=== PATIENT | female | born 1960 | race American Indian/Alaskan Native ===

== ENCOUNTER 2019-12-01 05:50 | Emergency (ER) | payer MEDICARE | END 2019-12-01 07:00 | disposition left against medical advice (07) | LOC: ED 05:50 | DX: M79.89 Other specified soft tissue disorders (principal); R06.00 Dyspnea, unspecified; Z53.21 Procedure and treatment not carried out due to patient leaving prior to being seen by health care provider ==

== ENCOUNTER 2020-03-15 11:33 | Inpatient (IN) | payer MEDICARE ==
--- NOTE | 2020-03-15 12:34 | Emergency Department Report ---
ED Shortness of Breath HPI - General Chief Complaint: Dyspnea/Respdistress Stated Complaint: GENERAL ILLNESS Time Seen by Provider: 03/15/20 12:17 Source: patient, EMS Mode of arrival: Stretcher Limitations: No Limitations - History of Present Illness Initial Comments: 59-year-old female, history of lupus, ESRD, CHF, hypertension, presents to ED from assisted living facility with URI symptoms. Patient reports cough, fever, headache x4 days. Patient reports she had a fever of 103. Patient did not go to dialysis today because she does not feel well. Patient reports only mild shortness of breath. She states several people at her facility had tested positive for COVID-19. Patient tested negative for COVID-19 on yesterday. She denies any chest pain, vomiting, diarrhea, loss of smell or taste. Patient was last dialyzed 2 days ago. EMS reports O2 sat 88% on room air. She was then placed on 3 L by EMS. MD Complaint: cough -: days(s) (4) Severity: moderate Consistency: constant Improves With: nothing Worsens With: nothing Known History Of: congestive heart failure Associated Symptoms: fever, cough Treatments Prior to Arrival: oxygen - Related Data Home Medications Medication Instructions Recorded Confirmed Last Taken Aspirin [Adult Aspirin] 81 mg PO DAILY 12/02/19 12/02/19 Unknown AtorvaSTATin 10 mg PO QHS 12/02/19 12/02/19 Unknown Clopidogrel [Plavix] 75 mg PO QDAY 12/02/19 12/02/19 Unknown Folic Acid 0.4 mg PO QDAY 12/02/19 12/02/19 Unknown Omeprazole 20 mg PO DAILY 12/02/19 12/02/19 Unknown amLODIPine 10 mg PO DAILY 12/02/19 12/02/19 Unknown azaTHIOprine [Azathioprine] 50 mg PO DAILY 12/02/19 12/02/19 Unknown calcitrioL [Rocaltrol] 1 mcg PO QDAY 12/02/19 12/02/19 Unknown prednisoLONE [Millipred 5mg (12 20 mg PO QDAY 12/02/19 12/02/19 Unknown day - 48 tab dosepak)] Previous Rx's Medication Instructions Recorded Last Taken Type Furosemide [Lasix TAB] 80 mg PO QDAY #30 tablet 12/10/19 Unknown Rx Metoprolol [Lopressor TAB] 50 mg PO BID #60 tablet 12/10/19 Unknown Rx Valsartan [Diovan] 160 mg PO BID #60 tablet 12/10/19 Unknown Rx cloNIDine [Catapres] 0.2 mg PO Q8HR #90 tablet 12/10/19 Unknown Rx hydrALAZINE [Apresoline TAB] 50 mg PO Q8HR #180 tablet 12/10/19 Unknown Rx minoxidiL [Loniten] 5 mg PO QDAY #30 tablet 12/10/19 Unknown Rx Allergies Allergy/AdvReac Type Severity Reaction Status Date / Time No Known Allergies Allergy Unverified 12/01/19 05:58 ED Review of Systems ROS: Stated complaint: GENERAL ILLNESS Other details as noted in HPI Comment: All other systems reviewed and negative Constitutional: chills, fever Respiratory: cough, shortness of breath Neurological: headache ED Past Medical Hx - Past Medical History Previous Medical History?: Yes Hx Hypertension: Yes Hx Congestive Heart Failure: Yes Hx Renal Disease: Yes (HD T TH S) Additional medical history: Lupus - Surgical History Additional Surgical History: right chest wall permacath - Social History Smoking Status: Never Smoker Substance Use Type: None - Medications Home Medications: Home Medications Medication Instructions Recorded Confirmed Last Taken Type Aspirin [Adult Aspirin] 81 mg PO DAILY 12/02/19 12/02/19 Unknown History AtorvaSTATin 10 mg PO QHS 12/02/19 12/02/19 Unknown History Clopidogrel [Plavix] 75 mg PO QDAY 12/02/19 12/02/19 Unknown History Folic Acid 0.4 mg PO QDAY 12/02/19 12/02/19 Unknown History Omeprazole 20 mg PO DAILY 12/02/19 12/02/19 Unknown History amLODIPine 10 mg PO DAILY 12/02/19 12/02/19 Unknown History azaTHIOprine [Azathioprine] 50 mg PO DAILY 12/02/19 12/02/19 Unknown History calcitrioL [Rocaltrol] 1 mcg PO QDAY 12/02/19 12/02/19 Unknown History prednisoLONE [Millipred 5mg (12 20 mg PO QDAY 12/02/19 12/02/19 Unknown History day - 48 tab dosepak)] Furosemide [Lasix TAB] 80 mg PO QDAY #30 tablet 12/10/19 Unknown Rx Metoprolol [Lopressor TAB] 50 mg PO BID #60 tablet 12/10/19 Unknown Rx Valsartan [Diovan] 160 mg PO BID #60 tablet 12/10/19 Unknown Rx cloNIDine [Catapres] 0.2 mg PO Q8HR #90 tablet 12/10/19 Unknown Rx hydrALAZINE [Apresoline TAB] 50 mg PO Q8HR #180 tablet 12/10/19 Unknown Rx minoxidiL [Loniten] 5 mg PO QDAY #30 tablet 12/10/19 Unknown Rx ED Physical Exam - General Limitations: No Limitations General appearance: alert, in no apparent distress - Head Head exam: Present: atraumatic, normocephalic - Eye Eye exam: Present: normal appearance, EOMI - ENT ENT exam: Present: mucous membranes moist - Neck Neck exam: Present: normal inspection - Respiratory Respiratory exam: Present: respiratory distress (mild), other (tachypnea present) - Cardiovascular Cardiovascular Exam: Present: regular rate, normal rhythm - GI/Abdominal GI/Abdominal exam: Present: soft. Absent: distended, tenderness - Extremities Exam Extremities exam: Present: other (2+ pitting edema BLE) - Neurological Exam Neurological exam: Present: alert, oriented X3 - Psychiatric Psychiatric exam: Present: normal affect, normal mood - Skin Skin exam: Present: warm, dry, intact, normal color ED Course Vital Signs 03/15/20 03/15/20 03/15/20 11:57 12:00 12:29 Temperature 99.7 F H Pulse Rate 80 Respiratory 19 24 Rate Blood Pressure 143/62 Blood Pressure [Left] O2 Sat by Pulse 100 100 87 Oximetry 03/15/20 13:15 Temperature Pulse Rate 77 Respiratory 26 H Rate Blood Pressure Blood Pressure 144/65 [Left] O2 Sat by Pulse 100 Oximetry ED Medical Decision Making - Lab Data Result diagrams: 03/15/20 14:12 03/15/20 12:26 - EKG Data -: EKG Interpreted by [facility] EKG shows normal: sinus rhythm, axis, intervals, QRS complexes - Radiology Data Radiology results: report reviewed, image reviewed - Medical Decision Making 59-year-old female presents to ED with URI symptoms. She reports fever at home. Patient actively coughing on exam. Patient is hypoxic, 87% on room air. States she tested negative for COVID-19 on yesterday at her assisted living facility. Chest x-ray shows some pulmonary edema. Potassium is normal. Spoke with patient's in home baby sitter, Dr. Hong, who agrees to see the patient and dialyz ed. Patient will also be a Covid PUI. Blood cultures drawn, Covid markers sent, patient given Rocephin, azithromycin, and Decadron. Patient will be admitted to hospitalist, Dr. Trevino, for further management. - Differential Diagnosis COVID-19, pulmonary edema, pleural effusion Critical Care Time: Yes Critical care time in (mins) excluding proc time.: 35 Critical care attestation.: If time is entered above; I have spent that time in minutes in the direct care of this critically ill patient, excluding procedure time. Critical Care Time: 35 min ED Disposition Clinical Impression: Acute hypoxemic respiratory failure, Pulmonary edema, Suspected 2019 novel coronavirus infection Disposition: OP ADMIT IP TO THIS HOSP Is pt being admited?: Yes Condition: Stable Time of Disposition: 14:26
--- NOTE | 2020-03-15 13:10 | XRay Report ---
CHEST 1 VIEW 03/15/2020 12:03 PM INDICATION / CLINICAL INFORMATION: cough. COMPARISON: 12/05/19 FINDINGS: SUPPORT DEVICES: Right PermCath is unchanged. HEART / MEDIASTINUM: Heart is enlarged but stable. LUNGS / PLEURA: Mild interstitial edema with tiny right pleural effusion. No pneumothorax. ADDITIONAL FINDINGS: No significant additional findings. IMPRESSION: 1. Stable cardiomegaly with tiny right pleural effusion. Signer Name: Renata Patrick MD Signed: 03/15/2020 1:05 PM Workstation Name: [id number]
[2020-03-15 13:52] LABS: INR 1.03 (0.87-1.13)
[2020-03-15 13:53] LABS: Partial Thromboplastin Time 37.2 Sec. (24.2-36.6)
[2020-03-15 13:57] LABS: Alanine Aminotransferase 7 units/L (7-56); Blood Urea Nitrogen 69 mg/dL (7-17); Calcium 9.5 mg/dL (8.4-10.2); Hemolysis Index 3
--- NOTE | 2020-03-15 14:01 | History and Physical Report ---
History of Present Illness Date of examination: 03/15/20 Date of admission: 03/15/2020 Chief complaint: Cough Fever Shortness of Breath History of present illness: 59-year-old female with known history of end-stage renal disease on dialysis- Mondays, Wednesdays and Fridays, lupus, CHF, presenting to the emergency room today from an assisted living facility with cough fever headache which has been ongoing for about 4 days. She did not go to dialysis today because she was not feeling quite well. She had a fever of about 103 F. She also also has some mild shortness of breath. Patient indicates that several people at the facility had tested positive for COVID-19. She tested negative for COVID-19 yesterday. Patient denies any chest pain, no nausea vomiting, no loss of taste or smell, no diarrhea and no abdominal pain. In route to the hospital patient oxygen saturation was about 88% on room air she was subsequently placed on 2 L of oxygen. Work-up in the emergency room today chest x-ray reveals pulmonary edema. District Ranger Dr. Hong has been consulted by the ER physician. Patient has been admitted with pulmonary edema. We will however rule out COVID-19. Past History Past Medical History: dialysis, ESRD, heart failure, hypertension, other (Lupus) Past Surgical History: Other (Right Chest wall Permacath.) Social history: no significant social history Family history: no significant family history Medications and Allergies Allergies Allergy/AdvReac Type Severity Reaction Status Date / Time No Known Allergies Allergy Unverified 12/01/19 05:58 Home Medications Medication Instructions Recorded Confirmed Last Taken Type Aspirin [Adult Aspirin] 81 mg PO DAILY 12/02/19 12/02/19 Unknown History AtorvaSTATin 10 mg PO QHS 12/02/19 12/02/19 Unknown History Clopidogrel [Plavix] 75 mg PO QDAY 12/02/19 12/02/19 Unknown History Folic Acid 0.4 mg PO QDAY 12/02/19 12/02/19 Unknown History Omeprazole 20 mg PO DAILY 12/02/19 12/02/19 Unknown History amLODIPine 10 mg PO DAILY 12/02/19 12/02/19 Unknown History azaTHIOprine [Azathioprine] 50 mg PO DAILY 12/02/19 12/02/19 Unknown History calcitrioL [Rocaltrol] 1 mcg PO QDAY 12/02/19 12/02/19 Unknown History prednisoLONE [Millipred 5mg (12 20 mg PO QDAY 12/02/19 12/02/19 Unknown History day - 48 tab dosepak)] Furosemide [Lasix TAB] 80 mg PO QDAY #30 tablet 12/10/19 Unknown Rx Metoprolol [Lopressor TAB] 50 mg PO BID #60 tablet 12/10/19 Unknown Rx Valsartan [Diovan] 160 mg PO BID #60 tablet 12/10/19 Unknown Rx cloNIDine [Catapres] 0.2 mg PO Q8HR #90 tablet 12/10/19 Unknown Rx hydrALAZINE [Apresoline TAB] 50 mg PO Q8HR #180 tablet 12/10/19 Unknown Rx minoxidiL [Loniten] 5 mg PO QDAY #30 tablet 12/10/19 Unknown Rx Review of Systems Constitutional: fever, chills Ears, nose, mouth and throat: nasal congestion, sore throat Cardiovascular: no chest pain, no palpitations Respiratory: cough, shortness of breath Gastrointestinal: no abdominal pain, no nausea, no vomiting, no diarrhea, no loss of appetite Genitourinary Female: no pelvic pain, no flank pain, no dysuria, no hematuria Musculoskeletal: no neck pain, no low back pain Integumentary: no rash, no pruritis Neurological: no headaches, no change in mentation, no confusion Exam - Constitutional Vitals: Temp Pulse Resp BP Pulse Ox 99.7 F H 77 26 H 144/65 100 03/15/20 11:57 03/15/20 13:15 03/15/20 13:15 03/15/20 13:15 03/15/20 13:15 General appearance: Present: no acute distress, well-nourished - EENT Eyes: Present: PERRL, EOM intact. Absent: scleral icterus ENT: hearing intact, clear oral mucosa, dentition normal - Neck Neck: Present: supple, normal ROM - Respiratory Respiratory effort: normal Respiratory: bilateral: CTA - Cardiovascular Rhythm: regular Heart Sounds: Present: S1 & S2. Absent: gallop, systolic murmur, diastolic murmur, rub - Extremities Extremities: no ischemia, pulses intact, pulses symmetrical, normal temperature, normal color, Full ROM Extremity abnormal: edema (2+ bilaterally) Peripheral Pulses: within normal limits - Abdominal General gastrointestinal: Present: soft, non-tender, non-distended, normal bowel sounds. Absent: mass - Integumentary Integumentary: Present: clear, warm, dry. Absent: rash - Musculoskeletal Musculoskeletal: strength equal bilaterally - Psychiatric Psychiatric: appropriate mood/affect, intact judgment & insight, memory intact, cooperative - Neurologic Neurologic: CNII-XII intact, no focal deficits, moves all extremities - Additional findings Additional findings: Right anterior chest wall permacath. Results - Labs CBC & Chem 7: 03/15/20 14:12 03/15/20 12:26 Labs: Abnormal lab results 03/15/20 03/15/20 Range/Units 12:26 12:26 APTT 37.2 H (24.2-36.6) Sec. D-Dimer 718.25 H (0-234) ng/mlDDU Sodium 130 L (137-145) mmol/L Chloride 89.8 L (98-107) mmol/L BUN 69 H (7-17) mg/dL Assessment and Plan - Patient Problems (1) Pulmonary edema Current Visit: Yes Status: Acute Plan to address problem: Patient admitted and placed on telemetry. [facility] has been consulted for dialysis. (2) Acute hypoxemic respiratory failure Current Visit: Yes Status: Acute Plan to address problem: Possibly secondary to the pulmonary edema. We will keep O2 saturation greater or equal to 94%. (3) Suspected 2019 novel coronavirus infection Current Visit: Yes Status: Acute Plan to address problem: Patient placed on isolation precautions. We will place consult to infectious disease for evaluation and recommendation. We will await COVID-19 testing.. (4) ESRD needing dialysis Current Visit: No Status: Acute Plan to address problem: Patient has dialysis on Mondays, Wednesdays and Fridays. Consult placed to onsite health coach for possible dialysis today. (5) Anemia in chronic illness Current Visit: Yes Status: Acute Plan to address problem: We will monitor CBC. Patient on Epoetin. (6) DVT prophylaxis Current Visit: No Status: Acute Plan to address problem: Patient placed on subcutaneous heparin. (7) Full code status Current Visit: Yes Status: Acute Plan to address problem: Patient is a full code.
[2020-03-15 14:07] LABS: BUN/Creatinine Ratio 12; Bilirubin,Direct < 0.2 mg/dL (0-0.2)
[2020-03-15] MEDS ORDERED: DEXAMETHASONE 4 MG TAB PO ONE (14:26)
[2020-03-15] MEDS ORDERED: cefTRIAXone/NS 1 GM/50 ML 1 GM/50 ML BAG IV ONE (14:26)
[2020-03-15] MEDS ORDERED: AZITHROMYCIN 250 MG TAB PO ONE (14:26)
[2020-03-15 14:42] LABS: Basophils % (Auto) 0.2 % (0.0-1.8); Hematocrit 26.4 % (30.3-42.9); Hemoglobin 8.8 gm/dl (10.1-14.3); Lymphocytes # (Auto) 0.1 K/mm3 (1.2-5.4); Lymphocytes % (Auto) 1.5 % (13.4-35.0); Mean Corpuscular HGB Conc 33 % (30-34); Mean Corpuscular Volume 95 fl (79-97); Monocytes # (Auto) 0.6 K/mm3 (0.0-0.8); Monocytes % (Auto) 9.2 % (0.0-7.3); Platelet Count 185 K/mm3 (140-440); Red Blood Count 2.77 M/mm3 (3.65-5.03); Red Cell Distribution Width 16.4 % (13.2-15.2)
[2020-03-15] MEDS ORDERED: MAGNESIUM HYDROXIDE (MOM) ORAL LIQD UDC PO PRN (14:59)
[2020-03-15] MEDS ORDERED: ONDANSETRON 4 MG/2 ML INJ IV PRN (14:59)
[2020-03-15] MEDS ORDERED: SODIUM CHLORIDE 0.9% 100 ML IV PRN (15:08)
--- NOTE | 2020-03-15 17:05 | Consultation ---
History of Present Illness - Reason for Consult Consult date: 03/15/20 end stage renal disease Requesting physician: ÁNGEL SCHNEIDER - History of Present Illness This is a 59 yo F with past medical history of hypertension, SLE, complicated by lupus nephritis, ESRD on HD since 06/2018, on MWF schedule at [facility], who presents to ER with complaints of cough, fever, chills, SOB. in ER temp was 103F, O2 sat 88% on room air, pt was placed on 3L NC. CXR showed cardiomegaly with small R pleural effusion. Pt states that she was tested for COVID19 at her living facility yesterday and it was negative. Repeat SARS CoV 19 test pending. She denies any chest pain, vomiting, diarrhea, loss of smell or taste. patient's last HD was on Fri, however did not go to HD today d/t above symptoms. Labs showed elevated BUN/Cr at 69/6.0mg/dl along with mild hyponatremia (Na 130), beatriz vated proBNP > 32106, inflammatory parameters were elevated with Ferritin 1021, D-dimer 718, CRP 7.1, LDH 290. pt is PUI for COVID19 and is placed on isolation. Renal consult is requested for management of ESRD/HD Past History Past Medical History: dialysis, ESRD, heart failure, hypertension, other (Lupus) Past Surgical History: Other (Right Chest wall Permacath.) Social history: no significant social history Family history: no significant family history Medications and Allergies Allergies Allergy/AdvReac Type Severity Reaction Status Date / Time No Known Allergies Allergy Unverified 12/01/19 05:58 Home Medications Medication Instructions Recorded Confirmed Last Taken Type Aspirin [Adult Aspirin] 81 mg PO DAILY 12/02/19 12/02/19 Unknown History AtorvaSTATin 10 mg PO QHS 12/02/19 12/02/19 Unknown History Clopidogrel [Plavix] 75 mg PO QDAY 12/02/19 12/02/19 Unknown History Folic Acid 0.4 mg PO QDAY 12/02/19 12/02/19 Unknown History Omeprazole 20 mg PO DAILY 12/02/19 12/02/19 Unknown History amLODIPine 10 mg PO DAILY 12/02/19 12/02/19 Unknown History azaTHIOprine [Azathioprine] 50 mg PO DAILY 12/02/19 12/02/19 Unknown History calcitrioL [Rocaltrol] 1 mcg PO QDAY 12/02/19 12/02/19 Unknown History prednisoLONE [Millipred 5mg (12 20 mg PO QDAY 12/02/19 12/02/19 Unknown History day - 48 tab dosepak)] Furosemide [Lasix TAB] 80 mg PO QDAY #30 tablet 12/10/19 Unknown Rx Metoprolol [Lopressor TAB] 50 mg PO BID #60 tablet 12/10/19 Unknown Rx Valsartan [Diovan] 160 mg PO BID #60 tablet 12/10/19 Unknown Rx cloNIDine [Catapres] 0.2 mg PO Q8HR #90 tablet 12/10/19 Unknown Rx hydrALAZINE [Apresoline TAB] 50 mg PO Q8HR #180 tablet 12/10/19 Unknown Rx minoxidiL [Loniten] 5 mg PO QDAY #30 tablet 12/10/19 Unknown Rx Active Meds: Active Medications Acetaminophen (Acetaminophen 325 Mg Tab) 650 mg PO Q4H PRN PRN Reason: Pain MILD(1-3)/Fever >100.5/KENNY Furosemide (Furosemide 40 Mg/4 Ml Inj) 40 mg IV BID@0600,1800 MIK Ceftriaxone Sodium (Rocephin/Ns 2 Gm/100 Ml) 2 gm in 100 mls @ 200 mls/hr IV Q24H MIK; Protocol Azithromycin (Zithromax/Ns) 500 mg in 250 mls @ 250 mls/hr IV Q24H MIK; Protocol Sodium Chloride (Nacl 0.9%) 100 mls @ 999 mls/hr IV SHEREE PRN PRN Reason: Hypotension Magnesium Hydroxide (Magnesium Hydroxide (Mom) Oral Liqd Udc) 30 ml PO Q4H PRN PRN Reason: Constipation Morphine Sulfate (Morphine 2 Mg/1 Ml Inj) 2 mg IV Q5MIN PRN PRN Reason: Chest Pain unrelieved by NTG Ondansetron HCl (Ondansetron 4 Mg/2 Ml Inj) 4 mg IV Q8H PRN PRN Reason: Nausea And Vomiting Sodium Chloride (Sodium Chloride 0.9% 10 Ml Flush Syringe) 10 ml IV BID MIK Sodium Chloride (Sodium Chloride 0.9% 10 Ml Flush Syringe) 10 ml IV PRN PRN PRN Reason: LINE FLUSH Review of Systems All systems: negative Constitutional: fever, chills, fatigue, weakness, malaise Exam - Vital Signs Vital signs: Vital Signs Temp Pulse Resp BP Pulse Ox 99.7 F H 80 19 143/62 100 03/15/20 11:57 03/15/20 11:57 03/15/20 11:57 03/15/20 11:57 03/15/20 11:57 - Physical Exam Narrative exam: In an effort to conserve Personal protective equipment and limit exposure, the patient was not directly examined by me. Interdisciplinary team notes, previous examinations, labs and diagnostics have been extensively reviewed and all recommendations taken into consideration. Physical exam deferred to primary team Results - Lab Results 03/15/20 14:12 03/15/20 12:26 Most recent lab results Calcium 9.5 mg/dL (8.4-10.2) 03/15/20 12:26 Assessment and Plan - Patient Problems (1) Suspected 2019 novel coronavirus infection Current Visit: Yes Status: Acute Plan to address problem: pt started on dexamethasone 6mg po qd, repeat SARS CoV19 test result pending. on 3L NC, trend inflammatory parameters (2) ESRD needing dialysis Current Visit: No Status: Acute Plan to address problem: HD arranged today with target UF 2-3L as tolerated for volume control. Cont HD on MWF schedule (3) Hypertensive chronic kidney disease with stage 5 chronic kidney disease or end stage renal disease Current Visit: Yes Status: Acute Plan to address problem: resume home BP meds. (4) Lupus (systemic lupus erythematosus) Current Visit: Yes Status: Acute (5) Anemia in chronic illness Current Visit: Yes Status: Acute Plan to address problem: cont EPO with HD (6) Secondary hyperparathyroidism (of renal origin) Current Visit: Yes Status: Acute Plan to address problem: cont calcitriol 0.5mcg po qd while inpatient
[2020-03-15] MEDS ORDERED: EPOETIN ALFA 10,000 UNIT/1 ML INJ SUB-Q SCH (18:00)
[2020-03-15] MEDS: FUROSEMIDE 40 MG/4 ML INJ IV SCH (18:41)
[2020-03-15 20:12] LABS: Hepatitis B Surface Antigen Non-Reactive (Negative); Hepatitis C Virus Antibody Non-Reactive (NonReactive)
[2020-03-15] MEDS: cloNIDine 0.1 MG TAB PO SCH (22:19)
[2020-03-15] MEDS: VALSARTAN 160MG TAB PO SCH (22:19)
[2020-03-15] MEDS: METOPROLOL TARTRATE 50 MG TAB PO SCH (22:20)
[2020-03-15] MEDS: HEPARIN 5,000 UNIT/1 ML VIAL SUB-Q SCH (22:38)
[2020-03-16] MEDS: MORPHINE 2 MG/1 ML INJ IV PRN (01:36)
[2020-03-16] MEDS: traMADol 50 MG TAB PO PRN ×3 (03:38→22:08)
[2020-03-16] MEDS: cloNIDine 0.1 MG TAB PO SCH ×3 (05:47→22:07)
[2020-03-16] MEDS: FUROSEMIDE 40 MG/4 ML INJ IV SCH ×2 (05:47→18:20)
[2020-03-16] MEDS: HEPARIN 5,000 UNIT/1 ML VIAL SUB-Q SCH ×3 (05:52→22:09)
[2020-03-16 07:28] LABS: Basophils % (Auto) 0.5 % (0.0-1.8); Hematocrit 28.2 % (30.3-42.9); Hemoglobin 9.3 gm/dl (10.1-14.3); Lymphocytes # (Auto) 0.3 K/mm3 (1.2-5.4); Mean Corpuscular HGB Conc 33 % (30-34); Mean Corpuscular Volume 96 fl (79-97); Monocytes # (Auto) 0.3 K/mm3 (0.0-0.8); Monocytes % (Auto) 8.4 % (0.0-7.3); Platelet Count 200 K/mm3 (140-440); Red Blood Count 2.94 M/mm3 (3.65-5.03); Red Cell Distribution Width 16.7 % (13.2-15.2)
[2020-03-16 07:38] LABS: INR 1.14 (0.87-1.13)
[2020-03-16 07:43] LABS: Calcium 9.3 mg/dL (8.4-10.2)
[2020-03-16] MEDS: ACETAMINOPHEN 325 MG TAB PO PRN (08:44)
[2020-03-16] MEDS ORDERED: CALCITRIOL 0.5 MCG CAP PO SCH (10:00)
[2020-03-16] MEDS ORDERED: CALCITRIOL 0.25 MCG CAP PO SCH (10:00)
[2020-03-16] MEDS ORDERED: AZITHROMYCIN/NS 500 MG/250 ML 500 MG/250 ML BAG IV SCH (10:00)
[2020-03-16] MEDS ORDERED: PREDNISOLONE 5 MG PO SCH (10:00)
[2020-03-16] MEDS ORDERED: NON-FORMULARY EACH (Omeprazole [Omeprazole] 20 MG Capsule.Dr) PO SCH (10:00)
[2020-03-16] MEDS: cefTRIAXone/NS 2 GM/100 ML 2 GM/100 ML BAG IV SCH (11:30)
[2020-03-16] MEDS: CALCITRIOL 0.5 MCG CAP PO SCH (11:30)
[2020-03-16] MEDS: VALSARTAN 160MG TAB PO SCH ×2 (11:31→22:06)
[2020-03-16] MEDS: CLOPIDOGREL 75 MG TAB PO SCH (11:32)
[2020-03-16] MEDS: amLODIPine 10 MG TAB PO SCH (11:32)
[2020-03-16] MEDS: METOPROLOL TARTRATE 50 MG TAB PO SCH ×2 (11:32→22:08)
[2020-03-16] MEDS: ASPIRIN EC 81 MG TAB PO SCH (11:32)
[2020-03-16] MEDS: PANTOPRAZOLE 20 MG TAB PO SCH (11:33)
[2020-03-16] MEDS: dexAMETHasone 4 MG/ML VIAL IV SCH (11:33)
--- NOTE | 2020-03-16 12:37 | Consultation ---
History of Present Illness - Reason for Consult Consult date: 03/16/20 end stage renal disease Requesting physician: ÁNGEL SCHNEIDER - History of Present Illness This is a 59 yo F with past medical history of hypertension, SLE, complicated by lupus nephritis, ESRD on HD since 06/2018, on MWF schedule at [facility], who presents to ER with complaints of cough, fever, chills, SOB. in ER temp was 103F, O2 sat 88% on room air, pt was placed on 3L NC. CXR showed cardiomegaly with small R pleural effusion. Pt states that she was tested for COVID19 at her living facility yesterday and it was negative. Repeat SARS CoV 19 test pending. She denies any chest pain, vomiting, diarrhea, loss of smell or taste. patient's last HD was on Fri, however did not go to HD today d/t above symptoms. Labs showed elevated BUN/Cr at 69/6.0mg/dl along with mild hyponatremia (Na 130), beatriz vated proBNP > 44915, inflammatory parameters were elevated with Ferritin 1021, D-dimer 718, CRP 7.1, LDH 290. pt is PUI for COVID19 and is placed on isolation. Renal consult is requested for management of ESRD/HD Past History Past Medical History: dialysis, ESRD, heart failure, hypertension, other (Lupus) Past Surgical History: Other (Right Chest wall Permacath.) Social history: no significant social history Family history: no significant family history Medications and Allergies Allergies Allergy/AdvReac Type Severity Reaction Status Date / Time No Known Allergies Allergy Unverified 12/01/19 05:58 Home Medications Medication Instructions Recorded Confirmed Last Taken Type Aspirin [Adult Aspirin] 81 mg PO DAILY 12/02/19 12/02/19 Unknown History AtorvaSTATin 10 mg PO QHS 12/02/19 12/02/19 Unknown History Clopidogrel [Plavix] 75 mg PO QDAY 12/02/19 12/02/19 Unknown History Folic Acid 0.4 mg PO QDAY 12/02/19 12/02/19 Unknown History Omeprazole 20 mg PO DAILY 12/02/19 12/02/19 Unknown History amLODIPine 10 mg PO DAILY 12/02/19 12/02/19 Unknown History azaTHIOprine [Azathioprine] 50 mg PO DAILY 12/02/19 12/02/19 Unknown History calcitrioL [Rocaltrol] 1 mcg PO QDAY 12/02/19 12/02/19 Unknown History prednisoLONE [Millipred 5mg (12 20 mg PO QDAY 12/02/19 12/02/19 Unknown History day - 48 tab dosepak)] Furosemide [Lasix TAB] 80 mg PO QDAY #30 tablet 12/10/19 Unknown Rx Metoprolol [Lopressor TAB] 50 mg PO BID #60 tablet 12/10/19 Unknown Rx Valsartan [Diovan] 160 mg PO BID #60 tablet 12/10/19 Unknown Rx cloNIDine [Catapres] 0.2 mg PO Q8HR #90 tablet 12/10/19 Unknown Rx hydrALAZINE [Apresoline TAB] 50 mg PO Q8HR #180 tablet 12/10/19 Unknown Rx minoxidiL [Loniten] 5 mg PO QDAY #30 tablet 12/10/19 Unknown Rx Active Meds: Active Medications Acetaminophen (Acetaminophen 325 Mg Tab) 650 mg PO Q4H PRN PRN Reason: Pain MILD(1-3)/Fever >100.5/KENNY Last Admin: 03/16/20 08:44 Dose: 650 mg Documented by: Amlodipine Besylate (Amlodipine 10 Mg Tab) 10 mg PO DAILY [facility] Last Admin: 03/16/20 11:32 Dose: 10 mg Documented by: Aspirin (Aspirin Ec 81 Mg Tab) 81 mg PO DAILY [facility] Last Admin: 03/16/20 11:32 Dose: 81 mg Documented by: Atorvastatin Calcium (Atorvastatin 10 Mg Tab) 10 mg PO QHS [facility] Last Admin: 03/15/20 22:36 Dose: 10 mg Documented by: Azathioprine (Azathioprine 50 Mg Tab) 50 mg PO DAILY [facility] Azithromycin (Azithromycin 250 Mg Tab) 500 mg PO QDAY [facility]; Protocol Calcitriol (Calcitriol 0.5 Mcg Cap) 1 mcg PO QDAY [facility] Last Admin: 03/16/20 11:30 Dose: 1 mcg Documented by: Clonidine HCl (Clonidine 0.1 Mg Tab) 0.2 mg PO Q8HR [facility] Last Admin: 03/16/20 05:47 Dose: Not Given Documented by: Clopidogrel Bisulfate (Clopidogrel 75 Mg Tab) 75 mg PO QDAY [facility] Last Admin: 03/16/20 11:32 Dose: 75 mg Documented by: Dexamethasone (Dexamethasone 4 Mg/Ml Vial) 6 mg IV Q24HR [facility] Last Admin: 03/16/20 11:33 Dose: 6 mg Documented by: Epoetin Hill (E[place]etin [place] 10,000 Unit/1 Ml Inj) 10,000 unit SUB-Q SHEREE [facility] Furosemide (Furosemide 40 Mg/4 Ml Inj) 40 mg IV BID@0600,1800 [facility] Last Admin: 03/16/20 05:47 Dose: Not Given Documented by: Heparin Sodium (Porcine) (Heparin 5,000 Unit/1 Ml Vial) 5,000 unit SUB-Q Q8HR [facility] Last Admin: 03/16/20 05:52 Dose: Not Given Documented by: Ceftriaxone Sodium (Rocephin/Ns 2 Gm/100 Ml) 2 gm in 100 mls @ 200 mls/hr IV Q24H [facility]; Protocol Last Admin: 03/16/20 11:30 Dose: 200 mls/hr Documented by: Sodium Chloride (Nacl 0.9%) 100 mls @ 999 mls/hr IV SHEREE PRN PRN Reason: Hypotension Magnesium Hydroxide (Magnesium Hydroxide (Mom) Oral Liqd Udc) 30 ml PO Q4H PRN PRN Reason: Constipation Metoprolol Tartrate (Metoprolol Tartrate 50 Mg Tab) 50 mg PO BID [facility] Last Admin: 03/16/20 11:32 Dose: 50 mg Documented by: Morphine Sulfate (Morphine 2 Mg/1 Ml Inj) 2 mg IV Q5MIN PRN PRN Reason: Chest Pain unrelieved by NTG Last Admin: 03/16/20 01:36 Dose: 2 mg Documented by: Ondansetron HCl (Ondansetron 4 Mg/2 Ml Inj) 4 mg IV Q8H PRN PRN Reason: Nausea And Vomiting Pantoprazole Sodium (Pantoprazole 20 Mg Tab) 20 mg PO QDAY [facility] Last Admin: 03/16/20 11:33 Dose: 20 mg Documented by: Sodium Chloride (Sodium Chloride 0.9% 10 Ml Flush Syringe) 10 ml IV BID [facility] Last Admin: 03/15/20 22:18 Dose: Not Given Documented by: Sodium Chloride (Sodium Chloride 0.9% 10 Ml Flush Syringe) 10 ml IV PRN PRN PRN Reason: LINE FLUSH Tramadol HCl (Tramadol 50 Mg Tab) 50 mg PO Q6H PRN PRN Reason: Pain, Moderate (4-6) Last Admin: 03/16/20 11:44 Dose: 50 mg Documented by: Valsartan (Valsartan 160mg Tab) 160 mg PO BID [facility] Last Admin: 03/16/20 11:31 Dose: 160 mg Documented by: Exam - Vital Signs Vital signs: Vital Signs Pulse Resp 82 13 03/15/20 11:48 03/15/20 11:48 - Physical Exam Narrative exam: In an effort to conserve Personal protective equipment and limit exposure, the patient was not directly examined by me. Interdisciplinary team notes, previous examinations, labs and diagnostics have been extensively reviewed and all recommendations taken into consideration. Physical exam deferred to primary team Results - Lab Results 03/16/20 06:18 03/16/20 06:18 Most recent lab results Calcium 9.3 mg/dL (8.4-10.2) 03/16/20 06:18 Assessment and Plan - Patient Problems (1) Suspected 2019 novel coronavirus infection Current Visit: Yes Status: Acute Plan to address problem: pt started on dexamethasone 6mg po qd, repeat SARS CoV19 test result pending. on 3L NC, trend inflammatory parameters (2) ESRD needing dialysis Current Visit: No Status: Acute Plan to address problem: HD arranged yesterday with target UF 3L. Cont HD on MWF schedule (3) Hypertensive chronic kidney disease with stage 5 chronic kidney disease or end stage renal disease Current Visit: Yes Status: Acute Plan to address problem: resume home BP meds. (4) Lupus (systemic lupus erythematosus) Current Visit: Yes Status: Acute (5) Anemia in chronic illness Current Visit: Yes Status: Acute Plan to address problem: cont EPO with HD (6) Secondary hyperparathyroidism (of renal origin) Current Visit: Yes Status: Acute Plan to address problem: cont calcitriol 0.5mcg po qd while inpatient
--- NOTE | 2020-03-16 15:00 | Progress Note ---
Assessment and Plan Assessment and plan: 59-year-old -[place] female with end-stage renal disease, CHF, lupus who presents with cough and fever and dyspnea for about 4 days. Plan: Acute hypoxic respiratory failure -Oxygen supplementation -Covid is positive -Covid protocol initiated Covid pneumonia -Covid positive -Infectious disease consulted -Dexamethasone initiated, will await additional recommendations from ID Azithromycin and ceftriaxone End-stage renal disease -Friday -Nephrology consulted -Continue dialysis as scheduled Hypertension related to renal disease Losartan, metoprolol, furosemide Anemia and chronic disease illness -No acute bleeding Hypervolemic hyponatremia -Resolved with hemodialysis Heart failure, unspecified type Presumed history of CAD Elevated BNP Metoprolol, Plavix Morbid obesity Lifestyle change CODE STATUS: Full DVT prophylaxis: Heparin Disposition: Continue treatment for fluid overload, continue hemodialysis and treatment for Covid pneumonia. History Interval history: 03/16/2020 patient seen and examined, continues to be on nasal cannula oxygen, Covid positive, ID and nephrology consulted for end-stage renal disease and Covid infection. Attempt to wean patient off of oxygen as tolerated. Patient states that she is feeling a little bit better. Hospitalist Physical - Physical exam Narrative exam: General appearance: Present: Obese, no acute distress, well-nourished - EENT Eyes: Present: PERRL, EOM intact ENT: hearing intact, clear oral mucosa - Respiratory Respiratory effort: normal Respiratory: bilateral: 2 to 3 L nasal cannula oxygen, mild crackles in lower lung bases bilaterally, mild wheezes bilaterally, rhonchi heard - Cardiovascular Rhythm: regular Heart Sounds: Present: S1 & S2. Absent: rub, click - Extremities Extremities: no ischemia, No edema, normal temperature, normal color, Full ROM - Abdominal General gastrointestinal: soft, non-tender, non-distended, normal bowel sounds - Integumentary Integumentary: Present: clear, warm, dry, normal turgor - Neurologic Neurologic: CNII-XII intact, no focal deficits, moves all extremities - Constitutional Vitals: Temp Pulse Resp BP Pulse Ox 98.9 F 74 18 162/83 98 03/16/20 10:50 03/16/20 11:32 03/16/20 10:50 03/16/20 11:31 03/16/20 12:00 General appearance: Present: no acute distress, well-nourished Results - Labs CBC & Chem 7: 03/16/20 06:18 03/16/20 06:18 Labs: Laboratory Last Values WBC 3.7 K/mm3 (4.5-11.0) L 03/16/20 06:18 RBC 2.94 M/mm3 (3.65-5.03) L 03/16/20 06:18 Hgb 9.3 gm/dl (10.1-14.3) L 03/16/20 06:18 Hct 28.2 % (30.3-42.9) L 03/16/20 06:18 MCV 96 fl (79-97) 03/16/20 06:18 MCH 32 pg (28-32) 03/16/20 06:18 MCHC 33 % (30-34) 03/16/20 06:18 RDW 16.7 % (13.2-15.2) H 03/16/20 06:18 Plt Count 200 K/mm3 (140-440) 03/16/20 06:18 Lymph % (Auto) 7.0 % (13.4-35.0) L 03/16/20 06:18 [place] % (Auto) 8.4 % (0.0-7.3) H 03/16/20 06:18 Eos % (Auto) 0.0 % (0.0-4.3) 03/16/20 06:18 Baso % (Auto) 0.5 % (0.0-1.8) 03/16/20 06:18 Lymph # (Auto) 0.3 K/mm3 (1.2-5.4) L 03/16/20 06:18 [place] # (Auto) 0.3 K/mm3 (0.0-0.8) 03/16/20 06:18 Eos # (Auto) 0.0 K/mm3 (0.0-0.4) 03/16/20 06:18 Baso # (Auto) 0.0 K/mm3 (0.0-0.1) 03/16/20 06:18 Seg Neutrophils % 84.1 % (40.0-70.0) H 03/16/20 06:18 Seg Neutrophils # 3.1 K/mm3 (1.8-7.7) 03/16/20 06:18 PT 14.5 Sec. (12.2-14.9) 03/16/20 06:18 INR 1.14 (0.87-1.13) H 03/16/20 06:18 APTT 37.2 Sec. (24.2-36.6) H 03/15/20 12:26 D-Dimer 718.25 ng/mlDDU (0-234) H 03/15/20 12:26 Sodium 137 mmol/L (137-145) D 03/16/20 06:18 Potassium 4.6 mmol/L (3.6-5.0) 03/16/20 06:18 Chloride 96.2 mmol/L (98-107) L 03/16/20 06:18 Carbon Dioxide 27 mmol/L (22-30) 03/16/20 06:18 Anion Gap 18 mmol/L 03/16/20 06:18 BUN 55 mg/dL (7-17) H 03/16/20 06:18 Creatinine 5.0 mg/dL (0.6-1.2) H 03/16/20 06:18 Estimated GFR 11 ml/min 03/16/20 06:18 BUN/Creatinine Ratio 11 % 03/16/20 06:18 Glucose 87 mg/dL (65-100) 03/16/20 06:18 Calcium 9.3 mg/dL (8.4-10.2) 03/16/20 06:18 Ferritin 1021.0 ng/mL (10.0-200.0) H 03/15/20 12:29 Total Bilirubin 0.30 mg/dL (0.1-1.2) 03/15/20 12:26 Direct Bilirubin < 0.2 mg/dL (0-0.2) 03/15/20 12:26 Indirect Bilirubin 0.1 mg/dL 03/15/20 12:26 AST 15 units/L (5-40) 03/15/20 12:26 ALT 7 units/L (7-56) 03/15/20 12:26 Alkaline Phosphatase 78 units/L (35-129) 03/15/20 12:26 Lactate Dehydrogenase 290 units/L (91-180) H 03/15/20 13:10 C-Reactive Protein 7.10 mg/dL (0.00-1.30) H 03/15/20 13:10 NT-Pro-B Natriuret Pep > 06409 pg/mL (0-900) H 03/15/20 13:10 Total Protein 6.6 g/dL (6.3-8.2) 03/15/20 12:26 Albumin 4.0 g/dL (3.9-5) 03/15/20 12:26 Albumin/Globulin Ratio 1.5 % 03/15/20 12: Procalcitonin 0.68 ng/mL (<0.15) 03/15/20 13:10 Coronavirus (PCR) Positive (Negative) A 03/16/20 Unknown Hepatitis A IgM Ab Non-reactive (NonReactive) 03/15/20 19:18 Hep Bs Antigen Non-reactive (Negative) 03/15/20 19:18 Hep B Core IgM Ab Non-reactive (NonReactive) 03/15/20 19:18 Hepatitis C Antibody Non-reactive (NonReactive) 03/15/20 19:18 Microbiology: Microbiology 03/15/20 13:10 Peripheral/Venous Blood Culture - Preliminary NO GROWTH AFTER 24 HOURS 03/15/20 13:10 Peripheral/Venous Blood Culture - Preliminary NO GROWTH AFTER 24 HOURS Marx/IV: Voiding Method Bedpan IV Catheter Type [Left Hand] INT / Saline Lock Active Medications - Current Medications Current Medications: Generic Name Dose Route Start Last Admin Trade Name Freq PRN Reason Stop Dose Admin Acetaminophen 650 mg 03/15/20 14:59 03/16/20 08:44 Acetaminophen 325 Mg Tab PO 650 mg Q4H PRN Administration Pain MILD(1-3)/Fever >100.5/KENNY Amlodipine Besylate 10 mg 03/16/20 10:00 03/16/20 11:32 Amlodipine 10 Mg Tab PO 10 mg DAILY [facility]K Administration Aspirin 81 mg 03/16/20 10:00 03/16/20 11:32 Aspirin Ec 81 Mg Tab PO 81 mg DAILY [facility] Administration Atorvastatin Calcium 10 mg 03/15/20 22:00 03/15/20 22:36 Atorvastatin 10 Mg Tab PO 10 mg QHS [facility] Administration Azathioprine 50 mg 03/16/20 10:00 Azathioprine 50 Mg Tab PO DAILY [facility] Azithromycin 500 mg 03/16/20 12:00 Azithromycin 250 Mg Tab PO QDAY [facility] Protocol Calcitriol 1 mcg 03/16/20 10:00 03/16/20 11:30 Calcitriol 0.5 Mcg Cap PO 1 mcg QDAY MIK Administration Clonidine HCl 0.2 mg 03/15/20 22:00 03/16/20 05:47 Clonidine 0.1 Mg Tab PO Not Given Q8HR MIK Clopidogrel Bisulfate 75 mg 03/16/20 10:00 03/16/20 11:32 Clopidogrel 75 Mg Tab PO 75 mg QDAY [facility] Administration Dexamethasone 6 mg 03/16/20 10:00 03/16/20 11:33 Dexamethasone 4 Mg/Ml Vial IV 6 mg Q24HR [facility]K Administration Epoetin [place] 10,000 unit 03/15/20 18:00 [place] 10,000 Unit/1 Ml Inj SUB-Q SHEREE [facility] Furosemide 40 mg 03/15/20 18:00 03/16/20 05:47 Furosemide 40 Mg/4 Ml Inj IV Not Given BID@0600,1800 [facility] Heparin Sodium (Porcine) 5,000 unit 03/15/20 22:00 03/16/20 05:52 Heparin 5,000 Unit/1 Ml Vial SUB-Q Not Given Q8HR [facility] Ceftriaxone Sodium 2 gm in 100 mls @ 200 mls/hr 03/16/20 10:00 03/16/20 11:30 Rocephin/Ns 2 Gm/100 Ml IV 200 mls/hr Q24H [facility] Administration Protocol Sodium Chloride 100 mls @ 999 mls/hr 03/15/20 15:08 Nacl 0.9% IV SHEREE PRN Hypotension Magnesium Hydroxide 30 ml 03/15/20 14:59 Magnesium Hydroxide (Mom) Oral Liqd Udc PO Q4H PRN Constipation Metoprolol Tartrate 50 mg 03/15/20 22:00 03/16/20 11:32 Metoprolol Tartrate 50 Mg Tab PO 50 mg BID MIK Administration Morphine Sulfate 2 mg 03/15/20 14:59 03/16/20 01:36 Morphine 2 Mg/1 Ml Inj IV 2 mg Q5MIN PRN Administration Chest Pain unrelieved by NTG Ondansetron HCl 4 mg 03/15/20 14:59 Ondansetron 4 Mg/2 Ml Inj IV Q8H PRN Nausea And Vomiting Pantoprazole Sodium 20 mg 03/16/20 10:00 03/16/20 11:33 Pantoprazole 20 Mg Tab PO 20 mg QDAY [facility]K Administration Sodium Chloride 10 ml 03/15/20 22:00 03/15/20 22:18 Sodium Chloride 0.9% 10 Ml Flush Syringe IV Not Given BID MIK Sodium Chloride 10 ml 03/15/20 14:59 Sodium Chloride 0.9% 10 Ml Flush Syringe IV PRN PRN LINE FLUSH Tramadol HCl 50 mg 03/16/20 03:23 03/16/20 11:44 Tramadol 50 Mg Tab PO 50 mg Q6H PRN Administration Pain, Moderate (4-6) Valsartan 160 mg 03/15/20 22:00 03/16/20 11:31 Valsartan 160mg Tab PO 160 mg BID MIK Administration
[2020-03-16] MEDS: AZITHROMYCIN 250 MG TAB PO SCH (15:25)
[2020-03-16] MEDS: azaTHIOprine 50 MG TAB PO SCH (15:34)
[2020-03-16] MEDS ORDERED: hydrALAZINE 20 MG/1 ML INJ IV PRN (16:13)
[2020-03-16] MEDS ORDERED: hydrALAZINE 20 MG/1 ML INJ IV ONE (17:12)
--- NOTE | 2020-03-16 18:11 | Consultation ---
History of Present Illness - Reason for Consult Consult date: 03/16/20 COVID Requesting physician: TYE STEWART - History of Present Illness 59 years old female with history of end-stage renal disease on hemodialysis, lupus, CHF, admitted on 03/15/2020 secondary to 4-day history of dry cough, fever, headaches and generalized malaise. She was found to have a fever of 103 and did not go to dialysis. She also noted some shortness of breath. She lives in an assisted living facility where several people has tested positive for COVID-19. On arrival, temperature 99.7, HR 82, RR 18, O2 100, BP 149/62. Initial WBC 6.6. Hemoglobin 8.8. D-dimer 718. Ferritin 1021. BNP 35,000. Chest x-ray reveals pulmonary edema. O2 sat dropped to 87%. Patient currently on 2 L nasal cannula. Review of Systems: reviewed ED and H&P notes. Review of system deferred to minimize COVID-19 transmission. Past History Past Medical History: dialysis, ESRD, heart failure, hypertension, other (Lupus) Past Surgical History: Other (Right Chest wall Permacath.) Social history: no significant social history Family history: no significant family history Medications and Allergies Allergies Allergy/AdvReac Type Severity Reaction Status Date / Time No Known Allergies Allergy Unverified 12/01/19 05:58 Home Medications Medication Instructions Recorded Confirmed Last Taken Type Aspirin [Adult Aspirin] 81 mg PO DAILY 12/02/19 12/02/19 Unknown History AtorvaSTATin 10 mg PO QHS 12/02/19 12/02/19 Unknown History Clopidogrel [Plavix] 75 mg PO QDAY 12/02/19 12/02/19 Unknown History Folic Acid 0.4 mg PO QDAY 12/02/19 12/02/19 Unknown History Omeprazole 20 mg PO DAILY 12/02/19 12/02/19 Unknown History amLODIPine 10 mg PO DAILY 12/02/19 12/02/19 Unknown History azaTHIOprine [Azathioprine] 50 mg PO DAILY 12/02/19 12/02/19 Unknown History calcitrioL [Rocaltrol] 1 mcg PO QDAY 12/02/19 12/02/19 Unknown History prednisoLONE [Millipred 5mg (12 20 mg PO QDAY 12/02/19 12/02/19 Unknown History day - 48 tab dosepak)] Furosemide [Lasix TAB] 80 mg PO QDAY #30 tablet 12/10/19 Unknown Rx Metoprolol [Lopressor TAB] 50 mg PO BID #60 tablet 12/10/19 Unknown Rx Valsartan [Diovan] 160 mg PO BID #60 tablet 12/10/19 Unknown Rx cloNIDine [Catapres] 0.2 mg PO Q8HR #90 tablet 12/10/19 Unknown Rx hydrALAZINE [Apresoline TAB] 50 mg PO Q8HR #180 tablet 12/10/19 Unknown Rx minoxidiL [Loniten] 5 mg PO QDAY #30 tablet 12/10/19 Unknown Rx Active Meds: Active Medications Acetaminophen (Acetaminophen 325 Mg Tab) 650 mg PO Q4H PRN PRN Reason: Pain MILD(1-3)/Fever >100.5/KENNY Last Admin: 03/16/20 08:44 Dose: 650 mg Documented by: Amlodipine Besylate (Amlodipine 10 Mg Tab) 10 mg PO DAILY [facility] Last Admin: 03/16/20 11:32 Dose: 10 mg Documented by: Aspirin (Aspirin Ec 81 Mg Tab) 81 mg PO DAILY [facility] Last Admin: 03/16/20 11:32 Dose: 81 mg Documented by: Atorvastatin Calcium (Atorvastatin 10 Mg Tab) 10 mg PO QHS [facility] Last Admin: 03/15/20 22:36 Dose: 10 mg Documented by: Azathioprine (Azathioprine 50 Mg Tab) 50 mg PO DAILY [facility] Last Admin: 03/16/20 15:34 Dose: 50 mg Documented by: Azithromycin (Azithromycin 250 Mg Tab) 500 mg PO QDAY [facility]; Protocol Last Admin: 03/16/20 15:25 Dose: 500 mg Documented by: Calcitriol (Calcitriol 0.5 Mcg Cap) 1 mcg PO QDAY [facility] Last Admin: 03/16/20 11:30 Dose: 1 mcg Documented by: Clonidine HCl (Clonidine 0.1 Mg Tab) 0.2 mg PO Q8HR [facility] Last Admin: 03/16/20 15:35 Dose: 0.2 mg Documented by: Clopidogrel Bisulfate (Clopidogrel 75 Mg Tab) 75 mg PO QDAY [facility] Last Admin: 03/16/20 11:32 Dose: 75 mg Documented by: Dexamethasone (Dexamethasone 4 Mg/Ml Vial) 6 mg IV Q24HR [facility] Last Admin: 03/16/20 11:33 Dose: 6 mg Documented by: Epoetin [place] (E[place]etin [place] 10,000 Unit/1 Ml Inj) 10,000 unit SUB-Q SHEREE [facility] Furosemide (Furosemide 40 Mg/4 Ml Inj) 40 mg IV BID@0600,1800 [facility] Last Admin: 03/16/20 05:47 Dose: Not Given Documented by: Heparin Sodium (Porcine) (Heparin 5,000 Unit/1 Ml Vial) 5,000 unit SUB-Q Q8HR [facility] Last Admin: 03/16/20 15:35 Dose: 5,000 unit Documented by: Hydralazine HCl (Hydralazine 20 Mg/1 Ml Inj) 10 mg IV Q4HR PRN PRN Reason: Give if SBP>180 DBP>100 Ceftriaxone Sodium (Rocephin/Ns 2 Gm/100 Ml) 2 gm in 100 mls @ 200 mls/hr IV Q24H [facility]; Protocol Last Admin: 03/16/20 11:30 Dose: 200 mls/hr Documented by: Sodium Chloride (Nacl 0.9%) 100 mls @ 999 mls/hr IV SHEREE PRN PRN Reason: Hypotension Magnesium Hydroxide (Magnesium Hydroxide (Mom) Oral Liqd Udc) 30 ml PO Q4H PRN PRN Reason: Constipation Metoprolol Tartrate (Metoprolol Tartrate 50 Mg Tab) 50 mg PO BID [facility] Last Admin: 03/16/20 11:32 Dose: 50 mg Documented by: Morphine Sulfate (Morphine 2 Mg/1 Ml Inj) 2 mg IV Q5MIN PRN PRN Reason: Chest Pain unrelieved by NTG Last Admin: 03/16/20 01:36 Dose: 2 mg Documented by: Ondansetron HCl (Ondansetron 4 Mg/2 Ml Inj) 4 mg IV Q8H PRN PRN Reason: Nausea And Vomiting Pantoprazole Sodium (Pantoprazole 20 Mg Tab) 20 mg PO QDAY [facility] Last Admin: 03/16/20 11:33 Dose: 20 mg Documented by: Sodium Chloride (Sodium Chloride 0.9% 10 Ml Flush Syringe) 10 ml IV BID [facility] Last Admin: 03/16/20 15:26 Dose: 10 ml Documented by: Sodium Chloride (Sodium Chloride 0.9% 10 Ml Flush Syringe) 10 ml IV PRN PRN PRN Reason: LINE FLUSH Tramadol HCl (Tramadol 50 Mg Tab) 50 mg PO Q6H PRN PRN Reason: Pain, Moderate (4-6) Last Admin: 03/16/20 11:44 Dose: 50 mg Documented by: Valsartan (Valsartan 160mg Tab) 160 mg PO BID [facility] Last Admin: 03/16/20 11:31 Dose: 160 mg Documented by: Physical Examination - Physical Exam Narrative exam: Physical exam deferred to minimize COVID-19 transmission during pandemic. ER and internal medicine physical examination notes reviewed. - Constitutional Vitals: Vital Signs Temp Pulse Resp BP Pulse Ox 98.9 F 77 20 221/79 99 03/16/20 10:50 03/16/20 16:31 03/16/20 15:08 03/16/20 16:31 03/16/20 15:08 Temperature -Last 24 Hours Temperature 98.9 F Temperature 98.1 F Temperature 99.5 F Temperature 99.7 F Results - Labs CBC & Chem 7: 03/16/20 06:18 03/16/20 06:18 Labs: Abnormal lab results 03/16/20 03/16/20 03/16/20 Range/Units 06:18 06:18 06:18 WBC 3.7 L (4.5-11.0) K/mm3 RBC 2.94 L (3.65-5.03) M/mm3 Hgb 9.3 L (10.1-14.3) gm/dl Hct 28.2 L (30.3-42.9) % RDW 16.7 H (13.2-15.2) % Lymph % (Auto) 7.0 L (13.4-35.0) % [place] % (Auto) 8.4 H (0.0-7.3) % Lymph # (Auto) 0.3 L (1.2-5.4) K/mm3 Seg Neutrophils % 84.1 H (40.0-70.0) % INR 1.14 H (0.87-1.13) Chloride 96.2 L (98-107) mmol/L BUN 55 H (7-17) mg/dL Creatinine 5.0 H (0.6-1.2) mg/dL Coronavirus (PCR) (Negative) 03/16/20 Range/Units Unknown WBC (4.5-11.0) K/mm3 RBC (3.65-5.03) M/mm3 Hgb (10.1-14.3) gm/dl Hct (30.3-42.9) % RDW (13.2-15.2) % Lymph % (Auto) (13.4-35.0) % [place] % (Auto) (0.0-7.3) % Lymph # (Auto) (1.2-5.4) K/mm3 Seg Neutrophils % (40.0-70.0) % INR (0.87-1.13) Chloride (98-107) mmol/L BUN (7-17) mg/dL Creatinine (0.6-1.2) mg/dL Coronavirus (PCR) Positive A (Negative) Assessment and Plan Cultures: Blood culture no growth today SARS CoV2 PCR positive Assessment: 59 years old female with history of end-stage renal disease on hemod ialysis, lupus and CHF admitted on 03/15/2020 secondary to 4 days history of dry cough, fever, headaches, generalized malaise and shortness of breath: #Severe COVID pneumonia: Chest x-ray with likely pulmonary edema. Inflammatory markers elevated D-dimer 718, ferritin 1021. Procalcitonin elevated, likely due to renal failure. #Acute hypoxemic respiratory failure: O2 sat dropped to 87%, patient currently on 2 L nasal cannula. Likely due to COVID-19 and volume overload. #ESRD on hemodialysis Recommendations: -Evaluation for PE and DVT -Start Dexamethasone 6 mg IV/PO daily for 10 days -No indication remdesivir due to renal failure -Monitor inflammatory markers - ferritin, Ddimer, CRP, LDH -Monitor liver function test on Remdesivir -Continue anticoagulation per System Protocol -Prone positioning as possible -Continue ceftriaxone for 5 days and azithromycin for 3 days, procalcitonin elevated likely due to renal failure All laboratory, cultures and imaging were reviewed. Will follow Camille Jean MD Infectious Diseases [employer] [facility] M [phone] O [phone]
[2020-03-17] MEDS: traMADol 50 MG TAB PO PRN ×3 (04:50→21:39)
[2020-03-17] MEDS: HEPARIN 5,000 UNIT/1 ML VIAL SUB-Q SCH ×3 (05:16→21:38)
[2020-03-17] MEDS: FUROSEMIDE 40 MG/4 ML INJ IV SCH ×2 (05:17→18:14)
[2020-03-17] MEDS: cloNIDine 0.1 MG TAB PO SCH ×3 (05:18→21:42)
[2020-03-17 06:45] LABS: Albumin 3.6 g/dL (3.9-5); Calcium 9.9 mg/dL (8.4-10.2)
--- NOTE | 2020-03-17 09:18 | Progress Note ---
Assessment and Plan Cultures: Blood culture no growth today SARS CoV2 PCR positive Assessment: 59 years old female with history of end-stage renal disease on hemodialysis, lupus and CHF admitted on 03/15/2020 secondary to 4 days history of dry cough, fever, headaches, generalized malaise and shortness of breath: #Severe COVID pneumonia: Chest x-ray with likely pulmonary edema. Inflammatory markers elevated D-dimer 718, ferritin 1021. Procalcitonin elevated, likely due to renal failure. #Acute hypoxemic respiratory failure: O2 sat dropped to 87%. Remains on 2L. likely due to COVID-19 and volume overload. #ESRD on hemodialysis Recommendations: -Evaluation for PE and DVT -Continue dexamethasone 6 mg IV/PO daily for 10 days -No indication remdesivir due to renal failure -Monitor inflammatory markers - ferritin, Ddimer, CRP, LDH, ordered today -Continue anticoagulation per System Protocol -Prone positioning as possible -Continue ceftriaxone for 5 days and azithromycin for 3 days, procalcitonin elevated likely due to renal failure Dr. Celeste rounding this weekend All laboratory, cultures and imaging were reviewed. Will follow Camille Jean MD Infectious Diseases [employer] [facility] M [phone] O [phone] Subjective Date of service: 03/17/20 Principal diagnosis: COVID Interval history: Remains afebrile, on 2 L nasal cannula, no acute events overnight per nursing staff. No desaturations. Objective - Exam Narrative Exam: Physical exam deferred to minimize COVID-19 transmission during pandemic. ER and internal medicine physical examination notes reviewed. - Constitutional Vitals: Vital Signs Temp Pulse Resp BP Pulse Ox 97.9 F 71 20 240/101 98 03/17/20 05:08 03/17/20 05:18 03/17/20 05:08 03/17/20 05:18 03/17/20 05:08 Temperature -Last 24 Hours Temperature 97.9 F Temperature 98.3 F Temperature 98.9 F - Labs CBC & Chem 7: 03/16/20 06:18 03/17/20 04:36 Labs: Abnormal lab results 03/16/20 03/17/20 Range/Units Unknown 04:36 Sodium 134 L (137-145) mmol/L Potassium 5.5 H (3.6-5.0) mmol/L Chloride 93.9 L (98-107) mmol/L BUN 68 H (7-17) mg/dL Creatinine 6.2 H (0.6-1.2) mg/dL Total Protein 6.2 L (6.3-8.2) g/dL Albumin 3.6 L (3.9-5) g/dL Coronavirus (PCR) Positive A (Negative)
[2020-03-17] MEDS: cefTRIAXone/NS 2 GM/100 ML 2 GM/100 ML BAG IV SCH ×2 (10:05→14:28)
[2020-03-17] MEDS: ASPIRIN EC 81 MG TAB PO SCH ×2 (10:06→14:30)
[2020-03-17] MEDS: amLODIPine 10 MG TAB PO SCH ×2 (10:06→11:30)
[2020-03-17] MEDS: dexAMETHasone 4 MG/ML VIAL IV SCH ×2 (10:06→14:29)
[2020-03-17] MEDS: VALSARTAN 160MG TAB PO SCH ×3 (10:06→21:43)
[2020-03-17] MEDS: CALCITRIOL 0.5 MCG CAP PO SCH ×2 (10:07→14:30)
[2020-03-17] MEDS: azaTHIOprine 50 MG TAB PO SCH (10:07)
[2020-03-17] MEDS: METOPROLOL TARTRATE 50 MG TAB PO SCH ×3 (10:07→21:42)
[2020-03-17] MEDS: PANTOPRAZOLE 20 MG TAB PO SCH (10:07)
[2020-03-17] MEDS: CLOPIDOGREL 75 MG TAB PO SCH ×2 (10:07→14:32)
[2020-03-17] MEDS: AZITHROMYCIN 250 MG TAB PO SCH (10:08)
--- NOTE | 2020-03-17 13:46 | Progress Note ---
Assessment and Plan - Patient Problems (1) Pneumonia due to COVID-19 virus Current Visit: Yes Status: Acute Plan to address problem: pt started on dexamethasone 6mg po qd, repeat SARS CoV19 test positive, remains hypoxic on 2L NC, trend inflammatory parameters. follow ID recommendations. (2) ESRD needing dialysis Current Visit: No Status: Acute Plan to address problem: Cont HD on MWF schedule, use 2 K bath to correct hyperkalemia. Target UF 3L as tolerated for further volume control and improve respiratory status. (3) Hypertensive chronic kidney disease with stage 5 chronic kidney disease or end stage renal disease Current Visit: Yes Status: Acute Plan to address problem: resume home BP meds. (4) Lupus (systemic lupus erythematosus) Current Visit: Yes Status: Acute (5) Anemia in chronic illness Current Visit: Yes Status: Acute Plan to address problem: cont EPO with HD (6) Secondary hyperparathyroidism (of renal origin) Current Visit: Yes Status: Acute Plan to address problem: cont calcitriol 0.5mcg po qd while inpatient Subjective Date of service: 03/17/20 Principal diagnosis: COVID Interval history: Exam deferred d/t PPE preservation Objective - Exam Narrative Exam: In an effort to conserve Personal protective equipment and limit exposure, the patient was not directly examined by me. Interdisciplinary team notes, previous examinations, labs and diagnostics have been extensively reviewed and all recommendations taken into consideration. Physical exam deferred to primary team - Vital Signs Vital signs: Vital Signs - 12hr 03/17/20 03/17/20 03/17/20 05:08 05:17 05:18 Temperature 97.9 F Pulse Rate 71 71 71 Respiratory 20 Rate Blood Pressure 240/101 240/101 240/101 O2 Sat by Pulse 98 Oximetry 03/17/20 03/17/20 03/17/20 08:55 09:00 09:15 Temperature 97.9 F Pulse Rate 78 76 80 Respiratory 20 Rate Blood Pressure 198/103 210/99 203/105 O2 Sat by Pulse Oximetry 03/17/20 03/17/20 03/17/20 09:30 09:45 10:00 Temperature Pulse Rate 83 90 101 H Respiratory Rate Blood Pressure 209/104 219/108 218/92 O2 Sat by Pulse Oximetry 03/17/20 03/17/20 03/17/20 10:15 10:30 10:45 Temperature Pulse Rate 99 H 111 H 106 H Respiratory Rate Blood Pressure 223/115 211/92 220/107 O2 Sat by Pulse Oximetry 03/17/20 03/17/20 03/17/20 11:00 11:15 11:29 Temperature Pulse Rate 112 H 114 H Respiratory Rate Blood Pressure 234/105 188/90 234/105 O2 Sat by Pulse Oximetry 03/17/20 03/17/20 03/17/20 11:30 11:45 12:00 Temperature Pulse Rate 116 H 118 H 117 H Respiratory Rate Blood Pressure 215/95 203/68 213/63 O2 Sat by Pulse Oximetry 03/17/20 03/17/20 12:15 12:30 Temperature Pulse Rate 110 H 103 H Respiratory Rate Blood Pressure 183/64 184/73 O2 Sat by Pulse Oximetry - Lab 03/16/20 06:18 03/17/20 04:36 Most recent lab results Calcium 9.9 mg/dL (8.4-10.2) 03/17/20 04:36 Medications & Allergies - Medications Allergies/Adverse Reactions: Allergies No Known Allergies Allergy (Unverified 12/01/19 05:58) Home Medications: Home Medications Medication Instructions Recorded Confirmed Last Taken Type Aspirin [Adult Aspirin] 81 mg PO DAILY 12/02/19 12/02/19 Unknown History AtorvaSTATin 10 mg PO QHS 12/02/19 12/02/19 Unknown History Clopidogrel [Plavix] 75 mg PO QDAY 12/02/19 12/02/19 Unknown History Folic Acid 0.4 mg PO QDAY 12/02/19 12/02/19 Unknown History Omeprazole 20 mg PO DAILY 12/02/19 12/02/19 Unknown History amLODIPine 10 mg PO DAILY 12/02/19 12/02/19 Unknown History azaTHIOprine [Azathioprine] 50 mg PO DAILY 12/02/19 12/02/19 Unknown History calcitrioL [Rocaltrol] 1 mcg PO QDAY 12/02/19 12/02/19 Unknown History prednisoLONE [Millipred 5mg (12 20 mg PO QDAY 12/02/19 12/02/19 Unknown History day - 48 tab dosepak)] Furosemide [Lasix TAB] 80 mg PO QDAY #30 tablet 12/10/19 Unknown Rx Metoprolol [Lopressor TAB] 50 mg PO BID #60 tablet 12/10/19 Unknown Rx Valsartan [Diovan] 160 mg PO BID #60 tablet 12/10/19 Unknown Rx cloNIDine [Catapres] 0.2 mg PO Q8HR #90 tablet 12/10/19 Unknown Rx hydrALAZINE [Apresoline TAB] 50 mg PO Q8HR #180 tablet 12/10/19 Unknown Rx minoxidiL [Loniten] 5 mg PO QDAY #30 tablet 12/10/19 Unknown Rx Active Medications: Generic Name Dose Route Start Last Admin Trade Name Freq PRN Reason Stop Dose Admin Acetaminophen 650 mg 03/15/20 14:59 03/16/20 08:44 Acetaminophen 325 Mg Tab PO 650 mg Q4H PRN Administration Pain MILD(1-3)/Fever >100.5/KENNY Amlodipine Besylate 10 mg 03/16/20 10:00 03/17/20 11:30 Amlodipine 10 Mg Tab PO 10 mg DAILY MIK Administration Aspirin 81 mg 03/16/20 10:00 03/17/20 10:06 Aspirin Ec 81 Mg Tab PO Not Given DAILY [facility] Atorvastatin Calcium 10 mg 03/15/20 22:00 03/16/20 22:09 Atorvastatin 10 Mg Tab PO 10 mg QHS MIK Administration Azathioprine 50 mg 03/16/20 10:00 03/17/20 10:07 Azathioprine 50 Mg Tab PO Not Given DAILY [facility] Azithromycin 500 mg 03/16/20 12:00 03/17/20 10:08 Azithromycin 250 Mg Tab PO 03/17/20 14:00 Not Given QDAY [facility] Protocol Calcitriol 1 mcg 03/16/20 10:00 03/17/20 10:07 Calcitriol 0.5 Mcg Cap PO Not Given QDAY [facility] Clonidine HCl 0.2 mg 03/15/20 22:00 03/17/20 05:18 Clonidine 0.1 Mg Tab PO 0.2 mg Q8HR MIK Administration Clopidogrel Bisulfate 75 mg 03/16/20 10:00 03/17/20 10:07 Clopidogrel 75 Mg Tab PO Not Given QDAY [facility] Dexamethasone 6 mg 03/16/20 10:00 03/17/20 10:06 Dexamethasone 4 Mg/Ml Vial IV 03/24/20 10:01 Not Given Q24HR MIK [place] 10,000 unit 03/15/20 18:00 [place] 10,000 Unit/1 Ml Inj SUB-Q SHEREE MIK Furosemide 40 mg 03/15/20 18:00 03/17/20 05:17 Furosemide 40 Mg/4 Ml Inj IV 40 mg BID@0600,1800 MIK Administration Guaifenesin 600 mg 03/17/20 11:00 Guaifenesin Er 600 Mg Tab PO BID [facility] Heparin Sodium (Porcine) 5,000 unit 03/15/20 22:00 03/17/20 05:16 Heparin 5,000 Unit/1 Ml Vial SUB-Q 5,000 unit Q8HR MIK Administration Hydralazine HCl 20 mg 03/17/20 07:33 Hydralazine 20 Mg/1 Ml Inj IV Q4HR PRN Give if SBP>180 DBP>100 Ceftriaxone Sodium 2 gm in 100 mls @ 200 mls/hr 03/16/20 10:00 03/17/20 10:05 Rocephin/Ns 2 Gm/100 Ml IV 03/19/20 10:29 Not Given Q24H [facility] Protocol Sodium Chloride 100 mls @ 999 mls/hr 03/15/20 15:08 Nacl 0.9% IV SHEREE PRN Hypotension Magnesium Hydroxide 30 ml 03/15/20 14:59 Magnesium Hydroxide (Mom) Oral Liqd Udc PO Q4H PRN Constipation Metoprolol Tartrate 50 mg 03/15/20 22:00 03/17/20 11:29 Metoprolol Tartrate 50 Mg Tab PO 50 mg BID MIK Administration Morphine Sulfate 2 mg 03/15/20 14:59 03/16/20 01:36 Morphine 2 Mg/1 Ml Inj IV 2 mg Q5MIN PRN Administration Chest Pain unrelieved by NTG Ondansetron HCl 4 mg 03/15/20 14:59 Ondansetron 4 Mg/2 Ml Inj IV Q8H PRN Nausea And Vomiting Pantoprazole Sodium 20 mg 03/16/20 10:00 03/17/20 10:07 Pantoprazole 20 Mg Tab PO Not Given QDAY MIK Sodium Chloride 10 ml 03/15/20 22:00 03/17/20 10:08 Sodium Chloride 0.9% 10 Ml Flush Syringe IV Not Given BID MIK Sodium Chloride 10 ml 03/15/20 14:59 Sodium Chloride 0.9% 10 Ml Flush Syringe IV PRN PRN LINE FLUSH Tramadol HCl 50 mg 03/16/20 03:23 03/17/20 11:31 Tramadol 50 Mg Tab PO 50 mg Q6H PRN Administration Pain, Moderate (4-6) Valsartan 160 mg 03/15/20 22:00 03/17/20 11:30 Valsartan 160mg Tab PO 160 mg BID MIK Administration
[2020-03-17] MEDS: guaiFENesin ER 600 MG TAB PO SCH ×2 (14:30→21:38)
[2020-03-17] MEDS: hydrALAZINE 20 MG/1 ML INJ IV PRN ×2 (14:32→21:42)
[2020-03-17 14:35] LABS: C-Reactive Protein 12.7 mg/dL (0.00-1.30)
[2020-03-17] MEDS: ACETAMINOPHEN 325 MG TAB PO PRN (16:16)
--- NOTE | 2020-03-17 16:39 | Progress Note ---
Assessment and Plan Assessment and plan: 59-year-old -[place]in[place] female with end-stage renal disease, CHF, lupus who presents with cough and fever and dyspnea for about 4 days. Plan: Acute hypoxic respiratory failure -Oxygen supplementation -Covid is positive -Covid protocol initiated Covid pneumonia -Covid positive -Infectious disease consulted -Dexamethasone Azithromycin and ceftriaxone End-stage renal disease -Friday -Nephrology consulted -Continue dialysis as scheduled Accelerated hypertension related to renal disease Losartan, metoprolol, furosemide Anemia and chronic disease illness -No acute bleeding Hypervolemic hyponatremia -Resolved with hemodialysis Heart failure, unspecified type Presumed history of CAD Elevated BNP Metoprolol, Plavix Morbid obesity Lifestyle change CODE STATUS: Full DVT prophylaxis: Heparin Disposition: Continue treatment for fluid overload, continue hemodialysis and treatment for Covid pneumonia. History Interval history: Patient seen and examined, dialysis at the bedside, spoke with the daughter, all questions answered, patient has a cough and patient has been febrile today. Blood pressure was elevated but has resolved most likely after dialysis. Hospitalist Physical - Physical exam Narrative exam: General appearance: Present: Obese, no acute distress, well-nourished - EENT Eyes: Present: PERRL, EOM intact ENT: hearing intact, clear oral mucosa - Respiratory Respiratory effort: normal Respiratory: Bilateral crackles heard in both lung paz, mild wheezes - Cardiovascular Rhythm: regular Heart Sounds: Present: S1 & S2. Absent: rub, click HD access: Chest catheter - Extremities Extremities: no ischemia, No edema, normal temperature, normal color, Full ROM - Abdominal General gastrointestinal: soft, non-tender, non-distended, normal bowel sounds - Integumentary Integumentary: Present: clear, warm, dry, normal turgor - Neurologic Neurologic: CNII-XII intact, no focal deficits, moves all extremities, no confusion , - Constitutional Vitals: Temp Pulse Resp BP Pulse Ox 102 F H 73 20 150/57 95 03/17/20 16:09 03/17/20 16:06 03/17/20 16:09 03/17/20 16:06 03/17/20 16:06 General appearance: Present: no acute distress, well-nourished Results - Labs CBC & Chem 7: 03/16/20 06:18 03/17/20 04:36 Labs: Laboratory Last Values WBC 3.7 K/mm3 (4.5-11.0) L 03/16/20 06:18 RBC 2.94 M/mm3 (3.65-5.03) L 03/16/20 06:18 Hgb 9.3 gm/dl (10.1-14.3) L 03/16/20 06:18 Hct 28.2 % (30.3-42.9) L 03/16/20 06:18 MCV 96 fl (79-97) 03/16/20 06:18 MCH 32 pg (28-32) 03/16/20 06:18 MCHC 33 % (30-34) 03/16/20 06:18 RDW 16.7 % (13.2-15.2) H 03/16/20 06:18 Plt Count 200 K/mm3 (140-440) 03/16/20 06:18 Lymph % (Auto) 7.0 % (13.4-35.0) L 03/16/20 06:18 [place] % (Auto) 8.4 % (0.0-7.3) H 03/16/20 06:18 Eos % (Auto) 0.0 % (0.0-4.3) 03/16/20 06:18 Baso % (Auto) 0.5 % (0.0-1.8) 03/16/20 06:18 Lymph # (Auto) 0.3 K/mm3 (1.2-5.4) L 03/16/20 06:18 [place] # (Auto) 0.3 K/mm3 (0.0-0.8) 03/16/20 06:18 Eos # (Auto) 0.0 K/mm3 (0.0-0.4) 03/16/20 06:18 Baso # (Auto) 0.0 K/mm3 (0.0-0.1) 03/16/20 06:18 Seg Neutrophils % 84.1 % (40.0-70.0) H 03/16/20 06:18 Seg Neutrophils # 3.1 K/mm3 (1.8-7.7) 03/16/20 06:18 PT 14.5 Sec. (12.2-14.9) 03/16/20 06:18 INR 1.14 (0.87-1.13) H 03/16/20 06:18 APTT 37.2 Sec. (24.2-36.6) H 03/15/20 12:26 D-Dimer 1336.88 ng/mlDDU (0-234) H 03/17/20 13:36 Sodium 134 mmol/L (137-145) L 03/17/20 04:36 Potassium 5.5 mmol/L (3.6-5.0) H 03/17/20 04:36 Chloride 93.9 mmol/L (98-107) L 03/17/20 04:36 Carbon Dioxide 25 mmol/L (22-30) 03/17/20 04:36 Anion Gap 21 mmol/L 03/17/20 04:36 BUN 68 mg/dL (7-17) H 03/17/20 04:36 Creatinine 6.2 mg/dL (0.6-1.2) H 03/17/20 04:36 Estimated GFR 8 ml/min 03/17/20 04:36 BUN/Creatinine Ratio 11 % 03/17/20 04:36 Glucose 66 mg/dL (65-100) 03/17/20 04:36 Calcium 9.9 mg/dL (8.4-10.2) 03/17/20 04:36 Ferritin 1905.0 ng/mL (10.0-200.0) H 03/17/20 13:36 Total Bilirubin 0.30 mg/dL (0.1-1.2) 03/17/20 04:36 Direct Bilirubin < 0.2 mg/dL (0-0.2) 03/15/20 12:26 Indirect Bilirubin 0.1 mg/dL 03/15/20 12:26 AST 15 units/L (5-40) 03/17/20 04:36 ALT 7 units/L (7-56) 03/17/20 04:36 Alkaline Phosphatase 73 units/L (35-129) 03/17/20 04:36 Lactate Dehydrogenase 213 units/L (91-180) H 03/17/20 13:36 C-Reactive Protein 12.70 mg/dL (0.00-1.30) H 03/17/20 13:36 NT-Pro-B Natriuret Pep > 69663 pg/mL (0-900) H 03/15/20 13:10 Total Protein 6.2 g/dL (6.3-8.2) L 03/17/20 04:36 Albumin 3.6 g/dL (3.9-5) L 03/17/20 04:36 Albumin/Globulin Ratio 1.4 % 03/17/20 04:36 Procalcitonin 0.68 ng/mL (<0.15) 03/15/20 13:10 Nasal Screen MRSA (PCR) Negative (Negative) 03/16/20 23:49 Coronavirus (PCR) Positive (Negative) A 03/16/20 Unknown Hepatitis A IgM Ab Non-reactive (NonReactive) 03/15/20 19:18 Hep Bs Antigen Non-reactive (Negative) 03/15/20 19:18 Hep B Core IgM Ab Non-reactive (NonReactive) 03/15/20 19:18 Hepatitis C Antibody Non-reactive (NonReactive) 03/15/20 19:18 Microbiology: Microbiology 03/15/20 13:10 Peripheral/Venous Blood Culture - Preliminary NO GROWTH AFTER 48 HOURS 03/15/20 13:10 Peripheral/Venous Blood Culture - Preliminary NO GROWTH AFTER 48 HOURS Marx/IV: Voiding Method Toilet IV Catheter Type [Left Hand] INT / Saline Lock Active Medications - Current Medications Current Medications: Generic Name Dose Route Start Last Admin Trade Name Freq PRN Reason Stop Dose Admin Acetaminophen 650 mg 03/15/20 14:59 03/17/20 16:16 Acetaminophen 325 Mg Tab PO 650 mg Q4H PRN Administration Pain MILD(1-3)/Fever >100.5/KENNY Amlodipine Besylate 10 mg 03/16/20 10:00 03/17/20 11:30 Amlodipine 10 Mg Tab PO 10 mg DAILY MIK Administration Aspirin 81 mg 03/16/20 10:00 03/17/20 14:30 Aspirin Ec 81 Mg Tab PO 81 mg DAILY MIK Administration Atorvastatin Calcium 10 mg 03/15/20 22:00 03/16/20 22:09 Atorvastatin 10 Mg Tab PO 10 mg QHS MIK Administration Azathioprine 50 mg 03/16/20 10:00 03/17/20 10:07 Azathioprine 50 Mg Tab PO Not Given DAILY MIK Calcitriol 1 mcg 03/16/20 10:00 03/17/20 14:30 Calcitriol 0.5 Mcg Cap PO 1 mcg QDAY MIK Administration Clonidine HCl 0.2 mg 03/15/20 22:00 03/17/20 14:31 Clonidine 0.1 Mg Tab PO 0.2 mg Q8HR MIK Administration Clopidogrel Bisulfate 75 mg 03/16/20 10:00 03/17/20 14:32 Clopidogrel 75 Mg Tab PO 75 mg QDAY MIK Administration Dexamethasone 6 mg 03/16/20 10:00 03/17/20 14:29 Dexamethasone 4 Mg/Ml Vial IV 03/24/20 10:01 6 mg Q24HR MIK Administration Epoetin [place] 10,000 unit 03/15/20 18:00 [place] 10,000 Unit/1 Ml Inj SUB-Q SHEREE MIK Furosemide 40 mg 03/15/20 18:00 03/17/20 05:17 Furosemide 40 Mg/4 Ml Inj IV 40 mg BID@0600,1800 [facility] Administration Guaifenesin 600 mg 03/17/20 11:00 03/17/20 14:30 Guaifenesin Er 600 Mg Tab PO 600 mg BID MIK Administration Heparin Sodium (Porcine) 5,000 unit 03/15/20 22:00 03/17/20 15:01 Heparin 5,000 Unit/1 Ml Vial SUB-Q 5,000 unit Q8HR MIK Administration Hydralazine HCl 20 mg 03/17/20 07:33 03/17/20 14:32 Hydralazine 20 Mg/1 Ml Inj IV 20 mg Q4HR PRN Administration Give if SBP>180 DBP>100 Ceftriaxone Sodium 2 gm in 100 mls @ 200 mls/hr 03/16/20 10:00 03/17/20 14:28 Rocephin/Ns 2 Gm/100 Ml IV 03/19/20 10:29 200 mls/hr Q24H MIK Administration Protocol Sodium Chloride 100 mls @ 999 mls/hr 03/15/20 15:08 Nacl 0.9% IV SHEREE PRN Hypotension Magnesium Hydroxide 30 ml 03/15/20 14:59 Magnesium Hydroxide (Mom) Oral Liqd Udc PO Q4H PRN Constipation Metoprolol Tartrate 50 mg 03/15/20 22:00 03/17/20 11:29 Metoprolol Tartrate 50 Mg Tab PO 50 mg BID MIK Administration Morphine Sulfate 2 mg 03/15/20 14:59 03/16/20 01:36 Morphine 2 Mg/1 Ml Inj IV 2 mg Q5MIN PRN Administration Chest Pain unrelieved by NTG Ondansetron HCl 4 mg 03/15/20 14:59 Ondansetron 4 Mg/2 Ml Inj IV Q8H PRN Nausea And Vomiting Pantoprazole Sodium 20 mg 03/16/20 10:00 03/17/20 10:07 Pantoprazole 20 Mg Tab PO Not Given QDAY MIK Sodium Chloride 10 ml 03/15/20 22:00 03/17/20 10:08 Sodium Chloride 0.9% 10 Ml Flush Syringe IV Not Given BID MIK Sodium Chloride 10 ml 03/15/20 14:59 Sodium Chloride 0.9% 10 Ml Flush Syringe IV PRN PRN LINE FLUSH Tramadol HCl 50 mg 03/16/20 03:23 03/17/20 11:31 Tramadol 50 Mg Tab PO 50 mg Q6H PRN Administration Pain, Moderate (4-6) Valsartan 160 mg 03/15/20 22:00 03/17/20 11:30 Valsartan 160mg Tab PO 160 mg BID MIK Administration
[2020-03-17] MEDS: MORPHINE 2 MG/1 ML INJ IV PRN (18:14)
[2020-03-18] MEDS: hydrALAZINE 20 MG/1 ML INJ IV PRN ×2 (06:00→12:42)
[2020-03-18] MEDS: cloNIDine 0.1 MG TAB PO SCH ×3 (06:13→22:46)
[2020-03-18] MEDS: FUROSEMIDE 40 MG/4 ML INJ IV SCH ×2 (06:14→19:46)
[2020-03-18] MEDS: HEPARIN 5,000 UNIT/1 ML VIAL SUB-Q SCH ×3 (06:14→22:44)
[2020-03-18] MEDS: CLOPIDOGREL 75 MG TAB PO SCH (10:12)
[2020-03-18] MEDS: CALCITRIOL 0.5 MCG CAP PO SCH (10:12)
[2020-03-18] MEDS: ASPIRIN EC 81 MG TAB PO SCH (10:12)
[2020-03-18] MEDS: PANTOPRAZOLE 20 MG TAB PO SCH (10:13)
[2020-03-18] MEDS: guaiFENesin ER 600 MG TAB PO SCH ×2 (10:13→22:45)
[2020-03-18] MEDS: hydrALAZINE 25 MG TAB PO SCH ×2 (10:13→15:20)
[2020-03-18] MEDS: METOPROLOL TARTRATE 50 MG TAB PO SCH ×2 (10:13→22:43)
[2020-03-18] MEDS: amLODIPine 10 MG TAB PO SCH (10:14)
[2020-03-18] MEDS: dexAMETHasone 4 MG/ML VIAL IV SCH (10:14)
[2020-03-18] MEDS: VALSARTAN 160MG TAB PO SCH ×2 (10:15→22:44)
[2020-03-18] MEDS: azaTHIOprine 50 MG TAB PO SCH (10:16)
[2020-03-18] MEDS: cefTRIAXone/NS 2 GM/100 ML 2 GM/100 ML BAG IV SCH (10:21)
[2020-03-18] MEDS: traMADol 50 MG TAB PO PRN ×2 (10:42→19:54)
--- NOTE | 2020-03-18 10:55 | Progress Note ---
Assessment and Plan Assessment and plan: 59-year-old -[place] female with end-stage renal disease, CHF, lupus who presents with cough and fever and dyspnea for about 4 days. Plan: Acute hypoxic respiratory failure -Oxygen supplementation -Covid is positive -Covid protocol initiated Covid pneumonia -Covid positive -Infectious disease consulted -Dexamethasone Azithromycin and ceftriaxone End-stage renal disease -Friday -Nephrology consulted -Continue dialysis as scheduled Accelerated hypertension related to renal disease Valsartan, metoprolol, furosemide, clonidine, hydralazine Patient's blood pressure at home is usually in the 200 systolic, completely uncontrolled Anemia and chronic disease illness -No acute bleeding Hypervolemic hyponatremia -Resolved with hemodialysis Heart failure, unspecified type Presumed history of CAD Elevated BNP Metoprolol, Plavix Morbid obesity Lifestyle change CODE STATUS: Full DVT prophylaxis: Heparin Disposition: Continue treatment for fluid overload, continue hemodialysis and treatment for Covid pneumonia. There is an issue with the patient returning ho me since she is Covid positive coming from an assisted living facility. We will need to speak with case management as far as options. History Interval history: Patient seen, looks better, continues to be on nasal cannula oxygen, only about 2.5 L. Continues to have aggravating cough, no fevers or chills. Blood pressure resolving very slowly. Patient complains of headache. Spoke with family, all questions answered. Hospitalist Physical - Physical exam Narrative exam: General appearance: Present: Obese, no acute distress, well-nourished - EENT Eyes: Present: PERRL, EOM intact ENT: hearing intact, clear oral mucosa - Respiratory Respiratory effort: normal Respiratory: Bilateral crackles heard in both lung paz, mild wheezes - Cardiovascular Rhythm: regular Heart Sounds: Present: S1 & S2. Absent: rub, click HD access: Permacath in right chest - Extremities Extremities: no ischemia, minimal edema in lower extremities - Abdominal General gastrointestinal: soft, non-tender, non-distended, normal bowel sounds - Integumentary Integumentary: Present: clear, warm, dry, normal turgor - Neurologic Neurologic: CNII-XII intact, no focal deficits, moves all extremities, no confusion , - Constitutional Vitals: Temp Pulse Resp BP Pulse Ox 98.9 F 79 20 187/73 92 03/18/20 05:16 03/18/20 10:15 03/18/20 05:16 03/18/20 10:15 03/18/20 05:16 Results - Labs CBC & Chem 7: 03/16/20 06:18 03/18/20 04:46 Labs: Laboratory Last Values WBC 3.7 K/mm3 (4.5-11.0) L 03/16/20 06:18 RBC 2.94 M/mm3 (3.65-5.03) L 03/16/20 06:18 Hgb 9.3 gm/dl (10.1-14.3) L 03/16/20 06:18 Hct 28.2 % (30.3-42.9) L 03/16/20 06:18 MCV 96 fl (79-97) 03/16/20 06:18 MCH 32 pg (28-32) 03/16/20 06:18 MCHC 33 % (30-34) 03/16/20 06:18 RDW 16.7 % (13.2-15.2) H 03/16/20 06:18 Plt Count 200 K/mm3 (140-440) 03/16/20 06:18 Lymph % (Auto) 7.0 % (13.4-35.0) L 03/16/20 06:18 [place] % (Auto) 8.4 % (0.0-7.3) H 03/16/20 06:18 Eos % (Auto) 0.0 % (0.0-4.3) 03/16/20 06:18 Baso % (Auto) 0.5 % (0.0-1.8) 03/16/20 06:18 Lymph # (Auto) 0.3 K/mm3 (1.2-5.4) L 03/16/20 06:18 [place] # (Auto) 0.3 K/mm3 (0.0-0.8) 03/16/20 06:18 Eos # (Auto) 0.0 K/mm3 (0.0-0.4) 03/16/20 06:18 Baso # (Auto) 0.0 K/mm3 (0.0-0.1) 03/16/20 06:18 Seg Neutrophils % 84.1 % (40.0-70.0) H 03/16/20 06:18 Seg Neutrophils # 3.1 K/mm3 (1.8-7.7) 03/16/20 06:18 PT 14.5 Sec. (12.2-14.9) 03/16/20 06:18 INR 1.14 (0.87-1.13) H 03/16/20 06:18 APTT 37.2 Sec. (24.2-36.6) H 03/15/20 12:26 D-Dimer 1336.88 ng/mlDDU (0-234) H 03/17/20 13:36 Sodium 138 mmol/L (137-145) 03/18/20 04:46 Potassium 4.9 mmol/L (3.6-5.0) 03/18/20 04:46 Chloride 95.1 mmol/L (98-107) L 03/18/20 04:46 Carbon Dioxide 25 mmol/L (22-30) 03/18/20 04:46 Anion Gap 23 mmol/L 03/18/20 04:46 BUN 47 mg/dL (7-17) H 03/18/20 04:46 Creatinine 4.8 mg/dL (0.6-1.2) H 03/18/20 04:46 Estimated GFR 11 ml/min 03/18/20 04:46 BUN/Creatinine Ratio 10 % 03/18/20 04:46 Glucose 87 mg/dL (65-100) 03/18/20 04:46 Calcium 10.0 mg/dL (8.4-10.2) 03/18/20 04:46 Ferritin 1905.0 ng/mL (10.0-200.0) H 03/17/20 13:36 Total Bilirubin 0.30 mg/dL (0.1-1.2) 03/17/20 04:36 Direct Bilirubin < 0.2 mg/dL (0-0.2) 03/15/20 12:26 Indirect Bilirubin 0.1 mg/dL 03/15/20 12:26 AST 15 units/L (5-40) 03/17/20 04:36 ALT 7 units/L (7-56) 03/17/20 04:36 Alkaline Phosphatase 73 units/L (35-129) 03/17/20 04:36 Lactate Dehydrogenase 213 units/L (91-180) H 03/17/20 13:36 C-Reactive Protein 12.70 mg/dL (0.00-1.30) H 03/17/20 13:36 NT-Pro-B Natriuret Pep > 21797 pg/mL (0-900) H 03/15/20 13:10 Total Protein 6.2 g/dL (6.3-8.2) L 03/17/20 04:36 Albumin 3.6 g/dL (3.9-5) L 03/17/20 04:36 Albumin/Globulin Ratio 1.4 % 03/17/20 04:36 Procalcitonin 0.68 ng/mL (<0.15) 03/15/20 13:10 Nasal Screen MRSA (PCR) Negative (Negative) 03/16/20 23:49 Coronavirus (PCR) Positive (Negative) A 03/16/20 Unknown Hepatitis A IgM Ab Non-reactive (NonReactive) 03/15/20 19:18 Hep Bs Antigen Non-reactive (Negative) 03/15/20 19:18 Hep B Core IgM Ab Non-reactive (NonReactive) 03/15/20 19:18 Hepatitis C Antibody Non-reactive (NonReactive) 03/15/20 19:18 Microbiology: Microbiology 03/15/20 13:10 Peripheral/Venous Blood Culture - Preliminary NO GROWTH AFTER 48 HOURS 03/15/20 13:10 Peripheral/Venous Blood Culture - Preliminary NO GROWTH AFTER 48 HOURS Marx/IV: Voiding Method Incontinent IV Catheter Type [Left Hand] INT / Saline Lock Active Medications - Current Medications Current Medications: Generic Name Dose Route Start Last Admin Trade Name Freq PRN Reason Stop Dose Admin Acetaminophen 650 mg 03/15/20 14:59 03/17/20 16:16 Acetaminophen 325 Mg Tab PO 650 mg Q4H PRN Administration Pain MILD(1-3)/Fever >100.5/KENNY Amlodipine Besylate 10 mg 03/16/20 10:00 03/18/20 10:14 Amlodipine 10 Mg Tab PO 10 mg DAILY MIK Administration Aspirin 81 mg 03/16/20 10:00 03/18/20 10:12 Aspirin Ec 81 Mg Tab PO 81 mg DAILY MIK Administration Atorvastatin Calcium 10 mg 03/15/20 22:00 03/17/20 21:38 Atorvastatin 10 Mg Tab PO 10 mg QHS MIK Administration Azathioprine 50 mg 03/16/20 10:00 03/18/20 10:16 Azathioprine 50 Mg Tab PO 50 mg DAILY MIK Administration Calcitriol 1 mcg 03/16/20 10:00 03/18/20 10:12 Calcitriol 0.5 Mcg Cap PO 1 mcg QDAY MIK Administration Clonidine HCl 0.2 mg 03/15/20 22:00 03/18/20 06:13 Clonidine 0.1 Mg Tab PO 0.2 mg Q8HR MIK Administration Clopidogrel Bisulfate 75 mg 03/16/20 10:00 03/18/20 10:12 Clopidogrel 75 Mg Tab PO 75 mg QDAY MIK Administration Dexamethasone 6 mg 03/16/20 10:00 03/18/20 10:14 Dexamethasone 4 Mg/Ml Vial IV 03/24/20 10:01 6 mg Q24HR MIK Administration Epoetin [place] 10,000 unit 03/15/20 18:00 [place] 10,000 Unit/1 Ml Inj SUB-Q SHEREE MIK Furosemide 40 mg 03/15/20 18:00 03/18/20 06:14 Furosemide 40 Mg/4 Ml Inj IV 40 mg BID@0600,1800 MIK Administration Guaifenesin 600 mg 03/17/20 11:00 03/18/20 10:13 Guaifenesin Er 600 Mg Tab PO 600 mg BID MIK Administration Heparin Sodium (Porcine) 5,000 unit 03/15/20 22:00 03/18/20 06:14 Heparin 5,000 Unit/1 Ml Vial SUB-Q 5,000 unit Q8HR MIK Administration Hydralazine HCl 20 mg 03/17/20 07:33 03/18/20 06:00 Hydralazine 20 Mg/1 Ml Inj IV 20 mg Q4HR PRN Administration Give if SBP>180 DBP>100 Hydralazine HCl 50 mg 03/18/20 08:00 03/18/20 10:13 Hydralazine 25 Mg Tab PO 50 mg Q8HR MIK Administration Ceftriaxone Sodium 2 gm in 100 mls @ 200 mls/hr 03/16/20 10:00 03/18/20 10:21 Rocephin/Ns 2 Gm/100 Ml IV 03/19/20 10:29 200 mls/hr Q24H MIK Administration Protocol Sodium Chloride 100 mls @ 999 mls/hr 03/15/20 15:08 Nacl 0.9% IV SHEREE PRN Hypotension Magnesium Hydroxide 30 ml 03/15/20 14:59 Magnesium Hydroxide (Mom) Oral Liqd Udc PO Q4H PRN Constipation Metoprolol Tartrate 50 mg 03/15/20 22:00 03/18/20 10:13 Metoprolol Tartrate 50 Mg Tab PO 50 mg BID MIK Administration Morphine Sulfate 2 mg 03/15/20 14:59 03/17/20 18:14 Morphine 2 Mg/1 Ml Inj IV 2 mg Q5MIN PRN Administration Chest Pain unrelieved by NTG Ondansetron HCl 4 mg 03/15/20 14:59 Ondansetron 4 Mg/2 Ml Inj IV Q8H PRN Nausea And Vomiting Pantoprazole Sodium 20 mg 03/16/20 10:00 03/18/20 10:13 Pantoprazole 20 Mg Tab PO 20 mg QDAY MIK Administration Sodium Chloride 10 ml 03/15/20 22:00 03/18/20 10:16 Sodium Chloride 0.9% 10 Ml Flush Syringe IV 10 ml BID MIK Administration Sodium Chloride 10 ml 03/15/20 14:59 Sodium Chloride 0.9% 10 Ml Flush Syringe IV PRN PRN LINE FLUSH Tramadol HCl 50 mg 03/16/20 03:23 03/18/20 10:42 Tramadol 50 Mg Tab PO 50 mg Q6H PRN Administration Pain, Moderate (4-6) Valsartan 160 mg 03/15/20 22:00 03/18/20 10:15 Valsartan 160mg Tab PO 160 mg BID MIK Administration
--- NOTE | 2020-03-18 14:13 | Progress Note ---
Assessment and Plan - Patient Problems (1) Pneumonia due to COVID-19 virus Current Visit: Yes Status: Acute Plan to address problem: pt started on dexamethasone 6mg po qd, repeat SARS CoV19 test positive, remains hypoxic on 2L NC, trend inflammatory parameters. On COVID19 protocol, follow ID recommendation (2) ESRD needing dialysis Current Visit: No Status: Acute Plan to address problem: Cont HD on MWF schedule, use 2 K bath to correct hyperkalemia. Target UF 3L as tolerated for further volume control and improve respiratory status. (3) Hypertensive chronic kidney disease with stage 5 chronic kidney disease or end stage renal disease Current Visit: Yes Status: Acute Plan to address problem: resume home BP meds. (4) Lupus (systemic lupus erythematosus) Current Visit: Yes Status: Acute (5) Anemia in chronic illness Current Visit: Yes Status: Acute Plan to address problem: cont EPO with HD (6) Secondary hyperparathyroidism (of renal origin) Current Visit: Yes Status: Acute Plan to address problem: cont calcitriol 0.5mcg po qd while inpatient Subjective Date of service: 03/18/20 Principal diagnosis: COVID Interval history: Exam deferred d/t PPE preservation Objective - Exam Narrative Exam: In an effort to conserve Personal protective equipment and limit exposure, the patient was not directly examined by me. Interdisciplinary team notes, previous examinations, labs and diagnostics have been extensively reviewed and all recommendations taken into consideration. Physical exam deferred to primary team - Vital Signs Vital signs: Vital Signs - 12hr 03/18/20 03/18/20 03/18/20 05:16 06:00 06:13 Temperature 98.9 F Pulse Rate 68 68 68 Respiratory 20 Rate Blood Pressure 206/111 206/111 206/111 O2 Sat by Pulse 92 Oximetry 03/18/20 03/18/20 03/18/20 10:13 10:14 10:15 Temperature Pulse Rate 79 79 79 Respiratory Rate Blood Pressure 187/73 187/73 187/73 O2 Sat by Pulse Oximetry 03/18/20 03/18/20 11:52 12:42 Temperature 99.4 F Pulse Rate 87 87 Respiratory 20 Rate Blood Pressure 224/104 224/104 O2 Sat by Pulse 82 L Oximetry - Lab 03/16/20 06:18 03/18/20 04:46 Most recent lab results Calcium 10.0 mg/dL (8.4-10.2) 03/18/20 04:46 Medications & Allergies - Medications Allergies/Adverse Reactions: Allergies No Known Allergies Allergy (Unverified 12/01/19 05:58) Home Medications: Home Medications Medication Instructions Recorded Confirmed Last Taken Type Aspirin [Adult Aspirin] 81 mg PO DAILY 12/02/19 12/02/19 Unknown History AtorvaSTATin 10 mg PO QHS 12/02/19 12/02/19 Unknown History Clopidogrel [Plavix] 75 mg PO QDAY 12/02/19 12/02/19 Unknown History Folic Acid 0.4 mg PO QDAY 12/02/19 12/02/19 Unknown History Omeprazole 20 mg PO DAILY 12/02/19 12/02/19 Unknown History amLODIPine 10 mg PO DAILY 12/02/19 12/02/19 Unknown History azaTHIOprine [Azathioprine] 50 mg PO DAILY 12/02/19 12/02/19 Unknown History calcitrioL [Rocaltrol] 1 mcg PO QDAY 12/02/19 12/02/19 Unknown History prednisoLONE [Millipred 5mg (12 20 mg PO QDAY 12/02/19 12/02/19 Unknown History day - 48 tab dosepak)] Furosemide [Lasix TAB] 80 mg PO QDAY #30 tablet 12/10/19 Unknown Rx Metoprolol [Lopressor TAB] 50 mg PO BID #60 tablet 12/10/19 Unknown Rx Valsartan [Diovan] 160 mg PO BID #60 tablet 12/10/19 Unknown Rx cloNIDine [Catapres] 0.2 mg PO Q8HR #90 tablet 12/10/19 Unknown Rx hydrALAZINE [Apresoline TAB] 50 mg PO Q8HR #180 tablet 12/10/19 Unknown Rx minoxidiL [Loniten] 5 mg PO QDAY #30 tablet 12/10/19 Unknown Rx Active Medications: Generic Name Dose Route Start Last Admin Trade Name Freq PRN Reason Stop Dose Admin Acetaminophen 650 mg 03/15/20 14:59 03/17/20 16:16 Acetaminophen 325 Mg Tab PO 650 mg Q4H PRN Administration Pain MILD(1-3)/Fever >100.5/KENNY Amlodipine Besylate 10 mg 03/16/20 10:00 03/18/20 10:14 Amlodipine 10 Mg Tab PO 10 mg DAILY MIK Administration Aspirin 81 mg 03/16/20 10:00 03/18/20 10:12 Aspirin Ec 81 Mg Tab PO 81 mg DAILY MIK Administration Atorvastatin Calcium 10 mg 03/15/20 22:00 03/17/20 21:38 Atorvastatin 10 Mg Tab PO 10 mg QHS MIK Administration Azathioprine 50 mg 03/16/20 10:00 03/18/20 10:16 Azathioprine 50 Mg Tab PO 50 mg DAILY MIK Administration Calcitriol 1 mcg 03/16/20 10:00 03/18/20 10:12 Calcitriol 0.5 Mcg Cap PO 1 mcg QDAY MIK Administration Clonidine HCl 0.2 mg 03/15/20 22:00 03/18/20 06:13 Clonidine 0.1 Mg Tab PO 0.2 mg Q8HR MIK Administration Clopidogrel Bisulfate 75 mg 03/16/20 10:00 03/18/20 10:12 Clopidogrel 75 Mg Tab PO 75 mg QDAY MIK Administration Dexamethasone 6 mg 03/16/20 10:00 03/18/20 10:14 Dexamethasone 4 Mg/Ml Vial IV 03/24/20 10:01 6 mg Q24HR MIK Administration Epoetin [place] 10,000 unit 03/15/20 18:00 [place] 10,000 Unit/1 Ml Inj SUB-Q SHEREE MIK Furosemide 40 mg 03/15/20 18:00 03/18/20 06:14 Furosemide 40 Mg/4 Ml Inj IV 40 mg BID@0600,1800 MIK Administration Guaifenesin 600 mg 03/17/20 11:00 03/18/20 10:13 Guaifenesin Er 600 Mg Tab PO 600 mg BID MIK Administration Heparin Sodium (Porcine) 5,000 unit 03/15/20 22:00 03/18/20 06:14 Heparin 5,000 Unit/1 Ml Vial SUB-Q 5,000 unit Q8HR MIK Administration Hydralazine HCl 20 mg 03/17/20 07:33 03/18/20 12:42 Hydralazine 20 Mg/1 Ml Inj IV 20 mg Q4HR PRN Administration Give if SBP>180 DBP>100 Hydralazine HCl 50 mg 03/18/20 08:00 03/18/20 10:13 Hydralazine 25 Mg Tab PO 50 mg Q8HR MIK Administration Ceftriaxone Sodium 2 gm in 100 mls @ 200 mls/hr 03/16/20 10:00 03/18/20 10:21 Rocephin/Ns 2 Gm/100 Ml IV 03/19/20 10:29 200 mls/hr Q24H MIK Administration Protocol Sodium Chloride 100 mls @ 999 mls/hr 03/15/20 15:08 Nacl 0.9% IV SHEREE PRN Hypotension Magnesium Hydroxide 30 ml 03/15/20 14:59 Magnesium Hydroxide (Mom) Oral Liqd Udc PO Q4H PRN Constipation Metoprolol Tartrate 50 mg 03/15/20 22:00 03/18/20 10:13 Metoprolol Tartrate 50 Mg Tab PO 50 mg BID MIK Administration Morphine Sulfate 2 mg 03/15/20 14:59 03/17/20 18:14 Morphine 2 Mg/1 Ml Inj IV 2 mg Q5MIN PRN Administration Chest Pain unrelieved by NTG Ondansetron HCl 4 mg 03/15/20 14:59 Ondansetron 4 Mg/2 Ml Inj IV Q8H PRN Nausea And Vomiting Pantoprazole Sodium 20 mg 03/16/20 10:00 03/18/20 10:13 Pantoprazole 20 Mg Tab PO 20 mg QDAY MIK Administration Sodium Chloride 10 ml 03/15/20 22:00 03/18/20 10:16 Sodium Chloride 0.9% 10 Ml Flush Syringe IV 10 ml BID MIK Administration Sodium Chloride 10 ml 03/15/20 14:59 Sodium Chloride 0.9% 10 Ml Flush Syringe IV PRN PRN LINE FLUSH Tramadol HCl 50 mg 03/16/20 03:23 03/18/20 10:42 Tramadol 50 Mg Tab PO 50 mg Q6H PRN Administration Pain, Moderate (4-6) Valsartan 160 mg 03/15/20 22:00 03/18/20 10:15 Valsartan 160mg Tab PO 160 mg BID MIK Administration
[2020-03-18] MEDS: hydrALAZINE 100 MG TAB PO SCH (19:46)
[2020-03-19] MEDS: traMADol 50 MG TAB PO PRN ×2 (04:19→15:24)
[2020-03-19] MEDS ORDERED: LIP THERAPY VASELINE TP PRN (04:30)
[2020-03-19] MEDS: HEPARIN 5,000 UNIT/1 ML VIAL SUB-Q SCH ×2 (05:51→15:24)
[2020-03-19] MEDS: FUROSEMIDE 40 MG/4 ML INJ IV SCH ×3 (05:51→19:42)
[2020-03-19] MEDS: cloNIDine 0.1 MG TAB PO SCH ×2 (06:02→15:23)
[2020-03-19] MEDS: hydrALAZINE 20 MG/1 ML INJ IV PRN (06:02)
--- NOTE | 2020-03-19 08:33 | Progress Note ---
Assessment and Plan - Patient Problems (1) Pneumonia due to COVID-19 virus Current Visit: Yes Status: Acute Plan to address problem: pt started on dexamethasone 6mg po qd, on 2L NC, trend inflammatory parameters. On COVID19 protocol, follow ID recommendation (2) ESRD needing dialysis Current Visit: No Status: Acute Plan to address problem: Cont HD on MWF schedule. K mildly elevated today, change diet to 2g K renal diet. Kayexalate 30g x 1 dose (3) Hypertensive chronic kidney disease with stage 5 chronic kidney disease or end stage renal disease Current Visit: Yes Status: Acute Plan to address problem: elevated despite resuming home BP meds. cont IV hydralazine prn to target SBP < 160mmHg, lasix increased to 80mg IV bid. Will increase UF target with HD for further volume/BP control (4) Lupus (systemic lupus erythematosus) Current Visit: Yes Status: Acute (5) Anemia in chronic illness Current Visit: Yes Status: Acute Plan to address problem: cont EPO with HD (6) Secondary hyperparathyroidism (of renal origin) Current Visit: Yes Status: Acute Plan to address problem: cont calcitriol 0.5mcg po qd while inpatient Subjective Date of service: 03/19/20 Principal diagnosis: COVID Interval history: Exam deferred d/t PPE preservation Objective - Exam Narrative Exam: In an effort to conserve Personal protective equipment and limit exposure, the patient was not directly examined by me. Interdisciplinary team notes, previous examinations, labs and diagnostics have been extensively reviewed and all recommendations taken into consideration. Physical exam deferred to primary team - Vital Signs Vital signs: Vital Signs - 12hr 03/18/20 03/18/20 03/18/20 20:54 22:00 22:43 Temperature Pulse Rate 84 Respiratory 20 22 Rate Blood Pressure O2 Sat by Pulse Oximetry 03/18/20 03/18/20 03/19/20 22:46 22:59 00:00 Temperature 98.9 F Pulse Rate 84 74 Respiratory 20 Rate Blood Pressure 170/76 195/82 O2 Sat by Pulse 98 99 Oximetry 03/19/20 03/19/20 03/19/20 02:48 04:19 05:19 Temperature Pulse Rate Respiratory 20 20 Rate Blood Pressure O2 Sat by Pulse 99 Oximetry 03/19/20 03/19/20 05:55 06:02 Temperature 99.8 F H Pulse Rate 73 72 Respiratory 20 Rate Blood Pressure 197/106 197/106 O2 Sat by Pulse 97 Oximetry - Lab 03/16/20 06:18 03/19/20 04:45 Most recent lab results Calcium 10.0 mg/dL (8.4-10.2) 03/19/20 04:45 Magnesium 2.00 mg/dL (1.7-2.3) 03/19/20 04:45 Medications & Allergies - Medications Allergies/Adverse Reactions: Allergies No Known Allergies Allergy (Unverified 12/01/19 05:58) Home Medications: Home Medications Medication Instructions Recorded Confirmed Last Taken Type Aspirin [Adult Aspirin] 81 mg PO DAILY 12/02/19 03/18/20 Unknown History AtorvaSTATin 10 mg PO QHS 12/02/19 03/18/20 Unknown History Clopidogrel [Plavix] 75 mg PO QDAY 12/02/19 03/18/20 Unknown History Folic Acid 0.4 mg PO QDAY 12/02/19 03/18/20 Unknown History Omeprazole 20 mg PO DAILY 12/02/19 03/18/20 Unknown History amLODIPine 10 mg PO DAILY 12/02/19 03/18/20 Unknown History azaTHIOprine [Azathioprine] 50 mg PO DAILY 12/02/19 03/18/20 Unknown History calcitrioL [Rocaltrol] 1 mcg PO QDAY 12/02/19 03/18/20 Unknown History prednisoLONE [Millipred 5mg (12 20 mg PO QDAY 12/02/19 03/18/20 Unknown History day - 48 tab dosepak)] Furosemide [Lasix TAB] 80 mg PO QDAY #30 tablet 12/10/19 03/18/20 Unknown Rx Metoprolol [Lopressor TAB] 50 mg PO BID #60 tablet 12/10/19 03/18/20 Unknown Rx Valsartan [Diovan] 160 mg PO BID #60 tablet 12/10/19 03/18/20 Unknown Rx cloNIDine [Catapres] 0.2 mg PO Q8HR #90 tablet 12/10/19 03/18/20 Unknown Rx hydrALAZINE [Apresoline TAB] 50 mg PO Q8HR #180 tablet 12/10/19 03/18/20 Unknown Rx minoxidiL [Loniten] 5 mg PO QDAY #30 tablet 12/10/19 03/18/20 Unknown Rx Active Medications: Generic Name Dose Route Start Last Admin Trade Name Diego PRN Reason Stop Dose Admin Acetaminophen 650 mg 03/15/20 14:59 03/17/20 16:16 Acetaminophen 325 Mg Tab PO 650 mg Q4H PRN Administration Pain MILD(1-3)/Fever >100.5/KENNY Amlodipine Besylate 10 mg 03/16/20 10:00 03/18/20 10:14 Amlodipine 10 Mg Tab PO 10 mg DAILY MIK Administration Aspirin 81 mg 03/16/20 10:00 03/18/20 10:12 Aspirin Ec 81 Mg Tab PO 81 mg DAILY MIK Administration Atorvastatin Calcium 10 mg 03/15/20 22:00 03/18/20 22:44 Atorvastatin 10 Mg Tab PO 10 mg QHS MIK Administration Azathioprine 50 mg 03/16/20 10:00 03/18/20 10:16 Azathioprine 50 Mg Tab PO 50 mg DAILY MIK Administration Calcitriol 1 mcg 03/16/20 10:00 03/18/20 10:12 Calcitriol 0.5 Mcg Cap PO 1 mcg QDAY MIK Administration Clonidine HCl 0.2 mg 03/15/20 22:00 03/19/20 06:02 Clonidine 0.1 Mg Tab PO 0.2 mg Q8HR MIK Administration Clopidogrel Bisulfate 75 mg 03/16/20 10:00 03/18/20 10:12 Clopidogrel 75 Mg Tab PO 75 mg QDAY MIK Administration Dexamethasone 6 mg 03/16/20 10:00 03/18/20 10:14 Dexamethasone 4 Mg/Ml Vial IV 03/24/20 10:01 6 mg Q24HR MIK Administration Epoetin [place] 10,000 unit 03/15/20 18:00 [place] 10,000 Unit/1 Ml Inj SUB-Q SHEREE MIK Furosemide 40 mg 03/15/20 18:00 03/19/20 05:51 Furosemide 40 Mg/4 Ml Inj IV 40 mg BID@0600,1800 MIK Administration Guaifenesin 600 mg 03/17/20 11:00 03/18/20 22:45 Guaifenesin Er 600 Mg Tab PO 600 mg BID MIK Administration Heparin Sodium (Porcine) 5,000 unit 03/15/20 22:00 03/19/20 05:51 Heparin 5,000 Unit/1 Ml Vial SUB-Q 5,000 unit Q8HR MIK Administration Hydralazine HCl 20 mg 03/17/20 07:33 03/19/20 06:02 Hydralazine 20 Mg/1 Ml Inj IV 20 mg Q4HR PRN Administration Give if SBP>180 DBP>100 Hydralazine HCl 100 mg 03/18/20 20:00 03/18/20 19:46 Hydralazine 100 Mg Tab PO 100 mg TID MIK Administration Hydrophilic Ointment 1 applic 03/19/20 04:30 03/19/20 05:52 Lip Therapy Vaseline TP 1 applic DIRECT PRN Administration Dry Lips Ceftriaxone Sodium 2 gm in 100 mls @ 200 mls/hr 03/16/20 10:00 03/18/20 10:21 Rocephin/Ns 2 Gm/100 Ml IV 03/19/20 10:29 200 mls/hr Q24H MIK Administration Protocol Sodium Chloride 100 mls @ 999 mls/hr 03/15/20 15:08 Nacl 0.9% IV SHEREE PRN Hypotension Magnesium Hydroxide 30 ml 03/15/20 14:59 Magnesium Hydroxide (Mom) Oral Liqd Udc PO Q4H PRN Constipation Metoprolol Tartrate 50 mg 03/15/20 22:00 03/18/20 22:43 Metoprolol Tartrate 50 Mg Tab PO 50 mg BID MIK Administration Morphine Sulfate 2 mg 03/15/20 14:59 03/17/20 18:14 Morphine 2 Mg/1 Ml Inj IV 2 mg Q5MIN PRN Administration Chest Pain unrelieved by NTG Ondansetron HCl 4 mg 03/15/20 14:59 Ondansetron 4 Mg/2 Ml Inj IV Q8H PRN Nausea And Vomiting Pantoprazole Sodium 20 mg 03/16/20 10:00 03/18/20 10:13 Pantoprazole 20 Mg Tab PO 20 mg QDAY MIK Administration Sodium Chloride 10 ml 03/15/20 22:00 03/18/20 22:45 Sodium Chloride 0.9% 10 Ml Flush Syringe IV 10 ml BID MIK Administration Sodium Chloride 10 ml 03/15/20 14:59 Sodium Chloride 0.9% 10 Ml Flush Syringe IV PRN PRN LINE FLUSH Tramadol HCl 50 mg 03/16/20 03:23 03/19/20 04:19 Tramadol 50 Mg Tab PO 50 mg Q6H PRN Administration Pain, Moderate (4-6) Valsartan 160 mg 03/15/20 22:00 03/18/20 22:44 Valsartan 160mg Tab PO 160 mg BID MIK Administration
[2020-03-19] MEDS ORDERED: SODIUM POLYSTYRENE 15 GM/60 ML ORAL LIQD PO ONE (09:00)
[2020-03-19] MEDS: hydrALAZINE 100 MG TAB PO SCH ×3 (09:30→20:00)
--- NOTE | 2020-03-19 09:38 | XRay Report ---
CHEST 1 VIEW 03/19/2020 9:05 AM INDICATION / CLINICAL INFORMATION: COVID pna. COMPARISON: 03/15/2020. FINDINGS: SUPPORT DEVICES: Unchanged. HEART / MEDIASTINUM: Stable cardiomegaly. LUNGS / PLEURA: There has been development of severe bilateral patchy pulmonary opacities. No pneumot horax. ADDITIONAL FINDINGS: No significant additional findings. IMPRESSION: 1. Severe bilateral patchy pulmonary opacities are concerning for multifocal pneumonia. Signer Name: Rio Sharma MD Signed: 03/19/2020 9:33 AM Workstation Name: [id number]
[2020-03-19] MEDS: CLOPIDOGREL 75 MG TAB PO SCH (11:16)
[2020-03-19] MEDS: METOPROLOL TARTRATE 50 MG TAB PO SCH (11:16)
[2020-03-19] MEDS: VALSARTAN 160MG TAB PO SCH (11:17)
[2020-03-19] MEDS: ASPIRIN EC 81 MG TAB PO SCH (11:17)
[2020-03-19] MEDS: guaiFENesin ER 600 MG TAB PO SCH (11:17)
[2020-03-19] MEDS: amLODIPine 10 MG TAB PO SCH (11:18)
[2020-03-19] MEDS: ACETAMINOPHEN 325 MG TAB PO PRN (11:18)
[2020-03-19] MEDS: PANTOPRAZOLE 20 MG TAB PO SCH (11:18)
[2020-03-19] MEDS: dexAMETHasone 4 MG/ML VIAL IV SCH (11:19)
[2020-03-19] MEDS: azaTHIOprine 50 MG TAB PO SCH (11:20)
[2020-03-19] MEDS: CALCITRIOL 0.5 MCG CAP PO SCH (11:20)
[2020-03-19] MEDS: cefTRIAXone/NS 2 GM/100 ML 2 GM/100 ML BAG IV SCH (11:20)
--- NOTE | 2020-03-19 11:36 | Progress Note ---
Assessment and Plan Assessment and plan: 59-year-old -[place] female with end-stage renal disease, CHF, lupus who presents with cough and fever and dyspnea for about 4 days. Plan: Acute hypoxic respiratory failure -Oxygen supplementation -Covid is positive -Covid protocol initiated Patient switched to high flow nasal cannula oxygen Covid pneumonia -Covid positive -Infectious disease consulted -Dexamethasone Azithromycin and ceftriaxone End-stage renal disease -Friday -Nephrology consulted -Continue dialysis as scheduled Accelerated hypertension related to renal disease Valsartan, metoprolol, furosemide, clonidine, hydralazine, making adjustments for better control Patient's blood pressure at home is usually in the 200 systolic, completely uncontrolled Anemia and chronic disease illness -No acute bleeding Hypervolemic hyponatremia -Resolved with hemodialysis Heart failure, unspecified type Presumed history of CAD Elevated BNP Metoprolol, Plavix Hyperkalemia Kayexalate Morbid obesity Lifestyle change CODE STATUS: Full DVT prophylaxis: Heparin Disposition: Continue treatment for fluid overload, continue hemodialysis and treatment for Covid pneumonia. There is an issue with the patient returning home since she is Covid positive coming from an assisted living facility. We will need to speak with case management as far as options. History Interval history: Patient seen and examined, on high flow nasal cannula oxygen, FiO2 65%. No acut e distress. Spoke with family, all questions answered. Patient was changed to high flow from nasal cannula oxygen per recommendations of pulmonology in the last 24 hours. Hospitalist Physical - Physical exam Narrative exam: General appearance: Present: Obese, no acute distress, well-nourished - EENT Eyes: Present: PERRL, EOM intact ENT: hearing intact, clear oral mucosa - Respiratory Respiratory effort: normal Respiratory: Crackles heard in both lung paz bilaterally - Cardiovascular Rhythm: regular Heart Sounds: Present: S1 & S2. Absent: rub, click HD access: Permacath in right chest - Extremities Extremities: no ischemia, +1 edema in lower extremities - Abdominal General gastrointestinal: soft, non-tender, non-distended, normal bowel sounds - Integumentary Integumentary: Present: clear, warm, dry, normal turgor - Neurologic Neurologic: CNII-XII intact, no focal deficits, moves all extremities, no confusion , - Constitutional Vitals: Temp Pulse Resp BP Pulse Ox 101.0 F H 79 22 193/93 96 03/19/20 11:00 03/19/20 11:18 03/19/20 11:03 03/19/20 11:18 03/19/20 11:00 General appearance: Present: no acute distress, well-nourished Results - Labs CBC & Chem 7: 03/16/20 06:18 03/19/20 04:45 Labs: Laboratory Last Values WBC 3.7 K/mm3 (4.5-11.0) L 03/16/20 06:18 RBC 2.94 M/mm3 (3.65-5.03) L 03/16/20 06:18 Hgb 9.3 gm/dl (10.1-14.3) L 03/16/20 06:18 Hct 28.2 % (30.3-42.9) L 03/16/20 06:18 MCV 96 fl (79-97) 03/16/20 06:18 MCH 32 pg (28-32) 03/16/20 06:18 MCHC 33 % (30-34) 03/16/20 06:18 RDW 16.7 % (13.2-15.2) H 03/16/20 06:18 Plt Count 200 K/mm3 (140-440) 03/16/20 06:18 Lymph % (Auto) 7.0 % (13.4-35.0) L 03/16/20 06:18 [place] % (Auto) 8.4 % (0.0-7.3) H 03/16/20 06:18 Eos % (Auto) 0.0 % (0.0-4.3) 03/16/20 06:18 Baso % (Auto) 0.5 % (0.0-1.8) 03/16/20 06:18 Lymph # (Auto) 0.3 K/mm3 (1.2-5.4) L 03/16/20 06:18 [place] # (Auto) 0.3 K/mm3 (0.0-0.8) 03/16/20 06:18 Eos # (Auto) 0.0 K/mm3 (0.0-0.4) 03/16/20 06:18 Baso # (Auto) 0.0 K/mm3 (0.0-0.1) 03/16/20 06:18 Seg Neutrophils % 84.1 % (40.0-70.0) H 03/16/20 06:18 Seg Neutrophils # 3.1 K/mm3 (1.8-7.7) 03/16/20 06:18 PT 14.5 Sec. (12.2-14.9) 03/16/20 06:18 INR 1.14 (0.87-1.13) H 03/16/20 06:18 APTT 37.2 Sec. (24.2-36.6) H 03/15/20 12:26 D-Dimer 1336.88 ng/mlDDU (0-234) H 03/17/20 13:36 Sodium 135 mmol/L (137-145) L 03/19/20 04:45 Potassium 5.5 mmol/L (3.6-5.0) H 03/19/20 04:45 Chloride 91.0 mmol/L (98-107) L 03/19/20 04:45 Carbon Dioxide 22 mmol/L (22-30) 03/19/20 04:45 Anion Gap 28 mmol/L 03/19/20 04:45 BUN 68 mg/dL (7-17) H 03/19/20 04:45 Creatinine 6.1 mg/dL (0.6-1.2) H 03/19/20 04:45 Estimated GFR 8 ml/min 03/19/20 04:45 BUN/Creatinine Ratio 11 % 03/19/20 04:45 Glucose 79 mg/dL (65-100) 03/19/20 04:45 Calcium 10.0 mg/dL (8.4-10.2) 03/19/20 04:45 Magnesium 2.00 mg/dL (1.7-2.3) 03/19/20 04:45 Ferritin 1905.0 ng/mL (10.0-200.0) H 03/17/20 13:36 Total Bilirubin 0.30 mg/dL (0.1-1.2) 03/17/20 04:36 Direct Bilirubin < 0.2 mg/dL (0-0.2) 03/15/20 12:26 Indirect Bilirubin 0.1 mg/dL 03/15/20 12:26 AST 15 units/L (5-40) 03/17/20 04:36 ALT 7 units/L (7-56) 03/17/20 04:36 Alkaline Phosphatase 73 units/L (35-129) 03/17/20 04:36 Lactate Dehydrogenase 213 units/L (91-180) H 03/17/20 13:36 C-Reactive Protein 12.70 mg/dL (0.00-1.30) H 03/17/20 13:36 NT-Pro-B Natriuret Pep > 32737 pg/mL (0-900) H 03/15/20 13:10 Total Protein 6.2 g/dL (6.3-8.2) L 03/17/20 04:36 Albumin 3.6 g/dL (3.9-5) L 03/17/20 04:36 Albumin/Globulin Ratio 1.4 % 03/17/20 04:36 Procalcitonin 0.68 ng/mL (<0.15) 03/15/20 13:10 TSH 1.540 mlU/mL (0.270-4.200) 03/19/20 04:45 Free T4 1.32 ng/dL (0.76-1.46) 03/19/20 04:45 Nasal Screen MRSA (PCR) Negative (Negative) 03/16/20 23:49 Coronavirus (PCR) Positive (Negative) A 03/16/20 Unknown Hepatitis A IgM Ab Non-reactive (NonReactive) 03/15/20 19:18 Hep Bs Antigen Non-reactive (Negative) 03/15/20 19:18 Hep B Core IgM Ab Non-reactive (NonReactive) 03/15/20 19:18 Hepatitis C Antibody Non-reactive (NonReactive) 03/15/20 19:18 Microbiology: Microbiology 03/15/20 13:10 Peripheral/Venous Blood Culture - Preliminary NO GROWTH AFTER 72 HOURS 03/15/20 13:10 Peripheral/Venous Blood Culture - Preliminary NO GROWTH AFTER 72 HOURS Marx/IV: Voiding Method Incontinent IV Catheter Type [Left Hand] INT / Saline Lock Active Medications - Current Medications Current Medications: Generic Name Dose Route Start Last Admin Trade Name Freq PRN Reason Stop Dose Admin Acetaminophen 650 mg 03/15/20 14:59 03/19/20 11:18 Acetaminophen 325 Mg Tab PO 650 mg Q4H PRN Administration Pain MILD(1-3)/Fever >100.5/KENNY Amlodipine Besylate 10 mg 03/16/20 10:00 03/19/20 11:18 Amlodipine 10 Mg Tab PO 10 mg DAILY MIK Administration Aspirin 81 mg 03/16/20 10:00 03/19/20 11:17 Aspirin Ec 81 Mg Tab PO 81 mg DAILY MIK Administration Atorvastatin Calcium 10 mg 03/15/20 22:00 03/18/20 22:44 Atorvastatin 10 Mg Tab PO 10 mg QHS MIK Administration Azathioprine 50 mg 03/16/20 10:00 03/19/20 11:20 Azathioprine 50 Mg Tab PO 50 mg DAILY MIK Administration Calcitriol 1 mcg 03/16/20 10:00 03/19/20 11:20 Calcitriol 0.5 Mcg Cap PO 1 mcg QDAY MIK Administration Clonidine HCl 0.2 mg 03/15/20 22:00 03/19/20 06:02 Clonidine 0.1 Mg Tab PO 0.2 mg Q8HR MIK Administration Clopidogrel Bisulfate 75 mg 03/16/20 10:00 03/19/20 11:16 Clopidogrel 75 Mg Tab PO 75 mg QDAY MIK Administration Dexamethasone 6 mg 03/16/20 10:00 03/19/20 11:19 Dexamethasone 4 Mg/Ml Vial IV 03/24/20 10:01 6 mg Q24HR MIK Administration Epoetin [place] 10,000 unit 03/15/20 18:00 [place] 10,000 Unit/1 Ml Inj SUB-Q SHEREE [facility] Furosemide 80 mg 03/19/20 08:36 Furosemide 40 Mg/4 Ml Inj IV BID@0600,1800 [facility] Guaifenesin 600 mg 03/17/20 11:00 03/19/20 11:17 Guaifenesin Er 600 Mg Tab PO 600 mg BID [facility] Administration Heparin Sodium (Porcine) 5,000 unit 03/15/20 22:00 03/19/20 05:51 Heparin 5,000 Unit/1 Ml Vial SUB-Q 5,000 unit Q8HR [facility] Administration Hydralazine HCl 20 mg 03/17/20 07:33 03/19/20 06:02 Hydralazine 20 Mg/1 Ml Inj IV 20 mg Q4HR PRN Administration Give if SBP>180 DBP>100 Hydralazine HCl 100 mg 03/18/20 20:00 03/19/20 09:30 Hydralazine 100 Mg Tab PO 100 mg TID [facility] Administration Hydrophilic Ointment 1 applic 03/19/20 04:30 03/19/20 05:52 Lip Therapy Vaseline TP 1 applic DIRECT PRN Administration Dry Lips Sodium Chloride 100 mls @ 999 mls/hr 03/15/20 15:08 Nacl 0.9% IV SHEREE PRN Hypotension Magnesium Hydroxide 30 ml 03/15/20 14:59 Magnesium Hydroxide (Mom) Oral Liqd Udc PO Q4H PRN Constipation Metoprolol Tartrate 50 mg 03/15/20 22:00 03/19/20 11:16 Metoprolol Tartrate 50 Mg Tab PO 50 mg BID MIK Administration Morphine Sulfate 2 mg 03/15/20 14:59 03/17/20 18:14 Morphine 2 Mg/1 Ml Inj IV 2 mg Q5MIN PRN Administration Chest Pain unrelieved by NTG Ondansetron HCl 4 mg 03/15/20 14:59 Ondansetron 4 Mg/2 Ml Inj IV Q8H PRN Nausea And Vomiting Pantoprazole Sodium 20 mg 03/16/20 10:00 03/19/20 11:18 Pantoprazole 20 Mg Tab PO 20 mg QDAY MIK Administration Sodium Chloride 10 ml 03/15/20 22:00 03/19/20 11:20 Sodium Chloride 0.9% 10 Ml Flush Syringe IV 10 ml BID MIK Administration Sodium Chloride 10 ml 03/15/20 14:59 Sodium Chloride 0.9% 10 Ml Flush Syringe IV PRN PRN LINE FLUSH Tramadol HCl 50 mg 03/16/20 03:23 03/19/20 04:19 Tramadol 50 Mg Tab PO 50 mg Q6H PRN Administration Pain, Moderate (4-6) Valsartan 160 mg 03/15/20 22:00 03/19/20 11:17 Valsartan 160mg Tab PO 160 mg BID MIK Administration
--- NOTE | 2020-03-19 13:07 | Consultation ---
History of Present Illness Consult date: 03/19/20 Requesting physician: NIKKI MCCONNELL Consult reason: tachycardia, other (Nonsustained VT) History of present illness: She has been seen by Dr. Prabhjot Ogden at [facility] customer engineering specialist but has not been seen in almost 4 to 5 years. 59-year-old female with a past medical history of severe left ventricular hypertrophy, malignant hypertension, ESRD/HD, anemia of chronic disease, and lupus presented to [facility] emergency department complaining of cough fever and headache for 4 days. The patient had a temperature of 103. A chest x-ray today reveals severe bilateral patchy pulmonary opacities. Here in the hospital she has had a T-max of 102 F. She is Covid positive with blood cultures pending. We were consulted for an episode nonsustained VT noted on telemetry. Past History Past Medical History: dialysis, ESRD, heart failure, hypertension, other (Lupus) Past Surgical History: Other (Right Chest wall Permacath.) Social history: no significant social history Family history: no significant family history Medications and Allergies Allergies Allergy/AdvReac Type Severity Reaction Status Date / Time No Known Allergies Allergy Unverified 12/01/19 05:58 Home Medications Medication Instructions Recorded Confirmed Last Taken Type Aspirin [Adult Aspirin] 81 mg PO DAILY 12/02/19 03/18/20 Unknown History AtorvaSTATin 10 mg PO QHS 12/02/19 03/18/20 Unknown History Clopidogrel [Plavix] 75 mg PO QDAY 12/02/19 03/18/20 Unknown History Folic Acid 0.4 mg PO QDAY 12/02/19 03/18/20 Unknown History Omeprazole 20 mg PO DAILY 12/02/19 03/18/20 Unknown History amLODIPine 10 mg PO DAILY 12/02/19 03/18/20 Unknown History azaTHIOprine [Azathioprine] 50 mg PO DAILY 12/02/19 03/18/20 Unknown History calcitrioL [Rocaltrol] 1 mcg PO QDAY 12/02/19 03/18/20 Unknown History prednisoLONE [Millipred 5mg (12 20 mg PO QDAY 12/02/19 03/18/20 Unknown History day - 48 tab dosepak)] Furosemide [Lasix TAB] 80 mg PO QDAY #30 tablet 12/10/19 03/18/20 Unknown Rx Metoprolol [Lopressor TAB] 50 mg PO BID #60 tablet 12/10/19 03/18/20 Unknown Rx Valsartan [Diovan] 160 mg PO BID #60 tablet 12/10/19 03/18/20 Unknown Rx cloNIDine [Catapres] 0.2 mg PO Q8HR #90 tablet 12/10/19 03/18/20 Unknown Rx hydrALAZINE [Apresoline TAB] 50 mg PO Q8HR #180 tablet 12/10/19 03/18/20 Unknown Rx minoxidiL [Loniten] 5 mg PO QDAY #30 tablet 12/10/19 03/18/20 Unknown Rx Active Meds: Active Medications Acetaminophen (Acetaminophen 325 Mg Tab) 650 mg PO Q4H PRN PRN Reason: Pain MILD(1-3)/Fever >100.5/KENNY Last Admin: 03/19/20 11:18 Dose: 650 mg Documented by: Amlodipine Besylate (Amlodipine 10 Mg Tab) 10 mg PO DAILY [facility] Last Admin: 03/19/20 11:18 Dose: 10 mg Documented by: Aspirin (Aspirin Ec 81 Mg Tab) 81 mg PO DAILY [facility] Last Admin: 03/19/20 11:17 Dose: 81 mg Documented by: Atorvastatin Calcium (Atorvastatin 10 Mg Tab) 10 mg PO QHS [facility] Last Admin: 03/18/20 22:44 Dose: 10 mg Documented by: Azathioprine (Azathioprine 50 Mg Tab) 50 mg PO DAILY [facility] Last Admin: 03/19/20 11:20 Dose: 50 mg Documented by: Calcitriol (Calcitriol 0.5 Mcg Cap) 1 mcg PO QDAY [facility] Last Admin: 03/19/20 11:20 Dose: 1 mcg Documented by: Clonidine HCl (Clonidine 0.1 Mg Tab) 0.2 mg PO Q8HR [facility] Last Admin: 03/19/20 06:02 Dose: 0.2 mg Documented by: Clopidogrel Bisulfate (Clopidogrel 75 Mg Tab) 75 mg PO QDAY [facility] Last Admin: 03/19/20 11:16 Dose: 75 mg Documented by: Dexamethasone (Dexamethasone 4 Mg/Ml Vial) 6 mg IV Q24HR [facility] Stop: 03/24/20 10:01 Last Admin: 03/19/20 11:19 Dose: 6 mg Documented by: Epoetin [place] (E[place]etin [place] 10,000 Unit/1 Ml Inj) 10,000 unit SUB-Q SHEREE [facility] Furosemide (Furosemide 40 Mg/4 Ml Inj) 80 mg IV BID@0600,1800 [facility] Guaifenesin (Guaifenesin Er 600 Mg Tab) 600 mg PO BID [facility] Last Admin: 03/19/20 11:17 Dose: 600 mg Documented by: Heparin Sodium (Porcine) (Heparin 5,000 Unit/1 Ml Vial) 5,000 unit SUB-Q Q8HR [facility] Last Admin: 03/19/20 05:51 Dose: 5,000 unit Documented by: Hydralazine HCl (Hydralazine 20 Mg/1 Ml Inj) 20 mg IV Q4HR PRN PRN Reason: Give if SBP>180 DBP>100 Last Admin: 03/19/20 06:02 Dose: 20 mg Documented by: Hydralazine HCl (Hydralazine 100 Mg Tab) 100 mg PO TID [facility] Last Admin: 03/19/20 09:30 Dose: 100 mg Documented by: Hydrophilic Ointment (Lip Therapy Vaseline) 1 applic TP DIRECT PRN PRN Reason: Dry Lips Last Admin: 03/19/20 05:52 Dose: 1 applic Documented by: Sodium Chloride (Nacl 0.9%) 100 mls @ 999 mls/hr IV SHEREE PRN PRN Reason: Hypotension Magnesium Hydroxide (Magnesium Hydroxide (Mom) Oral Liqd Udc) 30 ml PO Q4H PRN PRN Reason: Constipation Metoprolol Tartrate (Metoprolol Tartrate 50 Mg Tab) 50 mg PO BID [facility] Last Admin: 03/19/20 11:16 Dose: 50 mg Documented by: Morphine Sulfate (Morphine 2 Mg/1 Ml Inj) 2 mg IV Q5MIN PRN PRN Reason: Chest Pain unrelieved by NTG Last Admin: 03/17/20 18:14 Dose: 2 mg Documented by: Ondansetron HCl (Ondansetron 4 Mg/2 Ml Inj) 4 mg IV Q8H PRN PRN Reason: Nausea And Vomiting Pantoprazole Sodium (Pantoprazole 20 Mg Tab) 20 mg PO QDAY [facility] Last Admin: 03/19/20 11:18 Dose: 20 mg Documented by: Sodium Chloride (Sodium Chloride 0.9% 10 Ml Flush Syringe) 10 ml IV BID [facility] Last Admin: 03/19/20 11:20 Dose: 10 ml Documented by: Sodium Chloride (Sodium Chloride 0.9% 10 Ml Flush Syringe) 10 ml IV PRN PRN PRN Reason: LINE FLUSH Tramadol HCl (Tramadol 50 Mg Tab) 50 mg PO Q6H PRN PRN Reason: Pain, Moderate (4-6) Last Admin: 03/19/20 04:19 Dose: 50 mg Documented by: Valsartan (Valsartan 160mg Tab) 160 mg PO BID MIK Last Admin: 03/19/20 11:17 Dose: 160 mg Documented by: Review of Systems Constitutional: fever, chills, weakness Ears, nose, mouth and throat: deferred Breasts: deferred Cardiovascular: lightheadedness, shortness of breath, dyspnea on exertion, no chest pain Respiratory: cough Gastrointestinal: abdominal pain, nausea, vomiting Genitourinary Female: no dysuria Rectal: no pain, no incontinence Musculoskeletal: myalgias Integumentary: no rash, no pruritis Neurological: no head injury, no transient paralysis Psychiatric: no anxiety, no memory loss Physical Examination Vital Signs Pulse Resp 82 13 03/15/20 11:48 03/15/20 11:48 General appearance: mild distress HEENT: Positive: PERRL Neck: Positive: neck supple, trachea midline Cardiac: Positive: Reg Rate and Rhythm, Systolic Murmur Lungs: Positive: Rales Neuro: Positive: Grossly Intact Abdomen: Positive: Soft, Active Bowel Sounds Skin: Negative: Rash Extremities: Present: warm, Other (Trace) Results 03/16/20 06:18 03/19/20 04:45 Comprehensive Metabolic Panel 03/19/20 Range/Units 04:45 Sodium 135 L (137-145) mmol/L Potassium 5.5 H (3.6-5.0) mmol/L Chloride 91.0 L (98-107) mmol/L Carbon Dioxide 22 (22-30) mmol/L BUN 68 H (7-17) mg/dL Creatinine 6.1 H (0.6-1.2) mg/dL Glucose 79 (65-100) mg/dL Calcium 10.0 (8.4-10.2) mg/dL - Imaging and Cardiology Echo: report reviewed (ECHO 08/31: Severe LVH, EF 55 to 60%, mild mitral regurgitation) EKG interpretations - Telemetry EKG Rhythm: Sinus Rhythm Assessment and Plan 59-year-old female Acute hypoxic respiratory failure/Covid pneumonia Nonsustained VT on telemetry/asymptomatic Accelerated hypertension Severe LVH ESRD/HD (Dr. Hong) Lupus Anemia chronic disease Continue supportive care per the primary team Aggressive BP management Recommend echocardiogram Continue beta-andrea
[2020-03-19] MEDS ORDERED: SODIUM CHLORIDE 0.9% 100 ML IV PRN (17:59)
[2020-03-20] MEDS: guaiFENesin ER 600 MG TAB PO SCH ×3 (00:13→23:01)
[2020-03-20] MEDS: HEPARIN 5,000 UNIT/1 ML VIAL SUB-Q SCH ×4 (00:14→23:02)
[2020-03-20] MEDS: VALSARTAN 160MG TAB PO SCH ×3 (00:15→23:00)
[2020-03-20] MEDS: cloNIDine 0.1 MG TAB PO SCH ×4 (00:16→23:02)
[2020-03-20] MEDS: METOPROLOL TARTRATE 50 MG TAB PO SCH ×4 (00:17→22:59)
[2020-03-20] MEDS: MORPHINE 2 MG/1 ML INJ IV PRN (01:11)
[2020-03-20] MEDS: FUROSEMIDE 40 MG/4 ML INJ IV SCH ×2 (05:53→17:09)
[2020-03-20] MEDS: hydrALAZINE 20 MG/1 ML INJ IV PRN (06:28)
[2020-03-20] MEDS: traMADol 50 MG TAB PO PRN ×2 (06:29→12:04)
[2020-03-20 07:56] LABS: Calcium 9.7 mg/dL (8.4-10.2)
[2020-03-20] MEDS: CLOPIDOGREL 75 MG TAB PO SCH (09:15)
[2020-03-20] MEDS: PANTOPRAZOLE 20 MG TAB PO SCH (09:15)
[2020-03-20] MEDS: amLODIPine 10 MG TAB PO SCH (09:16)
[2020-03-20] MEDS: hydrALAZINE 100 MG TAB PO SCH ×3 (09:16→23:00)
[2020-03-20] MEDS: dexAMETHasone 4 MG/ML VIAL IV SCH (09:16)
[2020-03-20] MEDS: CALCITRIOL 0.5 MCG CAP PO SCH (09:17)
[2020-03-20] MEDS: ASPIRIN EC 81 MG TAB PO SCH (09:17)
--- NOTE | 2020-03-20 10:01 | Progress Note ---
Assessment and Plan Assessment: 59-year-old female Acute hypoxic respiratory failure/Covid pneumonia Nonsustained VT on telemetry/asymptomatic Accelerated hypertension Severe LVH - tte done 08/2014 showed severe LVH, EF 55-60%, impaired relaxation, mild MR. ESRD/HD (Dr. Hong) Lupus Anemia chronic disease Plan: tele reviewed - in SR with ~23 beat run NSVT noted overnight, pt asymptomatic. Optimize HR and BPs - titrate BB as tolerated. F/u tte. Continue supportive care per the primary team The patient has been seen in conjunction with Dr. Funes who agrees with the assessment and plan of care. Subjective Date of service: 03/20/20 Principal diagnosis: COVID Interval history: pt resting in bed, no current cardiac complaints. tele reviewed - in SR with ~23 beat run NSVT noted overnight, pt asymptomatic. Objective Last Vital Signs Temp 98.0 F 03/20/20 05:45 Pulse 66 03/20/20 06:28 Resp 18 03/20/20 07:29 BP 186/94 03/20/20 09:16 Pulse Ox 98 03/20/20 05:45 - Physical Examination General: No Apparent Distress HEENT: Positive: PERRL Neck: Positive: neck supple, trachea midline Cardiac: Positive: Reg Rate and Rhythm, S1/S2 Lungs: Positive: Decreased Breath Sounds Neuro: Positive: Grossly Intact Abdomen: Positive: Soft, Active Bowel Sounds Skin: Negative: Rash Extremities: Present: warm, Other (Trace) - Labs and Meds Comprehensive Metabolic Panel 03/20/20 03/20/20 Range/Units 01:22 06:16 Sodium 139 (137-145) mmol/L Potassium 3.8 D 3.9 (3.6-5.0) mmol/L Chloride 95.0 L (98-107) mmol/L Carbon Dioxide 28 (22-30) mmol/L BUN 45 H (7-17) mg/dL Creatinine 4.7 H (0.6-1.2) mg/dL Glucose 80 (65-100) mg/dL Calcium 9.7 (8.4-10.2) mg/dL - Imaging and Cardiology Echo: report reviewed (ECHO 08/31: Severe LVH, EF 55 to 60%, mild mitral regurgitation)
--- NOTE | 2020-03-20 10:08 | Progress Note ---
Assessment and Plan Assessment and plan: 59-year-old -[place] female with end-stage renal disease, CHF, lupus who presents with cough and fever and dyspnea for about 4 days. Plan: Acute hypoxic respiratory failure -Oxygen supplementation -Covid is positive -Covid protocol initiated Continue high flow nasal cannula oxygen, needs close monitoring, builds fluid very quickly. Covid pneumonia -Covid positive -Infectious disease consulted -Dexamethasone Azithromycin and ceftriaxone End-stage renal disease -Friday -Nephrology consulted -Continue dialysis as scheduled patient does not make urine Nonsustained ventricular tachycardia Cardiology consulted Continue to monitor, no acute intervention required at this time Accelerated hypertension related to renal disease Valsartan, metoprolol, furosemide, clonidine, hydralazine, making adjustments for better control Patient's blood pressure at home is usually in the 200 systolic, completely uncontrolled Anemia and chronic disease illness -No acute bleeding Hypervolemic hyponatremia -Resolved with hemodialysis Heart failure, unspecified type Presumed history of CAD Elevated BNP Metoprolol, Plavix Hyperkalemia Kayexalate Morbid obesity Lifestyle change CODE STATUS: Full DVT prophylaxis: Heparin Disposition: Continue Covid treatment, continue hemodialysis, monitor for nonsustained V. tach History Interval history: Patient seen this morning, states that she continues to feel congested, no acute distress. Telemetry shows 6 runs of nonsustained V. tach. Hospitalist Physical - Physical exam Narrative exam: General appearance: Present: Obese, no acute distress, well-nourished - EENT Eyes: Present: PERRL, EOM intact ENT: hearing intact, clear oral mucosa - Respiratory Respiratory effort: Normal, high flow nasal cannula oxygen Respiratory: Crackles heard in both lung paz bilaterally - Cardiovascular Rhythm: regular Heart Sounds: Present: S1 & S2. Absent: rub, click HD access: Permacath in right chest - Extremities Extremities: no ischemia, +1 edema in lower extremities - Abdominal General gastrointestinal: soft, non-tender, non-distended, normal bowel sounds - Integumentary Integumentary: Present: clear, warm, dry, normal turgor - Neurologic Neurologic: CNII-XII intact, no focal deficits, moves all extremities, no confusion , - Constitutional Vitals: Temp Pulse Resp BP Pulse Ox 98.0 F 66 18 186/94 98 03/20/20 05:45 03/20/20 06:28 03/20/20 07:29 03/20/20 09:16 03/20/20 05:45 Results - Labs CBC & Chem 7: 03/16/20 06:18 03/20/20 06:16 Labs: Laboratory Last Values WBC 3.7 K/mm3 (4.5-11.0) L 03/16/20 06:18 RBC 2.94 M/mm3 (3.65-5.03) L 03/16/20 06:18 Hgb 9.3 gm/dl (10.1-14.3) L 03/16/20 06:18 Hct 28.2 % (30.3-42.9) L 03/16/20 06:18 MCV 96 fl (79-97) 03/16/20 06:18 MCH 32 pg (28-32) 03/16/20 06:18 MCHC 33 % (30-34) 03/16/20 06:18 RDW 16.7 % (13.2-15.2) H 03/16/20 06:18 Plt Count 200 K/mm3 (140-440) 03/16/20 06:18 Lymph % (Auto) 7.0 % (13.4-35.0) L 03/16/20 06:18 Evans % (Auto) 8.4 % (0.0-7.3) H 03/16/20 06:18 Eos % (Auto) 0.0 % (0.0-4.3) 03/16/20 06:18 Baso % (Auto) 0.5 % (0.0-1.8) 03/16/20 06:18 Lymph # (Auto) 0.3 K/mm3 (1.2-5.4) L 03/16/20 06:18 Evans # (Auto) 0.3 K/mm3 (0.0-0.8) 03/16/20 06:18 Eos # (Auto) 0.0 K/mm3 (0.0-0.4) 03/16/20 06:18 Baso # (Auto) 0.0 K/mm3 (0.0-0.1) 03/16/20 06:18 Seg Neutrophils % 84.1 % (40.0-70.0) H 03/16/20 06:18 Seg Neutrophils # 3.1 K/mm3 (1.8-7.7) 03/16/20 06:18 PT 14.5 Sec. (12.2-14.9) 03/16/20 06:18 INR 1.14 (0.87-1.13) H 03/16/20 06:18 APTT 37.2 Sec. (24.2-36.6) H 03/15/20 12:26 D-Dimer 1336.88 ng/mlDDU (0-234) H 03/17/20 13:36 Sodium 139 mmol/L (137-145) 03/20/20 06:16 Potassium 3.9 mmol/L (3.6-5.0) 03/20/20 06:16 Chloride 95.0 mmol/L (98-107) L 03/20/20 06:16 Carbon Dioxide 28 mmol/L (22-30) 03/20/20 06:16 Anion Gap 20 mmol/L 03/20/20 06:16 BUN 45 mg/dL (7-17) H 03/20/20 06:16 Creatinine 4.7 mg/dL (0.6-1.2) H 03/20/20 06:16 Estimated GFR 11 ml/min 03/20/20 06:16 BUN/Creatinine Ratio 10 % 03/20/20 06:16 Glucose 80 mg/dL (65-100) 03/20/20 06:16 Calcium 9.7 mg/dL (8.4-10.2) 03/20/20 06:16 Magnesium 1.80 mg/dL (1.7-2.3) 03/20/20 01:22 Ferritin 1905.0 ng/mL (10.0-200.0) H 03/17/20 13:36 Total Bilirubin 0.30 mg/dL (0.1-1.2) 03/17/20 04:36 Direct Bilirubin < 0.2 mg/dL (0-0.2) 03/15/20 12:26 Indirect Bilirubin 0.1 mg/dL 03/15/20 12:26 AST 15 units/L (5-40) 03/17/20 04:36 ALT 7 units/L (7-56) 03/17/20 04:36 Alkaline Phosphatase 73 units/L (35-129) 03/17/20 04:36 Lactate Dehydrogenase 213 units/L (91-180) H 03/17/20 13:36 C-Reactive Protein 12.70 mg/dL (0.00-1.30) H 03/17/20 13:36 NT-Pro-B Natriuret Pep > 55932 pg/mL (0-900) H 03/15/20 13:10 Total Protein 6.2 g/dL (6.3-8.2) L 03/17/20 04:36 Albumin 3.6 g/dL (3.9-5) L 03/17/20 04:36 Albumin/Globulin Ratio 1.4 % 03/17/20 04:36 Procalcitonin 0.68 ng/mL (<0.15) 03/15/20 13:10 TSH 1.540 mlU/mL (0.270-4.200) 03/19/20 04:45 Free T4 1.32 ng/dL (0.76-1.46) 03/19/20 04:45 Nasal Screen MRSA (PCR) Negative (Negative) 03/16/20 23:49 Coronavirus (PCR) Positive (Negative) A 03/16/20 Unknown Hepatitis A IgM Ab Non-reactive (NonReactive) 03/15/20 19:18 Hep Bs Antigen Non-reactive (Negative) 03/15/20 19:18 Hep B Core IgM Ab Non-reactive (NonReactive) 03/15/20 19:18 Hepatitis C Antibody Non-reactive (NonReactive) 03/15/20 19:18 Microbiology: Microbiology 03/15/20 13:10 Peripheral/Venous Blood Culture - Preliminary NO GROWTH AFTER 4 DAYS 03/15/20 13:10 Peripheral/Venous Blood Culture - Preliminary NO GROWTH AFTER 4 DAYS Marx/IV: Voiding Method Incontinent IV Catheter Type [Left Hand] INT / Saline Lock Active Medications - Current Medications Current Medications: Generic Name Dose Route Start Last Admin Trade Name Freq PRN Reason Stop Dose Admin Acetaminophen 650 mg 03/15/20 14:59 03/19/20 11:18 Acetaminophen 325 Mg Tab PO 650 mg Q4H PRN Administration Pain MILD(1-3)/Fever >100.5/KENNY Amlodipine Besylate 10 mg 03/16/20 10:00 03/20/20 09:16 Amlodipine 10 Mg Tab PO 10 mg DAILY MIK Administration Aspirin 81 mg 03/16/20 10:00 03/20/20 09:17 Aspirin Ec 81 Mg Tab PO 81 mg DAILY MIK Administration Atorvastatin Calcium 10 mg 03/15/20 22:00 03/20/20 00:14 Atorvastatin 10 Mg Tab PO 10 mg QHS MIK Administration Azathioprine 50 mg 03/16/20 10:00 03/19/20 11:20 Azathioprine 50 Mg Tab PO 50 mg DAILY MIK Administration Calcitriol 1 mcg 03/16/20 10:00 03/20/20 09:17 Calcitriol 0.5 Mcg Cap PO 1 mcg QDAY MIK Administration Clonidine HCl 0.2 mg 03/15/20 22:00 03/20/20 05:52 Clonidine 0.1 Mg Tab PO 0.2 mg Q8HR MIK Administration Clopidogrel Bisulfate 75 mg 03/16/20 10:00 03/20/20 09:15 Clopidogrel 75 Mg Tab PO 75 mg QDAY MIK Administration Dexamethasone 6 mg 03/16/20 10:00 03/20/20 09:16 Dexamethasone 4 Mg/Ml Vial IV 03/24/20 10:01 6 mg Q24HR MIK Administration Epoetin Hill 10,000 unit 03/15/20 18:00 E[place]etin [place] 10,000 Unit/1 Ml Inj SUB-Q SHEREE MIK Furosemide 80 mg 03/19/20 08:36 03/20/20 05:53 Furosemide 40 Mg/4 Ml Inj IV 80 mg BID@0600,1800 MIK Administration Guaifenesin 600 mg 03/17/20 11:00 03/20/20 09:15 Guaifenesin Er 600 Mg Tab PO 600 mg BID MIK Administration Heparin Sodium (Porcine) 5,000 unit 03/15/20 22:00 03/20/20 05:53 Heparin 5,000 Unit/1 Ml Vial SUB-Q 5,000 unit Q8HR MIK Administration Hydralazine HCl 20 mg 03/17/20 07:33 03/20/20 06:28 Hydralazine 20 Mg/1 Ml Inj IV 20 mg Q4HR PRN Administration Give if SBP>180 DBP>100 Hydralazine HCl 100 mg 03/18/20 20:00 03/20/20 09:16 Hydralazine 100 Mg Tab PO 100 mg TID MIK Administration Hydrophilic Ointment 1 applic 03/19/20 04:30 03/19/20 05:52 Lip Therapy Vaseline TP 1 applic DIRECT PRN Administration Dry Lips Sodium Chloride 100 mls @ 999 mls/hr 03/15/20 15:08 Nacl 0.9% IV SHEREE PRN Hypotension Sodium Chloride 100 mls @ 999 mls/hr 03/19/20 17:59 Nacl 0.9% IV SHEREE PRN Hypotension Magnesium Hydroxide 30 ml 03/15/20 14:59 Magnesium Hydroxide (Mom) Oral Liqd Udc PO Q4H PRN Constipation Metoprolol Tartrate 50 mg 03/15/20 22:00 03/20/20 09:15 Metoprolol Tartrate 50 Mg Tab PO 50 mg BID MIK Administration Morphine Sulfate 2 mg 03/15/20 14:59 03/20/20 01:11 Morphine 2 Mg/1 Ml Inj IV 2 mg Q5MIN PRN Administration Chest Pain unrelieved by NTG Ondansetron HCl 4 mg 03/15/20 14:59 Ondansetron 4 Mg/2 Ml Inj IV Q8H PRN Nausea And Vomiting Pantoprazole Sodium 20 mg 03/16/20 10:00 03/20/20 09:15 Pantoprazole 20 Mg Tab PO 20 mg QDAY MIK Administration Sodium Chloride 10 ml 03/15/20 22:00 03/20/20 09:17 Sodium Chloride 0.9% 10 Ml Flush Syringe IV 10 ml BID MIK Administration Sodium Chloride 10 ml 03/15/20 14:59 Sodium Chloride 0.9% 10 Ml Flush Syringe IV PRN PRN LINE FLUSH Tramadol HCl 50 mg 03/16/20 03:23 03/20/20 06:29 Tramadol 50 Mg Tab PO 50 mg Q6H PRN Administration Pain, Moderate (4-6) Valsartan 160 mg 03/15/20 22:00 03/20/20 00:15 Valsartan 160mg Tab PO 160 mg BID MIK Administration
--- NOTE | 2020-03-20 11:04 | Progress Note ---
Assessment and Plan - Patient Problems (1) Pneumonia due to COVID-19 virus Current Visit: Yes Status: Acute Plan to address problem: pt started on dexamethasone 6mg po qd, on 2L NC, trend inflammatory parameters. On COVID19 protocol, follow ID recommendation. Extra HD performed last night for volume control in the setting of acute respiratory distress (2) ESRD needing dialysis Current Visit: No Status: Acute Plan to address problem: Additional HD performed last night due to acute respiratory failure with hypoxemia with target UF of 3L. Cont HD on MWF schedule. K corrected with HD, cont 2g K renal diet. (3) Hypertensive chronic kidney disease with stage 5 chronic kidney disease or end stage renal disease Current Visit: Yes Status: Acute Plan to address problem: elevated despite resuming home BP meds. cont IV hydralazine prn to target SBP < 160mmHg. Will increase UF target with HD for further volume/BP control (4) Lupus (systemic lupus erythematosus) Current Visit: Yes Status: Acute (5) Anemia in chronic illness Current Visit: Yes Status: Acute Plan to address problem: cont EPO with HD (6) Secondary hyperparathyroidism (of renal origin) Current Visit: Yes Status: Acute Plan to address problem: cont calcitriol 0.5mcg po qd while inpatient Subjective Date of service: 03/20/20 Principal diagnosis: COVID Interval history: Exam deferred d/t PPE preservation Objective - Exam Narrative Exam: In an effort to conserve Personal protective equipment and limit exposure, the patient was not directly examined by me. Interdisciplinary team notes, previous examinations, labs and diagnostics have been extensively reviewed and all recommendations taken into consideration. Physical exam deferred to primary team - Vital Signs Vital signs: Vital Signs - 12hr 03/19/20 03/19/20 03/19/20 23:15 23:30 23:40 Temperature 98.2 F Pulse Rate 76 79 79 Respiratory 22 Rate Blood Pressure 206/93 217/99 202/105 O2 Sat by Pulse Oximetry 03/20/20 03/20/20 03/20/20 00:15 00:16 00:17 Temperature Pulse Rate 70 70 70 Respiratory Rate Blood Pressure 239/115 239/115 239/115 O2 Sat by Pulse Oximetry 03/20/20 03/20/20 03/20/20 00:18 00:50 01:11 Temperature Pulse Rate 70 Respiratory 18 Rate Blood Pressure 239/115 O2 Sat by Pulse 100 100 Oximetry 03/20/20 03/20/20 03/20/20 01:18 01:41 03:55 Temperature Pulse Rate 76 Respiratory 18 Rate Blood Pressure 235/109 O2 Sat by Pulse 100 100 Oximetry 03/20/20 03/20/20 03/20/20 05:45 05:52 06:28 Temperature 98.0 F Pulse Rate 66 66 66 Respiratory 20 Rate Blood Pressure 234/95 234/95 234/95 O2 Sat by Pulse 98 Oximetry 03/20/20 03/20/20 03/20/20 06:29 07:29 09:15 Temperature Pulse Rate Respiratory 18 18 Rate Blood Pressure 186/94 O2 Sat by Pulse Oximetry 03/20/20 03/20/20 09:16 10:00 Temperature Pulse Rate Respiratory Rate Blood Pressure 186/94 O2 Sat by Pulse 100 Oximetry - Lab 03/16/20 06:18 03/20/20 06:16 Most recent lab results Calcium 9.7 mg/dL (8.4-10.2) 03/20/20 06:16 Magnesium 1.80 mg/dL (1.7-2.3) 03/20/20 01:22 Medications & Allergies - Medications Allergies/Adverse Reactions: Allergies No Known Allergies Allergy (Unverified 12/01/19 05:58) Home Medications: Home Medications Medication Instructions Recorded Confirmed Last Taken Type Aspirin [Adult Aspirin] 81 mg PO DAILY 12/02/19 03/18/20 Unknown History AtorvaSTATin 10 mg PO QHS 12/02/19 03/18/20 Unknown History Clopidogrel [Plavix] 75 mg PO QDAY 12/02/19 03/18/20 Unknown History Folic Acid 0.4 mg PO QDAY 12/02/19 03/18/20 Unknown History Omeprazole 20 mg PO DAILY 12/02/19 03/18/20 Unknown History amLODIPine 10 mg PO DAILY 12/02/19 03/18/20 Unknown History azaTHIOprine [Azathioprine] 50 mg PO DAILY 12/02/19 03/18/20 Unknown History calcitrioL [Rocaltrol] 1 mcg PO QDAY 12/02/19 03/18/20 Unknown History prednisoLONE [Millipred 5mg (12 20 mg PO QDAY 12/02/19 03/18/20 Unknown History day - 48 tab dosepak)] Furosemide [Lasix TAB] 80 mg PO QDAY #30 tablet 12/10/19 03/18/20 Unknown Rx Metoprolol [Lopressor TAB] 50 mg PO BID #60 tablet 12/10/19 03/18/20 Unknown Rx Valsartan [Diovan] 160 mg PO BID #60 tablet 12/10/19 03/18/20 Unknown Rx cloNIDine [Catapres] 0.2 mg PO Q8HR #90 tablet 12/10/19 03/18/20 Unknown Rx hydrALAZINE [Apresoline TAB] 50 mg PO Q8HR #180 tablet 12/10/19 03/18/20 Unknown Rx minoxidiL [Loniten] 5 mg PO QDAY #30 tablet 12/10/19 03/18/20 Unknown Rx Active Medications: Generic Name Dose Route Start Last Admin Trade Name Freq PRN Reason Stop Dose Admin Acetaminophen 650 mg 03/15/20 14:59 03/19/20 11:18 Acetaminophen 325 Mg Tab PO 650 mg Q4H PRN Administration Pain MILD(1-3)/Fever >100.5/KENNY Amlodipine Besylate 10 mg 03/16/20 10:00 03/20/20 09:16 Amlodipine 10 Mg Tab PO 10 mg DAILY MIK Administration Aspirin 81 mg 03/16/20 10:00 03/20/20 09:17 Aspirin Ec 81 Mg Tab PO 81 mg DAILY MIK Administration Atorvastatin Calcium 10 mg 03/15/20 22:00 03/20/20 00:14 Atorvastatin 10 Mg Tab PO 10 mg QHS MIK Administration Azathioprine 50 mg 03/16/20 10:00 03/19/20 11:20 Azathioprine 50 Mg Tab PO 50 mg DAILY MIK Administration Calcitriol 1 mcg 03/16/20 10:00 03/20/20 09:17 Calcitriol 0.5 Mcg Cap PO 1 mcg QDAY MIK Administration Clonidine HCl 0.2 mg 03/15/20 22:00 03/20/20 05:52 Clonidine 0.1 Mg Tab PO 0.2 mg Q8HR MIK Administration Clopidogrel Bisulfate 75 mg 03/16/20 10:00 03/20/20 09:15 Clopidogrel 75 Mg Tab PO 75 mg QDAY MIK Administration Dexamethasone 6 mg 03/16/20 10:00 03/20/20 09:16 Dexamethasone 4 Mg/Ml Vial IV 03/24/20 10:01 6 mg Q24HR MIK Administration Epoetin [place] 10,000 unit 03/15/20 18:00 [place] 10,000 Unit/1 Ml Inj SUB-Q SHEREE MIK Furosemide 80 mg 03/19/20 08:36 03/20/20 05:53 Furosemide 40 Mg/4 Ml Inj IV 80 mg BID@0600,1800 MIK Administration Guaifenesin 600 mg 03/17/20 11:00 03/20/20 09:15 Guaifenesin Er 600 Mg Tab PO 600 mg BID MIK Administration Heparin Sodium (Porcine) 5,000 unit 03/15/20 22:00 03/20/20 05:53 Heparin 5,000 Unit/1 Ml Vial SUB-Q 5,000 unit Q8HR MIK Administration Hydralazine HCl 20 mg 03/17/20 07:33 03/20/20 06:28 Hydralazine 20 Mg/1 Ml Inj IV 20 mg Q4HR PRN Administration Give if SBP>180 DBP>100 Hydralazine HCl 100 mg 03/18/20 20:00 03/20/20 09:16 Hydralazine 100 Mg Tab PO 100 mg TID MIK Administration Hydrophilic Ointment 1 applic 03/19/20 04:30 03/19/20 05:52 Lip Therapy Vaseline TP 1 applic DIRECT PRN Administration Dry Lips Sodium Chloride 100 mls @ 999 mls/hr 03/15/20 15:08 Nacl 0.9% IV SHEREE PRN Hypotension Sodium Chloride 100 mls @ 999 mls/hr 03/19/20 17:59 Nacl 0.9% IV SHEREE PRN Hypotension Magnesium Hydroxide 30 ml 03/15/20 14:59 Magnesium Hydroxide (Mom) Oral Liqd Udc PO Q4H PRN Constipation Metoprolol Tartrate 50 mg 03/20/20 14:00 Metoprolol Tartrate 50 Mg Tab PO TID [facility] Morphine Sulfate 2 mg 03/15/20 14:59 03/20/20 01:11 Morphine 2 Mg/1 Ml Inj IV 2 mg Q5MIN PRN Administration Chest Pain unrelieved by NTG Ondansetron HCl 4 mg 03/15/20 14:59 Ondansetron 4 Mg/2 Ml Inj IV Q8H PRN Nausea And Vomiting Pantoprazole Sodium 20 mg 03/16/20 10:00 03/20/20 09:15 Pantoprazole 20 Mg Tab PO 20 mg QDAY MIK Administration Sodium Chloride 10 ml 03/15/20 22:00 03/20/20 09:17 Sodium Chloride 0.9% 10 Ml Flush Syringe IV 10 ml BID MIK Administration Sodium Chloride 10 ml 03/15/20 14:59 Sodium Chloride 0.9% 10 Ml Flush Syringe IV PRN PRN LINE FLUSH Tramadol HCl 50 mg 03/16/20 03:23 03/20/20 06:29 Tramadol 50 Mg Tab PO 50 mg Q6H PRN Administration Pain, Moderate (4-6) Valsartan 160 mg 03/15/20 22:00 03/20/20 00:15 Valsartan 160mg Tab PO 160 mg BID MIK Administration
[2020-03-20] MEDS: azaTHIOprine 50 MG TAB PO SCH (12:04)
--- NOTE | 2020-03-20 13:32 | Progress Note ---
Assessment and Plan Cultures: Blood culture no growth SARS CoV2 PCR positive Assessment: 59 years old female with history of end-stage renal disease on hemodialysis, lupus and CHF admitted on 03/15/2020 secondary to 4 days history of dry cough, fever, headaches, generalized malaise and shortness of breath: #Severe COVID pneumonia: Chest x-ray with likely pulmonary edema and pneumonia. Inflammatory markers elevated. Procalcitonin elevated, likely due to renal failure. No indication remdesivir due to renal failure #Acute hypoxemic respiratory failure: on HFNC. #ESRD on hemodialysis #Lupus: on imuran. Recommendations: -continue steroids, complete decadron x 10 days -completed antibiotics -continue dialysis to help with volume and respiratory status -Monitor inflammatory markers - ferritin, Ddimer, CRP, LDH -Continue anticoagulation per System Protocol -guarded prognosis Freda Celeste MD, FACP [facility] ([facility] O: [phone] F: [phone] Subjective Date of service: 03/20/20 Principal diagnosis: COVID Interval history: Had fever yesterday. None today. Objective - Exam Narrative Exam: Physical Exam (reviewed in chart to minimize risk of transmission) Constitutional: deferred Head, Ears, Nose: deferred Eyes: deferred Neck: deferred Oral: deferred Cardiovascular: deferred Respiratory: deferred GI: deferred Musculoskeletal: deferred Skin: deferred Hem/Lymphatic: deferred Psych: deferred Neurological: deferred - Constitutional Vitals: Vital Signs Temp Pulse Resp BP Pulse Ox 98.1 F 73 19 164/70 97 03/20/20 11:44 03/20/20 11:44 03/20/20 11:44 03/20/20 12:03 03/20/20 13:05 Temperature -Last 24 Hours Temperature 98.1 F Temperature 98.0 F Temperature 98.2 F Temperature 98.7 F Temperature 99.0 F - Labs CBC & Chem 7: 03/16/20 06:18 03/20/20 06:16 Labs: Abnormal lab results 03/20/20 Range/Units 06:16 Chloride 95.0 L (98-107) mmol/L BUN 45 H (7-17) mg/dL Creatinine 4.7 H (0.6-1.2) mg/dL
[2020-03-21 06:35] LABS: Hematocrit 25.2 % (30.3-42.9); Hemoglobin 8.4 gm/dl (10.1-14.3); Mean Corpuscular HGB Conc 33 % (30-34); Mean Corpuscular Volume 94 fl (79-97); Platelet Count 198 K/mm3 (140-440); Red Blood Count 2.68 M/mm3 (3.65-5.03); Red Cell Distribution Width 17.2 % (13.2-15.2)
[2020-03-21] MEDS: cloNIDine 0.1 MG TAB PO SCH ×3 (06:37→22:09)
[2020-03-21] MEDS: HEPARIN 5,000 UNIT/1 ML VIAL SUB-Q SCH ×3 (06:38→22:14)
[2020-03-21 06:54] LABS: Calcium 9.8 mg/dL (8.4-10.2)
[2020-03-21] MEDS: FUROSEMIDE 40 MG/4 ML INJ IV SCH ×2 (07:11→18:20)
--- NOTE | 2020-03-21 08:02 | Progress Note ---
Assessment and Plan Assessment and plan: 59-year-old female with known history of end-stage renal disease on dialysis- Mondays, Wednesdays and Fridays, lupus, CHF, presenting to the emergency room today from an assisted living facility with cough fever headache which has been ongoing for about 4 days. She did not go to dialysis today because she was not feeling quite well. She had a fever of about 103 F. She also also has some mild shortness of breath. Patient indicates that several people at the facility had tested positive for COVID-19. She tested negative for COVID-19 yesterday. Patient denies any chest pain, no nausea vomiting, no loss of taste or smell, no diarrhea and no abdominal pain. In route to the hospital patient oxygen saturation was about 88% on room air she was subsequently placed on 2 L of oxygen. Work-up in the emergency room today chest x-ray reveals pulmonary edema. Boiler/Chiller Technician Dr. Hong has been consulted by the ER physician. Patient has been admitted with pulmonary edema. We will however rule out COVID-19. 03/21: Review of records shows patient is still on High flow, will obtain Pulmonary consultation, patient with worsening D.Dimer, will obtain V/Q scan to rule pulmonary embolism, Will likely change to Heparin drip till this iS clarified if patient is still on High flow. I unfortunately do not see clear oxygen documentation. Continues with Hypertensive urgency, SPOKE with the daughter, patient has had Elevated blood pressure for some time but not quite this high, Nephrology following and adjusting meds. Acute hypoxic respiratory failure -Oxygen supplementation -Covid is positive -Covid protocol initiated Continue high flow nasal cannula oxygen, needs close monitoring, builds fluid very quickly. Covid pneumonia -Covid positive -Infectious disease consulted -Dexamethasone Azithromycin and ceftriaxone End-stage renal disease -Friday -Nephrology consulted -Continue dialysis as scheduled patient does not make urine Nonsustained ventricular tachycardia Cardiology consulted Continue to monitor, no acute intervention required at this time -TTE noted Accelerated hypertension related to renal disease Valsartan, metoprolol, furosemide, clonidine, hydralazine, making adjustments for better control Patient's blood pressure at home is usually in the 200 systolic, completely uncontrolled Anemia and chronic disease illness -No acute bleeding Hypervolemic hyponatremia -Resolved with hemodialysis Heart failure, unspecified type Presumed history of CAD Elevated BNP Metoprolol, Plavix Hyperkalemia Kayexalate Morbid obesity Lifestyle change CODE STATUS: Full DVT prophylaxis: Heparin Disposition: Continue Covid treatment, continue hemodialysis, monitor for nonsustained V. tach History Interval history: Patient seen and examined, resting, no overtly distress but remains on High flow oxygen at 60% Hospitalist Physical - Physical exam Narrative exam: General appearance: Present: Obese, no acute distress, well-nourished, Sitting - EENT Eyes: Present: PERRL, EOM intact ENT: hearing intact, clear oral mucosa - Respiratory Respiratory effort: Normal, high flow nasal cannula oxygen Respiratory: Crackles heard in both lung paz bilaterally - Cardiovascular Rhythm: regular Heart Sounds: Present: S1 & S2. Absent: rub, click HD access: Permacath in right chest - Extremities Extremities: no ischemia, +1 edema in lower extremities - Abdominal General gastrointestinal: soft, non-tender, non-distended, normal bowel sounds - Integumentary Integumentary: Present: clear, warm, dry, normal turgor - Neurologic Neurologic: CNII-XII intact, no focal deficits, moves all extremities, no confusion , - Constitutional Vitals: Temp Pulse Resp BP Pulse Ox 99.7 F H 82 18 192/95 96 03/21/20 05:48 03/21/20 06:37 03/21/20 05:48 03/21/20 06:37 03/21/20 05:48 General appearance: Present: mild distress Results - Labs CBC & Chem 7: 03/21/20 05:59 03/21/20 05:59 Labs: Laboratory Last Values WBC 4.0 K/mm3 (4.5-11.0) L 03/21/20 05:59 RBC 2.68 M/mm3 (3.65-5.03) L 03/21/20 05:59 Hgb 8.4 gm/dl (10.1-14.3) L 03/21/20 05:59 Hct 25.2 % (30.3-42.9) L 03/21/20 05:59 MCV 94 fl (79-97) 03/21/20 05:59 MCH 31 pg (28-32) 03/21/20 05:59 MCHC 33 % (30-34) 03/21/20 05:59 RDW 17.2 % (13.2-15.2) H 03/21/20 05:59 Plt Count 198 K/mm3 (140-440) 03/21/20 05:59 Lymph % (Auto) 7.0 % (13.4-35.0) L 03/16/20 06:18 [place] % (Auto) 8.4 % (0.0-7.3) H 03/16/20 06:18 Eos % (Auto) 0.0 % (0.0-4.3) 03/16/20 06:18 Baso % (Auto) 0.5 % (0.0-1.8) 03/16/20 06:18 Lymph # (Auto) 0.3 K/mm3 (1.2-5.4) L 03/16/20 06:18 [place] # (Auto) 0.3 K/mm3 (0.0-0.8) 03/16/20 06:18 Eos # (Auto) 0.0 K/mm3 (0.0-0.4) 03/16/20 06:18 Baso # (Auto) 0.0 K/mm3 (0.0-0.1) 03/16/20 06:18 Seg Neutrophils % 84.1 % (40.0-70.0) H 03/16/20 06:18 Seg Neutrophils # 3.1 K/mm3 (1.8-7.7) 03/16/20 06:18 PT 14.5 Sec. (12.2-14.9) 03/16/20 06:18 INR 1.14 (0.87-1.13) H 03/16/20 06:18 APTT 37.2 Sec. (24.2-36.6) H 03/15/20 12:26 D-Dimer 1336.88 ng/mlDDU (0-234) H 03/17/20 13:36 Sodium 137 mmol/L (137-145) 03/21/20 05:59 Potassium 3.7 mmol/L (3.6-5.0) 03/21/20 05:59 Chloride 94.4 mmol/L (98-107) L 03/21/20 05:59 Carbon Dioxide 29 mmol/L (22-30) 03/21/20 05:59 Anion Gap 17 mmol/L 03/21/20 05:59 BUN 29 mg/dL (7-17) H 03/21/20 05:59 Creatinine 3.6 mg/dL (0.6-1.2) H 03/21/20 05:59 Estimated GFR 16 ml/min 03/21/20 05:59 BUN/Creatinine Ratio 8 % 03/21/20 05:59 Glucose 84 mg/dL (65-100) 03/21/20 05:59 Calcium 9.8 mg/dL (8.4-10.2) 03/21/20 05:59 Magnesium 1.80 mg/dL (1.7-2.3) 03/20/20 01:22 Ferritin 1905.0 ng/mL (10.0-200.0) H 03/17/20 13:36 Total Bilirubin 0.30 mg/dL (0.1-1.2) 03/17/20 04:36 Direct Bilirubin < 0.2 mg/dL (0-0.2) 03/15/20 12:26 Indirect Bilirubin 0.1 mg/dL 03/15/20 12:26 AST 15 units/L (5-40) 03/17/20 04:36 ALT 7 units/L (7-56) 03/17/20 04:36 Alkaline Phosphatase 73 units/L (35-129) 03/17/20 04:36 Lactate Dehydrogenase 213 units/L (91-180) H 03/17/20 13:36 C-Reactive Protein 12.70 mg/dL (0.00-1.30) H 03/17/20 13:36 NT-Pro-B Natriuret Pep > 01628 pg/mL (0-900) H 03/15/20 13:10 Total Protein 6.2 g/dL (6.3-8.2) L 03/17/20 04:36 Albumin 3.6 g/dL (3.9-5) L 03/17/20 04:36 Albumin/Globulin Ratio 1.4 % 03/17/20 04:36 Procalcitonin 0.68 ng/mL (<0.15) 03/15/20 13:10 TSH 1.540 mlU/mL (0.270-4.200) 03/19/20 04:45 Free T4 1.32 ng/dL (0.76-1.46) 03/19/20 04:45 Nasal Screen MRSA (PCR) Negative (Negative) 03/16/20 23:49 Coronavirus (PCR) Positive (Negative) A 03/16/20 Unknown Hepatitis A IgM Ab Non-reactive (NonReactive) 03/15/20 19:18 Hep Bs Antigen Non-reactive (Negative) 03/15/20 19:18 Hep B Core IgM Ab Non-reactive (NonReactive) 03/15/20 19:18 Hepatitis C Antibody Non-reactive (NonReactive) 03/15/20 19:18 Microbiology: Microbiology 03/15/20 13:10 Peripheral/Venous Blood Culture - Final NO GROWTH AFTER 5 DAYS 03/15/20 13:10 Peripheral/Venous Blood Culture - Final NO GROWTH AFTER 5 DAYS - Diagnostic Impressions Diagnostic Impressions: Echocardiogram 03/15/20 15:05 Transthoracic Echocardiogram Indication: Pulm edema; h/o CHF BP: 186/94 HR: 75 Conclusions *Global left ventricular wall motion and contractility are within normal limits. *Global left ventricular systolic function is normal. *The right ventricular global systolic function is normal. *The left atrium is severely dilated. *There is evidence of an atrial septal aneurysm. *There is trace of aortic regurgitation. *Severe mitral leaflet calcification is visualized. *There is moderate to severe mitral stenosis. *The mean gradient across the mitral valve is 20.495741723583 mmHg. *There is mild tricuspid regurgitation. *The right ventricular systolic pressure is calculated at 60 mmHg. *There is trace pulmonic regurgitation. Findings Left Ventricle: The left ventricular chamber size is normal. Severe concentric left ventricular hypertrophy is observed. Global left ventricular wall motion and contractility are within normal limits. Global left ventricular systolic function is normal. The estimated ejection fraction is 50-55%. Left Atrium: The left atrium is severely dilated. Right Ventricle: The right ventricular cavity size is normal. The right ventricular global systolic function is normal. Right Atrium: The right atrial cavity size is normal. There is evidence of an atrial septal aneurysm. Aortic Valve: Mild aortic leaflet calcification is visualized. There is trace of aortic regurgitation. Mitral Valve: Severe mitral leaflet calcification is visualized. There is mild mitral regurgitation. There is moderate to severe mitral stenosis. The mean gradient across the mitral valve is 20.273057801192 mmHg. The peak gradient across the mitral valve is 33.34052554579 mmHg. Tricuspid Valve: The tricuspid valve leaflets are normal. There is mild tricuspid regurgitation. The right ventricular systolic pressure is calculated at 60 mmHg. Pulmonic Valve: There is no evidence of pulmonic valve thickening. There is trace pulmonic regurgitation. Pericardium: There is no pericardial effusion. Aorta: The aorta appears normal. Venous: The inferior vena cava is dilated. Measurements Chambers 2D Name Value Normal Range IVSd (2D) 1.82 cm (0.6 - 1.1) LVPWd (2D) 1.64 cm (0.6 - 1.1) LVIDd (2D) 4.56 cm (3.7 - 5.6) LVIDs (2D) 3.53 cm (2 - 3.8) LV FS (2D) 22.49 % - EF Teichholz (2D) 45.39 % - Ao root diameter (2D) 2.87 cm (2 - 3.7) Volumes/Mass Name Value Normal Range LA ESV SP 4CH (A/L) 98.24 ml - LA ESV SP 2CH (A/L) 197.59 ml - LA ESV BP (A/L) 140.33 ml - LA ESV BP (A/L) index 77.53 ml/m2 - LA ESV SP 4CH (MOD) 93.73 ml - LA ESV SP 2CH (MOD) 194.1 ml - LA ESV BP (MOD) 134.76 ml - LA ESV BP (MOD) index 74.45 ml/m2 - Diastolic/Systolic Function Name Value Normal Range MV E-wave Vmax 2.09 m/sec - MV deceleration time 630.49 msec - MV A-wave Vmax 1.38 m/sec - MV E:A ratio 1.51 ratio - Aortic Valve Name Value Normal Range AV Vmax 2.22 m/sec - AV VTI 47.25 cm - AV peak gradient 19.74 mmHg - AV mean gradient 10.57 mmHg - LVOT diameter 1.91 cm - LVOT Vmax 1.58 m/sec - LVOT VTI 31.21 cm - LVOT peak gradient 10 mmHg - LVOT mean gradient 5.33 mmHg - SV LVOT 89.65 ml - CLIVE (continuity Vmax) 2.04 cm2 - CLIVE (continuity VTI) 1.9 cm2 - AR PHT 479.73 msec - AR peak gradient 17.52 mmHg - Mitral Valve Name Value Normal Range MV Vmax 2.89 m/sec - MV VTI 107.77 cm - MV peak gradient 33.41 mmHg - MV mean gradient 20.1 mmHg - MV PHT 184.74 msec - MR Vmax 6.51 m/sec - MVA (PHT) 1.19 cm2 - MVA (continuity VTI) 0.83 cm2 - Tricuspid Valve Name Value Normal Range TR Vmax 3.61 m/sec - TR peak gradient 52.14 mmHg - RAP 8 mmHg - RVSP 60 mmHg - IVC diameter 2.47 cm (1.2 - 2.3) Pulmonic Valve/Qp:Qs Name Value Normal Range PV Vmax 1.13 m/sec - PV peak gradient 5.09 mmHg - IN end-diastolic Vmax 0.73 m/sec - PV acceleration time 106.57 msec - Marx/IV: Voiding Method Bedpan IV Catheter Type [Left Hand] INT / Saline Lock Active Medications - Current Medications Current Medications: Generic Name Dose Route Start Last Admin Trade Name Freq PRN Reason Stop Dose Admin Acetaminophen 650 mg 03/15/20 14:59 03/19/20 11:18 Acetaminophen 325 Mg Tab PO 650 mg Q4H PRN Administration Pain MILD(1-3)/Fever >100.5/KENNY Amlodipine Besylate 10 mg 03/16/20 10:00 03/20/20 09:16 Amlodipine 10 Mg Tab PO 10 mg DAILY MIK Administration Aspirin 81 mg 03/16/20 10:00 03/20/20 09:17 Aspirin Ec 81 Mg Tab PO 81 mg DAILY MIK Administration Atorvastatin Calcium 10 mg 03/15/20 22:00 03/20/20 23:00 Atorvastatin 10 Mg Tab PO 10 mg QHS MIK Administration Azathioprine 50 mg 03/16/20 10:00 03/20/20 12:04 Azathioprine 50 Mg Tab PO 50 mg DAILY MIK Administration Calcitriol 1 mcg 03/21/20 10:00 Calcitriol 0.25 Mcg Cap PO QDAY MIK Clonidine HCl 0.2 mg 03/15/20 22:00 03/21/20 06:37 Clonidine 0.1 Mg Tab PO 0.2 mg Q8HR MIK Administration Clopidogrel Bisulfate 75 mg 03/16/20 10:00 03/20/20 09:15 Clopidogrel 75 Mg Tab PO 75 mg QDAY MIK Administration Dexamethasone 6 mg 03/16/20 10:00 03/20/20 09:16 Dexamethasone 4 Mg/Ml Vial IV 03/24/20 10:01 6 mg Q24HR MIK Administration [place] 10,000 unit 03/15/20 18:00 [place] 10,000 Unit/1 Ml Inj SUB-Q SHEREE MIK Furosemide 80 mg 03/19/20 08:36 03/21/20 07:11 Furosemide 40 Mg/4 Ml Inj IV 80 mg BID@0600,1800 MIK Administration Guaifenesin 600 mg 03/17/20 11:00 03/20/20 23:01 Guaifenesin Er 600 Mg Tab PO 600 mg BID MIK Administration Heparin Sodium (Porcine) 5,000 unit 03/15/20 22:00 03/21/20 06:38 Heparin 5,000 Unit/1 Ml Vial SUB-Q 5,000 unit Q8HR MIK Administration Hydralazine HCl 20 mg 03/17/20 07:33 03/20/20 06:28 Hydralazine 20 Mg/1 Ml Inj IV 20 mg Q4HR PRN Administration Give if SBP>180 DBP>100 Hydralazine HCl 100 mg 03/18/20 20:00 03/20/20 23:00 Hydralazine 100 Mg Tab PO 100 mg TID MIK Administration Hydrophilic Ointment 1 applic 03/19/20 04:30 03/19/20 05:52 Lip Therapy Vaseline TP 1 applic DIRECT PRN Administration Dry Lips Sodium Chloride 100 mls @ 999 mls/hr 03/15/20 15:08 Nacl 0.9% IV SHEREE PRN Hypotension Sodium Chloride 100 mls @ 999 mls/hr 03/19/20 17:59 Nacl 0.9% IV SHEREE PRN Hypotension Magnesium Hydroxide 30 ml 03/15/20 14:59 Magnesium Hydroxide (Mom) Oral Liqd Udc PO Q4H PRN Constipation Metoprolol Tartrate 50 mg 03/20/20 14:00 03/20/20 22:59 Metoprolol Tartrate 50 Mg Tab PO 50 mg TID MIK Administration Morphine Sulfate 2 mg 03/15/20 14:59 03/20/20 01:11 Morphine 2 Mg/1 Ml Inj IV 2 mg Q5MIN PRN Administration Chest Pain unrelieved by NTG Ondansetron HCl 4 mg 03/15/20 14:59 Ondansetron 4 Mg/2 Ml Inj IV Q8H PRN Nausea And Vomiting Pantoprazole Sodium 20 mg 03/16/20 10:00 03/20/20 09:15 Pantoprazole 20 Mg Tab PO 20 mg QDAY MIK Administration Sodium Chloride 10 ml 03/15/20 22:00 03/20/20 23:04 Sodium Chloride 0.9% 10 Ml Flush Syringe IV 10 ml BID MIK Administration Sodium Chloride 10 ml 03/15/20 14:59 Sodium Chloride 0.9% 10 Ml Flush Syringe IV PRN PRN LINE FLUSH Tramadol HCl 50 mg 03/16/20 03:23 03/20/20 12:04 Tramadol 50 Mg Tab PO 50 mg Q6H PRN Administration Pain, Moderate (4-6) Valsartan 160 mg 03/15/20 22:00 03/20/20 23:00 Valsartan 160mg Tab PO 160 mg BID MIK Administration
--- NOTE | 2020-03-21 09:32 | XRay Report ---
CHEST 1 VIEW INDICATION / CLINICAL INFORMATION: lung scan. COMPARISON: 03/19/2020 FINDINGS: SUPPORT DEVICES: Right central venous catheter HEART / MEDIASTINUM: Cardiomegaly LUNGS / PLEURA: Bilateral airspace disease No pneumothorax. ADDITIONAL FINDINGS: No significant additional findings. IMPRESSION: No change in the bilateral airspace disease from 03/19/2020 Signer Name: Jorje Sharma MD FACR Signed: 03/21/2020 9:28 AM Workstation Name: [id number]
[2020-03-21] MEDS: hydrALAZINE 100 MG TAB PO SCH ×3 (09:44→19:58)
[2020-03-21] MEDS: guaiFENesin ER 600 MG TAB PO SCH ×2 (09:44→22:16)
[2020-03-21] MEDS: CALCITRIOL 0.25 MCG CAP PO SCH (09:45)
[2020-03-21] MEDS: PANTOPRAZOLE 20 MG TAB PO SCH (09:45)
[2020-03-21] MEDS: CLOPIDOGREL 75 MG TAB PO SCH (09:45)
[2020-03-21] MEDS: VALSARTAN 160MG TAB PO SCH ×2 (09:45→22:07)
[2020-03-21] MEDS: METOPROLOL TARTRATE 50 MG TAB PO SCH ×3 (09:45→19:52)
[2020-03-21] MEDS: amLODIPine 10 MG TAB PO SCH (09:45)
[2020-03-21] MEDS: ASPIRIN EC 81 MG TAB PO SCH (09:45)
[2020-03-21] MEDS: dexAMETHasone 4 MG/ML VIAL IV SCH (09:46)
[2020-03-21 09:50] LABS: C-Reactive Protein 19.8 mg/dL (0.00-1.30)
--- NOTE | 2020-03-21 10:45 | Progress Note ---
Assessment and Plan Assessment: 59-year-old female Acute hypoxic respiratory failure/Covid pneumonia Nonsustained VT on telemetry/asymptomatic Accelerated hypertension Severe LVH Moderate to severe MS ESRD/HD (Dr. Hong) Lupus Anemia chronic disease Plan: tte reviewed - EF 50-55%, severe LVH, LA severely dilated, atrial septal aneurysm, severe mitral leaflet calcification, mod to sever MS (mean gradient 20mmHg), mild TR, RVSP 60mmHg. Continue supportive care per the primary team. Will plan for further evaluation/management of mod to severe calcific MS as OP once medically stabilized. The patient has been seen in conjunction with Dr. Funes who agrees with the assessment and plan of care. Subjective Date of service: 03/21/20 Principal diagnosis: COVID Interval history: pt resting in bed, no current cardiac complaints. tele reviewed - in SR Hr 60s, no acute events overnight. Objective Last Vital Signs Temp 99.7 F H 03/21/20 05:48 Pulse 82 03/21/20 06:37 Resp 18 03/21/20 05:48 BP 192/95 03/21/20 06:37 Pulse Ox 96 03/21/20 08:46 - Physical Examination General: No Apparent Distress HEENT: Positive: PERRL Neck: Positive: neck supple, trachea midline Cardiac: Positive: Reg Rate and Rhythm, S1/S2 Lungs: Positive: Decreased Breath Sounds Neuro: Positive: Grossly Intact Abdomen: Positive: Soft, Active Bowel Sounds Skin: Negative: Rash Extremities: Present: warm, Other (Trace) - Labs and Meds Cardiac Enzymes 03/21/20 Range/Units 08:58 Lactate Dehydrogenase 291 H (91-180) units/L CBC 03/21/20 Range/Units 05:59 WBC 4.0 L (4.5-11.0) K/mm3 RBC 2.68 L (3.65-5.03) M/mm3 Hgb 8.4 L (10.1-14.3) gm/dl Hct 25.2 L (30.3-42.9) % Plt Count 198 (140-440) K/mm3 Comprehensive Metabolic Panel 03/21/20 Range/Units 05:59 Sodium 137 (137-145) mmol/L Potassium 3.7 (3.6-5.0) mmol/L Chloride 94.4 L (98-107) mmol/L Carbon Dioxide 29 (22-30) mmol/L BUN 29 H (7-17) mg/dL Creatinine 3.6 H (0.6-1.2) mg/dL Glucose 84 (65-100) mg/dL Calcium 9.8 (8.4-10.2) mg/dL - Imaging and Cardiology Echo: report reviewed (ECHO 08/31: Severe LVH, EF 55 to 60%, mild mitral regurgitation)
--- NOTE | 2020-03-21 11:00 | Progress Note ---
Assessment and Plan - Patient Problems (1) Pneumonia due to COVID-19 virus Current Visit: Yes Status: Acute Plan to address problem: pt started on dexamethasone 6mg po qd, on 2L NC, trend inflammatory parameters. On COVID19 protocol, follow ID recommendation. pending VQ scan to rule out PE (2) ESRD needing dialysis Current Visit: No Status: Acute Plan to address problem: Additional HD performed on Sun night due to acute respiratory failure with hypo xemia with target UF of 3L. Cont HD on MWF schedule. K corrected with HD, cont 2g K renal diet. (3) Hypertensive chronic kidney disease with stage 5 chronic kidney disease or end stage renal disease Current Visit: Yes Status: Acute Plan to address problem: elevated despite resuming home BP meds. cont IV hydralazine prn to target SBP < 160mmHg. Will increase UF target with HD for further volume/BP control (4) Lupus (systemic lupus erythematosus) Current Visit: Yes Status: Acute (5) Anemia in chronic illness Current Visit: Yes Status: Acute Plan to address problem: cont EPO with HD (6) Secondary hyperparathyroidism (of renal origin) Current Visit: Yes Status: Acute Plan to address problem: cont calcitriol 0.5mcg po qd while inpatient Subjective Date of service: 03/21/20 Principal diagnosis: COVID Interval history: Exam deferred d/t PPE preservation. Pending VQ scan today Objective - Exam Narrative Exam: In an effort to conserve Personal protective equipment and limit exposure, the patient was not directly examined by me. Interdisciplinary team notes, previous examinations, labs and diagnostics have been extensively reviewed and all recommendations taken into consideration. Physical exam deferred to primary team - Vital Signs Vital signs: Vital Signs - 12hr 03/20/20 03/20/20 03/20/20 23:00 23:02 23:05 Temperature Pulse Rate 63 63 Respiratory Rate Blood Pressure 206/97 206/97 O2 Sat by Pulse 99 Oximetry 03/21/20 03/21/20 03/21/20 03:12 05:48 06:37 Temperature 99.7 F H Pulse Rate 82 82 Respiratory 18 Rate Blood Pressure 192/95 192/95 O2 Sat by Pulse 99 96 Oximetry 03/21/20 08:46 Temperature Pulse Rate Respiratory Rate Blood Pressure O2 Sat by Pulse 96 Oximetry - Lab 03/21/20 05:59 03/21/20 05:59 Most recent lab results Calcium 9.8 mg/dL (8.4-10.2) 03/21/20 05:59 Magnesium 1.80 mg/dL (1.7-2.3) 03/20/20 01:22 Medications & Allergies - Medications Allergies/Adverse Reactions: Allergies No Known Allergies Allergy (Unverified 12/01/19 05:58) Home Medications: Home Medications Medication Instructions Recorded Confirmed Last Taken Type Aspirin [Adult Aspirin] 81 mg PO DAILY 12/02/19 03/18/20 Unknown History AtorvaSTATin 10 mg PO QHS 12/02/19 03/18/20 Unknown History Clopidogrel [Plavix] 75 mg PO QDAY 12/02/19 03/18/20 Unknown History Folic Acid 0.4 mg PO QDAY 12/02/19 03/18/20 Unknown History Omeprazole 20 mg PO DAILY 12/02/19 03/18/20 Unknown History amLODIPine 10 mg PO DAILY 12/02/19 03/18/20 Unknown History azaTHIOprine [Azathioprine] 50 mg PO DAILY 12/02/19 03/18/20 Unknown History calcitrioL [Rocaltrol] 1 mcg PO QDAY 12/02/19 03/18/20 Unknown History prednisoLONE [Millipred 5mg (12 20 mg PO QDAY 12/02/19 03/18/20 Unknown History day - 48 tab dosepak)] Furosemide [Lasix TAB] 80 mg PO QDAY #30 tablet 12/10/19 03/18/20 Unknown Rx Metoprolol [Lopressor TAB] 50 mg PO BID #60 tablet 12/10/19 03/18/20 Unknown Rx Valsartan [Diovan] 160 mg PO BID #60 tablet 12/10/19 03/18/20 Unknown Rx cloNIDine [Catapres] 0.2 mg PO Q8HR #90 tablet 12/10/19 03/18/20 Unknown Rx hydrALAZINE [Apresoline TAB] 50 mg PO Q8HR #180 tablet 12/10/19 03/18/20 Unknown Rx minoxidiL [Loniten] 5 mg PO QDAY #30 tablet 12/10/19 03/18/20 Unknown Rx Active Medications: Generic Name Dose Route Start Last Admin Trade Name Freq PRN Reason Stop Dose Admin Acetaminophen 650 mg 03/15/20 14:59 03/19/20 11:18 Acetaminophen 325 Mg Tab PO 650 mg Q4H PRN Administration Pain MILD(1-3)/Fever >100.5/KENNY Amlodipine Besylate 10 mg 03/16/20 10:00 03/21/20 09:45 Amlodipine 10 Mg Tab PO 10 mg DAILY MIK Administration Aspirin 81 mg 03/16/20 10:00 03/21/20 09:45 Aspirin Ec 81 Mg Tab PO 81 mg DAILY MIK Administration Atorvastatin Calcium 10 mg 03/15/20 22:00 03/20/20 23:00 Atorvastatin 10 Mg Tab PO 10 mg QHS MIK Administration Azathioprine 50 mg 03/16/20 10:00 03/20/20 12:04 Azathioprine 50 Mg Tab PO 50 mg DAILY MIK Administration Calcitriol 1 mcg 03/21/20 10:00 03/21/20 09:45 Calcitriol 0.25 Mcg Cap PO 1 mcg QDAY MIK Administration Clonidine HCl 0.2 mg 03/15/20 22:00 03/21/20 06:37 Clonidine 0.1 Mg Tab PO 0.2 mg Q8HR MIK Administration Clopidogrel Bisulfate 75 mg 03/16/20 10:00 03/21/20 09:45 Clopidogrel 75 Mg Tab PO 75 mg QDAY MIK Administration Dexamethasone 6 mg 03/16/20 10:00 03/21/20 09:46 Dexamethasone 4 Mg/Ml Vial IV 03/24/20 10:01 6 mg Q24HR MIK Administration [place] 10,000 unit 03/15/20 18:00 [place] 10,000 Unit/1 Ml Inj SUB-Q [facility] Furosemide 80 mg 03/19/20 08:36 03/21/20 07:11 Furosemide 40 Mg/4 Ml Inj IV 80 mg BID@0600,1800 MIK Administration Guaifenesin 600 mg 03/17/20 11:00 03/21/20 09:44 Guaifenesin Er 600 Mg Tab PO 600 mg BID MIK Administration Heparin Sodium (Porcine) 5,000 unit 03/15/20 22:00 03/21/20 06:38 Heparin 5,000 Unit/1 Ml Vial SUB-Q 5,000 unit Q8HR MIK Administration Hydralazine HCl 20 mg 03/17/20 07:33 03/20/20 06:28 Hydralazine 20 Mg/1 Ml Inj IV 20 mg Q4HR PRN Administration Give if SBP>180 DBP>100 Hydralazine HCl 100 mg 03/18/20 20:00 03/21/20 09:44 Hydralazine 100 Mg Tab PO 100 mg TID MIK Administration Hydrophilic Ointment 1 applic 03/19/20 04:30 03/19/20 05:52 Lip Therapy Vaseline TP 1 applic DIRECT PRN Administration Dry Lips Sodium Chloride 100 mls @ 999 mls/hr 03/15/20 15:08 Nacl 0.9% IV SHEREE PRN Hypotension Sodium Chloride 100 mls @ 999 mls/hr 03/19/20 17:59 Nacl 0.9% IV SHEREE PRN Hypotension Magnesium Hydroxide 30 ml 03/15/20 14:59 Magnesium Hydroxide (Mom) Oral Liqd Udc PO Q4H PRN Constipation Metoprolol Tartrate 50 mg 03/20/20 14:00 03/21/20 09:45 Metoprolol Tartrate 50 Mg Tab PO 50 mg TID MIK Administration Morphine Sulfate 2 mg 03/15/20 14:59 03/20/20 01:11 Morphine 2 Mg/1 Ml Inj IV 2 mg Q5MIN PRN Administration Chest Pain unrelieved by NTG Ondansetron HCl 4 mg 03/15/20 14:59 Ondansetron 4 Mg/2 Ml Inj IV Q8H PRN Nausea And Vomiting Pantoprazole Sodium 20 mg 03/16/20 10:00 03/21/20 09:45 Pantoprazole 20 Mg Tab PO 20 mg QDAY MIK Administration Sodium Chloride 10 ml 03/15/20 22:00 03/21/20 09:46 Sodium Chloride 0.9% 10 Ml Flush Syringe IV 10 ml BID MIK Administration Sodium Chloride 10 ml 03/15/20 14:59 Sodium Chloride 0.9% 10 Ml Flush Syringe IV PRN PRN LINE FLUSH Tramadol HCl 50 mg 03/16/20 03:23 03/20/20 12:04 Tramadol 50 Mg Tab PO 50 mg Q6H PRN Administration Pain, Moderate (4-6) Valsartan 160 mg 03/15/20 22:00 03/21/20 09:45 Valsartan 160mg Tab PO 160 mg BID MIK Administration
--- NOTE | 2020-03-21 11:57 | Consultation ---
History of Present Illness Consult date: 03/21/20 Requesting physician: HERLINDA POLLACK Reason for consult: hypoxemia History of present illness: 59 y/o female with ESRD on HD, Hypertension and COVID positive admitted with acute respiratory failure. Patient has been here for about 5 days and was placed on HFNC on admission. Remains on HFNC. Renal has been doing extra dialysis to help with oxygenation but no improvement. Remains hypertensive as well. Past History Past Medical History: dialysis, ESRD, heart failure, hypertension, other (Lupus) Past Surgical History: Other (Right Chest wall Permacath.) Social history: no significant social history Family history: no significant family history Medications and Allergies Allergies Allergy/AdvReac Type Severity Reaction Status Date / Time No Known Allergies Allergy Unverified 12/01/19 05:58 Home Medications Medication Instructions Recorded Confirmed Last Taken Type Aspirin [Adult Aspirin] 81 mg PO DAILY 12/02/19 03/18/20 Unknown History AtorvaSTATin 10 mg PO QHS 12/02/19 03/18/20 Unknown History Clopidogrel [Plavix] 75 mg PO QDAY 12/02/19 03/18/20 Unknown History Folic Acid 0.4 mg PO QDAY 12/02/19 03/18/20 Unknown History Omeprazole 20 mg PO DAILY 12/02/19 03/18/20 Unknown History amLODIPine 10 mg PO DAILY 12/02/19 03/18/20 Unknown History azaTHIOprine [Azathioprine] 50 mg PO DAILY 12/02/19 03/18/20 Unknown History calcitrioL [Rocaltrol] 1 mcg PO QDAY 12/02/19 03/18/20 Unknown History prednisoLONE [Millipred 5mg (12 20 mg PO QDAY 12/02/19 03/18/20 Unknown History day - 48 tab dosepak)] Furosemide [Lasix TAB] 80 mg PO QDAY #30 tablet 12/10/19 03/18/20 Unknown Rx Metoprolol [Lopressor TAB] 50 mg PO BID #60 tablet 12/10/19 03/18/20 Unknown Rx Valsartan [Diovan] 160 mg PO BID #60 tablet 12/10/19 03/18/20 Unknown Rx cloNIDine [Catapres] 0.2 mg PO Q8HR #90 tablet 12/10/19 03/18/20 Unknown Rx hydrALAZINE [Apresoline TAB] 50 mg PO Q8HR #180 tablet 12/10/19 03/18/20 Unknown Rx minoxidiL [Loniten] 5 mg PO QDAY #30 tablet 12/10/19 03/18/20 Unknown Rx Active Meds: Active Medications Acetaminophen (Acetaminophen 325 Mg Tab) 650 mg PO Q4H PRN PRN Reason: Pain MILD(1-3)/Fever >100.5/KENNY Last Admin: 03/19/20 11:18 Dose: 650 mg Documented by: Amlodipine Besylate (Amlodipine 10 Mg Tab) 10 mg PO DAILY [facility] Last Admin: 03/21/20 09:45 Dose: 10 mg Documented by: Aspirin (Aspirin Ec 81 Mg Tab) 81 mg PO DAILY [facility] Last Admin: 03/21/20 09:45 Dose: 81 mg Documented by: Atorvastatin Calcium (Atorvastatin 10 Mg Tab) 10 mg PO QHS [facility] Last Admin: 03/20/20 23:00 Dose: 10 mg Documented by: Azathioprine (Azathioprine 50 Mg Tab) 50 mg PO DAILY [facility] Last Admin: 03/20/20 12:04 Dose: 50 mg Documented by: Calcitriol (Calcitriol 0.25 Mcg Cap) 1 mcg PO QDAY [facility] Last Admin: 03/21/20 09:45 Dose: 1 mcg Documented by: Clonidine HCl (Clonidine 0.1 Mg Tab) 0.2 mg PO Q8HR [facility] Last Admin: 03/21/20 06:37 Dose: 0.2 mg Documented by: Clopidogrel Bisulfate (Clopidogrel 75 Mg Tab) 75 mg PO QDAY [facility] Last Admin: 03/21/20 09:45 Dose: 75 mg Documented by: Dexamethasone (Dexamethasone 4 Mg/Ml Vial) 6 mg IV Q24HR [facility] Stop: 03/24/20 10:01 Last Admin: 03/21/20 09:46 Dose: 6 mg Documented by: Epoetin Hill (Epoetin Hill 10,000 Unit/1 Ml Inj) 10,000 unit SUB-Q SHEREE [facility] Furosemide (Furosemide 40 Mg/4 Ml Inj) 80 mg IV BID@0600,1800 [facility] Last Admin: 03/21/20 07:11 Dose: 80 mg Documented by: Guaifenesin (Guaifenesin Er 600 Mg Tab) 600 mg PO BID [facility] Last Admin: 03/21/20 09:44 Dose: 600 mg Documented by: Heparin Sodium (Porcine) (Heparin 5,000 Unit/1 Ml Vial) 5,000 unit SUB-Q Q8HR [facility] Last Admin: 03/21/20 06:38 Dose: 5,000 unit Documented by: Hydralazine HCl (Hydralazine 20 Mg/1 Ml Inj) 20 mg IV Q4HR PRN PRN Reason: Give if SBP>180 DBP>100 Last Admin: 03/20/20 06:28 Dose: 20 mg Documented by: Hydralazine HCl (Hydralazine 100 Mg Tab) 100 mg PO TID [facility] Last Admin: 03/21/20 09:44 Dose: 100 mg Documented by: Hydrophilic Ointment (Lip Therapy Vaseline) 1 applic TP DIRECT PRN PRN Reason: Dry Lips Last Admin: 03/19/20 05:52 Dose: 1 applic Documented by: Sodium Chloride (Nacl 0.9%) 100 mls @ 999 mls/hr IV SHEREE PRN PRN Reason: Hypotension Sodium Chloride (Nacl 0.9%) 100 mls @ 999 mls/hr IV SHEREE PRN PRN Reason: Hypotension Magnesium Hydroxide (Magnesium Hydroxide (Mom) Oral Liqd Udc) 30 ml PO Q4H PRN PRN Reason: Constipation Metoprolol Tartrate (Metoprolol Tartrate 50 Mg Tab) 50 mg PO TID [facility] Last Admin: 03/21/20 09:45 Dose: 50 mg Documented by: Morphine Sulfate (Morphine 2 Mg/1 Ml Inj) 2 mg IV Q5MIN PRN PRN Reason: Chest Pain unrelieved by NTG Last Admin: 03/20/20 01:11 Dose: 2 mg Documented by: Ondansetron HCl (Ondansetron 4 Mg/2 Ml Inj) 4 mg IV Q8H PRN PRN Reason: Nausea And Vomiting Pantoprazole Sodium (Pantoprazole 20 Mg Tab) 20 mg PO QDAY [facility] Last Admin: 03/21/20 09:45 Dose: 20 mg Documented by: Sodium Chloride (Sodium Chloride 0.9% 10 Ml Flush Syringe) 10 ml IV BID [facility] Last Admin: 03/21/20 09:46 Dose: 10 ml Documented by: Sodium Chloride (Sodium Chloride 0.9% 10 Ml Flush Syringe) 10 ml IV PRN PRN PRN Reason: LINE FLUSH Tramadol HCl (Tramadol 50 Mg Tab) 50 mg PO Q6H PRN PRN Reason: Pain, Moderate (4-6) Last Admin: 03/20/20 12:04 Dose: 50 mg Documented by: Valsartan (Valsartan 160mg Tab) 160 mg PO BID [facility] Last Admin: 03/21/20 09:45 Dose: 160 mg Documented by: Physical Examination Vital signs: Vital Signs Pulse Resp 82 13 03/15/20 11:48 03/15/20 11:48 Results - Laboratory Findings CBC and BMP: 03/21/20 05:59 03/21/20 05:59 PT/INR, D-dimer PT 14.5 Sec. (12.2-14.9) 03/16/20 06:18 INR 1.14 (0.87-1.13) H 03/16/20 06:18 D-Dimer 1600.05 ng/mlDDU (0-234) H 03/21/20 08:58 Abnormal lab findings: Abnormal Labs 03/15/20 03/15/20 03/15/20 12:26 12:26 12:29 WBC RBC Hgb Hct RDW Lymph % (Auto) [place] % (Auto) Lymph # (Auto) Seg Neutrophils % INR APTT 37.2 H D-Dimer 718.25 H Sodium 130 L Potassium Chloride 89.8 L BUN 69 H Creatinine 6.0 H Ferritin 1021.0 H Lactate Dehydrogenase C-Reactive Protein NT-Pro-B Natriuret Pep Total Protein Albumin Coronavirus (PCR) 03/15/20 03/15/20 03/16/20 13:10 14:12 06:18 WBC 3.7 L RBC 2.77 L 2.94 L Hgb 8.8 L 9.3 L Hct 26.4 L 28.2 L RDW 16.4 H 16.7 H Lymph % (Auto) 1.5 L 7.0 L [place] % (Auto) 9.2 H 8.4 H Lymph # (Auto) 0.1 L 0.3 L Seg Neutrophils % 89.1 H 84.1 H INR APTT D-Dimer Sodium Potassium Chloride BUN Creatinine Ferritin Lactate Dehydrogenase 290 H C-Reactive Protein 7.10 H NT-Pro-B Natriuret Pep > 55388 H Total Protein Albumin Coronavirus (PCR) 03/16/20 03/16/20 03/16/20 06:18 06:18 Unknown WBC RBC Hgb Hct RDW Lymph % (Auto) [place] % (Auto) Lymph # (Auto) Seg Neutrophils % INR 1.14 H APTT D-Dimer Sodium Potassium Chloride 96.2 L BUN 55 H Creatinine 5.0 H Ferritin Lactate Dehydrogenase C-Reactive Protein NT-Pro-B Natriuret Pep Total Protein Albumin Coronavirus (PCR) Positive A 03/17/20 03/17/20 03/17/20 04:36 13:36 13:36 WBC RBC Hgb Hct RDW Lymph % (Auto) [place] % (Auto) Lymph # (Auto) Seg Neutrophils % INR APTT D-Dimer 1336.88 H Sodium 134 L Potassium 5.5 H Chloride 93.9 L BUN 68 H Creatinine 6.2 H Ferritin 1905.0 H Lactate Dehydrogenase C-Reactive Protein NT-Pro-B Natriuret Pep Total Protein 6.2 L Albumin 3.6 L Coronavirus (PCR) 03/17/20 03/18/20 03/19/20 13:36 04:46 04:45 WBC RBC Hgb Hct RDW Lymph % (Auto) [place] % (Auto) Lymph # (Auto) Seg Neutrophils % INR APTT D-Dimer Sodium 135 L Potassium 5.5 H Chloride 95.1 L 91.0 L BUN 47 H 68 H Creatinine 4.8 H 6.1 H Ferritin Lactate Dehydrogenase 213 H C-Reactive Protein 12.70 H NT-Pro-B Natriuret Pep Total Protein Albumin Coronavirus (PCR) 03/20/20 03/21/20 03/21/20 06:16 05:59 05:59 WBC 4.0 L RBC 2.68 L Hgb 8.4 L Hct 25.2 L RDW 17.2 H Lymph % (Auto) [place] % (Auto) Lymph # (Auto) Seg Neutrophils % INR APTT D-Dimer Sodium Potassium Chloride 95.0 L 94.4 L BUN 45 H 29 H Creatinine 4.7 H 3.6 H Ferritin Lactate Dehydrogenase C-Reactive Protein NT-Pro-B Natriuret Pep Total Protein Albumin Coronavirus (PCR) 03/21/20 03/21/20 03/21/20 08:58 08:58 08:58 WBC RBC Hgb Hct RDW Lymph % (Auto) [place] % (Auto) Lymph # (Auto) Seg Neutrophils % INR APTT D-Dimer 1600.05 H Sodium Potassium Chloride BUN Creatinine Ferritin > 2000.0 H Lactate Dehydrogenase 291 H C-Reactive Protein 19.80 H NT-Pro-B Natriuret Pep Total Protein Albumin Coronavirus (PCR) Assessment and Plan 59 y/o female with acute respiratory failure secondary to COVID 19 with persistent hypoxemia and elevated BP's. Not much else to offer from a pulmonary standpoint other than time. She is getting extra dialysis sessions as well as lasix 80 BID. She needs to prone as much as possible. Despite her oxygen requirements she is not in severe distress so hopefully she just needs more time. Will continue to monitor along with you. Please encourage proning.
--- NOTE | 2020-03-21 14:08 | Nuclear Medicine Report ---
NUCLEAR MEDICINE PERFUSION SCAN INDICATION: shortness of breath CORRELATION: AP chest performed the same day at 0834 hours RADIOPHARMACEUTICAL: Perfusion: 5.1 mCi Tc-99m MAA given IV FINDINGS: Perfusion images show symmetric and uniform radiotracer distribution throughout bilateral lung zones with no evidence of unmatched segmental perfusion defects. The cardiac silhouette appears enlarged. IMPRESSION: Low probability perfusion scan for pulmonary embolism. Signer Name: Liang Cronin Jr, MD Signed: 03/21/2020 2:04 PM Workstation Name: [id number]
[2020-03-21] MEDS: azaTHIOprine 50 MG TAB PO SCH (14:19)
--- NOTE | 2020-03-21 14:23 | Progress Note ---
Assessment and Plan Cultures: Blood culture no growth SARS CoV2 PCR positive Assessment: 59 years old female with history of end-stage renal disease on hemodialysis, lupus and CHF admitted on 03/15/2020 secondary to 4 days history of dry cough, fever, headaches, generalized malaise and shortness of breath: #Severe COVID pneumonia: Chest x-ray with likely pulmonary edema and pneumonia. Inflammatory markers elevated. Procalcitonin elevated, likely due to renal failure. No indication for remdesivir due to renal failure #Acute hypoxemic respiratory failure: on HFNC. #ESRD on hemodialysis #Lupus: on imuran. Recommendations: -continue steroids, complete decadron x 10 days -completed antibiotics, remains off abx -continue dialysis to help with volume and respiratory status -Monitor inflammatory markers - ferritin, Ddimer, CRP, LDH -Continue anticoagulation per System Protocol -guarded prognosis Freda Celeste MD, FACP [facility] ([facility] O: [phone] F: [phone] Subjective Date of service: 03/21/20 Principal diagnosis: COVID Interval history: No fever. Remains on high flow nasal cannula. Objective - Exam Narrative Exam: Physical Exam (reviewed in chart to minimize risk of transmission) Constitutional: deferred Head, Ears, Nose: deferred Eyes: deferred Neck: deferred Oral: deferred Cardiovascular: deferred Respiratory: deferred GI: deferred Musculoskeletal: deferred Skin: deferred Hem/Lymphatic: deferred Psych: deferred Neurological: deferred - Constitutional Vitals: Vital Signs Temp Pulse Resp BP Pulse Ox 97.3 F L 81 19 177/80 95 03/21/20 11:29 03/21/20 11:29 03/21/20 11:29 03/21/20 11:29 03/21/20 13:10 Temperature -Last 24 Hours Temperature 97.3 F Temperature 99.7 F Temperature 98.2 F Temperature 98.3 F Temperature 98.8 F - Labs CBC & Chem 7: 03/21/20 05:59 03/21/20 05:59 Labs: Abnormal lab results 03/20/20 03/21/20 03/21/20 Range/Units 21:23 05:59 05:59 WBC 4.0 L (4.5-11.0) K/mm3 RBC 2.68 L (3.65-5.03) M/mm3 Hgb 8.4 L (10.1-14.3) gm/dl Hct 25.2 L (30.3-42.9) % RDW 17.2 H (13.2-15.2) % D-Dimer (0-234) ng/mlDDU Chloride 94.4 L (98-107) mmol/L BUN 29 H (7-17) mg/dL Creatinine 3.6 H (0.6-1.2) mg/dL POC Glucose 124 H (70-105) mg/dL Ferritin (10.0-200.0) ng/mL Lactate Dehydrogenase (91-180) units/L C-Reactive Protein (0.00-1.30) mg/dL 03/21/20 03/21/20 03/21/20 Range/Units 08:58 08:58 08:58 WBC (4.5-11.0) K/mm3 RBC (3.65-5.03) M/mm3 Hgb (10.1-14.3) gm/dl Hct (30.3-42.9) % RDW (13.2-15.2) % D-Dimer 1600.05 H (0-234) ng/mlDDU Chloride (98-107) mmol/L BUN (7-17) mg/dL Creatinine (0.6-1.2) mg/dL POC Glucose (70-105) mg/dL Ferritin > 2000.0 H (10.0-200.0) ng/mL Lactate Dehydrogenase 291 H (91-180) units/L C-Reactive Protein 19.80 H (0.00-1.30) mg/dL
[2020-03-22] MEDS: FUROSEMIDE 40 MG/4 ML INJ IV SCH (06:00)
[2020-03-22] MEDS: HEPARIN 5,000 UNIT/1 ML VIAL SUB-Q SCH ×3 (06:02→23:53)
[2020-03-22] MEDS: cloNIDine 0.1 MG TAB PO SCH ×3 (06:10→23:55)
--- NOTE | 2020-03-22 08:13 | Progress Note ---
Assessment and Plan Assessment and plan: 59-year-old female with known history of end-stage renal disease on dialysis- Mondays, Wednesdays and Fridays, lupus, CHF, presenting to the emergency room today from an assisted living facility with cough fever headache which has been ongoing for about 4 days. She did not go to dialysis today because she was not feeling quite well. She had a fever of about 103 F. She also also has some mild shortness of breath. Patient indicates that several people at the facility had tested positive for COVID-19. She tested negative for COVID-19 yesterday. Patient denies any chest pain, no nausea vomiting, no loss of taste or smell, no diarrhea and no abdominal pain. In route to the hospital patient oxygen saturation was about 88% on room air she was subsequently placed on 2 L of oxygen. Work-up in the emergency room today chest x-ray reveals pulmonary edema. [employer] Dr. Hong has been consulted by the ER physician. Patient has been admitted with pulmonary edema. We will however rule out COVID-19. 2/2: Review of records shows patient is still on High flow, will obtain Pulmonary consultation, patient with worsening D.Dimer, will obtain V/Q scan to rule pulmonary embolism, Will likely change to Heparin drip till this iS clarified if patient is still on High flow. I unfortunately do not see clear oxygen documentation. Continues with Hypertensive urgency, SPOKE with the daughter, patient has had Elevated blood pressure for some time but not quite this high, Nephrology following and adjusting meds. 2/3: Continue supportive care, Will discontinue Heparin drip at this time, and use sliding scale considering low probability of PE on V/Q scan. Considering uncontrolled HTN, will transfer to [facility] and initiate Cardene drip, continue to wean High flow. COUNSELLING ON FLUID RESTRICTIONS Acute hypoxic respiratory failure -Oxygen supplementation -Covid is positive -Covid protocol initiated Continue high flow nasal cannula oxygen, needs close monitoring, builds fluid very quickly. Covid pneumonia -Covid positive -Infectious disease consulted -Dexamethasone Azithromycin and ceftriaxone End-stage renal disease -Friday -Nephrology consulted -Continue dialysis as scheduled patient does not make urine Nonsustained ventricular tachycardia Cardiology consulted Continue to monitor, no acute intervention required at this time -TTE noted Accelerated hypertension related to renal disease Valsartan, metoprolol, furosemide, clonidine, hydralazine, making adjustments for better control Patient's blood pressure at home is usually in the 200 systolic, completely uncontrolled Anemia and chronic disease illness -No acute bleeding Hypervolemic hyponatremia -Resolved with hemodialysis Heart failure, unspecified type Presumed history of CAD Elevated BNP Metoprolol, Plavix Hyperkalemia Kayexalate Morbid obesity Lifestyle change CODE STATUS: Full DVT prophylaxis: Heparin Disposition: Continue Covid treatment, continue hemodialysis, monitor for nonsus tained V. tach History Interval history: Patient seen and examined, resting, no overtly distress but remains on High flow oxygen at 60% Hospitalist Physical - Physical exam Narrative exam: General appearance: Present: Obese, no acute distress, well-nourished, Sitting - EENT Eyes: Present: PERRL, EOM intact ENT: hearing intact, clear oral mucosa - Respiratory Respiratory effort: Normal, high flow nasal cannula oxygen Respiratory: Crackles heard in both lung paz bilaterally - Cardiovascular Rhythm: regular Heart Sounds: Present: S1 & S2. Absent: rub, click HD access: Permacath in right chest - Extremities Extremities: no ischemia, +1 edema in lower extremities - Abdominal General gastrointestinal: soft, non-tender, non-distended, normal bowel sounds - Integumentary Integumentary: Present: clear, warm, dry, normal turgor - Neurologic Neurologic: CNII-XII intact, no focal deficits, moves all extremities, no confusion , - Constitutional Vitals: Temp Pulse Resp BP Pulse Ox 98.1 F 77 20 203/91 96 03/22/20 05:50 03/22/20 06:10 03/22/20 05:50 03/22/20 06:10 03/22/20 05:50 General appearance: Present: mild distress Results - Labs CBC & Chem 7: 03/21/20 05:59 03/22/20 05:04 Labs: Laboratory Last Values WBC 4.0 K/mm3 (4.5-11.0) L 03/21/20 05:59 RBC 2.68 M/mm3 (3.65-5.03) L 03/21/20 05:59 Hgb 8.4 gm/dl (10.1-14.3) L 03/21/20 05:59 Hct 25.2 % (30.3-42.9) L 03/21/20 05:59 MCV 94 fl (79-97) 03/21/20 05:59 MCH 31 pg (28-32) 03/21/20 05:59 MCHC 33 % (30-34) 03/21/20 05:59 RDW 17.2 % (13.2-15.2) H 03/21/20 05:59 Plt Count 198 K/mm3 (140-440) 03/21/20 05:59 Lymph % (Auto) 7.0 % (13.4-35.0) L 03/16/20 06:18 Payette % (Auto) 8.4 % (0.0-7.3) H 03/16/20 06:18 Eos % (Auto) 0.0 % (0.0-4.3) 03/16/20 06:18 Baso % (Auto) 0.5 % (0.0-1.8) 03/16/20 06:18 Lymph # (Auto) 0.3 K/mm3 (1.2-5.4) L 03/16/20 06:18 Payette # (Auto) 0.3 K/mm3 (0.0-0.8) 03/16/20 06:18 Eos # (Auto) 0.0 K/mm3 (0.0-0.4) 03/16/20 06:18 Baso # (Auto) 0.0 K/mm3 (0.0-0.1) 03/16/20 06:18 Seg Neutrophils % 84.1 % (40.0-70.0) H 03/16/20 06:18 Seg Neutrophils # 3.1 K/mm3 (1.8-7.7) 03/16/20 06:18 PT 14.5 Sec. (12.2-14.9) 03/16/20 06:18 INR 1.14 (0.87-1.13) H 03/16/20 06:18 APTT 37.2 Sec. (24.2-36.6) H 03/15/20 12:26 D-Dimer 1600.05 ng/mlDDU (0-234) H 03/21/20 08:58 Sodium 134 mmol/L (137-145) L 03/22/20 05:04 Potassium 3.8 mmol/L (3.6-5.0) 03/22/20 05:04 Chloride 92.1 mmol/L (98-107) L 03/22/20 05:04 Carbon Dioxide 26 mmol/L (22-30) 03/22/20 05:04 Anion Gap 20 mmol/L 03/22/20 05:04 BUN 47 mg/dL (7-17) H 03/22/20 05:04 Creatinine 5.0 mg/dL (0.6-1.2) H 03/22/20 05:04 Estimated GFR 11 ml/min 03/22/20 05:04 BUN/Creatinine Ratio 9 % 03/22/20 05:04 Glucose 92 mg/dL (65-100) 03/22/20 05:04 POC Glucose 124 mg/dL (70-105) H 03/20/20 21:23 Calcium 10.0 mg/dL (8.4-10.2) 03/22/20 05:04 Magnesium 1.80 mg/dL (1.7-2.3) 03/20/20 01:22 Ferritin > 2000.0 ng/mL (10.0-200.0) H 03/21/20 08:58 Total Bilirubin 0.30 mg/dL (0.1-1.2) 03/17/20 04:36 Direct Bilirubin < 0.2 mg/dL (0-0.2) 03/15/20 12:26 Indirect Bilirubin 0.1 mg/dL 03/15/20 12:26 AST 15 units/L (5-40) 03/17/20 04:36 ALT 7 units/L (7-56) 03/17/20 04:36 Alkaline Phosphatase 73 units/L (35-129) 03/17/20 04:36 Lactate Dehydrogenase 291 units/L (91-180) H 03/21/20 08:58 C-Reactive Protein 19.80 mg/dL (0.00-1.30) H 03/21/20 08:58 NT-Pro-B Natriuret Pep > 57910 pg/mL (0-900) H 03/15/20 13:10 Total Protein 6.2 g/dL (6.3-8.2) L 03/17/20 04:36 Albumin 3.6 g/dL (3.9-5) L 03/17/20 04:36 Albumin/Globulin Ratio 1.4 % 03/17/20 04:36 Procalcitonin 6.52 ng/mL (<0.15) 03/21/20 08:58 TSH 1.540 mlU/mL (0.270-4.200) 03/19/20 04:45 Free T4 1.32 ng/dL (0.76-1.46) 03/19/20 04:45 Nasal Screen MRSA (PCR) Negative (Negative) 03/16/20 23:49 Coronavirus (PCR) Positive (Negative) A 03/16/20 Unknown Hepatitis A IgM Ab Non-reactive (NonReactive) 03/15/20 19:18 Hep Bs Antigen Non-reactive (Negative) 03/15/20 19:18 Hep B Core IgM Ab Non-reactive (NonReactive) 03/15/20 19:18 Hepatitis C Antibody Non-reactive (NonReactive) 03/15/20 19:18 - Diagnostic Impressions Diagnostic Impressions: Echocardiogram 03/15/20 15:05 Transthoracic Echocardiogram Indication: Pulm edema; h/o CHF BP: 186/94 HR: 75 Conclusions *Global left ventricular wall motion and contractility are within normal limits. *Global left ventricular systolic function is normal. *The right ventricular global systolic function is normal. *The left atrium is severely dilated. *There is evidence of an atrial septal aneurysm. *There is trace of aortic regurgitation. *Severe mitral leaflet calcification is visualized. *There is moderate to severe mitral stenosis. *The mean gradient across the mitral valve is 20.773605606920 mmHg. *There is mild tricuspid regurgitation. *The right ventricular systolic pressure is calculated at 60 mmHg. *There is trace pulmonic regurgitation. Findings Left Ventricle: The left ventricular chamber size is normal. Severe concentric left ventricular hypertrophy is observed. Global left ventricular wall motion and contractility are within normal limits. Global left ventricular systolic function is normal. The estimated ejection fraction is 50-55%. Left Atrium: The left atrium is severely dilated. Right Ventricle: The right ventricular cavity size is normal. The right ventricular global systolic function is normal. Right Atrium: The right atrial cavity size is normal. There is evidence of an atrial septal aneurysm. Aortic Valve: Mild aortic leaflet calcification is visualized. There is trace of aortic regurgitation. Mitral Valve: Severe mitral leaflet calcification is visualized. There is mild mitral regurgitation. There is moderate to severe mitral stenosis. The mean gradient across the mitral valve is 20.235715670827 mmHg. The peak gradient across the mitral valve is 33.97024457055 mmHg. Tricuspid Valve: The tricuspid valve leaflets are normal. There is mild tricuspid regurgitation. The right ventricular systolic pressure is calculated at 60 mmHg. Pulmonic Valve: There is no evidence of pulmonic valve thickening. There is trace pulmonic regurgitation. Pericardium: There is no pericardial effusion. Aorta: The aorta appears normal. Venous: The inferior vena cava is dilated. Measurements Chambers 2D Name Value Normal Range IVSd (2D) 1.82 cm (0.6 - 1.1) LVPWd (2D) 1.64 cm (0.6 - 1.1) LVIDd (2D) 4.56 cm (3.7 - 5.6) LVIDs (2D) 3.53 cm (2 - 3.8) LV FS (2D) 22.49 % - EF Teichholz (2D) 45.39 % - Ao root diameter (2D) 2.87 cm (2 - 3.7) Volumes/Mass Name Value Normal Range LA ESV SP 4CH (A/L) 98.24 ml - LA ESV SP 2CH (A/L) 197.59 ml - LA ESV BP (A/L) 140.33 ml - LA ESV BP (A/L) index 77.53 ml/m2 - LA ESV SP 4CH (MOD) 93.73 ml - LA ESV SP 2CH (MOD) 194.1 ml - LA ESV BP (MOD) 134.76 ml - LA ESV BP (MOD) index 74.45 ml/m2 - Diastolic/Systolic Function Name Value Normal Range MV E-wave Vmax 2.09 m/sec - MV deceleration time 630.49 msec - MV A-wave Vmax 1.38 m/sec - MV E:A ratio 1.51 ratio - Aortic Valve Name Value Normal Range AV Vmax 2.22 m/sec - AV VTI 47.25 cm - AV peak gradient 19.74 mmHg - AV mean gradient 10.57 mmHg - LVOT diameter 1.91 cm - LVOT Vmax 1.58 m/sec - LVOT VTI 31.21 cm - LVOT peak gradient 10 mmHg - LVOT mean gradient 5.33 mmHg - SV LVOT 89.65 ml - CLIVE (continuity Vmax) 2.04 cm2 - CLIVE (continuity VTI) 1.9 cm2 - AR PHT 479.73 msec - AR peak gradient 17.52 mmHg - Mitral Valve Name Value Normal Range MV Vmax 2.89 m/sec - MV VTI 107.77 cm - MV peak gradient 33.41 mmHg - MV mean gradient 20.1 mmHg - MV PHT 184.74 msec - MR Vmax 6.51 m/sec - MVA (PHT) 1.19 cm2 - MVA (continuity VTI) 0.83 cm2 - Tricuspid Valve Name Value Normal Range TR Vmax 3.61 m/sec - TR peak gradient 52.14 mmHg - RAP 8 mmHg - RVSP 60 mmHg - IVC diameter 2.47 cm (1.2 - 2.3) Pulmonic Valve/Qp:Qs Name Value Normal Range PV Vmax 1.13 m/sec - PV peak gradient 5.09 mmHg - HI end-diastolic Vmax 0.73 m/sec - PV acceleration time 106.57 msec - Marx/IV: Voiding Method Bedpan IV Catheter Type [Left Hand] INT / Saline Lock Active Medications - Current Medications Current Medications: Generic Name Dose Route Start Last Admin Trade Name Freq PRN Reason Stop Dose Admin Acetaminophen 650 mg 03/15/20 14:59 03/19/20 11:18 Acetaminophen 325 Mg Tab PO 650 mg Q4H PRN Administration Pain MILD(1-3)/Fever >100.5/KENNY Amlodipine Besylate 10 mg 03/16/20 10:00 03/21/20 09:45 Amlodipine 10 Mg Tab PO 10 mg DAILY MIK Administration Aspirin 81 mg 03/16/20 10:00 03/21/20 09:45 Aspirin Ec 81 Mg Tab PO 81 mg DAILY MIK Administration Atorvastatin Calcium 10 mg 03/15/20 22:00 03/21/20 22:08 Atorvastatin 10 Mg Tab PO 10 mg QHS MIK Administration Azathioprine 50 mg 03/16/20 10:03/21/20 14:19 Azathioprine 50 Mg Tab PO 50 mg DAILY MIK Administration Calcitriol 1 mcg 03/21/20 10:00 03/21/20 09:45 Calcitriol 0.25 Mcg Cap PO 1 mcg QDAY MIK Administration Clonidine HCl 0.2 mg 03/15/20 22:00 03/22/20 06:10 Clonidine 0.1 Mg Tab PO 0.2 mg Q8HR MIK Administration Clopidogrel Bisulfate 75 mg 03/16/20 10:00 03/21/20 09:45 Clopidogrel 75 Mg Tab PO 75 mg QDAY MIK Administration Dexamethasone 6 mg 03/16/20 10:00 03/21/20 09:46 Dexamethasone 4 Mg/Ml Vial IV 03/24/20 10:01 6 mg Q24HR MIK Administration Epoetin Hill 10,000 unit 03/15/20 18:00 Epoetin [place] 10,000 Unit/1 Ml Inj SUB-Q SHEREE MIK Furosemide 80 mg 03/19/20 08:36 03/22/20 06:00 Furosemide 40 Mg/4 Ml Inj IV 80 mg BID@0600,1800 MIK Administration Guaifenesin 600 mg 03/17/20 11:00 03/21/20 22:16 Guaifenesin Er 600 Mg Tab PO 600 mg BID MIK Administration Heparin Sodium (Porcine) 5,000 unit 03/15/20 22:00 03/22/20 06:02 Heparin 5,000 Unit/1 Ml Vial SUB-Q 5,000 unit Q8HR MIK Administration Hydralazine HCl 20 mg 03/17/20 07:33 03/20/20 06:28 Hydralazine 20 Mg/1 Ml Inj IV 20 mg Q4HR PRN Administration Give if SBP>180 DBP>100 Hydralazine HCl 100 mg 03/18/20 20:00 03/21/20 19:58 Hydralazine 100 Mg Tab PO 100 mg TID MIK Administration Hydrophilic Ointment 1 applic 03/19/20 04:30 03/19/20 05:52 Lip Therapy Vaseline TP 1 applic DIRECT PRN Administration Dry Lips Sodium Chloride 100 mls @ 999 mls/hr 03/15/20 15:08 Nacl 0.9% IV SHEREE PRN Hypotension Sodium Chloride 100 mls @ 999 mls/hr 03/19/20 17:59 Nacl 0.9% IV SHEREE PRN Hypotension Magnesium Hydroxide 30 ml 03/15/20 14:59 Magnesium Hydroxide (Mom) Oral Liqd Udc PO Q4H PRN Constipation Metoprolol Tartrate 50 mg 03/20/20 14:00 03/21/20 19:52 Metoprolol Tartrate 50 Mg Tab PO 50 mg TID MIK Administration Morphine Sulfate 2 mg 03/15/20 14:59 03/20/20 01:11 Morphine 2 Mg/1 Ml Inj IV 2 mg Q5MIN PRN Administration Chest Pain unrelieved by NTG Ondansetron HCl 4 mg 03/15/20 14:59 Ondansetron 4 Mg/2 Ml Inj IV Q8H PRN Nausea And Vomiting Pantoprazole Sodium 20 mg 03/16/20 10:00 03/21/20 09:45 Pantoprazole 20 Mg Tab PO 20 mg QDAY MIK Administration Sodium Chloride 10 ml 03/15/20 22:00 03/21/20 22:16 Sodium Chloride 0.9% 10 Ml Flush Syringe IV 10 ml BID MIK Administration Sodium Chloride 10 ml 03/15/20 14:59 Sodium Chloride 0.9% 10 Ml Flush Syringe IV PRN PRN LINE FLUSH Tramadol HCl 50 mg 03/16/20 03:23 03/20/20 12:04 Tramadol 50 Mg Tab PO 50 mg Q6H PRN Administration Pain, Moderate (4-6) Valsartan 160 mg 03/15/20 22:00 03/21/20 22:07 Valsartan 160mg Tab PO 160 mg BID MIK Administration
--- NOTE | 2020-03-22 09:02 | Progress Note ---
Assessment and Plan - Patient Problems (1) Pneumonia due to COVID-19 virus Current Visit: Yes Status: Acute Plan to address problem: pt started on dexamethasone 6mg po qd, on 2L NC, trend inflammatory parameters. On COVID19 protocol, follow ID recommendation. VQ scan showed low probability for PE (2) ESRD needing dialysis Current Visit: No Status: Acute Plan to address problem: Additional HD performed on Sun night due to acute respiratory failure with hypoxemia with target UF of 3L. Cont HD on MWF schedule. K corrected with HD, cont 2g K renal diet. (3) Hypertensive chronic kidney disease with stage 5 chronic kidney disease or end stage renal disease Current Visit: Yes Status: Acute Plan to address problem: BP remains uncontrolled. pt with noncompliance with fluid restriction, reinforce 1L/day restriction. Will increase UF target to 4L as tolerated for further volume/BP control. cont IV hydralazine prn to target SBP < 160mmHg. If SBP remains > 200s despite HD/increased UF to consider cardene gtt (4) Lupus (systemic lupus erythematosus) Current Visit: Yes Status: Acute (5) Anemia in chronic illness Current Visit: Yes Status: Acute Plan to address problem: cont EPO with HD (6) Secondary hyperparathyroidism (of renal origin) Current Visit: Yes Status: Acute Plan to address problem: cont calcitriol 0.5mcg po qd while inpatient Subjective Date of service: 03/22/20 Principal diagnosis: COVID Interval history: Exam deferred d/t PPE preservation. Pending VQ scan today Objective - Exam Narrative Exam: In an effort to conserve Personal protective equipment and limit exposure, the patient was not directly examined by me. Interdisciplinary team notes, previous examinations, labs and diagnostics have been extensively reviewed and all recommendations taken into consideration. Physical exam deferred to primary team - Vital Signs Vital signs: Vital Signs - 12hr 03/22/20 03/22/20 03/22/20 00:03 05:50 06:10 Temperature 99.2 F 98.1 F Pulse Rate 69 65 77 Respiratory 20 20 Rate Blood Pressure 176/87 203/91 203/91 O2 Sat by Pulse 98 96 Oximetry - Lab 03/21/20 05:59 03/22/20 05:04 Most recent lab results Calcium 10.0 mg/dL (8.4-10.2) 03/22/20 05:04 Magnesium 1.80 mg/dL (1.7-2.3) 03/20/20 01:22 Medications & Allergies - Medications Allergies/Adverse Reactions: Allergies No Known Allergies Allergy (Unverified 12/01/19 05:58) Home Medications: Home Medications Medication Instructions Recorded Confirmed Last Taken Type Aspirin [Adult Aspirin] 81 mg PO DAILY 12/02/19 03/18/20 Unknown History AtorvaSTATin 10 mg PO QHS 12/02/19 03/18/20 Unknown History Clopidogrel [Plavix] 75 mg PO QDAY 12/02/19 03/18/20 Unknown History Folic Acid 0.4 mg PO QDAY 12/02/19 03/18/20 Unknown History Omeprazole 20 mg PO DAILY 12/02/19 03/18/20 Unknown History amLODIPine 10 mg PO DAILY 12/02/19 03/18/20 Unknown History azaTHIOprine [Azathioprine] 50 mg PO DAILY 12/02/19 03/18/20 Unknown History calcitrioL [Rocaltrol] 1 mcg PO QDAY 12/02/19 03/18/20 Unknown History prednisoLONE [Millipred 5mg (12 20 mg PO QDAY 12/02/19 03/18/20 Unknown History day - 48 tab dosepak)] Furosemide [Lasix TAB] 80 mg PO QDAY #30 tablet 12/10/19 03/18/20 Unknown Rx Metoprolol [Lopressor TAB] 50 mg PO BID #60 tablet 12/10/19 03/18/20 Unknown Rx Valsartan [Diovan] 160 mg PO BID #60 tablet 12/10/19 03/18/20 Unknown Rx cloNIDine [Catapres] 0.2 mg PO Q8HR #90 tablet 12/10/19 03/18/20 Unknown Rx hydrALAZINE [Apresoline TAB] 50 mg PO Q8HR #180 tablet 12/10/19 03/18/20 Unknown Rx minoxidiL [Loniten] 5 mg PO QDAY #30 tablet 12/10/19 03/18/20 Unknown Rx Active Medications: Generic Name Dose Route Start Last Admin Trade Name Freq PRN Reason Stop Dose Admin Acetaminophen 650 mg 03/15/20 14:59 03/19/20 11:18 Acetaminophen 325 Mg Tab PO 650 mg Q4H PRN Administration Pain MILD(1-3)/Fever >100.5/KENNY Amlodipine Besylate 10 mg 03/16/20 10:00 03/21/20 09:45 Amlodipine 10 Mg Tab PO 10 mg DAILY MIK Administration Aspirin 81 mg 03/16/20 10:00 03/21/20 09:45 Aspirin Ec 81 Mg Tab PO 81 mg DAILY MIK Administration Atorvastatin Calcium 10 mg 03/15/20 22:00 03/21/20 22:08 Atorvastatin 10 Mg Tab PO 10 mg QHS MIK Administration Azathioprine 50 mg 03/16/20 10:00 03/21/20 14:19 Azathioprine 50 Mg Tab PO 50 mg DAILY MIK Administration Calcitriol 1 mcg 03/21/20 10:00 03/21/20 09:45 Calcitriol 0.25 Mcg Cap PO 1 mcg QDAY MIK Administration Clonidine HCl 0.2 mg 03/15/20 22:00 03/22/20 06:10 Clonidine 0.1 Mg Tab PO 0.2 mg Q8HR MIK Administration Clopidogrel Bisulfate 75 mg 03/16/20 10:00 03/21/20 09:45 Clopidogrel 75 Mg Tab PO 75 mg QDAY MIK Administration Dexamethasone 6 mg 03/16/20 10:00 03/21/20 09:46 Dexamethasone 4 Mg/Ml Vial IV 03/24/20 10:01 6 mg Q24HR MIK Administration Epoetin Hill 10,000 unit 03/15/20 18:00 E[place]etin [place] 10,000 Unit/1 Ml Inj SUB-Q SHEREE MIK Guaifenesin 600 mg 03/17/20 11:00 03/21/20 22:16 Guaifenesin Er 600 Mg Tab PO 600 mg BID MIK Administration Heparin Sodium (Porcine) 5,000 unit 03/15/20 22:00 03/22/20 06:02 Heparin 5,000 Unit/1 Ml Vial SUB-Q 5,000 unit Q8HR MIK Administration Hydralazine HCl 20 mg 03/17/20 07:33 03/20/20 06:28 Hydralazine 20 Mg/1 Ml Inj IV 20 mg Q4HR PRN Administration Give if SBP>180 DBP>100 Hydralazine HCl 100 mg 03/18/20 20:00 03/21/20 19:58 Hydralazine 100 Mg Tab PO 100 mg TID MIK Administration Hydrophilic Ointment 1 applic 03/19/20 04:30 03/19/20 05:52 Lip Therapy Vaseline TP 1 applic DIRECT PRN Administration Dry Lips Sodium Chloride 100 mls @ 999 mls/hr 03/15/20 15:08 Nacl 0.9% IV SHEREE PRN Hypotension Sodium Chloride 100 mls @ 999 mls/hr 03/19/20 17:59 Nacl 0.9% IV SHEREE PRN Hypotension Magnesium Hydroxide 30 ml 03/15/20 14:59 Magnesium Hydroxide (Mom) Oral Liqd Udc PO Q4H PRN Constipation Metoprolol Tartrate 50 mg 03/20/20 14:00 03/21/20 19:52 Metoprolol Tartrate 50 Mg Tab PO 50 mg TID MIK Administration Morphine Sulfate 2 mg 03/15/20 14:59 03/20/20 01:11 Morphine 2 Mg/1 Ml Inj IV 2 mg Q5MIN PRN Administration Chest Pain unrelieved by NTG Ondansetron HCl 4 mg 03/15/20 14:59 Ondansetron 4 Mg/2 Ml Inj IV Q8H PRN Nausea And Vomiting Pantoprazole Sodium 20 mg 03/16/20 10:00 03/21/20 09:45 Pantoprazole 20 Mg Tab PO 20 mg QDAY MIK Administration Sodium Chloride 10 ml 03/15/20 22:00 03/21/20 22:16 Sodium Chloride 0.9% 10 Ml Flush Syringe IV 10 ml BID MIK Administration Sodium Chloride 10 ml 03/15/20 14:59 Sodium Chloride 0.9% 10 Ml Flush Syringe IV PRN PRN LINE FLUSH Torsemide 100 mg 03/23/20 06:00 Torsemide 100 Mg Tab PO DAILY@0600 MIK Tramadol HCl 50 mg 03/16/20 03:23 03/20/20 12:04 Tramadol 50 Mg Tab PO 50 mg Q6H PRN Administration Pain, Moderate (4-6) Valsartan 160 mg 03/15/20 22:00 03/21/20 22:07 Valsartan 160mg Tab PO 160 mg BID MIK Administration
[2020-03-22] MEDS: guaiFENesin ER 600 MG TAB PO SCH ×2 (09:29→23:55)
[2020-03-22] MEDS: PANTOPRAZOLE 20 MG TAB PO SCH (09:29)
[2020-03-22] MEDS: amLODIPine 10 MG TAB PO SCH (09:29)
[2020-03-22] MEDS: ASPIRIN EC 81 MG TAB PO SCH (09:29)
[2020-03-22] MEDS: VALSARTAN 160MG TAB PO SCH ×2 (09:29→23:55)
[2020-03-22] MEDS: CLOPIDOGREL 75 MG TAB PO SCH (09:29)
[2020-03-22] MEDS: CALCITRIOL 0.25 MCG CAP PO SCH (09:29)
[2020-03-22] MEDS: hydrALAZINE 100 MG TAB PO SCH ×3 (09:30→20:18)
[2020-03-22] MEDS: dexAMETHasone 4 MG/ML VIAL IV SCH (09:30)
[2020-03-22] MEDS: METOPROLOL TARTRATE 50 MG TAB PO SCH (09:30)
--- NOTE | 2020-03-22 10:07 | Progress Note ---
<LEANDRO CHEUNG - Last Filed: 03/22/20 10:07> Assessment and Plan Assessment: 59-year-old female Acute hypoxic respiratory failure/Covid pneumonia Nonsustained VT on telemetry/asymptomatic Accelerated hypertension Severe LVH Moderate to severe MS ESRD/HD (Dr. Hong) Lupus Anemia chronic disease Plan: Continue supportive care per the primary team. Will plan for further evaluation/management of mod to severe calcific MS as OP once medically stabilized. Optimize anithypertensive regimen per primary and nephrology teams. Currently stable cardiac status. Nothing further to add from cardiac standpoint at this point in time. Will sign off. Follow up in our [place] office with Dr. Ogden on 04/03/2020 @ 1015. The patient has been seen in conjunction with Dr. Funes who agrees with the assessment and plan of care. Subjective Date of service: 03/22/20 Principal diagnosis: COVID Interval history: Pt resting comfortably in bed. No cardiac Complaints. Telemetry reviewed. In sinus rhythm, HR in 70s. Objective Last Vital Signs Temp 98.1 F 03/22/20 05:50 Pulse 77 03/22/20 09:30 Resp 20 03/22/20 05:50 BP 203/91 03/22/20 09:30 Pulse Ox 96 03/22/20 05:50 - Physical Examination General: No Apparent Distress HEENT: Positive: PERRL Neck: Positive: neck supple, trachea midline Cardiac: Positive: Reg Rate and Rhythm, S1/S2, Systolic Murmur Lungs: Positive: Normal Exam Neuro: Positive: Grossly Intact Abdomen: Positive: Unremarkable, Soft, Active Bowel Sounds Skin: Positive: Clear. Negative: Rash Extremities: Present: normal, warm, Other (Trace) - Labs and Meds Comprehensive Metabolic Panel 03/22/20 Range/Units 05:04 Sodium 134 L (137-145) mmol/L Potassium 3.8 (3.6-5.0) mmol/L Chloride 92.1 L (98-107) mmol/L Carbon Dioxide 26 (22-30) mmol/L BUN 47 H (7-17) mg/dL Creatinine 5.0 H (0.6-1.2) mg/dL Glucose 92 (65-100) mg/dL Calcium 10.0 (8.4-10.2) mg/dL - Imaging and Cardiology Echo: report reviewed (tte reviewed - EF 50-55%, severe LVH, LA severely dilated, atrial septal aneurysm, severe mitral leaflet calcification, mod to sever MS (mean gradient 20mmHg), mild TR, RVSP 60mmHg. ECHO 08/31: Severe LVH, EF 55 to 60%, mild mitral regurgitation) - Telemetry EKG Rhythm: Sinus Rhythm <THEODORA FUNES R - Last Filed: 03/23/20 10:06> Objective Vital Signs Temp Pulse Resp BP BP Pulse Ox Pulse Ox 03/23/20 08:45 93 03/23/20 08:30 96 03/23/20 06:52 96 03/23/20 06:21 102 H 144/73 03/23/20 04:40 89 03/22/20 23:55 84 184/82 03/22/20 23:48 97.9 F 84 20 184/82 92 03/22/20 21:23 100 03/22/20 19:30 99.0 F 73 20 153/73 100 03/22/20 19:15 63 159/62 03/22/20 19:00 66 155/67 03/22/20 18:45 62 161/66 03/22/20 18:30 96.3 F L 72 20 166/66 161/73 98 03/22/20 18:15 70 165/72 03/22/20 18:00 76 166/72 03/22/20 17:45 79 156/78 03/22/20 17:30 72 161/73 03/22/20 17:15 72 178/85 03/22/20 17:00 73 163/85 03/22/20 16:45 78 170/70 03/22/20 16:30 72 165/75 03/22/20 16:15 69 171/76 03/22/20 16:00 99.4 F 72 22 162/87 94 03/22/20 13:50 71 193/84 03/22/20 12:00 71 193/84 99 03/22/20 11:32 77 203/91 03/22/20 11:01 99.4 F 73 19 198/98 94
[2020-03-22] MEDS: hydrALAZINE 20 MG/1 ML INJ IV PRN (11:32)
[2020-03-22] MEDS: azaTHIOprine 50 MG TAB PO SCH (12:03)
--- NOTE | 2020-03-22 12:25 | Progress Note ---
Assessment and Plan 59 y/o female with acute respiratory failure secondary to COVID 19 with persistent hypoxemia and elevated BP's. 03/22/20: Same recs as yesterday. Continue current management and will continue to follow along. Hopeful patient can turn the corner. Proning is a must. Not much else to offer from a pulmonary standpoint other than time. She is getting extra dialysis sessions as well as lasix 80 BID. She needs to prone as much as possible. Despite her oxygen requirements she is not in severe distress so hopefully she just needs more time. Will continue to monitor along with you. Please encourage proning. Subjective Date of service: 03/22/20 Principal diagnosis: COVID Interval history: no acute events. STable pulm status but still on HFNC. Objective Vital Signs - 12hr 03/22/20 03/22/20 03/22/20 05:50 06:10 09:29 Temperature 98.1 F Pulse Rate 65 77 77 Respiratory 20 Rate Blood Pressure 203/91 203/91 203/91 O2 Sat by Pulse 96 Oximetry 03/22/20 03/22/20 03/22/20 09:30 09:35 11:01 Temperature 99.4 F Pulse Rate 77 73 Respiratory 19 Rate Blood Pressure 203/91 198/98 O2 Sat by Pulse 93 94 Oximetry 03/22/20 11:32 Temperature Pulse Rate 77 Respiratory Rate Blood Pressure 203/91 O2 Sat by Pulse Oximetry CBC and BMP: 03/21/20 05:59 03/22/20 05:04 ABG, PT/INR, D-dimer: PT/INR, D-dimer PT 14.5 Sec. (12.2-14.9) 03/16/20 06:18 INR 1.14 (0.87-1.13) H 03/16/20 06:18 D-Dimer 1600.05 ng/mlDDU (0-234) H 03/21/20 08:58 Abnormal lab findings: Abnormal Labs 03/15/20 03/15/20 03/15/20 12:26 12:26 12:29 WBC RBC Hgb Hct RDW Lymph % (Auto) [place] % (Auto) Lymph # (Auto) Seg Neutrophils % INR APTT 37.2 H D-Dimer 718.25 H Sodium 130 L Potassium Chloride 89.8 L BUN 69 H Creatinine 6.0 H POC Glucose Ferritin 1021.0 H Lactate Dehydrogenase C-Reactive Protein NT-Pro-B Natriuret Pep Total Protein Albumin Coronavirus (PCR) 03/15/20 03/15/20 03/16/20 13:10 14:12 06:18 WBC 3.7 L RBC 2.77 L 2.94 L Hgb 8.8 L 9.3 L Hct 26.4 L 28.2 L RDW 16.4 H 16.7 H Lymph % (Auto) 1.5 L 7.0 L [place] % (Auto) 9.2 H 8.4 H Lymph # (Auto) 0.1 L 0.3 L Seg Neutrophils % 89.1 H 84.1 H INR APTT D-Dimer Sodium Potassium Chloride BUN Creatinine POC Glucose Ferritin Lactate Dehydrogenase 290 H C-Reactive Protein 7.10 H NT-Pro-B Natriuret Pep > 95871 H Total Protein Albumin Coronavirus (PCR) 03/16/20 03/16/20 03/16/20 06:18 06:18 Unknown WBC RBC Hgb Hct RDW Lymph % (Auto) [place] % (Auto) Lymph # (Auto) Seg Neutrophils % INR 1.14 H APTT D-Dimer Sodium Potassium Chloride 96.2 L BUN 55 H Creatinine 5.0 H POC Glucose Ferritin Lactate Dehydrogenase C-Reactive Protein NT-Pro-B Natriuret Pep Total Protein Albumin Coronavirus (PCR) Positive A 03/17/20 03/17/20 03/17/20 04:36 13:36 13:36 WBC RBC Hgb Hct RDW Lymph % (Auto) [place] % (Auto) Lymph # (Auto) Seg Neutrophils % INR APTT D-Dimer 1336.88 H Sodium 134 L Potassium 5.5 H Chloride 93.9 L BUN 68 H Creatinine 6.2 H POC Glucose Ferritin 1905.0 H Lactate Dehydrogenase C-Reactive Protein NT-Pro-B Natriuret Pep Total Protein 6.2 L Albumin 3.6 L Coronavirus (PCR) 03/17/20 03/18/20 03/19/20 13:36 04:46 04:45 WBC RBC Hgb Hct RDW Lymph % (Auto) [place] % (Auto) Lymph # (Auto) Seg Neutrophils % INR APTT D-Dimer Sodium 135 L Potassium 5.5 H Chloride 95.1 L 91.0 L BUN 47 H 68 H Creatinine 4.8 H 6.1 H POC Glucose Ferritin Lactate Dehydrogenase 213 H C-Reactive Protein 12.70 H NT-Pro-B Natriuret Pep Total Protein Albumin Coronavirus (PCR) 03/20/20 03/20/20 03/21/20 06:16 21:23 05:59 WBC RBC Hgb Hct RDW Lymph % (Auto) [place] % (Auto) Lymph # (Auto) Seg Neutrophils % INR APTT D-Dimer Sodium Potassium Chloride 95.0 L 94.4 L BUN 45 H 29 H Creatinine 4.7 H 3.6 H POC Glucose 124 H Ferritin Lactate Dehydrogenase C-Reactive Protein NT-Pro-B Natriuret Pep Total Protein Albumin Coronavirus (PCR) 03/21/20 03/21/20 03/21/20 05:59 08:58 08:58 WBC 4.0 L RBC 2.68 L Hgb 8.4 L Hct 25.2 L RDW 17.2 H Lymph % (Auto) [place] % (Auto) Lymph # (Auto) Seg Neutrophils % INR APTT D-Dimer 1600.05 H Sodium Potassium Chloride BUN Creatinine POC Glucose Ferritin > 2000.0 H Lactate Dehydrogenase C-Reactive Protein NT-Pro-B Natriuret Pep Total Protein Albumin Coronavirus (PCR) 03/21/20 03/22/20 08:58 05:04 WBC RBC Hgb Hct RDW Lymph % (Auto) [place] % (Auto) Lymph # (Auto) Seg Neutrophils % INR APTT D-Dimer Sodium 134 L Potassium Chloride 92.1 L BUN 47 H Creatinine 5.0 H POC Glucose Ferritin Lactate Dehydrogenase 291 H C-Reactive Protein 19.80 H NT-Pro-B Natriuret Pep Total Protein Albumin Coronavirus (PCR)
[2020-03-22] MEDS: MINOXIDIL 2.5 MG TAB PO SCH (13:50)
--- NOTE | 2020-03-22 13:55 | Progress Note ---
Assessment and Plan Cultures: Blood culture no growth SARS CoV2 PCR positive Assessment: 59 years old female with history of end-stage renal disease on hemodialysis, lupus and CHF admitted on 03/15/2020 secondary to 4 days history of dry cough, fever, headaches, generalized malaise and shortness of breath: #Severe COVID pneumonia: Chest x-ray with likely pulmonary edema and pneumonia. Inflammatory markers elevated. Procalcitonin elevated, likely due to renal failure. No indication for remdesivir due to renal failure #Acute hypoxemic respiratory failure: on HFNC. #ESRD on hemodialysis #Lupus: on imuran. Recommendations: -continue steroids, complete decadron x 10 days -continue dialysis to help with volume and respiratory status -Monitor inflammatory markers - ferritin, Ddimer, CRP, LDH -Continue anticoagulation per System Protocol -guarded prognosis Freda Celeste MD, FACP [facility] ([facility]) O: [phone] F: [phone] Subjective Date of service: 03/22/20 Principal diagnosis: COVID Interval history: No fever. Remains on high flow nasal cannula. Objective - Exam Narrative Exam: Physical Exam (reviewed in chart to minimize risk of transmission) Constitutional: deferred Head, Ears, Nose: deferred Eyes: deferred Neck: deferred Oral: deferred Cardiovascular: deferred Respiratory: deferred GI: deferred Musculoskeletal: deferred Skin: deferred Hem/Lymphatic: deferred Psych: deferred Neurological: deferred - Constitutional Vitals: Vital Signs Temp Pulse Resp BP Pulse Ox 99.4 F 71 19 193/84 99 03/22/20 11:01 03/22/20 13:50 03/22/20 11:01 03/22/20 13:50 03/22/20 12:00 Temperature -Last 24 Hours Temperature 99.4 F Temperature 98.1 F Temperature 99.2 F Temperature 98.4 F - Labs CBC & Chem 7: 03/21/20 05:59 03/22/20 05:04 Labs: Abnormal lab results 03/22/20 Range/Units 05:04 Sodium 134 L (137-145) mmol/L Chloride 92.1 L (98-107) mmol/L BUN 47 H (7-17) mg/dL Creatinine 5.0 H (0.6-1.2) mg/dL
[2020-03-22] MEDS: MORPHINE 2 MG/1 ML INJ IV PRN (17:22)
[2020-03-22] MEDS: METOPROLOL TARTRATE 100 MG TAB PO SCH (22:00)
[2020-03-22] MEDS ORDERED: METOPROLOL TARTRATE 50 MG TAB PO SCH (22:00)
[2020-03-23] MEDS ORDERED: TORSEMIDE 100 MG TAB PO SCH (06:00)
[2020-03-23] MEDS: HEPARIN 5,000 UNIT/1 ML VIAL SUB-Q SCH ×3 (06:13→21:00)
[2020-03-23] MEDS: cloNIDine 0.1 MG TAB PO SCH ×3 (06:21→21:51)
[2020-03-23] MEDS: hydrALAZINE 100 MG TAB PO SCH ×3 (08:00→20:56)
--- NOTE | 2020-03-23 08:42 | Progress Note ---
Assessment and Plan 59 y/o female with acute respiratory failure secondary to COVID 19 with persistent hypoxemia and elevated BP's. 03/23/20: Will speak with RT about being more aggressive with weaning as she is able to tolerate being off HFNC at times. 03/22/20: Same recs as yesterday. Continue current management and will continue to follow along. Hopeful patient can turn the corner. Proning is a must. Not much else to offer from a pulmonary standpoint other than time. She is getting extra dialysis sessions as well as lasix 80 BID. She needs to prone as much as possible. Despite her oxygen requirements she is not in severe distress so hopefully she just needs more time. Will continue to monitor along with you. Please encourage proning. Subjective Date of service: 03/23/20 Principal diagnosis: COVID Interval history: Second documentation overnight in the last 2 nights that patient has taken off HFNC and sats have been above 88. Placed back on HFNC but not weaned from. Objective Vital Signs - 12hr 03/22/20 03/22/20 03/22/20 21:23 23:48 23:55 Temperature 97.9 F Pulse Rate 84 84 Respiratory 20 Rate Blood Pressure 184/82 184/82 O2 Sat by Pulse 100 92 Oximetry 03/23/20 03/23/20 03/23/20 04:40 06:21 06:52 Temperature Pulse Rate 102 H Respiratory Rate Blood Pressure 144/73 O2 Sat by Pulse 89 96 Oximetry CBC and BMP: 03/21/20 05:59 03/22/20 05:04 ABG, PT/INR, D-dimer: PT/INR, D-dimer PT 14.5 Sec. (12.2-14.9) 03/16/20 06:18 INR 1.14 (0.87-1.13) H 03/16/20 06:18 D-Dimer 1600.05 ng/mlDDU (0-234) H 03/21/20 08:58 Abnormal lab findings: Abnormal Labs 03/15/20 03/15/20 03/15/20 12:26 12:26 12:29 WBC RBC Hgb Hct RDW Lymph % (Auto) [place] % (Auto) Lymph # (Auto) Seg Neutrophils % INR APTT 37.2 H D-Dimer 718.25 H Sodium 130 L Potassium Chloride 89.8 L BUN 69 H Creatinine 6.0 H POC Glucose Ferritin 1021.0 H Lactate Dehydrogenase C-Reactive Protein NT-Pro-B Natriuret Pep Total Protein Albumin Coronavirus (PCR) 03/15/20 03/15/20 03/16/20 13:10 14:12 06:18 WBC 3.7 L RBC 2.77 L 2.94 L Hgb 8.8 L 9.3 L Hct 26.4 L 28.2 L RDW 16.4 H 16.7 H Lymph % (Auto) 1.5 L 7.0 L [place] % (Auto) 9.2 H 8.4 H Lymph # (Auto) 0.1 L 0.3 L Seg Neutrophils % 89.1 H 84.1 H INR APTT D-Dimer Sodium Potassium Chloride BUN Creatinine POC Glucose Ferritin Lactate Dehydrogenase 290 H C-Reactive Protein 7.10 H NT-Pro-B Natriuret Pep > 03814 H Total Protein Albumin Coronavirus (PCR) 03/16/20 03/16/20 03/16/20 06:18 06:18 Unknown WBC RBC Hgb Hct RDW Lymph % (Auto) [place] % (Auto) Lymph # (Auto) Seg Neutrophils % INR 1.14 H APTT D-Dimer Sodium Potassium Chloride 96.2 L BUN 55 H Creatinine 5.0 H POC Glucose Ferritin Lactate Dehydrogenase C-Reactive Protein NT-Pro-B Natriuret Pep Total Protein Albumin Coronavirus (PCR) Positive A 03/17/20 03/17/20 03/17/20 04:36 13:36 13:36 WBC RBC Hgb Hct RDW Lymph % (Auto) [place] % (Auto) Lymph # (Auto) Seg Neutrophils % INR APTT D-Dimer 1336.88 H Sodium 134 L Potassium 5.5 H Chloride 93.9 L BUN 68 H Creatinine 6.2 H POC Glucose Ferritin 1905.0 H Lactate Dehydrogenase C-Reactive Protein NT-Pro-B Natriuret Pep Total Protein 6.2 L Albumin 3.6 L Coronavirus (PCR) 03/17/20 03/18/20 03/19/20 13:36 04:46 04:45 WBC RBC Hgb Hct RDW Lymph % (Auto) [place] % (Auto) Lymph # (Auto) Seg Neutrophils % INR APTT D-Dimer Sodium 135 L Potassium 5.5 H Chloride 95.1 L 91.0 L BUN 47 H 68 H Creatinine 4.8 H 6.1 H POC Glucose Ferritin Lactate Dehydrogenase 213 H C-Reactive Protein 12.70 H NT-Pro-B Natriuret Pep Total Protein Albumin Coronavirus (PCR) 03/20/20 03/20/20 03/21/20 06:16 21:23 05:59 WBC RBC Hgb Hct RDW Lymph % (Auto) [place] % (Auto) Lymph # (Auto) Seg Neutrophils % INR APTT D-Dimer Sodium Potassium Chloride 95.0 L 94.4 L BUN 45 H 29 H Creatinine 4.7 H 3.6 H POC Glucose 124 H Ferritin Lactate Dehydrogenase C-Reactive Protein NT-Pro-B Natriuret Pep Total Protein Albumin Coronavirus (PCR) 03/21/20 03/21/20 03/21/20 05:59 08:58 08:58 WBC 4.0 L RBC 2.68 L Hgb 8.4 L Hct 25.2 L RDW 17.2 H Lymph % (Auto) [place] % (Auto) Lymph # (Auto) Seg Neutrophils % INR APTT D-Dimer 1600.05 H Sodium Potassium Chloride BUN Creatinine POC Glucose Ferritin > 2000.0 H Lactate Dehydrogenase C-Reactive Protein NT-Pro-B Natriuret Pep Total Protein Albumin Coronavirus (PCR) 03/21/20 03/22/20 08:58 05:04 WBC RBC Hgb Hct RDW Lymph % (Auto) [place] % (Auto) Lymph # (Auto) Seg Neutrophils % INR APTT D-Dimer Sodium 134 L Potassium Chloride 92.1 L BUN 47 H Creatinine 5.0 H POC Glucose Ferritin Lactate Dehydrogenase 291 H C-Reactive Protein 19.80 H NT-Pro-B Natriuret Pep Total Protein Albumin Coronavirus (PCR)
[2020-03-23] MEDS: PANTOPRAZOLE 20 MG TAB PO SCH (10:43)
[2020-03-23] MEDS: METOPROLOL TARTRATE 100 MG TAB PO SCH ×2 (10:43→21:51)
[2020-03-23] MEDS: amLODIPine 10 MG TAB PO SCH (10:43)
[2020-03-23] MEDS: CLOPIDOGREL 75 MG TAB PO SCH (10:43)
[2020-03-23] MEDS: MINOXIDIL 2.5 MG TAB PO SCH (10:43)
[2020-03-23] MEDS: dexAMETHasone 4 MG/ML VIAL IV SCH (10:43)
[2020-03-23] MEDS: VALSARTAN 160MG TAB PO SCH ×2 (10:44→21:51)
[2020-03-23] MEDS: ASPIRIN EC 81 MG TAB PO SCH (10:44)
[2020-03-23] MEDS: CALCITRIOL 0.25 MCG CAP PO SCH (10:45)
[2020-03-23] MEDS: guaiFENesin ER 600 MG TAB PO SCH ×2 (10:46→21:01)
[2020-03-23] MEDS: azaTHIOprine 50 MG TAB PO SCH (10:47)
--- NOTE | 2020-03-23 11:15 | Progress Note ---
Assessment and Plan Cultures: Blood culture no growth SARS CoV2 PCR positive Assessment: 59 years old female with history of end-stage renal disease on hemodialysis, lupus and CHF admitted on 03/15/2020 secondary to 4 days history of dry cough, fever, headaches, generalized malaise and shortness of breath: #Severe COVID pneumonia: Chest x-ray with likely pulmonary edema and pneumonia. Inflammatory markers elevated. Procalcitonin elevated, likely due to renal failure. No indication for remdesivir due to renal failure. VQ low probability for PE. #Acute hypoxemic respiratory failure: on NC. #ESRD on hemodialysis #Lupus: on imuran. Recommendations: -continue steroids, complete decadron x 10 days -continue dialysis to help with volume and respiratory status -Monitor inflammatory markers - ferritin, Ddimer, CRP, LDH -Continue anticoagulation per System Protocol. VQ negative for PE -guarded prognosis Freda Celeste MD, FACP [facility] ([facility] O: [phone] F: [phone] Subjective Date of service: 03/23/20 Principal diagnosis: COVID Interval history: No fever. Weaned to nasal cannula. Objective - Exam Narrative Exam: Physical Exam (reviewed in chart to minimize risk of transmission) Constitutional: deferred Head, Ears, Nose: deferred Eyes: deferred Neck: deferred Oral: deferred Cardiovascular: deferred Respiratory: deferred GI: deferred Musculoskeletal: deferred Skin: deferred Hem/Lymphatic: deferred Psych: deferred Neurological: deferred - Constitutional Vitals: Vital Signs Temp Pulse Resp BP Pulse Ox 97.9 F 102 H 20 144/73 100 03/22/20 23:48 03/23/20 06:21 03/22/20 23:48 03/23/20 06:21 03/23/20 10:07 Temperature -Last 24 Hours Temperature 97.9 F Temperature 99.0 F Temperature 96.3 F Temperature 99.4 F - Labs CBC & Chem 7: 03/21/20 05:59 03/22/20 05:04
--- NOTE | 2020-03-23 11:46 | Progress Note ---
Assessment and Plan Assessment and plan: 59-year-old female with known history of end-stage renal disease on dialysis- Mondays, Wednesdays and Fridays, lupus, CHF, presenting to the emergency room today from an assisted living facility with cough fever headache which has been ongoing for about 4 days. She did not go to dialysis today because she was not feeling quite well. She had a fever of about 103 F. She also also has some mild shortness of breath. Patient indicates that several people at the facility had tested positive for COVID-19. She tested negative for COVID-19 yesterday. Patient denies any chest pain, no nausea vomiting, no loss of taste or smell, no diarrhea and no abdominal pain. In route to the hospital patient oxygen saturation was about 88% on room air she was subsequently placed on 2 L of oxygen. Work-up in the emergency room today chest x-ray reveals pulmonary edema. Research Editor Dr. Hong has been consulted by the ER physician. Patient has been admitted with pulmonary edema. We will however rule out COVID-19. 2/2: Review of records shows patient is still on High flow, will obtain Pulmonary consultation, patient with worsening D.Dimer, will obtain V/Q scan to rule pulmonary embolism, Will likely change to Heparin drip till this iS clarified if patient is still on High flow. I unfortunately do not see clear oxygen documentation. Continues with Hypertensive urgency, SPOKE with the daughter, patient has had Elevated blood pressure for some time but not quite this high, Nephrology following and adjusting meds. 2/3: Continue supportive care, Will discontinue Heparin drip at this time, and use sliding scale considering low probability of PE on V/Q scan. Considering uncontrolled HTN, will transfer to [facility] and initiate Cardene drip, continue to wean High flow. COUNSELLING ON FLUID RESTRICTIONS 2/4: Consider repeating hypoxia and increasing high flow back to 100% we will ask respiratory therapist to aggressively wean as recommended by wig sales consultant. Discussed with nursing staff remove restraints and less reevaluate the patient. If recurrent delirium or encephalopathy we will at that time reevaluate. Have discussed with the patient again about compliance with p.o. fluid intake. Blood pressure is better improved today. Acute hypoxic respiratory failure -Oxygen supplementation -Covid is positive -Covid protocol initiated Continue high flow nasal cannula oxygen, needs close monitoring, builds fluid very quickly. Covid pneumonia -Covid positive -Infectious disease consulted -Dexamethasone Azithromycin and ceftriaxone End-stage renal disease -Friday -Nephrology consulted -Continue dialysis as scheduled patient does not make urine Nonsustained ventricular tachycardia Cardiology consulted Continue to monitor, no acute intervention required at this time -TTE noted Accelerated hypertension related to renal disease Valsartan, metoprolol, furosemide, clonidine, hydralazine, making adjustments for better control Patient's blood pressure at home is usually in the 200 systolic, completely uncontrolled Anemia and chronic disease illness -No acute bleeding Hypervolemic hyponatremia -Resolved with hemodialysis Heart failure, unspecified type Presumed history of CAD Elevated BNP Metoprolol, Plavix Hyperkalemia Kayexalate Morbid obesity Lifestyle change CODE STATUS: Full DVT prophylaxis: Heparin Disposition: Continue Covid treatment, continue hemodialysis, monitor for nonsustained V. tach The high probability of a clinically significant, sudden or life threatening deterioration of the [pulmonary, renal] system(s) required my full and direct attention, intervention and personal management. The aggregate critical care time was [35] minutes. This time is in addition to time spent performing reported procedures but includes the following: [x] Data Review and interpretation [x] Patient assessment and monitoring of vital signs [x] Documentation [x] Medication orders and management History Interval history: Patient seen and examined, resting, this morning nurse identified that the gabriel guillen desatted and had taken herself off of the high flow. Patient was placed on restraints temporarily and high flow was increased to 100% FiO2 Hospitalist Physical - Physical exam Narrative exam: General appearance: Present: Obese, no acute distress, well-nourished, lying down tells me that she does not take her nasal cannula off. No clear evidence of confusion at this time. - EENT Eyes: Present: PERRL, EOM intact ENT: hearing intact, clear oral mucosa - Respiratory Respiratory effort: Normal, high flow nasal cannula oxygen Respiratory: Crackles heard in both lung paz bilaterally - Cardiovascular Rhythm: regular Heart Sounds: Present: S1 & S2. Absent: rub, click HD access: Permacath in right chest - Extremities Extremities: no ischemia, +1 edema in lower extremities - Abdominal General gastrointestinal: soft, non-tender, non-distended, normal bowel sounds - Integumentary Integumentary: Present: clear, warm, dry, normal turgor - Neurologic Neurologic: CNII-XII intact, no focal deficits, moves all extremities, no confusion , - Constitutional Vitals: Temp Pulse Resp BP Pulse Ox 97.9 F 102 H 20 144/73 100 03/22/20 23:48 03/23/20 06:21 03/22/20 23:48 03/23/20 06:21 03/23/20 10:07 General appearance: Present: mild distress Results - Labs CBC & Chem 7: 03/21/20 05:59 03/22/20 05:04 Labs: Laboratory Last Values WBC 4.0 K/mm3 (4.5-11.0) L 03/21/20 05:59 RBC 2.68 M/mm3 (3.65-5.03) L 03/21/20 05:59 Hgb 8.4 gm/dl (10.1-14.3) L 03/21/20 05:59 Hct 25.2 % (30.3-42.9) L 03/21/20 05:59 MCV 94 fl (79-97) 03/21/20 05:59 MCH 31 pg (28-32) 03/21/20 05:59 MCHC 33 % (30-34) 03/21/20 05:59 RDW 17.2 % (13.2-15.2) H 03/21/20 05:59 Plt Count 198 K/mm3 (140-440) 03/21/20 05:59 Lymph % (Auto) 7.0 % (13.4-35.0) L 03/16/20 06:18 Todd % (Auto) 8.4 % (0.0-7.3) H 03/16/20 06:18 Eos % (Auto) 0.0 % (0.0-4.3) 03/16/20 06:18 Baso % (Auto) 0.5 % (0.0-1.8) 03/16/20 06:18 Lymph # (Auto) 0.3 K/mm3 (1.2-5.4) L 03/16/20 06:18 Todd # (Auto) 0.3 K/mm3 (0.0-0.8) 03/16/20 06:18 Eos # (Auto) 0.0 K/mm3 (0.0-0.4) 03/16/20 06:18 Baso # (Auto) 0.0 K/mm3 (0.0-0.1) 03/16/20 06:18 Seg Neutrophils % 84.1 % (40.0-70.0) H 03/16/20 06:18 Seg Neutrophils # 3.1 K/mm3 (1.8-7.7) 03/16/20 06:18 PT 14.5 Sec. (12.2-14.9) 03/16/20 06:18 INR 1.14 (0.87-1.13) H 03/16/20 06:18 APTT 37.2 Sec. (24.2-36.6) H 03/15/20 12:26 D-Dimer 1600.05 ng/mlDDU (0-234) H 03/21/20 08:58 Sodium 134 mmol/L (137-145) L 03/22/20 05:04 Potassium 3.8 mmol/L (3.6-5.0) 03/22/20 05:04 Chloride 92.1 mmol/L (98-107) L 03/22/20 05:04 Carbon Dioxide 26 mmol/L (22-30) 03/22/20 05:04 Anion Gap 20 mmol/L 03/22/20 05:04 BUN 47 mg/dL (7-17) H 03/22/20 05:04 Creatinine 5.0 mg/dL (0.6-1.2) H 03/22/20 05:04 Estimated GFR 11 ml/min 03/22/20 05:04 BUN/Creatinine Ratio 9 % 03/22/20 05:04 Glucose 92 mg/dL (65-100) 03/22/20 05:04 POC Glucose 124 mg/dL (70-105) H 03/20/20 21:23 Calcium 10.0 mg/dL (8.4-10.2) 03/22/20 05:04 Magnesium 1.80 mg/dL (1.7-2.3) 03/20/20 01:22 Ferritin > 2000.0 ng/mL (10.0-200.0) H 03/21/20 08:58 Total Bilirubin 0.30 mg/dL (0.1-1.2) 03/17/20 04:36 Direct Bilirubin < 0.2 mg/dL (0-0.2) 03/15/20 12:26 Indirect Bilirubin 0.1 mg/dL 03/15/20 12:26 AST 15 units/L (5-40) 03/17/20 04:36 ALT 7 units/L (7-56) 03/17/20 04:36 Alkaline Phosphatase 73 units/L (35-129) 03/17/20 04:36 Lactate Dehydrogenase 291 units/L (91-180) H 03/21/20 08:58 C-Reactive Protein 19.80 mg/dL (0.00-1.30) H 03/21/20 08:58 NT-Pro-B Natriuret Pep > 97474 pg/mL (0-900) H 03/15/20 13:10 Total Protein 6.2 g/dL (6.3-8.2) L 03/17/20 04:36 Albumin 3.6 g/dL (3.9-5) L 03/17/20 04:36 Albumin/Globulin Ratio 1.4 % 03/17/20 04:36 Procalcitonin 6.52 ng/mL (<0.15) 03/21/20 08:58 TSH 1.540 mlU/mL (0.270-4.200) 03/19/20 04:45 Free T4 1.32 ng/dL (0.76-1.46) 03/19/20 04:45 Nasal Screen MRSA (PCR) Negative (Negative) 03/16/20 23:49 Coronavirus (PCR) Positive (Negative) A 03/16/20 Unknown Hepatitis A IgM Ab Non-reactive (NonReactive) 03/15/20 19:18 Hep Bs Antigen Non-reactive (Negative) 03/15/20 19:18 Hep B Core IgM Ab Non-reactive (NonReactive) 03/15/20 19:18 Hepatitis C Antibody Non-reactive (NonReactive) 03/15/20 19:18 - Diagnostic Impressions Diagnostic Impressions: Echocardiogram 03/15/20 15:05 Transthoracic Echocardiogram Indication: Pulm edema; h/o CHF BP: 186/94 HR: 75 Conclusions *Global left ventricular wall motion and contractility are within normal limits. *Global left ventricular systolic function is normal. *The right ventricular global systolic function is normal. *The left atrium is severely dilated. *There is evidence of an atrial septal aneurysm. *There is trace of aortic regurgitation. *Severe mitral leaflet calcification is visualized. *There is moderate to severe mitral stenosis. *The mean gradient across the mitral valve is 20.438124957964 mmHg. *There is mild tricuspid regurgitation. *The right ventricular systolic pressure is calculated at 60 mmHg. *There is trace pulmonic regurgitation. Findings Left Ventricle: The left ventricular chamber size is normal. Severe concentric left ventricular hypertrophy is observed. Global left ventricular wall motion and contractility are within normal limits. Global left ventricular systolic function is normal. The estimated ejection fraction is 50-55%. Left Atrium: The left atrium is severely dilated. Right Ventricle: The right ventricular cavity size is normal. The right ventricular global systolic function is normal. Right Atrium: The right atrial cavity size is normal. There is evidence of an atrial septal aneurysm. Aortic Valve: Mild aortic leaflet calcification is visualized. There is trace of aortic regurgitation. Mitral Valve: Severe mitral leaflet calcification is visualized. There is mild mitral regurgitation. There is moderate to severe mitral stenosis. The mean gradient across the mitral valve is 20.957403636854 mmHg. The peak gradient across the mitral valve is 33.27128408982 mmHg. Tricuspid Valve: The tricuspid valve leaflets are normal. There is mild tricuspid regurgitation. The right ventricular systolic pressure is calculated at 60 mmHg. Pulmonic Valve: There is no evidence of pulmonic valve thickening. There is trace pulmonic regurgitation. Pericardium: There is no pericardial effusion. Aorta: The aorta appears normal. Venous: The inferior vena cava is dilated. Measurements Chambers 2D Name Value Normal Range IVSd (2D) 1.82 cm (0.6 - 1.1) LVPWd (2D) 1.64 cm (0.6 - 1.1) LVIDd (2D) 4.56 cm (3.7 - 5.6) LVIDs (2D) 3.53 cm (2 - 3.8) LV FS (2D) 22.49 % - EF Teichholz (2D) 45.39 % - Ao root diameter (2D) 2.87 cm (2 - 3.7) Volumes/Mass Name Value Normal Range LA ESV SP 4CH (A/L) 98.24 ml - LA ESV SP 2CH (A/L) 197.59 ml - LA ESV BP (A/L) 140.33 ml - LA ESV BP (A/L) index 77.53 ml/m2 - LA ESV SP 4CH (MOD) 93.73 ml - LA ESV SP 2CH (MOD) 194.1 ml - LA ESV BP (MOD) 134.76 ml - LA ESV BP (MOD) index 74.45 ml/m2 - Diastolic/Systolic Function Name Value Normal Range MV E-wave Vmax 2.09 m/sec - MV deceleration time 630.49 msec - MV A-wave Vmax 1.38 m/sec - MV E:A ratio 1.51 ratio - Aortic Valve Name Value Normal Range AV Vmax 2.22 m/sec - AV VTI 47.25 cm - AV peak gradient 19.74 mmHg - AV mean gradient 10.57 mmHg - LVOT diameter 1.91 cm - LVOT Vmax 1.58 m/sec - LVOT VTI 31.21 cm - LVOT peak gradient 10 mmHg - LVOT mean gradient 5.33 mmHg - SV LVOT 89.65 ml - CILVE (continuity Vmax) 2.04 cm2 - CLIVE (continuity VTI) 1.9 cm2 - AR PHT 479.73 msec - AR peak gradient 17.52 mmHg - Mitral Valve Name Value Normal Range MV Vmax 2.89 m/sec - MV VTI 107.77 cm - MV peak gradient 33.41 mmHg - MV mean gradient 20.1 mmHg - MV PHT 184.74 msec - MR Vmax 6.51 m/sec - MVA (PHT) 1.19 cm2 - MVA (continuity VTI) 0.83 cm2 - Tricuspid Valve Name Value Normal Range TR Vmax 3.61 m/sec - TR peak gradient 52.14 mmHg - RAP 8 mmHg - RVSP 60 mmHg - IVC diameter 2.47 cm (1.2 - 2.3) Pulmonic Valve/Qp:Qs Name Value Normal Range PV Vmax 1.13 m/sec - PV peak gradient 5.09 mmHg - NM end-diastolic Vmax 0.73 m/sec - PV acceleration time 106.57 msec - Marx/IV: Voiding Method Bedpan IV Catheter Type [Left Hand] INT / Saline Lock Active Medications - Current Medications Current Medications: Generic Name Dose Route Start Last Admin Trade Name Freq PRN Reason Stop Dose Admin Acetaminophen 650 mg 03/15/20 14:59 03/19/20 11:18 Acetaminophen 325 Mg Tab PO 650 mg Q4H PRN Administration Pain MILD(1-3)/Fever >100.5/KENNY Amlodipine Besylate 10 mg 03/16/20 10:00 03/23/20 10:43 Amlodipine 10 Mg Tab PO 10 mg DAILY MIK Administration Aspirin 81 mg 03/16/20 10:00 03/23/20 10:44 Aspirin Ec 81 Mg Tab PO 81 mg DAILY MIK Administration Atorvastatin Calcium 10 mg 03/15/20 22:00 03/22/20 23:55 Atorvastatin 10 Mg Tab PO 10 mg QHS MIK Administration Azathioprine 50 mg 03/16/20 10:00 03/23/20 10:47 Azathioprine 50 Mg Tab PO 50 mg DAILY MIK Administration Calcitriol 1 mcg 03/21/20 10:00 03/23/20 10:45 Calcitriol 0.25 Mcg Cap PO 1 mcg QDAY MIK Administration Clonidine HCl 0.2 mg 03/15/20 22:00 03/23/20 06:21 Clonidine 0.1 Mg Tab PO 0.2 mg Q8HR MIK Administration Clopidogrel Bisulfate 75 mg 03/16/20 10:00 03/23/20 10:43 Clopidogrel 75 Mg Tab PO 75 mg QDAY MIK Administration Dexamethasone 6 mg 03/16/20 10:00 03/23/20 10:43 Dexamethasone 4 Mg/Ml Vial IV 03/24/20 10:01 6 mg Q24HR MIK Administration Epoetin Hill 10,000 unit 03/15/20 18:00 Epoetin [place] 10,000 Unit/1 Ml Inj SUB-Q SHEREE MIK Guaifenesin 600 mg 03/17/20 11:00 03/23/20 10:46 Guaifenesin Er 600 Mg Tab PO 600 mg BID MIK Administration Heparin Sodium (Porcine) 5,000 unit 03/15/20 22:00 03/23/20 06:13 Heparin 5,000 Unit/1 Ml Vial SUB-Q 5,000 unit Q8HR MIK Administration Hydralazine HCl 20 mg 03/17/20 07:33 03/22/20 11:32 Hydralazine 20 Mg/1 Ml Inj IV 20 mg Q4HR PRN Administration Give if SBP>180 DBP>100 Hydralazine HCl 100 mg 03/18/20 20:00 03/23/20 08:00 Hydralazine 100 Mg Tab PO 100 mg TID MIK Administration Hydrophilic Ointment 1 applic 03/19/20 04:30 03/19/20 05:52 Lip Therapy Vaseline TP 1 applic DIRECT PRN Administration Dry Lips Sodium Chloride 100 mls @ 999 mls/hr 03/15/20 15:08 Nacl 0.9% IV SHEREE PRN Hypotension Sodium Chloride 100 mls @ 999 mls/hr 03/19/20 17:59 Nacl 0.9% IV SHEREE PRN Hypotension Magnesium Hydroxide 30 ml 03/15/20 14:59 Magnesium Hydroxide (Mom) Oral Liqd Udc PO Q4H PRN Constipation Metoprolol Tartrate 100 mg 03/22/20 22:00 03/23/20 10:43 Metoprolol Tartrate 100 Mg Tab PO 100 mg BID MIK Administration Minoxidil 2.5 mg 03/22/20 13:00 03/23/20 10:43 Minoxidil 2.5 Mg Tab PO 2.5 mg QDAY MIK Administration Morphine Sulfate 2 mg 03/15/20 14:59 03/22/20 17:22 Morphine 2 Mg/1 Ml Inj IV 2 mg Q5MIN PRN Administration Chest Pain unrelieved by NTG Ondansetron HCl 4 mg 03/15/20 14:59 03/22/20 17:22 Ondansetron 4 Mg/2 Ml Inj IV 4 mg Q8H PRN Administration Nausea And Vomiting Pantoprazole Sodium 20 mg 03/16/20 10:00 03/23/20 10:43 Pantoprazole 20 Mg Tab PO 20 mg QDAY MIK Administration Sodium Chloride 10 ml 03/15/20 22:00 03/23/20 10:46 Sodium Chloride 0.9% 10 Ml Flush Syringe IV 10 ml BID MIK Administration Sodium Chloride 10 ml 03/15/20 14:59 Sodium Chloride 0.9% 10 Ml Flush Syringe IV PRN PRN LINE FLUSH Tramadol HCl 50 mg 03/16/20 03:23 03/20/20 12:04 Tramadol 50 Mg Tab PO 50 mg Q6H PRN Administration Pain, Moderate (4-6) Valsartan 160 mg 03/15/20 22:00 03/23/20 10:44 Valsartan 160mg Tab PO 160 mg BID MIK Administration
--- NOTE | 2020-03-23 13:32 | Progress Note ---
Assessment and Plan - Patient Problems (1) ESRD needing dialysis Current Visit: No Status: Acute Plan to address problem: Additional HD performed on Sun night due to acute respiratory failure with hypoxemia with target UF of 3L. Cont HD on MWF schedule. K corrected with HD, cont 2g K renal diet. (2) Pneumonia due to COVID-19 virus Current Visit: Yes Status: Acute Plan to address problem: on dexamethasone 6mg po qd, on 2L NC, trend inflammatory parameters. On COVID19 protocol, follow ID recommendation. VQ scan showed low probability for PE (3) Hypertensive chronic kidney disease with stage 5 chronic kidney disease or end stage renal disease Current Visit: Yes Status: Acute Plan to address problem: BP improved with volume control with HD/increased UF. cont fluid restriction to 1L/day. cont IV hydralazine prn to target SBP < 160mmHg (4) Lupus (systemic lupus erythematosus) Current Visit: Yes Status: Acute (5) Anemia in chronic illness Current Visit: Yes Status: Acute Plan to address problem: cont EPO with HD (6) Secondary hyperparathyroidism (of renal origin) Current Visit: Yes Status: Acute Plan to address problem: cont calcitriol 0.5mcg po qd while inpatient Subjective Date of service: 03/23/20 Principal diagnosis: COVID Interval history: Exam deferred d/t PPE preservation. Objective - Exam Narrative Exam: In an effort to conserve Personal protective equipment and limit exposure, the patient was not directly examined by me. Interdisciplinary team notes, previous examinations, labs and diagnostics have been extensively reviewed and all recommendations taken into consideration. Physical exam deferred to primary team - Vital Signs Vital signs: Vital Signs - 12hr 03/23/20 03/23/20 03/23/20 04:40 06:21 06:52 Temperature Pulse Rate 102 H Respiratory Rate Blood Pressure 144/73 O2 Sat by Pulse 89 96 Oximetry 03/23/20 03/23/20 03/23/20 08:30 08:45 10:07 Temperature Pulse Rate Respiratory Rate Blood Pressure O2 Sat by Pulse 96 93 100 Oximetry 03/23/20 12:10 Temperature 99.2 F Pulse Rate 70 Respiratory 18 Rate Blood Pressure 156/68 O2 Sat by Pulse 91 Oximetry - Lab 03/21/20 05:59 03/22/20 05:04 Most recent lab results Calcium 10.0 mg/dL (8.4-10.2) 03/22/20 05:04 Magnesium 1.80 mg/dL (1.7-2.3) 03/20/20 01:22 Medications & Allergies - Medications Allergies/Adverse Reactions: Allergies No Known Allergies Allergy (Unverified 12/01/19 05:58) Home Medications: Home Medications Medication Instructions Recorded Confirmed Last Taken Type Aspirin [Adult Aspirin] 81 mg PO DAILY 12/02/19 03/18/20 Unknown History AtorvaSTATin 10 mg PO QHS 12/02/19 03/18/20 Unknown History Clopidogrel [Plavix] 75 mg PO QDAY 12/02/19 03/18/20 Unknown History Folic Acid 0.4 mg PO QDAY 12/02/19 03/18/20 Unknown History Omeprazole 20 mg PO DAILY 12/02/19 03/18/20 Unknown History amLODIPine 10 mg PO DAILY 12/02/19 03/18/20 Unknown History azaTHIOprine [Azathioprine] 50 mg PO DAILY 12/02/19 03/18/20 Unknown History calcitrioL [Rocaltrol] 1 mcg PO QDAY 12/02/19 03/18/20 Unknown History prednisoLONE [Millipred 5mg (12 20 mg PO QDAY 12/02/19 03/18/20 Unknown History day - 48 tab dosepak)] Furosemide [Lasix TAB] 80 mg PO QDAY #30 tablet 12/10/19 03/18/20 Unknown Rx Metoprolol [Lopressor TAB] 50 mg PO BID #60 tablet 12/10/19 03/18/20 Unknown Rx Valsartan [Diovan] 160 mg PO BID #60 tablet 12/10/19 03/18/20 Unknown Rx cloNIDine [Catapres] 0.2 mg PO Q8HR #90 tablet 12/10/19 03/18/20 Unknown Rx hydrALAZINE [Apresoline TAB] 50 mg PO Q8HR #180 tablet 12/10/19 03/18/20 Unknown Rx minoxidiL [Loniten] 5 mg PO QDAY #30 tablet 12/10/19 03/18/20 Unknown Rx Active Medications: Generic Name Dose Route Start Last Admin Trade Name Freq PRN Reason Stop Dose Admin Acetaminophen 650 mg 03/15/20 14:59 03/19/20 11:18 Acetaminophen 325 Mg Tab PO 650 mg Q4H PRN Administration Pain MILD(1-3)/Fever >100.5/KENNY Amlodipine Besylate 10 mg 03/16/20 10:00 03/23/20 10:43 Amlodipine 10 Mg Tab PO 10 mg DAILY MIK Administration Aspirin 81 mg 03/16/20 10:00 03/23/20 10:44 Aspirin Ec 81 Mg Tab PO 81 mg DAILY MIK Administration Atorvastatin Calcium 10 mg 03/15/20 22:00 03/22/20 23:55 Atorvastatin 10 Mg Tab PO 10 mg QHS MIK Administration Azathioprine 50 mg 03/16/20 10:00 03/23/20 10:47 Azathioprine 50 Mg Tab PO 50 mg DAILY MIK Administration Calcitriol 1 mcg 03/21/20 10:00 03/23/20 10:45 Calcitriol 0.25 Mcg Cap PO 1 mcg QDAY MIK Administration Clonidine HCl 0.2 mg 03/15/20 22:00 03/23/20 06:21 Clonidine 0.1 Mg Tab PO 0.2 mg Q8HR MIK Administration Clopidogrel Bisulfate 75 mg 03/16/20 10:00 03/23/20 10:43 Clopidogrel 75 Mg Tab PO 75 mg QDAY MIK Administration Dexamethasone 6 mg 03/16/20 10:00 03/23/20 10:43 Dexamethasone 4 Mg/Ml Vial IV 03/24/20 10:01 6 mg Q24HR MIK Administration Epoetin Hill 10,000 unit 03/15/20 18:00 E[place]etin [place] 10,000 Unit/1 Ml Inj SUB-Q SHEREE MIK Guaifenesin 600 mg 03/17/20 11:00 03/23/20 10:46 Guaifenesin Er 600 Mg Tab PO 600 mg BID MIK Administration Heparin Sodium (Porcine) 5,000 unit 03/15/20 22:00 03/23/20 06:13 Heparin 5,000 Unit/1 Ml Vial SUB-Q 5,000 unit Q8HR MIK Administration Hydralazine HCl 20 mg 03/17/20 07:33 03/22/20 11:32 Hydralazine 20 Mg/1 Ml Inj IV 20 mg Q4HR PRN Administration Give if SBP>180 DBP>100 Hydralazine HCl 100 mg 03/18/20 20:00 03/23/20 08:00 Hydralazine 100 Mg Tab PO 100 mg TID MIK Administration Hydrophilic Ointment 1 applic 03/19/20 04:30 03/19/20 05:52 Lip Therapy Vaseline TP 1 applic DIRECT PRN Administration Dry Lips Sodium Chloride 100 mls @ 999 mls/hr 03/15/20 15:08 Nacl 0.9% IV SHEREE PRN Hypotension Sodium Chloride 100 mls @ 999 mls/hr 03/19/20 17:59 Nacl 0.9% IV SHEREE PRN Hypotension Magnesium Hydroxide 30 ml 03/15/20 14:59 Magnesium Hydroxide (Mom) Oral Liqd Udc PO Q4H PRN Constipation Metoprolol Tartrate 100 mg 03/22/20 22:00 03/23/20 10:43 Metoprolol Tartrate 100 Mg Tab PO 100 mg BID MIK Administration Minoxidil 2.5 mg 03/22/20 13:00 03/23/20 10:43 Minoxidil 2.5 Mg Tab PO 2.5 mg QDAY MIK Administration Morphine Sulfate 2 mg 03/15/20 14:59 03/22/20 17:22 Morphine 2 Mg/1 Ml Inj IV 2 mg Q5MIN PRN Administration Chest Pain unrelieved by NTG Ondansetron HCl 4 mg 03/15/20 14:59 03/22/20 17:22 Ondansetron 4 Mg/2 Ml Inj IV 4 mg Q8H PRN Administration Nausea And Vomiting Pantoprazole Sodium 20 mg 03/16/20 10:00 03/23/20 10:43 Pantoprazole 20 Mg Tab PO 20 mg QDAY MIK Administration Sodium Chloride 10 ml 03/15/20 22:00 03/23/20 10:46 Sodium Chloride 0.9% 10 Ml Flush Syringe IV 10 ml BID MIK Administration Sodium Chloride 10 ml 03/15/20 14:59 Sodium Chloride 0.9% 10 Ml Flush Syringe IV PRN PRN LINE FLUSH Tramadol HCl 50 mg 03/16/20 03:23 03/20/20 12:04 Tramadol 50 Mg Tab PO 50 mg Q6H PRN Administration Pain, Moderate (4-6) Valsartan 160 mg 03/15/20 22:00 03/23/20 10:44 Valsartan 160mg Tab PO 160 mg BID MIK Administration
[2020-03-24] MEDS: cloNIDine 0.1 MG TAB PO SCH ×3 (06:01→22:29)
[2020-03-24] MEDS: HEPARIN 5,000 UNIT/1 ML VIAL SUB-Q SCH ×3 (06:02→22:29)
[2020-03-24] MEDS: traMADol 50 MG TAB PO PRN (06:32)
[2020-03-24] MEDS: hydrALAZINE 100 MG TAB PO SCH ×3 (08:00→20:48)
--- NOTE | 2020-03-24 08:00 | Progress Note ---
Assessment and Plan 59 y/o female with acute respiratory failure secondary to COVID 19 with persistent hypoxemia and elevated BP's. 03/24/20: Continue to wean FiO2 as tolerated for sats >88%. steroids for a total of 10 days, last day is today. Will likely need ambulatory test to assess oxygen needs over the weekend. Hopeful discharge in the next 48-72 hours. 03/23/20: Will speak with RT about being more aggressive with weaning as she is able to tolerate being off HFNC at times. 03/22/20: Same recs as yesterday. Continue current management and will continue to follow along. Hopeful patient can turn the corner. Proning is a must. Not much else to offer from a pulmonary standpoint other than time. She is getting extra dialysis sessions as well as lasix 80 BID. She needs to prone as much as possible. Despite her oxygen requirements she is not in severe distress so hopefully she just needs more time. Will continue to monitor along with you. Please encourage proning. Subjective Date of service: 03/24/20 Principal diagnosis: COVID Interval history: Yesterday afternoon and overnight, patient weaned down to 4-5 liters with good sats. Attempted to prone last night. Objective Vital Signs - 12hr 03/23/20 03/23/20 03/23/20 20:00 21:02 21:41 Temperature 98.2 F 98.0 F Pulse Rate 60 65 Respiratory 17 20 Rate Respiratory Rate [Abdomen] Respiratory Rate [Back] Blood Pressure 182/81 150/76 O2 Sat by Pulse 95 97 95 Oximetry 03/23/20 03/23/20 03/23/20 21:49 21:51 22:00 Temperature 98.1 F Pulse Rate 66 Respiratory 16 18 Rate Respiratory 18 Rate [Abdomen] Respiratory 18 Rate [Back] Blood Pressure 162/88 150/78 O2 Sat by Pulse 96 Oximetry 03/24/20 03/24/20 03/24/20 04:34 06:01 06:32 Temperature 98.6 F Pulse Rate 73 Respiratory 16 18 Rate Respiratory Rate [Abdomen] Respiratory Rate [Back] Blood Pressure 170/71 170/71 O2 Sat by Pulse Oximetry CBC and BMP: 03/21/20 05:59 03/22/20 05:04 ABG, PT/INR, D-dimer: PT/INR, D-dimer PT 14.5 Sec. (12.2-14.9) 03/16/20 06:18 INR 1.14 (0.87-1.13) H 03/16/20 06:18 D-Dimer 1600.05 ng/mlDDU (0-234) H 03/21/20 08:58 Abnormal lab findings: Abnormal Labs 03/15/20 03/15/20 03/15/20 12:26 12:26 12:29 WBC RBC Hgb Hct RDW Lymph % (Auto) [place] % (Auto) Lymph # (Auto) Seg Neutrophils % INR APTT 37.2 H D-Dimer 718.25 H Sodium 130 L Potassium Chloride 89.8 L BUN 69 H Creatinine 6.0 H POC Glucose Ferritin 1021.0 H Lactate Dehydrogenase C-Reactive Protein NT-Pro-B Natriuret Pep Total Protein Albumin Coronavirus (PCR) 03/15/20 03/15/20 03/16/20 13:10 14:12 06:18 WBC 3.7 L RBC 2.77 L 2.94 L Hgb 8.8 L 9.3 L Hct 26.4 L 28.2 L RDW 16.4 H 16.7 H Lymph % (Auto) 1.5 L 7.0 L [place] % (Auto) 9.2 H 8.4 H Lymph # (Auto) 0.1 L 0.3 L Seg Neutrophils % 89.1 H 84.1 H INR APTT D-Dimer Sodium Potassium Chloride BUN Creatinine POC Glucose Ferritin Lactate Dehydrogenase 290 H C-Reactive Protein 7.10 H NT-Pro-B Natriuret Pep > 01529 H Total Protein Albumin Coronavirus (PCR) 03/16/20 03/16/20 03/16/20 06:18 06:18 Unknown WBC RBC Hgb Hct RDW Lymph % (Auto) [place] % (Auto) Lymph # (Auto) Seg Neutrophils % INR 1.14 H APTT D-Dimer Sodium Potassium Chloride 96.2 L BUN 55 H Creatinine 5.0 H POC Glucose Ferritin Lactate Dehydrogenase C-Reactive Protein NT-Pro-B Natriuret Pep Total Protein Albumin Coronavirus (PCR) Positive A 03/17/20 03/17/20 03/17/20 04:36 13:36 13:36 WBC RBC Hgb Hct RDW Lymph % (Auto) [place] % (Auto) Lymph # (Auto) Seg Neutrophils % INR APTT D-Dimer 1336.88 H Sodium 134 L Potassium 5.5 H Chloride 93.9 L BUN 68 H Creatinine 6.2 H POC Glucose Ferritin 1905.0 H Lactate Dehydrogenase C-Reactive Protein NT-Pro-B Natriuret Pep Total Protein 6.2 L Albumin 3.6 L Coronavirus (PCR) 03/17/20 03/18/20 03/19/20 13:36 04:46 04:45 WBC RBC Hgb Hct RDW Lymph % (Auto) [place] % (Auto) Lymph # (Auto) Seg Neutrophils % INR APTT D-Dimer Sodium 135 L Potassium 5.5 H Chloride 95.1 L 91.0 L BUN 47 H 68 H Creatinine 4.8 H 6.1 H POC Glucose Ferritin Lactate Dehydrogenase 213 H C-Reactive Protein 12.70 H NT-Pro-B Natriuret Pep Total Protein Albumin Coronavirus (PCR) 03/20/20 03/20/20 03/21/20 06:16 21:23 05:59 WBC RBC Hgb Hct RDW Lymph % (Auto) [place] % (Auto) Lymph # (Auto) Seg Neutrophils % INR APTT D-Dimer Sodium Potassium Chloride 95.0 L 94.4 L BUN 45 H 29 H Creatinine 4.7 H 3.6 H POC Glucose 124 H Ferritin Lactate Dehydrogenase C-Reactive Protein NT-Pro-B Natriuret Pep Total Protein Albumin Coronavirus (PCR) 03/21/20 03/21/20 03/21/20 05:59 08:58 08:58 WBC 4.0 L RBC 2.68 L Hgb 8.4 L Hct 25.2 L RDW 17.2 H Lymph % (Auto) [place] % (Auto) Lymph # (Auto) Seg Neutrophils % INR APTT D-Dimer 1600.05 H Sodium Potassium Chloride BUN Creatinine POC Glucose Ferritin > 2000.0 H Lactate Dehydrogenase C-Reactive Protein NT-Pro-B Natriuret Pep Total Protein Albumin Coronavirus (PCR) 03/21/20 03/22/20 08:58 05:04 WBC RBC Hgb Hct RDW Lymph % (Auto) [place] % (Auto) Lymph # (Auto) Seg Neutrophils % INR APTT D-Dimer Sodium 134 L Potassium Chloride 92.1 L BUN 47 H Creatinine 5.0 H POC Glucose Ferritin Lactate Dehydrogenase 291 H C-Reactive Protein 19.80 H NT-Pro-B Natriuret Pep Total Protein Albumin Coronavirus (PCR)
--- NOTE | 2020-03-24 11:24 | Progress Note ---
Assessment and Plan Assessment and plan: 59-year-old female with known history of end-stage renal disease on dialysis- Mondays, Wednesdays and Fridays, lupus, CHF, presenting to the emergency room today from an assisted living facility with cough fever headache which has been ongoing for about 4 days. She did not go to dialysis today because she was not feeling quite well. She had a fever of about 103 F. She also also has some mild shortness of breath. Patient indicates that several people at the facility had tested positive for COVID-19. She tested negative for COVID-19 yesterday. Patient denies any chest pain, no nausea vomiting, no loss of taste or smell, no diarrhea and no abdominal pain. In route to the hospital patient oxygen saturation was about 88% on room air she was subsequently placed on 2 L of oxygen. Work-up in the emergency room today chest x-ray reveals pulmonary edema. Powerhouse Engineer Dr. Hong has been consulted by the ER physician. Patient has been admitted with pulmonary edema. We will however rule out COVID-19. 2/2: Review of records shows patient is still on High flow, will obtain Pulmonary consultation, patient with worsening D.Dimer, will obtain V/Q scan to rule pulmonary embolism, Will likely change to Heparin drip till this iS clarified if patient is still on High flow. I unfortunately do not see clear oxygen documentation. Continues with Hypertensive urgency, SPOKE with the daughter, patient has had Elevated blood pressure for some time but not quite this high, Nephrology following and adjusting meds. 2/3: Continue supportive care, Will discontinue Heparin drip at this time, and use sliding scale considering low probability of PE on V/Q scan. Considering uncontrolled HTN, will transfer to [facility] and initiate Cardene drip, continue to wean High flow. COUNSELLING ON FLUID RESTRICTIONS 2/4: Consider repeating hypoxia and increasing high flow back to 100% we will ask respiratory therapist to aggressively wean as recommended by manager assessment. Discussed with nursing staff remove restraints and less reevaluate the patient. If recurrent delirium or encephalopathy we will at that time reevaluate. Have discussed with the patient again about compliance with p.o. fluid intake. Blood pressure is better improved today. 5: Patient undergoing dialysis today. Anticipate discharge in 48 hours hopefully. We are awaiting outpatient HD set up. Patient will be discharged to rehab center. Is currently down to 4 L of oxygen will need exertional oxygen evaluation prior to discharge. Blood pressure is better. Continue dexamethasone and remdesivir for now. Acute hypoxic respiratory failure -Oxygen supplementation -Covid is positive -Covid protocol initiated Continue high flow nasal cannula oxygen, needs close monitoring, builds fluid very quickly. Covid pneumonia -Covid positive -Infectious disease consulted -Dexamethasone Azithromycin and ceftriaxone End-stage renal disease -Friday -Nephrology consulted -Continue dialysis as scheduled patient does not make urine Nonsustained ventricular tachycardia Cardiology consulted Continue to monitor, no acute intervention required at this time -TTE noted Accelerated hypertension related to renal disease Valsartan, metoprolol, furosemide, clonidine, hydralazine, making adjustments for better control Patient's blood pressure at home is usually in the 200 systolic, completely uncontrolled Anemia and chronic disease illness -No acute bleeding Hypervolemic hyponatremia -Resolved with hemodialysis Heart failure, unspecified type Presumed history of CAD Elevated BNP Metoprolol, Plavix Hyperkalemia Kayexalate Morbid obesity Lifestyle change CODE STATUS: Full DVT prophylaxis: Heparin Disposition: Continue Covid treatment, continue hemodialysis, monitor for nonsustained V. tach The high probability of a clinically significant, sudden or life threatening deterioration of the [pulmonary, renal] system(s) required my full and direct attention, intervention and personal management. The aggregate critical care time was [35] minutes. This time is in addition to time spent performing rep orted procedures but includes the following: [x] Data Review and interpretation [x] Patient assessment and monitoring of vital signs [x] Documentation [x] Medication orders and management History Interval history: Patient seen and examined, resting, having dialysis today showing some remarkable improvement none down to 4 L of oxygen. Order exertional studies has not been done Hospitalist Physical - Physical exam Narrative exam: General appearance: Present: Obese, no acute distress, well-nourished, lying down tells me that she does not take her nasal cannula off. No clear evidence of confusion at this time. - EENT Eyes: Present: PERRL, EOM intact ENT: hearing intact, clear oral mucosa - Respiratory Respiratory effort: Normal, high flow nasal cannula oxygen Respiratory: Crackles heard in both lung paz bilaterally - Cardiovascular Rhythm: regular Heart Sounds: Present: S1 & S2. Absent: rub, click HD access: Permacath in right chest - Extremities Extremities: no ischemia, +1 edema in lower extremities - Abdominal General gastrointestinal: soft, non-tender, non-distended, normal bowel sounds - Integumentary Integumentary: Present: clear, warm, dry, normal turgor - Neurologic Neurologic: CNII-XII intact, no focal deficits, moves all extremities, no confusion , - Constitutional Vitals: Temp Pulse Resp BP Pulse Ox 98.6 F 70 18 170/70 100 03/24/20 08:15 03/24/20 11:15 03/24/20 08:15 03/24/20 11:15 03/24/20 08:15 General appearance: Present: mild distress Results - Labs CBC & Chem 7: 03/21/20 05:59 03/22/20 05:04 Labs: Laboratory Last Values WBC 4.0 K/mm3 (4.5-11.0) L 03/21/20 05:59 RBC 2.68 M/mm3 (3.65-5.03) L 03/21/20 05:59 Hgb 8.4 gm/dl (10.1-14.3) L 03/21/20 05:59 Hct 25.2 % (30.3-42.9) L 03/21/20 05:59 MCV 94 fl (79-97) 03/21/20 05:59 MCH 31 pg (28-32) 03/21/20 05:59 MCHC 33 % (30-34) 03/21/20 05:59 RDW 17.2 % (13.2-15.2) H 03/21/20 05:59 Plt Count 198 K/mm3 (140-440) 03/21/20 05:59 Lymph % (Auto) 7.0 % (13.4-35.0) L 03/16/20 06:18 [place] % (Auto) 8.4 % (0.0-7.3) H 03/16/20 06:18 Eos % (Auto) 0.0 % (0.0-4.3) 03/16/20 06:18 Baso % (Auto) 0.5 % (0.0-1.8) 03/16/20 06:18 Lymph # (Auto) 0.3 K/mm3 (1.2-5.4) L 03/16/20 06:18 [place] # (Auto) 0.3 K/mm3 (0.0-0.8) 03/16/20 06:18 Eos # (Auto) 0.0 K/mm3 (0.0-0.4) 03/16/20 06:18 Baso # (Auto) 0.0 K/mm3 (0.0-0.1) 03/16/20 06:18 Seg Neutrophils % 84.1 % (40.0-70.0) H 03/16/20 06:18 Seg Neutrophils # 3.1 K/mm3 (1.8-7.7) 03/16/20 06:18 PT 14.5 Sec. (12.2-14.9) 03/16/20 06:18 INR 1.14 (0.87-1.13) H 03/16/20 06:18 APTT 37.2 Sec. (24.2-36.6) H 03/15/20 12:26 D-Dimer 1600.05 ng/mlDDU (0-234) H 03/21/20 08:58 Sodium 134 mmol/L (137-145) L 03/22/20 05:04 Potassium 3.8 mmol/L (3.6-5.0) 03/22/20 05:04 Chloride 92.1 mmol/L (98-107) L 03/22/20 05:04 Carbon Dioxide 26 mmol/L (22-30) 03/22/20 05:04 Anion Gap 20 mmol/L 03/22/20 05:04 BUN 47 mg/dL (7-17) H 03/22/20 05:04 Creatinine 5.0 mg/dL (0.6-1.2) H 03/22/20 05:04 Estimated GFR 11 ml/min 03/22/20 05:04 BUN/Creatinine Ratio 9 % 03/22/20 05:04 Glucose 92 mg/dL (65-100) 03/22/20 05:04 POC Glucose 124 mg/dL (70-105) H 03/20/20 21:23 Calcium 10.0 mg/dL (8.4-10.2) 03/22/20 05:04 Magnesium 1.80 mg/dL (1.7-2.3) 03/20/20 01:22 Ferritin > 2000.0 ng/mL (10.0-200.0) H 03/21/20 08:58 Total Bilirubin 0.30 mg/dL (0.1-1.2) 03/17/20 04:36 Direct Bilirubin < 0.2 mg/dL (0-0.2) 03/15/20 12:26 Indirect Bilirubin 0.1 mg/dL 03/15/20 12:26 AST 15 units/L (5-40) 03/17/20 04:36 ALT 7 units/L (7-56) 03/17/20 04:36 Alkaline Phosphatase 73 units/L (35-129) 03/17/20 04:36 Lactate Dehydrogenase 291 units/L (91-180) H 03/21/20 08:58 C-Reactive Protein 19.80 mg/dL (0.00-1.30) H 03/21/20 08:58 NT-Pro-B Natriuret Pep > 83867 pg/mL (0-900) H 03/15/20 13:10 Total Protein 6.2 g/dL (6.3-8.2) L 03/17/20 04:36 Albumin 3.6 g/dL (3.9-5) L 03/17/20 04:36 Albumin/Globulin Ratio 1.4 % 03/17/20 04:36 Procalcitonin 6.52 ng/mL (<0.15) 03/21/20 08:58 TSH 1.540 mlU/mL (0.270-4.200) 03/19/20 04:45 Free T4 1.32 ng/dL (0.76-1.46) 03/19/20 04:45 Nasal Screen MRSA (PCR) Negative (Negative) 03/16/20 23:49 Coronavirus (PCR) Positive (Negative) A 03/16/20 Unknown Hepatitis A IgM Ab Non-reactive (NonReactive) 03/15/20 19:18 Hep Bs Antigen Non-reactive (Negative) 03/15/20 19:18 Hep B Core IgM Ab Non-reactive (NonReactive) 03/15/20 19:18 Hepatitis C Antibody Non-reactive (NonReactive) 03/15/20 19:18 - Diagnostic Impressions Diagnostic Impressions: Echocardiogram 03/15/20 15:05 Transthoracic Echocardiogram Indication: Pulm edema; h/o CHF BP: 186/94 HR: 75 Conclusions *Global left ventricular wall motion and contractility are within normal limits. *Global left ventricular systolic function is normal. *The right ventricular global systolic function is normal. *The left atrium is severely dilated. *There is evidence of an atrial septal aneurysm. *There is trace of aortic regurgitation. *Severe mitral leaflet calcification is visualized. *There is moderate to severe mitral stenosis. *The mean gradient across the mitral valve is 20.076588458056 mmHg. *There is mild tricuspid regurgitation. *The right ventricular systolic pressure is calculated at 60 mmHg. *There is trace pulmonic regurgitation. Findings Left Ventricle: The left ventricular chamber size is normal. Severe concentric left ventricular hypertrophy is observed. Global left ventricular wall motion and contractility are within normal limits. Global left ventricular systolic function is normal. The estimated ejection fraction is 50-55%. Left Atrium: The left atrium is severely dilated. Right Ventricle: The right ventricular cavity size is normal. The right ventricular global systolic function is normal. Right Atrium: The right atrial cavity size is normal. There is evidence of an atrial septal aneurysm. Aortic Valve: Mild aortic leaflet calcification is visualized. There is trace of aortic regurgitation. Mitral Valve: Severe mitral leaflet calcification is visualized. There is mild mitral regurgitation. There is moderate to severe mitral stenosis. The mean gradient across the mitral valve is 20.276232913239 mmHg. The peak gradient across the mitral valve is 33.68909333512 mmHg. Tricuspid Valve: The tricuspid valve leaflets are normal. There is mild tricuspid regurgitation. The right ventricular systolic pressure is calculated at 60 mmHg. Pulmonic Valve: There is no evidence of pulmonic valve thickening. There is trace pulmonic regurgitation. Pericardium: There is no pericardial effusion. Aorta: The aorta appears normal. Venous: The inferior vena cava is dilated. Measurements Chambers 2D Name Value Normal Range IVSd (2D) 1.82 cm (0.6 - 1.1) LVPWd (2D) 1.64 cm (0.6 - 1.1) LVIDd (2D) 4.56 cm (3.7 - 5.6) LVIDs (2D) 3.53 cm (2 - 3.8) LV FS (2D) 22.49 % - EF Teichholz (2D) 45.39 % - Ao root diameter (2D) 2.87 cm (2 - 3.7) Volumes/Mass Name Value Normal Range LA ESV SP 4CH (A/L) 98.24 ml - LA ESV SP 2CH (A/L) 197.59 ml - LA ESV BP (A/L) 140.33 ml - LA ESV BP (A/L) index 77.53 ml/m2 - LA ESV SP 4CH (MOD) 93.73 ml - LA ESV SP 2CH (MOD) 194.1 ml - LA ESV BP (MOD) 134.76 ml - LA ESV BP (MOD) index 74.45 ml/m2 - Diastolic/Systolic Function Name Value Normal Range MV E-wave Vmax 2.09 m/sec - MV deceleration time 630.49 msec - MV A-wave Vmax 1.38 m/sec - MV E:A ratio 1.51 ratio - Aortic Valve Name Value Normal Range AV Vmax 2.22 m/sec - AV VTI 47.25 cm - AV peak gradient 19.74 mmHg - AV mean gradient 10.57 mmHg - LVOT diameter 1.91 cm - LVOT Vmax 1.58 m/sec - LVOT VTI 31.21 cm - LVOT peak gradient 10 mmHg - LVOT mean gradient 5.33 mmHg - SV LVOT 89.65 ml - CLIVE (continuity Vmax) 2.04 cm2 - CLIVE (continuity VTI) 1.9 cm2 - AR PHT 479.73 msec - AR peak gradient 17.52 mmHg - Mitral Valve Name Value Normal Range MV Vmax 2.89 m/sec - MV VTI 107.77 cm - MV peak gradient 33.41 mmHg - MV mean gradient 20.1 mmHg - MV PHT 184.74 msec - MR Vmax 6.51 m/sec - MVA (PHT) 1.19 cm2 - MVA (continuity VTI) 0.83 cm2 - Tricuspid Valve Name Value Normal Range TR Vmax 3.61 m/sec - TR peak gradient 52.14 mmHg - RAP 8 mmHg - RVSP 60 mmHg - IVC diameter 2.47 cm (1.2 - 2.3) Pulmonic Valve/Qp:Qs Name Value Normal Range PV Vmax 1.13 m/sec - PV peak gradient 5.09 mmHg - CT end-diastolic Vmax 0.73 m/sec - PV acceleration time 106.57 msec - Marx/IV: Voiding Method External Female Catheter IV Catheter Type [Left Hand] INT / Saline Lock Active Medications - Current Medications Current Medications: Generic Name Dose Route Start Last Admin Trade Name Freq PRN Reason Stop Dose Admin Acetaminophen 650 mg 03/15/20 14:59 03/19/20 11:18 Acetaminophen 325 Mg Tab PO 650 mg Q4H PRN Administration Pain MILD(1-3)/Fever >100.5/KENNY Amlodipine Besylate 10 mg 03/16/20 10:00 03/23/20 10:43 Amlodipine 10 Mg Tab PO 10 mg DAILY MIK Administration Aspirin 81 mg 03/16/20 10:00 03/23/20 10:44 Aspirin Ec 81 Mg Tab PO 81 mg DAILY MIK Administration Atorvastatin Calcium 10 mg 03/15/20 22:00 03/23/20 21:01 Atorvastatin 10 Mg Tab PO 10 mg QHS MIK Administration Azathioprine 50 mg 03/16/20 10:00 03/23/20 10:47 Azathioprine 50 Mg Tab PO 50 mg DAILY MIK Administration Calcitriol 1 mcg 03/21/20 10:00 03/23/20 10:45 Calcitriol 0.25 Mcg Cap PO 1 mcg QDAY MIK Administration Clonidine HCl 0.2 mg 03/15/20 22:00 03/24/20 06:01 Clonidine 0.1 Mg Tab PO 0.2 mg Q8HR MIK Administration Clopidogrel Bisulfate 75 mg 03/16/20 10:00 03/23/20 10:43 Clopidogrel 75 Mg Tab PO 75 mg QDAY MIK Administration Epoetin [place] 10,000 unit 03/15/20 18:00 Epoetin [place] 10,000 Unit/1 Ml Inj SUB-Q SHEREE MIK Guaifenesin 600 mg 03/17/20 11:00 03/23/20 21:01 Guaifenesin Er 600 Mg Tab PO 600 mg BID MIK Administration Heparin Sodium (Porcine) 5,000 unit 03/15/20 22:00 03/24/20 06:02 Heparin 5,000 Unit/1 Ml Vial SUB-Q 5,000 unit Q8HR MIK Administration Hydralazine HCl 20 mg 03/17/20 07:33 03/22/20 11:32 Hydralazine 20 Mg/1 Ml Inj IV 20 mg Q4HR PRN Administration Give if SBP>180 DBP>100 Hydralazine HCl 100 mg 03/18/20 20:00 03/23/20 20:56 Hydralazine 100 Mg Tab PO 100 mg TID MIK Administration Hydrophilic Ointment 1 applic 03/19/20 04:30 03/19/20 05:52 Lip Therapy Vaseline TP 1 applic DIRECT PRN Administration Dry Lips Sodium Chloride 100 mls @ 999 mls/hr 03/15/20 15:08 Nacl 0.9% IV SHEREE PRN Hypotension Sodium Chloride 100 mls @ 999 mls/hr 03/19/20 17:59 Nacl 0.9% IV SHEREE PRN Hypotension Magnesium Hydroxide 30 ml 03/15/20 14:59 Magnesium Hydroxide (Mom) Oral Liqd Udc PO Q4H PRN Constipation Metoprolol Tartrate 100 mg 03/22/20 22:00 03/23/20 21:51 Metoprolol Tartrate 100 Mg Tab PO 100 mg BID MIK Administration Minoxidil 2.5 mg 03/22/20 13:00 03/23/20 10:43 Minoxidil 2.5 Mg Tab PO 2.5 mg QDAY MIK Administration Morphine Sulfate 2 mg 03/15/20 14:59 03/22/20 17:22 Morphine 2 Mg/1 Ml Inj IV 2 mg Q5MIN PRN Administration Chest Pain unrelieved by NTG Ondansetron HCl 4 mg 03/15/20 14:59 03/22/20 17:22 Ondansetron 4 Mg/2 Ml Inj IV 4 mg Q8H PRN Administration Nausea And Vomiting Pantoprazole Sodium 20 mg 03/16/20 10:00 03/23/20 10:43 Pantoprazole 20 Mg Tab PO 20 mg QDAY MIK Administration Sodium Chloride 10 ml 03/15/20 22:00 03/23/20 21:52 Sodium Chloride 0.9% 10 Ml Flush Syringe IV 10 ml BID MIK Administration Sodium Chloride 10 ml 03/15/20 14:59 Sodium Chloride 0.9% 10 Ml Flush Syringe IV PRN PRN LINE FLUSH Tramadol HCl 50 mg 03/16/20 03:23 03/24/20 06:32 Tramadol 50 Mg Tab PO 50 mg Q6H PRN Administration Pain, Moderate (4-6) Valsartan 160 mg 03/15/20 22:00 03/23/20 21:51 Valsartan 160mg Tab PO 160 mg BID MIK Administration Nutrition/Malnutrition Assess - Dietary Evaluation Nutrition/Malnutrition Findings: Nutrition Notes Start: 03/23/20 13:01 Freq: Status: Active Protocol: Document 03/23/20 13:01 EN (Rec: 03/23/20 13:13 EN [id number]) Co-Sign 03/23/20 13:01 MK Nutrition Notes Need for Assessment generated from: LOS Initial or Follow up Assessment Current Diagnosis CKD (stage V CKD),Heart Failure Other Pertinent Diagnosis Covid(+), lupus, on HD, acute respiratory failure Current Diet Cardiac with renal Labs/Tests Reviewed Pertinent Medications Decadron Height 5 ft 3 in Weight 78.3 kg Harmony Body Weight (kg) 52.27 BMI 30.5 Weight Status Obese Subjective/Other Information Pt screened for LOS. Unable to reach pt by phone x3. RN unable to go to pt's room at this time and unable to provide intake information. Per chart, pt consuming 25% of meals Percent of energy/protein needs met: 35%/22% Burn Absent Trauma Absent GI Symptoms None Food Allergy No Current % PO Poor (25-49%) Minimum of two criteria No physical signs of malnutrition #1 Nutrition Diagnosis Inadequate oral intake Etiology COVID-19+ As Evidenced by Signs and Symptoms Pt consuming 25% of meals Is patient on ventilator? No Is Patient Ambulatory and/or Out of Bed No REE-([facility]-confined to bed) 7611.105 Calculation [facility] Additional Notes Protein: >1.2g/kg (>94g) Fluid:1000mL + output Nutrition Intervention Change Diet Order: Continue current diet Add Supplement/Snack (indicate name/kcal Nepro BID /protein ) Provides kCal: 850 Provides Protein (gm) 38 Goal #1 Meet at least 75% of energy and protein needs via PO and ONS Anticipated Discharge Needs: Cardiac/Renal diet Follow-Up By: 03/27/20 Additional Comments F/u for assessment, intakes and ONS tolerance
--- NOTE | 2020-03-24 11:53 | Progress Note ---
Assessment and Plan Cultures: Blood culture no growth SARS CoV2 PCR positive Assessment: 59 years old female with history of end-stage renal disease on hemodialysis, lupus and CHF admitted on 03/15/2020 secondary to 4 days history of dry cough, fever, headaches, generalized malaise and shortness of breath: #Severe COVID pneumonia: Chest x-ray with likely pulmonary edema and pneumonia. Inflammatory markers elevated. Procalcitonin elevated, likely due to renal failure. No indication for remdesivir due to renal failure. VQ low probability for PE. #Acute hypoxemic respiratory failure: on NC. #ESRD on hemodialysis #Lupus: on imuran. Recommendations: -continue steroids, complete decadron x 10 days -Monitor inflammatory markers - ferritin, Ddimer, CRP, LDH -Continue anticoagulation per System Protocol. VQ negative for PE -continue oxygen weaning ID will sign off. Please call with questions. Freda Celeste MD, FACP [facility] O: [phone] F: [phone] Subjective Date of service: 03/24/20 Principal diagnosis: COVID Interval history: No fever. Remains on nasal cannula at 4 L/min. Objective - Exam Narrative Exam: Physical Exam (reviewed in chart to minimize risk of transmission) Constitutional: deferred Head, Ears, Nose: deferred Eyes: deferred Neck: deferred Oral: deferred Cardiovascular: deferred Respiratory: deferred GI: deferred Musculoskeletal: deferred Skin: deferred Hem/Lymphatic: deferred Psych: deferred Neurological: deferred - Constitutional Vitals: Vital Signs Temp Pulse Resp BP Pulse Ox 98.6 F 70 18 170/70 100 03/24/20 08:15 03/24/20 11:15 03/24/20 08:15 03/24/20 11:15 03/24/20 08:15 Temperature -Last 24 Hours Temperature 98.6 F Temperature 98.6 F Temperature 98.1 F Temperature 98.0 F Temperature 98.2 F Temperature 98.0 F Temperature 99.2 F - Labs CBC & Chem 7: 03/21/20 05:59 03/22/20 05:04
[2020-03-24] MEDS: amLODIPine 10 MG TAB PO SCH (13:10)
[2020-03-24] MEDS: PANTOPRAZOLE 20 MG TAB PO SCH (13:10)
[2020-03-24] MEDS: ASPIRIN EC 81 MG TAB PO SCH (13:10)
[2020-03-24] MEDS: CLOPIDOGREL 75 MG TAB PO SCH (13:10)
[2020-03-24] MEDS: VALSARTAN 160MG TAB PO SCH ×2 (13:11→22:27)
[2020-03-24] MEDS: MINOXIDIL 2.5 MG TAB PO SCH (13:11)
[2020-03-24] MEDS: azaTHIOprine 50 MG TAB PO SCH (13:12)
[2020-03-24] MEDS: METOPROLOL TARTRATE 100 MG TAB PO SCH ×2 (13:18→22:28)
[2020-03-24] MEDS: guaiFENesin ER 600 MG TAB PO SCH ×2 (13:20→22:27)
[2020-03-24] MEDS: dexAMETHasone 4 MG/ML VIAL IV SCH (13:21)
[2020-03-24] MEDS: CALCITRIOL 0.25 MCG CAP PO SCH (13:22)
--- NOTE | 2020-03-24 15:01 | Progress Note ---
Assessment and Plan - Patient Problems (1) ESRD needing dialysis Current Visit: No Status: Acute Plan to address problem: Cont HD on MWF schedule. K corrected with HD, cont 2g K renal diet. (2) Pneumonia due to COVID-19 virus Current Visit: Yes Status: Acute Plan to address problem: on dexamethasone 6mg po qd, on 2L NC, trend inflammatory parameters incl ferritin, D dimer, CRP, LDH. On COVID19 protocol, follow ID recommendation. VQ scan showed low probability for PE (3) Hypertensive chronic kidney disease with stage 5 chronic kidney disease or end stage renal disease Current Visit: Yes Status: Acute Plan to address problem: BP improved with volume control with HD/increased UF. cont fluid restriction to 1L/day. cont IV hydralazine prn to target SBP < 160mmHg (4) Lupus (systemic lupus erythematosus) Current Visit: Yes Status: Acute (5) Anemia in chronic illness Current Visit: Yes Status: Acute Plan to address problem: cont EPO with HD (6) Secondary hyperparathyroidism (of renal origin) Current Visit: Yes Status: Acute Plan to address problem: cont calcitriol 0.5mcg po qd while inpatient Subjective Date of service: 03/24/20 Principal diagnosis: COVID Objective - Exam Narrative Exam: In an effort to conserve Personal protective equipment and limit exposure, the patient was not directly examined by me. Interdisciplinary team notes, previous examinations, labs and diagnostics have been extensively reviewed and all recommendations taken into consideration. Physical exam deferred to primary team - Vital Signs Vital signs: Vital Signs - 12hr 03/24/20 03/24/20 03/24/20 04:34 06:01 06:32 Temperature 98.6 F Pulse Rate 73 Respiratory 16 18 Rate Blood Pressure 170/71 170/71 O2 Sat by Pulse Oximetry O2 Sat by Pulse Oximetry [ Anterior Bilateral Throughout] 03/24/20 03/24/20 03/24/20 08:11 08:15 08:30 Temperature 98.6 F Pulse Rate 66 64 Respiratory 18 Rate Blood Pressure 186/84 171/79 O2 Sat by Pulse 96 Oximetry O2 Sat by Pulse 100 Oximetry [ Anterior Bilateral Throughout] 03/24/20 03/24/20 03/24/20 08:45 09:00 09:15 Temperature Pulse Rate 64 62 62 Respiratory Rate Blood Pressure 154/74 174/72 159/74 O2 Sat by Pulse Oximetry O2 Sat by Pulse Oximetry [ Anterior Bilateral Throughout] 03/24/20 03/24/20 03/24/20 09:30 09:45 10:00 Temperature Pulse Rate 64 63 62 Respiratory Rate Blood Pressure 142/68 159/84 179/80 O2 Sat by Pulse Oximetry O2 Sat by Pulse Oximetry [ Anterior Bilateral Throughout] 03/24/20 03/24/20 03/24/20 10:15 10:30 10:45 Temperature Pulse Rate 68 65 65 Respiratory Rate Blood Pressure 171/70 166/62 162/73 O2 Sat by Pulse Oximetry O2 Sat by Pulse Oximetry [ Anterior Bilateral Throughout] 03/24/20 03/24/20 03/24/20 11:00 11:15 11:30 Temperature Pulse Rate 62 70 72 Respiratory Rate Blood Pressure 169/70 170/70 168/70 O2 Sat by Pulse Oximetry O2 Sat by Pulse Oximetry [ Anterior Bilateral Throughout] 03/24/20 03/24/20 11:45 12:00 Temperature 98.0 F Pulse Rate 70 68 Respiratory 18 Rate Blood Pressure 168/70 170/72 O2 Sat by Pulse Oximetry O2 Sat by Pulse 100 Oximetry [ Anterior Bilateral Throughout] - Lab 03/21/20 05:59 03/22/20 05:04 Most recent lab results Calcium 10.0 mg/dL (8.4-10.2) 03/22/20 05:04 Magnesium 1.80 mg/dL (1.7-2.3) 03/20/20 01:22 Medications & Allergies - Medications Allergies/Adverse Reactions: Allergies No Known Allergies Allergy (Unverified 12/01/19 05:58) Home Medications: Home Medications Medication Instructions Recorded Confirmed Last Taken Type Aspirin [Adult Aspirin] 81 mg PO DAILY 12/02/19 03/18/20 Unknown History AtorvaSTATin 10 mg PO QHS 12/02/19 03/18/20 Unknown History Clopidogrel [Plavix] 75 mg PO QDAY 12/02/19 03/18/20 Unknown History Folic Acid 0.4 mg PO QDAY 12/02/19 03/18/20 Unknown History Omeprazole 20 mg PO DAILY 12/02/19 03/18/20 Unknown History amLODIPine 10 mg PO DAILY 12/02/19 03/18/20 Unknown History azaTHIOprine [Azathioprine] 50 mg PO DAILY 12/02/19 03/18/20 Unknown History calcitrioL [Rocaltrol] 1 mcg PO QDAY 12/02/19 03/18/20 Unknown History prednisoLONE [Millipred 5mg (12 20 mg PO QDAY 12/02/19 03/18/20 Unknown History day - 48 tab dosepak)] Furosemide [Lasix TAB] 80 mg PO QDAY #30 tablet 12/10/19 03/18/20 Unknown Rx Metoprolol [Lopressor TAB] 50 mg PO BID #60 tablet 12/10/19 03/18/20 Unknown Rx Valsartan [Diovan] 160 mg PO BID #60 tablet 12/10/19 03/18/20 Unknown Rx cloNIDine [Catapres] 0.2 mg PO Q8HR #90 tablet 12/10/19 03/18/20 Unknown Rx hydrALAZINE [Apresoline TAB] 50 mg PO Q8HR #180 tablet 12/10/19 03/18/20 Unknown Rx minoxidiL [Loniten] 5 mg PO QDAY #30 tablet 12/10/19 03/18/20 Unknown Rx Active Medications: Generic Name Dose Route Start Last Admin Trade Name Freq PRN Reason Stop Dose Admin Acetaminophen 650 mg 03/15/20 14:59 03/19/20 11:18 Acetaminophen 325 Mg Tab PO 650 mg Q4H PRN Administration Pain MILD(1-3)/Fever >100.5/KENNY Amlodipine Besylate 10 mg 03/16/20 10:00 03/24/20 13:10 Amlodipine 10 Mg Tab PO 10 mg DAILY MIK Administration Aspirin 81 mg 03/16/20 10:00 03/24/20 13:10 Aspirin Ec 81 Mg Tab PO 81 mg DAILY MIK Administration Atorvastatin Calcium 10 mg 03/15/20 22:00 03/23/20 21:01 Atorvastatin 10 Mg Tab PO 10 mg QHS MIK Administration Azathioprine 50 mg 03/16/20 10:00 03/24/20 13:12 Azathioprine 50 Mg Tab PO 50 mg DAILY MIK Administration Calcitriol 1 mcg 03/21/20 10:00 03/24/20 13:22 Calcitriol 0.25 Mcg Cap PO 1 mcg QDAY MIK Administration Clonidine HCl 0.2 mg 03/15/20 22:00 03/24/20 13:10 Clonidine 0.1 Mg Tab PO 0.2 mg Q8HR MIK Administration Clopidogrel Bisulfate 75 mg 03/16/20 10:00 03/24/20 13:10 Clopidogrel 75 Mg Tab PO 75 mg QDAY MIK Administration Epoetin [place] 10,000 unit 03/15/20 18:00 E[place]etin [place] 10,000 Unit/1 Ml Inj SUB-Q SHEREE MIK Guaifenesin 600 mg 03/17/20 11:00 03/24/20 13:20 Guaifenesin Er 600 Mg Tab PO 600 mg BID MIK Administration Heparin Sodium (Porcine) 5,000 unit 03/15/20 22:00 03/24/20 13:37 Heparin 5,000 Unit/1 Ml Vial SUB-Q 5,000 unit Q8HR MIK Administration Hydralazine HCl 20 mg 03/17/20 07:33 03/22/20 11:32 Hydralazine 20 Mg/1 Ml Inj IV 20 mg Q4HR PRN Administration Give if SBP>180 DBP>100 Hydralazine HCl 100 mg 03/18/20 20:00 03/24/20 13:10 Hydralazine 100 Mg Tab PO 100 mg TID MIK Administration Hydrophilic Ointment 1 applic 03/19/20 04:30 03/19/20 05:52 Lip Therapy Vaseline TP 1 applic DIRECT PRN Administration Dry Lips Sodium Chloride 100 mls @ 999 mls/hr 03/15/20 15:08 Nacl 0.9% IV SHEREE PRN Hypotension Sodium Chloride 100 mls @ 999 mls/hr 03/19/20 17:59 Nacl 0.9% IV SHEREE PRN Hypotension Magnesium Hydroxide 30 ml 03/15/20 14:59 Magnesium Hydroxide (Mom) Oral Liqd Udc PO Q4H PRN Constipation Metoprolol Tartrate 100 mg 03/22/20 22:00 03/24/20 13:18 Metoprolol Tartrate 100 Mg Tab PO 100 mg BID MIK Administration Minoxidil 2.5 mg 03/22/20 13:00 03/24/20 13:11 Minoxidil 2.5 Mg Tab PO 2.5 mg QDAY MIK Administration Morphine Sulfate 2 mg 03/15/20 14:59 03/22/20 17:22 Morphine 2 Mg/1 Ml Inj IV 2 mg Q5MIN PRN Administration Chest Pain unrelieved by NTG Ondansetron HCl 4 mg 03/15/20 14:59 03/22/20 17:22 Ondansetron 4 Mg/2 Ml Inj IV 4 mg Q8H PRN Administration Nausea And Vomiting Pantoprazole Sodium 20 mg 03/16/20 10:00 03/24/20 13:10 Pantoprazole 20 Mg Tab PO 20 mg QDAY MIK Administration Sodium Chloride 10 ml 03/15/20 22:00 03/24/20 13:22 Sodium Chloride 0.9% 10 Ml Flush Syringe IV 10 ml BID MIK Administration Sodium Chloride 10 ml 03/15/20 14:59 Sodium Chloride 0.9% 10 Ml Flush Syringe IV PRN PRN LINE FLUSH Tramadol HCl 50 mg 03/16/20 03:23 03/24/20 06:32 Tramadol 50 Mg Tab PO 50 mg Q6H PRN Administration Pain, Moderate (4-6) Valsartan 160 mg 03/15/20 22:00 03/24/20 13:11 Valsartan 160mg Tab PO 160 mg BID MIK Administration
[2020-03-25] MEDS: cloNIDine 0.1 MG TAB PO SCH ×3 (05:25→22:24)
[2020-03-25] MEDS: HEPARIN 5,000 UNIT/1 ML VIAL SUB-Q SCH ×5 (05:26→22:25)
[2020-03-25] MEDS: ACETAMINOPHEN 325 MG TAB PO PRN (05:27)
[2020-03-25] MEDS: CLOPIDOGREL 75 MG TAB PO SCH (09:37)
[2020-03-25] MEDS: hydrALAZINE 100 MG TAB PO SCH ×3 (09:37→22:25)
[2020-03-25] MEDS: PANTOPRAZOLE 20 MG TAB PO SCH (09:37)
[2020-03-25] MEDS: ASPIRIN EC 81 MG TAB PO SCH (09:37)
[2020-03-25] MEDS: guaiFENesin ER 600 MG TAB PO SCH ×2 (09:37→22:30)
[2020-03-25] MEDS: CALCITRIOL 0.25 MCG CAP PO SCH (09:37)
[2020-03-25] MEDS: VALSARTAN 160MG TAB PO SCH ×2 (09:38→22:30)
[2020-03-25] MEDS: MINOXIDIL 2.5 MG TAB PO SCH (09:38)
[2020-03-25] MEDS: METOPROLOL TARTRATE 100 MG TAB PO SCH ×2 (09:38→22:24)
[2020-03-25] MEDS: amLODIPine 10 MG TAB PO SCH (09:38)
--- NOTE | 2020-03-25 12:05 | Progress Note ---
Assessment and Plan Assessment and plan: 59-year-old female with known history of end-stage renal disease on dialysis- Mondays, Wednesdays and Fridays, lupus, CHF, presenting to the emergency room today from an assisted living facility with cough fever headache which has been ongoing for about 4 days. She did not go to dialysis today because she was not feeling quite well. She had a fever of about 103 F. She also also has some mild shortness of breath. Patient indicates that several people at the facility had tested positive for COVID-19. She tested negative for COVID-19 yesterday. Patient denies any chest pain, no nausea vomiting, no loss of taste or smell, no diarrhea and no abdominal pain. In route to the hospital patient oxygen saturation was about 88% on room air she was subsequently placed on 2 L of oxygen. Work-up in the emergency room today chest x-ray reveals pulmonary edema. Safety Patrol Officer Dr. Hong has been consulted by the ER physician. Patient has been admitted with pulmonary edema. We will however rule out COVID-19. 2/2: Review of records shows patient is still on High flow, will obtain Pulmonary consultation, patient with worsening D.Dimer, will obtain V/Q scan to rule pulmonary embolism, Will likely change to Heparin drip till this iS clarified if patient is still on High flow. I unfortunately do not see clear oxygen documentation. Continues with Hypertensive urgency, SPOKE with the daughter, patient has had Elevated blood pressure for some time but not quite this high, Nephrology following and adjusting meds. 2/3: Continue supportive care, Will discontinue Heparin drip at this time, and use sliding scale considering low probability of PE on V/Q scan. Considering uncontrolled HTN, will transfer to [facility] and initiate Cardene drip, continue to wean High flow. COUNSELLING ON FLUID RESTRICTIONS 2/4: Consider repeating hypoxia and increasing high flow back to 100% we will ask respiratory therapist to aggressively wean as recommended by limousine rental clerk. Discussed with nursing staff remove restraints and less reevaluate the patient. If recurrent delirium or encephalopathy we will at that time reevaluate. Have discussed with the patient again about compliance with p.o. fluid intake. Blood pressure is better improved today. 5: Patient undergoing dialysis today. Anticipate discharge in 48 hours hopefully. We are awaiting outpatient HD set up. Patient will be discharged to rehab center. Is currently down to 4 L of oxygen will need exertional oxygen evaluation prior to discharge. Blood pressure is better. Continue dexamethasone and remdesivir for now. 03/25: Continue supportive care wean oxygen as tolerated. Awaiting dialysis placement for discharge. Acute hypoxic respiratory failure -Oxygen supplementation -Covid is positive -Covid protocol initiated Continue high flow nasal cannula oxygen, needs close monitoring, builds fluid very quickly. Covid pneumonia -Covid positive -Infectious disease consulted -Dexamethasone Azithromycin and ceftriaxone End-stage renal disease -Friday -Nephrology consulted -Continue dialysis as scheduled patient does not make urine Nonsustained ventricular tachycardia Cardiology consulted Continue to monitor, no acute intervention required at this time -TTE noted Accelerated hypertension related to renal disease Valsartan, metoprolol, furosemide, clonidine, hydralazine, making adjustments for better control Patient's blood pressure at home is usually in the 200 systolic, completely uncontrolled Anemia and chronic disease illness -No acute bleeding Hypervolemic hyponatremia -Resolved with hemodialysis Heart failure, unspecified type Presumed history of CAD Elevated BNP Metoprolol, Plavix Hyperkalemia Kayexalate Morbid obesity Lifestyle change CODE STATUS: Full DVT prophylaxis: Heparin Disposition: Continue Covid treatment, continue hemodialysis, monitor for nonsustained V. tach The high probability of a clinically significant, sudden or life threatening deterioration of the [pulmonary, renal] system(s) required my full and direct attention, intervention and personal management. The aggregate critical care time was [35] minutes. This time is in addition to time spent performing re ported procedures but includes the following: [x] Data Review and interpretation [x] Patient assessment and monitoring of vital signs [x] Documentation [x] Medication orders and management History Interval history: Patient seen and examined, resting, no new distress remains on 4 L of oxygen satting 96% Hospitalist Physical - Physical exam Narrative exam: General appearance: Present: Obese, no acute distress, well-nourished, lying down tells me that she does not take her nasal cannula off. No clear evidence of confusion at this time. - EENT Eyes: Present: PERRL, EOM intact ENT: hearing intact, clear oral mucosa - Respiratory Respiratory effort: Normal, high flow nasal cannula oxygen Respiratory: Crackles heard in both lung paz bilaterally - Cardiovascular Rhythm: regular Heart Sounds: Present: S1 & S2. Absent: rub, click HD access: Permacath in right chest - Extremities Extremities: no ischemia, +1 edema in lower extremities - Abdominal General gastrointestinal: soft, non-tender, non-distended, normal bowel sounds - Integumentary Integumentary: Present: clear, warm, dry, normal turgor - Neurologic Neurologic: CNII-XII intact, no focal deficits, moves all extremities, no confusion , - Constitutional Vitals: Temp Pulse Resp BP Pulse Ox 100.1 F H 61 19 151/69 96 03/25/20 04:30 03/25/20 09:38 03/25/20 06:27 03/25/20 09:38 03/25/20 10:34 General appearance: Present: mild distress Results - Labs CBC & Chem 7: 03/21/20 05:59 03/22/20 05:04 Labs: Laboratory Last Values WBC 4.0 K/mm3 (4.5-11.0) L 03/21/20 05:59 RBC 2.68 M/mm3 (3.65-5.03) L 03/21/20 05:59 Hgb 8.4 gm/dl (10.1-14.3) L 03/21/20 05:59 Hct 25.2 % (30.3-42.9) L 03/21/20 05:59 MCV 94 fl (79-97) 03/21/20 05:59 MCH 31 pg (28-32) 03/21/20 05:59 MCHC 33 % (30-34) 03/21/20 05:59 RDW 17.2 % (13.2-15.2) H 03/21/20 05:59 Plt Count 198 K/mm3 (140-440) 03/21/20 05:59 Lymph % (Auto) 7.0 % (13.4-35.0) L 03/16/20 06:18 [place] % (Auto) 8.4 % (0.0-7.3) H 03/16/20 06:18 Eos % (Auto) 0.0 % (0.0-4.3) 03/16/20 06:18 Baso % (Auto) 0.5 % (0.0-1.8) 03/16/20 06:18 Lymph # (Auto) 0.3 K/mm3 (1.2-5.4) L 03/16/20 06:18 [place] # (Auto) 0.3 K/mm3 (0.0-0.8) 03/16/20 06:18 Eos # (Auto) 0.0 K/mm3 (0.0-0.4) 03/16/20 06:18 Baso # (Auto) 0.0 K/mm3 (0.0-0.1) 03/16/20 06:18 Seg Neutrophils % 84.1 % (40.0-70.0) H 03/16/20 06:18 Seg Neutrophils # 3.1 K/mm3 (1.8-7.7) 03/16/20 06:18 PT 14.5 Sec. (12.2-14.9) 03/16/20 06:18 INR 1.14 (0.87-1.13) H 03/16/20 06:18 APTT 37.2 Sec. (24.2-36.6) H 03/15/20 12:26 D-Dimer 1600.05 ng/mlDDU (0-234) H 03/21/20 08:58 Sodium 134 mmol/L (137-145) L 03/22/20 05:04 Potassium 3.8 mmol/L (3.6-5.0) 03/22/20 05:04 Chloride 92.1 mmol/L (98-107) L 03/22/20 05:04 Carbon Dioxide 26 mmol/L (22-30) 03/22/20 05:04 Anion Gap 20 mmol/L 03/22/20 05:04 BUN 47 mg/dL (7-17) H 03/22/20 05:04 Creatinine 5.0 mg/dL (0.6-1.2) H 03/22/20 05:04 Estimated GFR 11 ml/min 03/22/20 05:04 BUN/Creatinine Ratio 9 % 03/22/20 05:04 Glucose 92 mg/dL (65-100) 03/22/20 05:04 POC Glucose 124 mg/dL (70-105) H 03/20/20 21:23 Calcium 10.0 mg/dL (8.4-10.2) 03/22/20 05:04 Magnesium 1.80 mg/dL (1.7-2.3) 03/20/20 01:22 Ferritin > 2000.0 ng/mL (10.0-200.0) H 03/21/20 08:58 Total Bilirubin 0.30 mg/dL (0.1-1.2) 03/17/20 04:36 Direct Bilirubin < 0.2 mg/dL (0-0.2) 03/15/20 12:26 Indirect Bilirubin 0.1 mg/dL 03/15/20 12:26 AST 15 units/L (5-40) 03/17/20 04:36 ALT 7 units/L (7-56) 03/17/20 04:36 Alkaline Phosphatase 73 units/L (35-129) 03/17/20 04:36 Lactate Dehydrogenase 291 units/L (91-180) H 03/21/20 08:58 C-Reactive Protein 19.80 mg/dL (0.00-1.30) H 03/21/20 08:58 NT-Pro-B Natriuret Pep > 46229 pg/mL (0-900) H 03/15/20 13:10 Total Protein 6.2 g/dL (6.3-8.2) L 03/17/20 04:36 Albumin 3.6 g/dL (3.9-5) L 03/17/20 04:36 Albumin/Globulin Ratio 1.4 % 03/17/20 04:36 Procalcitonin 6.52 ng/mL (<0.15) 03/21/20 08:58 TSH 1.540 mlU/mL (0.270-4.200) 03/19/20 04:45 Free T4 1.32 ng/dL (0.76-1.46) 03/19/20 04:45 Nasal Screen MRSA (PCR) Negative (Negative) 03/16/20 23:49 Coronavirus (PCR) Positive (Negative) A 03/16/20 Unknown Hepatitis A IgM Ab Non-reactive (NonReactive) 03/15/20 19:18 Hep Bs Antigen Non-reactive (Negative) 03/15/20 19:18 Hep B Core IgM Ab Non-reactive (NonReactive) 03/15/20 19:18 Hepatitis C Antibody Non-reactive (NonReactive) 03/15/20 19:18 - Diagnostic Impressions Diagnostic Impressions: Echocardiogram 03/15/20 15:05 Transthoracic Echocardiogram Indication: Pulm edema; h/o CHF BP: 186/94 HR: 75 Conclusions *Global left ventricular wall motion and contractility are within normal limits. *Global left ventricular systolic function is normal. *The right ventricular global systolic function is normal. *The left atrium is severely dilated. *There is evidence of an atrial septal aneurysm. *There is trace of aortic regurgitation. *Severe mitral leaflet calcification is visualized. *There is moderate to severe mitral stenosis. *The mean gradient across the mitral valve is 20.450991085608 mmHg. *There is mild tricuspid regurgitation. *The right ventricular systolic pressure is calculated at 60 mmHg. *There is trace pulmonic regurgitation. Findings Left Ventricle: The left ventricular chamber size is normal. Severe concentric left ventricular hypertrophy is observed. Global left ventricular wall motion and contractility are within normal limits. Global left ventricular systolic function is normal. The estimated ejection fraction is 50-55%. Left Atrium: The left atrium is severely dilated. Right Ventricle: The right ventricular cavity size is normal. The right ventricular global systolic function is normal. Right Atrium: The right atrial cavity size is normal. There is evidence of an atrial septal aneurysm. Aortic Valve: Mild aortic leaflet calcification is visualized. There is trace of aortic regurgitation. Mitral Valve: Severe mitral leaflet calcification is visualized. There is mild mitral regurgitation. There is moderate to severe mitral stenosis. The mean gradient across the mitral valve is 20.963005409152 mmHg. The peak gradient across the mitral valve is 33.06288463787 mmHg. Tricuspid Valve: The tricuspid valve leaflets are normal. There is mild tricuspid regurgitation. The right ventricular systolic pressure is calculated at 60 mmHg. Pulmonic Valve: There is no evidence of pulmonic valve thickening. There is trace pulmonic regurgitation. Pericardium: There is no pericardial effusion. Aorta: The aorta appears normal. Venous: The inferior vena cava is dilated. Measurements Chambers 2D Name Value Normal Range IVSd (2D) 1.82 cm (0.6 - 1.1) LVPWd (2D) 1.64 cm (0.6 - 1.1) LVIDd (2D) 4.56 cm (3.7 - 5.6) LVIDs (2D) 3.53 cm (2 - 3.8) LV FS (2D) 22.49 % - EF Teichholz (2D) 45.39 % - Ao root diameter (2D) 2.87 cm (2 - 3.7) Volumes/Mass Name Value Normal Range LA ESV SP 4CH (A/L) 98.24 ml - LA ESV SP 2CH (A/L) 197.59 ml - LA ESV BP (A/L) 140.33 ml - LA ESV BP (A/L) index 77.53 ml/m2 - LA ESV SP 4CH (MOD) 93.73 ml - LA ESV SP 2CH (MOD) 194.1 ml - LA ESV BP (MOD) 134.76 ml - LA ESV BP (MOD) index 74.45 ml/m2 - Diastolic/Systolic Function Name Value Normal Range MV E-wave Vmax 2.09 m/sec - MV deceleration time 630.49 msec - MV A-wave Vmax 1.38 m/sec - MV E:A ratio 1.51 ratio - Aortic Valve Name Value Normal Range AV Vmax 2.22 m/sec - AV VTI 47.25 cm - AV peak gradient 19.74 mmHg - AV mean gradient 10.57 mmHg - LVOT diameter 1.91 cm - LVOT Vmax 1.58 m/sec - LVOT VTI 31.21 cm - LVOT peak gradient 10 mmHg - LVOT mean gradient 5.33 mmHg - SV LVOT 89.65 ml - CLIVE (continuity Vmax) 2.04 cm2 - CLIVE (continuity VTI) 1.9 cm2 - AR PHT 479.73 msec - AR peak gradient 17.52 mmHg - Mitral Valve Name Value Normal Range MV Vmax 2.89 m/sec - MV VTI 107.77 cm - MV peak gradient 33.41 mmHg - MV mean gradient 20.1 mmHg - MV PHT 184.74 msec - MR Vmax 6.51 m/sec - MVA (PHT) 1.19 cm2 - MVA (continuity VTI) 0.83 cm2 - Tricuspid Valve Name Value Normal Range TR Vmax 3.61 m/sec - TR peak gradient 52.14 mmHg - RAP 8 mmHg - RVSP 60 mmHg - IVC diameter 2.47 cm (1.2 - 2.3) Pulmonic Valve/Qp:Qs Name Value Normal Range PV Vmax 1.13 m/sec - PV peak gradient 5.09 mmHg - [place] end-diastolic Vmax 0.73 m/sec - PV acceleration time 106.57 msec - Marx/IV: Voiding Method Incontinent IV Catheter Type [Left Hand] INT / Saline Lock Active Medications - Current Medications Current Medications: Generic Name Dose Route Start Last Admin Trade Name Freq PRN Reason Stop Dose Admin Acetaminophen 650 mg 03/15/20 14:59 03/25/20 05:27 Acetaminophen 325 Mg Tab PO 650 mg Q4H PRN Administration Pain MILD(1-3)/Fever >100.5/KENNY Amlodipine Besylate 10 mg 03/16/20 10:00 03/25/20 09:38 Amlodipine 10 Mg Tab PO 10 mg DAILY MIK Administration Aspirin 81 mg 03/16/20 10:00 03/25/20 09:37 Aspirin Ec 81 Mg Tab PO 81 mg DAILY MIK Administration Atorvastatin Calcium 10 mg 03/15/20 22:00 03/24/20 22:27 Atorvastatin 10 Mg Tab PO 10 mg QHS MIK Administration Azathioprine 50 mg 03/16/20 10:00 03/24/20 13:12 Azathioprine 50 Mg Tab PO 50 mg DAILY MIK Administration Calcitriol 1 mcg 03/21/20 10:00 03/25/20 09:37 Calcitriol 0.25 Mcg Cap PO 1 mcg QDAY MIK Administration Clonidine HCl 0.2 mg 03/15/20 22:00 03/25/20 05:25 Clonidine 0.1 Mg Tab PO 0.2 mg Q8HR MIK Administration Clopidogrel Bisulfate 75 mg 03/16/20 10:00 03/25/20 09:37 Clopidogrel 75 Mg Tab PO 75 mg QDAY MIK Administration Epoetin [place] 10,000 unit 03/15/20 18:00 E[place]etin [place] 10,000 Unit/1 Ml Inj SUB-Q SHEREE MIK Guaifenesin 600 mg 03/17/20 11:00 03/25/20 09:37 Guaifenesin Er 600 Mg Tab PO 600 mg BID MIK Administration Heparin Sodium (Porcine) 5,000 unit 03/15/20 22:00 03/25/20 05:32 Heparin 5,000 Unit/1 Ml Vial SUB-Q Not Given Q8HR [facility] Hydralazine HCl 20 mg 03/17/20 07:33 03/22/20 11:32 Hydralazine 20 Mg/1 Ml Inj IV 20 mg Q4HR PRN Administration Give if SBP>180 DBP>100 Hydralazine HCl 100 mg 03/18/20 20:00 03/25/20 09:37 Hydralazine 100 Mg Tab PO 100 mg TID MIK Administration Hydrophilic Ointment 1 applic 03/19/20 04:30 03/19/20 05:52 Lip Therapy Vaseline TP 1 applic DIRECT PRN Administration Dry Lips Sodium Chloride 100 mls @ 999 mls/hr 03/15/20 15:08 Nacl 0.9% IV SHEREE PRN Hypotension Sodium Chloride 100 mls @ 999 mls/hr 03/19/20 17:59 Nacl 0.9% IV SHEREE PRN Hypotension Magnesium Hydroxide 30 ml 03/15/20 14:59 Magnesium Hydroxide (Mom) Oral Liqd Udc PO Q4H PRN Constipation Metoprolol Tartrate 100 mg 03/22/20 22:00 03/25/20 09:38 Metoprolol Tartrate 100 Mg Tab PO 100 mg BID MIK Administration Minoxidil 2.5 mg 03/22/20 13:00 03/25/20 09:38 Minoxidil 2.5 Mg Tab PO 2.5 mg QDAY MIK Administration Morphine Sulfate 2 mg 03/15/20 14:59 03/22/20 17:22 Morphine 2 Mg/1 Ml Inj IV 2 mg Q5MIN PRN Administration Chest Pain unrelieved by NTG Ondansetron HCl 4 mg 03/15/20 14:59 03/22/20 17:22 Ondansetron 4 Mg/2 Ml Inj IV 4 mg Q8H PRN Administration Nausea And Vomiting Pantoprazole Sodium 20 mg 03/16/20 10:00 03/25/20 09:37 Pantoprazole 20 Mg Tab PO 20 mg QDAY MIK Administration Sodium Chloride 10 ml 03/15/20 22:00 03/25/20 09:38 Sodium Chloride 0.9% 10 Ml Flush Syringe IV 10 ml BID MIK Administration Sodium Chloride 10 ml 03/15/20 14:59 Sodium Chloride 0.9% 10 Ml Flush Syringe IV PRN PRN LINE FLUSH Tramadol HCl 50 mg 03/16/20 03:23 03/24/20 06:32 Tramadol 50 Mg Tab PO 50 mg Q6H PRN Administration Pain, Moderate (4-6) Valsartan 160 mg 03/15/20 22:00 03/25/20 09:38 Valsartan 160mg Tab PO 160 mg BID MIK Administration Nutrition/Malnutrition Assess - Dietary Evaluation Nutrition/Malnutrition Findings: Nutrition Notes Start: 03/23/20 13 :01 Freq: Status: Active Protocol: Document 03/23/20 13:01 EN (Rec: 03/23/20 13:13 EN [id number]) Co-Sign 03/23/20 13:01 MK Nutrition Notes Need for Assessment generated from: LOS Initial or Follow up Assessment Current Diagnosis CKD (stage V CKD),Heart Failure Other Pertinent Diagnosis Covid(+), lupus, on HD, acute respiratory failure Current Diet Cardiac with renal Labs/Tests Reviewed Pertinent Medications Decadron Height 5 ft 3 in Weight 78.3 kg [place] Body Weight (kg) 52.27 BMI 30.5 Weight Status Obese Subjective/Other Information Pt screened for LOS. Unable to reach pt by phone x3. RN unable to go to pt's room at this time and unable to provide intake information. Per chart, pt consuming 25% of meals Percent of energy/protein needs met: 35%/22% Burn Absent Trauma Absent GI Symptoms None Food Allergy No Current % PO Poor (25-49%) Minimum of two criteria No physical signs of malnutrition #1 Nutrition Diagnosis Inadequate oral intake Etiology COVID-19+ As Evidenced by Signs and Symptoms Pt consuming 25% of meals Is patient on ventilator? No Is Patient Ambulatory and/or Out of Bed No REE-([facility]-confined to bed) 1115.462 Calculation Used for Recommendations [facility][1] Additional Notes Protein: >1.2g/kg (>94g) Fluid:1000mL + output Nutrition Intervention Change Diet Order: Continue current diet Add Supplement/Snack (indicate name/kcal [place] BID /protein ) Provides kCal: 850 Provides Protein (gm) 38 Goal #1 Meet at least 75% of energy and protein needs via PO and ONS Anticipated Discharge Needs: Cardiac/Renal diet Follow-Up By: 03/27/20 Additional Comments F/u for assessment, intakes and ONS tolerance
--- NOTE | 2020-03-25 13:30 | Progress Note ---
Assessment and Plan 59 y/o female with acute respiratory failure secondary to COVID 19 with persistent hypoxemia and elevated BP's. 03/25/20: Stable pulm winters, cont O2 at 4 LPM, wean as tolerated. Cont Remdesvir X 5 days and dexamethasone X 10 days 03/24/20: Continue to wean FiO2 as tolerated for sats >88%. steroids for a total of 10 days, last day is today. Will likely need ambulatory test to assess oxygen needs over the weekend. Hopeful discharge in the next 48-72 hours. 03/23/20: Will speak with RT about being more aggressive with weaning as she is able to tolerate being off HFNC at times. 03/22/20: Same recs as yesterday. Continue current management and will continue to follow along. Hopeful patient can turn the corner. Proning is a must. Not much else to offer from a pulmonary standpoint. She is getting extra dialysis sessions as well as lasix 80 BID. She needs to prone as much as possible. Despite her oxygen requirements she is not in severe distress so hopefully she just needs more time. Will continue to monitor along with you. Please encourage proning. Subjective Date of service: 03/25/20 Principal diagnosis: COVID Interval history: Pt feels better, has cough on O2 at 4 LPM NC. "Not ready to go home yet" Objective Vital Signs - 12hr 03/25/20 03/25/20 03/25/20 04:30 05:25 05:27 Temperature 100.1 F H Pulse Rate 70 71 Respiratory 20 18 Rate Blood Pressure 138/60 138/60 O2 Sat by Pulse 94 Oximetry 03/25/20 03/25/20 03/25/20 06:27 09:38 10:34 Temperature Pulse Rate 61 Respiratory 19 Rate Blood Pressure 151/69 O2 Sat by Pulse 96 Oximetry 03/25/20 11:21 Temperature 98.9 F Pulse Rate 57 L Respiratory 24 Rate Blood Pressure 149/77 O2 Sat by Pulse 98 Oximetry CBC and BMP: 03/21/20 05:59 03/22/20 05:04 ABG, PT/INR, D-dimer: PT/INR, D-dimer PT 14.5 Sec. (12.2-14.9) 03/16/20 06:18 INR 1.14 (0.87-1.13) H 03/16/20 06:18 D-Dimer 1600.05 ng/mlDDU (0-234) H 03/21/20 08:58 Abnormal lab findings: Abnormal Labs 03/15/20 03/15/20 03/15/20 12:26 12:26 12:29 WBC RBC Hgb Hct RDW Lymph % (Auto) [place] % (Auto) Lymph # (Auto) Seg Neutrophils % INR APTT 37.2 H D-Dimer 718.25 H Sodium 130 L Potassium Chloride 89.8 L BUN 69 H Creatinine 6.0 H POC Glucose Ferritin 1021.0 H Lactate Dehydrogenase C-Reactive Protein NT-Pro-B Natriuret Pep Total Protein Albumin Coronavirus (PCR) 03/15/20 03/15/20 03/16/20 13:10 14:12 06:18 WBC 3.7 L RBC 2.77 L 2.94 L Hgb 8.8 L 9.3 L Hct 26.4 L 28.2 L RDW 16.4 H 16.7 H Lymph % (Auto) 1.5 L 7.0 L Jack % (Auto) 9.2 H 8.4 H Lymph # (Auto) 0.1 L 0.3 L Seg Neutrophils % 89.1 H 84.1 H INR APTT D-Dimer Sodium Potassium Chloride BUN Creatinine POC Glucose Ferritin Lactate Dehydrogenase 290 H C-Reactive Protein 7.10 H NT-Pro-B Natriuret Pep > 93003 H Total Protein Albumin Coronavirus (PCR) 03/16/20 03/16/20 03/16/20 06:18 06:18 Unknown WBC RBC Hgb Hct RDW Lymph % (Auto) [place] % (Auto) Lymph # (Auto) Seg Neutrophils % INR 1.14 H APTT D-Dimer Sodium Potassium Chloride 96.2 L BUN 55 H Creatinine 5.0 H POC Glucose Ferritin Lactate Dehydrogenase C-Reactive Protein NT-Pro-B Natriuret Pep Total Protein Albumin Coronavirus (PCR) Positive A 03/17/20 03/17/20 03/17/20 04:36 13:36 13:36 WBC RBC Hgb Hct RDW Lymph % (Auto) [place] % (Auto) Lymph # (Auto) Seg Neutrophils % INR APTT D-Dimer 1336.88 H Sodium 134 L Potassium 5.5 H Chloride 93.9 L BUN 68 H Creatinine 6.2 H POC Glucose Ferritin 1905.0 H Lactate Dehydrogenase C-Reactive Protein NT-Pro-B Natriuret Pep Total Protein 6.2 L Albumin 3.6 L Coronavirus (PCR) 03/17/20 03/18/20 03/19/20 13:36 04:46 04:45 WBC RBC Hgb Hct RDW Lymph % (Auto) [place] % (Auto) Lymph # (Auto) Seg Neutrophils % INR APTT D-Dimer Sodium 135 L Potassium 5.5 H Chloride 95.1 L 91.0 L BUN 47 H 68 H Creatinine 4.8 H 6.1 H POC Glucose Ferritin Lactate Dehydrogenase 213 H C-Reactive Protein 12.70 H NT-Pro-B Natriuret Pep Total Protein Albumin Coronavirus (PCR) 03/20/20 03/20/20 03/21/20 06:16 21:23 05:59 WBC RBC Hgb Hct RDW Lymph % (Auto) [place] % (Auto) Lymph # (Auto) Seg Neutrophils % INR APTT D-Dimer Sodium Potassium Chloride 95.0 L 94.4 L BUN 45 H 29 H Creatinine 4.7 H 3.6 H POC Glucose 124 H Ferritin Lactate Dehydrogenase C-Reactive Protein NT-Pro-B Natriuret Pep Total Protein Albumin Coronavirus (PCR) 03/21/20 03/21/20 03/21/20 05:59 08:58 08:58 WBC 4.0 L RBC 2.68 L Hgb 8.4 L Hct 25.2 L RDW 17.2 H Lymph % (Auto) [place] % (Auto) Lymph # (Auto) Seg Neutrophils % INR APTT D-Dimer 1600.05 H Sodium Potassium Chloride BUN Creatinine POC Glucose Ferritin > 2000.0 H Lactate Dehydrogenase C-Reactive Protein NT-Pro-B Natriuret Pep Total Protein Albumin Coronavirus (PCR) 03/21/20 03/22/20 08:58 05:04 WBC RBC Hgb Hct RDW Lymph % (Auto) [place] % (Auto) Lymph # (Auto) Seg Neutrophils % INR APTT D-Dimer Sodium 134 L Potassium Chloride 92.1 L BUN 47 H Creatinine 5.0 H POC Glucose Ferritin Lactate Dehydrogenase 291 H C-Reactive Protein 19.80 H NT-Pro-B Natriuret Pep Total Protein Albumin Coronavirus (PCR)
--- NOTE | 2020-03-25 13:40 | Progress Note ---
Assessment and Plan - Patient Problems (1) Pneumonia due to COVID-19 virus Current Visit: Yes Status: Chronic Plan to address problem: Management per infectious disease recommendations. (2) ESRD needing dialysis Current Visit: No Status: Chronic Plan to address problem: Maintain on inpatient Friday hemodialysis schedule. (3) Acute hypoxemic respiratory failure Current Visit: Yes Status: Acute Plan to address problem: Currently stable on 4 L O2 via nasal cannula. Further recommendations per pulmonology. (4) Anemia in chronic illness Current Visit: Yes Status: Chronic Plan to address problem: ABDOULAYE therapy with hemodialysis. (5) Hypertensive chronic kidney disease with stage 5 chronic kidney disease or end stage renal disease Current Visit: Yes Status: Chronic Plan to address problem: Monitor blood pressure on the current regimen. (6) Lupus (systemic lupus erythematosus) Current Visit: Yes Status: Acute (7) Secondary hyperparathyroidism (of renal origin) Current Visit: Yes Status: Chronic Plan to address problem: Continue on current outpatient phosphate binder regimen. Subjective Date of service: 03/25/20 Principal diagnosis: COVID Interval history: No acute changes overnight. Tolerated hemodialysis without issues Objective - Exam Narrative Exam: Patient not directly examined in order to preserve PPE - Vital Signs Vital signs: Vital Signs - 12hr 03/25/20 03/25/20 03/25/20 04:30 05:25 05:27 Temperature 100.1 F H Pulse Rate 70 71 Respiratory 20 18 Rate Blood Pressure 138/60 138/60 O2 Sat by Pulse 94 Oximetry 03/25/20 03/25/20 03/25/20 06:27 09:38 10:34 Temperature Pulse Rate 61 Respiratory 19 Rate Blood Pressure 151/69 O2 Sat by Pulse 96 Oximetry 03/25/20 11:21 Temperature 98.9 F Pulse Rate 57 L Respiratory 24 Rate Blood Pressure 149/77 O2 Sat by Pulse 98 Oximetry - Lab 03/21/20 05:59 03/22/20 05:04 Most recent lab results Calcium 10.0 mg/dL (8.4-10.2) 03/22/20 05:04 Magnesium 1.80 mg/dL (1.7-2.3) 03/20/20 01:22 Medications & Allergies - Medications Allergies/Adverse Reactions: Allergies No Known Allergies Allergy (Unverified 12/01/19 05:58) Home Medications: Home Medications Medication Instructions Recorded Confirmed Last Taken Type Aspirin [Adult Aspirin] 81 mg PO DAILY 12/02/19 03/18/20 Unknown History AtorvaSTATin 10 mg PO QHS 12/02/19 03/18/20 Unknown History Clopidogrel [Plavix] 75 mg PO QDAY 12/02/19 03/18/20 Unknown History Folic Acid 0.4 mg PO QDAY 12/02/19 03/18/20 Unknown History Omeprazole 20 mg PO DAILY 12/02/19 03/18/20 Unknown History amLODIPine 10 mg PO DAILY 12/02/19 03/18/20 Unknown History azaTHIOprine [Azathioprine] 50 mg PO DAILY 12/02/19 03/18/20 Unknown History calcitrioL [Rocaltrol] 1 mcg PO QDAY 12/02/19 03/18/20 Unknown History prednisoLONE [Millipred 5mg (12 20 mg PO QDAY 12/02/19 03/18/20 Unknown History day - 48 tab dosepak)] Furosemide [Lasix TAB] 80 mg PO QDAY #30 tablet 12/10/19 03/18/20 Unknown Rx Metoprolol [Lopressor TAB] 50 mg PO BID #60 tablet 12/10/19 03/18/20 Unknown Rx Valsartan [Diovan] 160 mg PO BID #60 tablet 12/10/19 03/18/20 Unknown Rx cloNIDine [Catapres] 0.2 mg PO Q8HR #90 tablet 12/10/19 03/18/20 Unknown Rx hydrALAZINE [Apresoline TAB] 50 mg PO Q8HR #180 tablet 12/10/19 03/18/20 Unknown Rx minoxidiL [Loniten] 5 mg PO QDAY #30 tablet 12/10/19 03/18/20 Unknown Rx Active Medications: Generic Name Dose Route Start Last Admin Trade Name Freq PRN Reason Stop Dose Admin Acetaminophen 650 mg 03/15/20 14:59 03/25/20 05:27 Acetaminophen 325 Mg Tab PO 650 mg Q4H PRN Administration Pain MILD(1-3)/Fever >100.5/KENNY Amlodipine Besylate 10 mg 03/16/20 10:00 03/25/20 09:38 Amlodipine 10 Mg Tab PO 10 mg DAILY MIK Administration Aspirin 81 mg 03/16/20 10:00 03/25/20 09:37 Aspirin Ec 81 Mg Tab PO 81 mg DAILY MIK Administration Atorvastatin Calcium 10 mg 03/15/20 22:00 03/24/20 22:27 Atorvastatin 10 Mg Tab PO 10 mg QHS MIK Administration Azathioprine 50 mg 03/16/20 10:00 03/24/20 13:12 Azathioprine 50 Mg Tab PO 50 mg DAILY MIK Administration Calcitriol 1 mcg 03/21/20 10:00 03/25/20 09:37 Calcitriol 0.25 Mcg Cap PO 1 mcg QDAY MIK Administration Clonidine HCl 0.2 mg 03/15/20 22:00 03/25/20 05:25 Clonidine 0.1 Mg Tab PO 0.2 mg Q8HR MIK Administration Clopidogrel Bisulfate 75 mg 03/16/20 10:00 03/25/20 09:37 Clopidogrel 75 Mg Tab PO 75 mg QDAY [facility] Administration E[place]etin [place] 10,000 unit 03/15/20 18:00 [place] 10,000 Unit/1 Ml Inj SUB-Q SHEREE MIK Guaifenesin 600 mg 03/17/20 11:00 03/25/20 09:37 Guaifenesin Er 600 Mg Tab PO 600 mg BID MIK Administration Heparin Sodium (Porcine) 5,000 unit 03/15/20 22:00 03/25/20 05:32 Heparin 5,000 Unit/1 Ml Vial SUB-Q Not Given Q8HR [facility] Hydralazine HCl 20 mg 03/17/20 07:33 03/22/20 11:32 Hydralazine 20 Mg/1 Ml Inj IV 20 mg Q4HR PRN Administration Give if SBP>180 DBP>100 Hydralazine HCl 100 mg 03/18/20 20:00 03/25/20 09:37 Hydralazine 100 Mg Tab PO 100 mg TID [facility] Administration Hydrophilic Ointment 1 applic 03/19/20 04:30 03/19/20 05:52 Lip Therapy Vaseline TP 1 applic DIRECT PRN Administration Dry Lips Sodium Chloride 100 mls @ 999 mls/hr 03/15/20 15:08 Nacl 0.9% IV SHEREE PRN Hypotension Sodium Chloride 100 mls @ 999 mls/hr 03/19/20 17:59 Nacl 0.9% IV SHEREE PRN Hypotension Magnesium Hydroxide 30 ml 03/15/20 14:59 Magnesium Hydroxide (Mom) Oral Liqd Udc PO Q4H PRN Constipation Metoprolol Tartrate 100 mg 03/22/20 22:00 03/25/20 09:38 Metoprolol Tartrate 100 Mg Tab PO 100 mg BID MIK Administration Minoxidil 2.5 mg 03/22/20 13:00 03/25/20 09:38 Minoxidil 2.5 Mg Tab PO 2.5 mg QDAY MIK Administration Morphine Sulfate 2 mg 03/15/20 14:59 03/22/20 17:22 Morphine 2 Mg/1 Ml Inj IV 2 mg Q5MIN PRN Administration Chest Pain unrelieved by NTG Ondansetron HCl 4 mg 03/15/20 14:59 03/22/20 17:22 Ondansetron 4 Mg/2 Ml Inj IV 4 mg Q8H PRN Administration Nausea And Vomiting Pantoprazole Sodium 20 mg 03/16/20 10:00 03/25/20 09:37 Pantoprazole 20 Mg Tab PO 20 mg QDAY MIK Administration Sodium Chloride 10 ml 03/15/20 22:00 03/25/20 09:38 Sodium Chloride 0.9% 10 Ml Flush Syringe IV 10 ml BID MIK Administration Sodium Chloride 10 ml 03/15/20 14:59 Sodium Chloride 0.9% 10 Ml Flush Syringe IV PRN PRN LINE FLUSH Tramadol HCl 50 mg 03/16/20 03:23 03/24/20 06:32 Tramadol 50 Mg Tab PO 50 mg Q6H PRN Administration Pain, Moderate (4-6) Valsartan 160 mg 03/15/20 22:00 03/25/20 09:38 Valsartan 160mg Tab PO 160 mg BID MIK Administration
[2020-03-25] MEDS: azaTHIOprine 50 MG TAB PO SCH (16:07)
[2020-03-26] MEDS: cloNIDine 0.1 MG TAB PO SCH ×3 (07:19→21:09)
[2020-03-26] MEDS: HEPARIN 5,000 UNIT/1 ML VIAL SUB-Q SCH ×3 (07:20→21:12)
[2020-03-26] MEDS: hydrALAZINE 100 MG TAB PO SCH ×3 (08:05→21:09)
--- NOTE | 2020-03-26 10:02 | Progress Note ---
Assessment and Plan Assessment and plan: 59-year-old female with known history of end-stage renal disease on dialysis- Mondays, Wednesdays and Fridays, lupus, CHF, presenting to the emergency room today from an assisted living facility with cough fever headache which has been ongoing for about 4 days. She did not go to dialysis today because she was not feeling quite well. She had a fever of about 103 F. She also also has some mild shortness of breath. Patient indicates that several people at the facility had tested positive for COVID-19. She tested negative for COVID-19 yesterday. Patient denies any chest pain, no nausea vomiting, no loss of taste or smell, no diarrhea and no abdominal pain. In route to the hospital patient oxygen saturation was about 88% on room air she was subsequently placed on 2 L of oxygen. Work-up in the emergency room today chest x-ray reveals pulmonary edema. [employer] Consultant Dr. Hong has been consulted by the ER physician. Patient has been admitted with pulmonary edema. We will however rule out COVID-19. 2/2: Review of records shows patient is still on High flow, will obtain Pulmonary consultation, patient with worsening D.Dimer, will obtain V/Q scan to rule pulmonary embolism, Will likely change to Heparin drip till this iS clarified if patient is still on High flow. I unfortunately do not see clear oxygen documentation. Continues with Hypertensive urgency, SPOKE with the daughter, patient has had Elevated blood pressure for some time but not quite this high, Nephrology following and adjusting meds. 2/3: Continue supportive care, Will discontinue Heparin drip at this time, and use sliding scale considering low probability of PE on V/Q scan. Considering uncontrolled HTN, will transfer to [facility] and initiate Cardene drip, continue to wean High flow. COUNSELLING ON FLUID RESTRICTIONS 2/4: Consider repeating hypoxia and increasing high flow back to 100% we will ask respiratory therapist to aggressively wean as recommended by car cleaning supervisor. Discussed with nursing staff remove restraints and less reevaluate the patient. If recurrent delirium or encephalopathy we will at that time reevaluate. Have discussed with the patient again about compliance with p.o. fluid intake. Blood pressure is better improved today. 5: Patient undergoing dialysis today. Anticipate discharge in 48 hours hopefully. We are awaiting outpatient HD set up. Patient will be discharged to rehab center. Is currently down to 4 L of oxygen will need exertional oxygen evaluation prior to discharge. Blood pressure is better. Continue dexamethasone and remdesivir for now. 03/25: Continue supportive care wean oxygen as tolerated. Awaiting dialysis placement for discharge. 03/26: Continue supportive care, blood pressure still elevated. Continue to monitor and address. Still awaiting placement Acute hypoxic respiratory failure -Oxygen supplementation -Covid is positive -Covid protocol initiated Continue high flow nasal cannula oxygen, needs close monitoring, builds fluid very quickly. Covid pneumonia -Covid positive -Infectious disease consulted -Dexamethasone Azithromycin and ceftriaxone End-stage renal disease -Friday -Nephrology consulted -Continue dialysis as scheduled patient does not make urine Nonsustained ventricular tachycardia Cardiology consulted Continue to monitor, no acute intervention required at this time -TTE noted Accelerated hypertension related to renal disease Valsartan, metoprolol, furosemide, clonidine, hydralazine, making adjustments for better control Patient's blood pressure at home is usually in the 200 systolic, completely uncontrolled Anemia and chronic disease illness -No acute bleeding Hypervolemic hyponatremia -Resolved with hemodialysis Heart failure, unspecified type Presumed history of CAD Elevated BNP Metoprolol, Plavix Hyperkalemia Kayexalate Morbid obesity Lifestyle change CODE STATUS: Full DVT prophylaxis: Heparin Disposition: Continue Covid treatment, continue hemodialysis, monitor for nonsus tained V. tach The high probability of a clinically significant, sudden or life threatening deterioration of the [pulmonary, renal] system(s) required my full and direct attention, intervention and personal management. The aggregate critical care time was [35] minutes. This time is in addition to time spent performing reported procedures but includes the following: [x] Data Review and interpretation [x] Patient assessment and monitoring of vital signs [x] Documentation [x] Medication orders and management History Interval history: Patient seen and examined, resting, no new distress, oxygen saturation down to 3 L Hospitalist Physical - Physical exam Narrative exam: General appearance: Present: Obese, no acute distress, well-nourished, No clear evidence of confusion at this time. - EENT Eyes: Present: PERRL, EOM intact ENT: hearing intact, clear oral mucosa - Respiratory Respiratory effort: Normal, high flow nasal cannula oxygen Respiratory: Crackles heard in both lung paz bilaterally - Cardiovascular Rhythm: regular Heart Sounds: Present: S1 & S2. Absent: rub, click HD access: Permacath in right chest - Extremities Extremities: no ischemia, +1 edema in lower extremities - Abdominal General gastrointestinal: soft, non-tender, non-distended, normal bowel sounds - Integumentary Integumentary: Present: clear, warm, dry, normal turgor - Neurologic Neurologic: CNII-XII intact, no focal deficits, moves all extremities, no confusion , - Constitutional Vitals: Temp Pulse Resp BP Pulse Ox 98.4 F 69 20 187/85 96 03/26/20 04:51 03/26/20 07:19 03/26/20 04:51 03/26/20 07:19 03/26/20 04:51 General appearance: Present: mild distress Results - Labs CBC & Chem 7: 03/21/20 05:59 03/22/20 05:04 Labs: Laboratory Last Values WBC 4.0 K/mm3 (4.5-11.0) L 03/21/20 05:59 RBC 2.68 M/mm3 (3.65-5.03) L 03/21/20 05:59 Hgb 8.4 gm/dl (10.1-14.3) L 03/21/20 05:59 Hct 25.2 % (30.3-42.9) L 03/21/20 05:59 MCV 94 fl (79-97) 03/21/20 05:59 MCH 31 pg (28-32) 03/21/20 05:59 MCHC 33 % (30-34) 03/21/20 05:59 RDW 17.2 % (13.2-15.2) H 03/21/20 05:59 Plt Count 198 K/mm3 (140-440) 03/21/20 05:59 Lymph % (Auto) 7.0 % (13.4-35.0) L 03/16/20 06:18 [place] % (Auto) 8.4 % (0.0-7.3) H 03/16/20 06:18 Eos % (Auto) 0.0 % (0.0-4.3) 03/16/20 06:18 Baso % (Auto) 0.5 % (0.0-1.8) 03/16/20 06:18 Lymph # (Auto) 0.3 K/mm3 (1.2-5.4) L 03/16/20 06:18 [place] # (Auto) 0.3 K/mm3 (0.0-0.8) 03/16/20 06:18 Eos # (Auto) 0.0 K/mm3 (0.0-0.4) 03/16/20 06:18 Baso # (Auto) 0.0 K/mm3 (0.0-0.1) 03/16/20 06:18 Seg Neutrophils % 84.1 % (40.0-70.0) H 03/16/20 06:18 Seg Neutrophils # 3.1 K/mm3 (1.8-7.7) 03/16/20 06:18 PT 14.5 Sec. (12.2-14.9) 03/16/20 06:18 INR 1.14 (0.87-1.13) H 03/16/20 06:18 APTT 37.2 Sec. (24.2-36.6) H 03/15/20 12:26 D-Dimer 1600.05 ng/mlDDU (0-234) H 03/21/20 08:58 Sodium 134 mmol/L (137-145) L 03/22/20 05:04 Potassium 3.8 mmol/L (3.6-5.0) 03/22/20 05:04 Chloride 92.1 mmol/L (98-107) L 03/22/20 05:04 Carbon Dioxide 26 mmol/L (22-30) 03/22/20 05:04 Anion Gap 20 mmol/L 03/22/20 05:04 BUN 47 mg/dL (7-17) H 03/22/20 05:04 Creatinine 5.0 mg/dL (0.6-1.2) H 03/22/20 05:04 Estimated GFR 11 ml/min 03/22/20 05:04 BUN/Creatinine Ratio 9 % 03/22/20 05:04 Glucose 92 mg/dL (65-100) 03/22/20 05:04 POC Glucose 124 mg/dL (70-105) H 03/20/20 21:23 Calcium 10.0 mg/dL (8.4-10.2) 03/22/20 05:04 Magnesium 1.80 mg/dL (1.7-2.3) 03/20/20 01:22 Ferritin > 2000.0 ng/mL (10.0-200.0) H 03/21/20 08:58 Total Bilirubin 0.30 mg/dL (0.1-1.2) 03/17/20 04:36 Direct Bilirubin < 0.2 mg/dL (0-0.2) 03/15/20 12:26 Indirect Bilirubin 0.1 mg/dL 03/15/20 12:26 AST 15 units/L (5-40) 03/17/20 04:36 ALT 7 units/L (7-56) 03/17/20 04:36 Alkaline Phosphatase 73 units/L (35-129) 03/17/20 04:36 Lactate Dehydrogenase 291 units/L (91-180) H 03/21/20 08:58 C-Reactive Protein 19.80 mg/dL (0.00-1.30) H 03/21/20 08:58 NT-Pro-B Natriuret Pep > 58514 pg/mL (0-900) H 03/15/20 13:10 Total Protein 6.2 g/dL (6.3-8.2) L 03/17/20 04:36 Albumin 3.6 g/dL (3.9-5) L 03/17/20 04:36 Albumin/Globulin Ratio 1.4 % 03/17/20 04:36 Procalcitonin 6.52 ng/mL (<0.15) 03/21/20 08:58 TSH 1.540 mlU/mL (0.270-4.200) 03/19/20 04:45 Free T4 1.32 ng/dL (0.76-1.46) 03/19/20 04:45 Nasal Screen MRSA (PCR) Negative (Negative) 03/16/20 23:49 Coronavirus (PCR) Positive (Negative) A 03/16/20 Unknown Hepatitis A IgM Ab Non-reactive (NonReactive) 03/15/20 19:18 Hep Bs Antigen Non-reactive (Negative) 03/15/20 19:18 Hep B Core IgM Ab Non-reactive (NonReactive) 03/15/20 19:18 Hepatitis C Antibody Non-reactive (NonReactive) 03/15/20 19:18 - Diagnostic Impressions Diagnostic Impressions: Echocardiogram 03/15/20 15:05 Transthoracic Echocardiogram Indication: Pulm edema; h/o CHF BP: 186/94 HR: 75 Conclusions *Global left ventricular wall motion and contractility are within normal limits. *Global left ventricular systolic function is normal. *The right ventricular global systolic function is normal. *The left atrium is severely dilated. *There is evidence of an atrial septal aneurysm. *There is trace of aortic regurgitation. *Severe mitral leaflet calcification is visualized. *There is moderate to severe mitral stenosis. *The mean gradient across the mitral valve is 20.055832888888 mmHg. *There is mild tricuspid regurgitation. *The right ventricular systolic pressure is calculated at 60 mmHg. *There is trace pulmonic regurgitation. Findings Left Ventricle: The left ventricular chamber size is normal. Severe concentric left ventricular hypertrophy is observed. Global left ventricular wall motion and contractility are within normal limits. Global left ventricular systolic function is normal. The estimated ejection fraction is 50-55%. Left Atrium: The left atrium is severely dilated. Right Ventricle: The right ventricular cavity size is normal. The right ventricular global systolic function is normal. Right Atrium: The right atrial cavity size is normal. There is evidence of an atrial septal aneurysm. Aortic Valve: Mild aortic leaflet calcification is visualized. There is trace of aortic regurgitation. Mitral Valve: Severe mitral leaflet calcification is visualized. There is mild mitral regurgitation. There is moderate to severe mitral stenosis. The mean gradient across the mitral valve is 20.989802983456 mmHg. The peak gradient across the mitral valve is 33.94742124661 mmHg. Tricuspid Valve: The tricuspid valve leaflets are normal. There is mild tricuspid regurgitation. The right ventricular systolic pressure is calculated at 60 mmHg. Pulmonic Valve: There is no evidence of pulmonic valve thickening. There is trace pulmonic regurgitation. Pericardium: There is no pericardial effusion. Aorta: The aorta appears normal. Venous: The inferior vena cava is dilated. Measurements Chambers 2D Name Value Normal Range IVSd (2D) 1.82 cm (0.6 - 1.1) LVPWd (2D) 1.64 cm (0.6 - 1.1) LVIDd (2D) 4.56 cm (3.7 - 5.6) LVIDs (2D) 3.53 cm (2 - 3.8) LV FS (2D) 22.49 % - EF Teichholz (2D) 45.39 % - Ao root diameter (2D) 2.87 cm (2 - 3.7) Volumes/Mass Name Value Normal Range LA ESV SP 4CH (A/L) 98.24 ml - LA ESV SP 2CH (A/L) 197.59 ml - LA ESV BP (A/L) 140.33 ml - LA ESV BP (A/L) index 77.53 ml/m2 - LA ESV SP 4CH (MOD) 93.73 ml - LA ESV SP 2CH (MOD) 194.1 ml - LA ESV BP (MOD) 134.76 ml - LA ESV BP (MOD) index 74.45 ml/m2 - Diastolic/Systolic Function Name Value Normal Range MV E-wave Vmax 2.09 m/sec - MV deceleration time 630.49 msec - MV A-wave Vmax 1.38 m/sec - MV E:A ratio 1.51 ratio - Aortic Valve Name Value Normal Range AV Vmax 2.22 m/sec - AV VTI 47.25 cm - AV peak gradient 19.74 mmHg - AV mean gradient 10.57 mmHg - LVOT diameter 1.91 cm - LVOT Vmax 1.58 m/sec - LVOT VTI 31.21 cm - LVOT peak gradient 10 mmHg - LVOT mean gradient 5.33 mmHg - SV LVOT 89.65 ml - CLIVE (continuity Vmax) 2.04 cm2 - CLIVE (continuity VTI) 1.9 cm2 - AR PHT 479.73 msec - AR peak gradient 17.52 mmHg - Mitral Valve Name Value Normal Range MV Vmax 2.89 m/sec - MV VTI 107.77 cm - MV peak gradient 33.41 mmHg - MV mean gradient 20.1 mmHg - MV PHT 184.74 msec - MR Vmax 6.51 m/sec - MVA (PHT) 1.19 cm2 - MVA (continuity VTI) 0.83 cm2 - Tricuspid Valve Name Value Normal Range TR Vmax 3.61 m/sec - TR peak gradient 52.14 mmHg - RAP 8 mmHg - RVSP 60 mmHg - IVC diameter 2.47 cm (1.2 - 2.3) Pulmonic Valve/Qp:Qs Name Value Normal Range PV Vmax 1.13 m/sec - PV peak gradient 5.09 mmHg - NC end-diastolic Vmax 0.73 m/sec - PV acceleration time 106.57 msec - Marx/IV: Voiding Method Incontinent IV Catheter Type [Left Hand] INT / Saline Lock Active Medications - Current Medications Current Medications: Generic Name Dose Route Start Last Admin Trade Name Freq PRN Reason Stop Dose Admin Acetaminophen 650 mg 03/15/20 14:59 03/25/20 05:27 Acetaminophen 325 Mg Tab PO 650 mg Q4H PRN Administration Pain MILD(1-3)/Fever >100.5/KENNY Amlodipine Besylate 10 mg 03/16/20 10:00 03/25/20 09:38 Amlodipine 10 Mg Tab PO 10 mg DAILY MIK Administration Aspirin 81 mg 03/16/20 10:00 03/25/20 09:37 Aspirin Ec 81 Mg Tab PO 81 mg DAILY MIK Administration Atorvastatin Calcium 10 mg 03/15/20 22:00 03/25/20 22:25 Atorvastatin 10 Mg Tab PO 10 mg QHS MIK Administration Azathioprine 50 mg 03/16/20 10:00 03/25/20 16:07 Azathioprine 50 Mg Tab PO 50 mg DAILY MIK Administration Calcitriol 1 mcg 03/21/20 10:00 03/25/20 09:37 Calcitriol 0.25 Mcg Cap PO 1 mcg QDAY MIK Administration Clonidine HCl 0.2 mg 03/15/20 22:00 03/26/20 07:19 Clonidine 0.1 Mg Tab PO 0.2 mg Q8HR MIK Administration Clopidogrel Bisulfate 75 mg 03/16/20 10:00 03/25/20 09:37 Clopidogrel 75 Mg Tab PO 75 mg QDAY MIK Administration [place] 10,000 unit 03/15/20 18:00 [place] 10,000 Unit/1 Ml Inj SUB-Q SHEREE MIK Guaifenesin 600 mg 03/17/20 11:00 03/25/20 22:30 Guaifenesin Er 600 Mg Tab PO 600 mg BID MIK Administration Heparin Sodium (Porcine) 5,000 unit 03/15/20 22:00 03/26/20 07:20 Heparin 5,000 Unit/1 Ml Vial SUB-Q Not Given Q8HR [facility] Hydralazine HCl 20 mg 03/17/20 07:33 03/22/20 11:32 Hydralazine 20 Mg/1 Ml Inj IV 20 mg Q4HR PRN Administration Give if SBP>180 DBP>100 Hydralazine HCl 100 mg 03/18/20 20:00 02/07/21 08:05 Hydralazine 100 Mg Tab PO 100 mg TID MIK Administration Hydrophilic Ointment 1 applic 03/19/20 04:30 03/19/20 05:52 Lip Therapy Vaseline TP 1 applic DIRECT PRN Administration Dry Lips Sodium Chloride 100 mls @ 999 mls/hr 03/15/20 15:08 Nacl 0.9% IV SHEREE PRN Hypotension Sodium Chloride 100 mls @ 999 mls/hr 03/19/20 17:59 Nacl 0.9% IV SHEREE PRN Hypotension Magnesium Hydroxide 30 ml 03/15/20 14:59 Magnesium Hydroxide (Mom) Oral Liqd Udc PO Q4H PRN Constipation Metoprolol Tartrate 100 mg 03/22/20 22:00 03/25/20 22:24 Metoprolol Tartrate 100 Mg Tab PO 100 mg BID MIK Administration Minoxidil 2.5 mg 03/22/20 13:00 03/25/20 09:38 Minoxidil 2.5 Mg Tab PO 2.5 mg QDAY MIK Administration Morphine Sulfate 2 mg 03/15/20 14:59 03/22/20 17:22 Morphine 2 Mg/1 Ml Inj IV 2 mg Q5MIN PRN Administration Chest Pain unrelieved by NTG Ondansetron HCl 4 mg 03/15/20 14:59 03/22/20 17:22 Ondansetron 4 Mg/2 Ml Inj IV 4 mg Q8H PRN Administration Nausea And Vomiting Pantoprazole Sodium 20 mg 03/16/20 10:00 03/25/20 09:37 Pantoprazole 20 Mg Tab PO 20 mg QDAY MIK Administration Sodium Chloride 10 ml 03/15/20 22:00 03/25/20 22:31 Sodium Chloride 0.9% 10 Ml Flush Syringe IV 10 ml BID MIK Administration Sodium Chloride 10 ml 03/15/20 14:59 Sodium Chloride 0.9% 10 Ml Flush Syringe IV PRN PRN LINE FLUSH Tramadol HCl 50 mg 03/16/20 03:23 03/24/20 06:32 Tramadol 50 Mg Tab PO 50 mg Q6H PRN Administration Pain, Moderate (4-6) Valsartan 160 mg 03/15/20 22:00 03/25/20 22:30 Valsartan 160mg Tab PO 160 mg BID MIK Administration Nutrition/Malnutrition Assess - Dietary Evaluation Nutrition/Malnutrition Findings: Nutrition Notes Start: 03/23/20 13:01 Freq: Status: Active Protocol: Document 03/23/20 13:01 EN (Rec: 03/23/20 13:13 EN [id number]) Co-Sign 03/23/20 13:01 MK Nutrition Notes Need for Assessment generated from: LOS Initial or Follow up Assessment Current Diagnosis CKD (stage V CKD),Heart Failure Other Pertinent Diagnosis Covid(+), lupus, on HD, acute respiratory failure Current Diet Cardiac with renal Labs/Tests Reviewed Pertinent Medications Decadron Height 5 ft 3 in Weight 78.3 kg [place] Body Weight (kg) 52.27 BMI 30.5 Weight Status Obese Subjective/Other Information Pt screened for LOS. Unable to reach pt by phone x3. RN unable to go to pt's room at this time and unable to provide intake information. Per chart, pt consuming 25% of meals Percent of energy/protein needs met: 35%/22% Burn Absent Trauma Absent GI Symptoms None Food Allergy No Current % PO Poor (25-49%) Minimum of two criteria No physical signs of malnutrition #1 Nutrition Diagnosis Inadequate oral intake Etiology COVID-19+ As Evidenced by Signs and Symptoms Pt consuming 25% of meals Is patient on ventilator? No Is Patient Ambulatory and/or Out of Bed No REE-([facility]-confined to bed) [phone] Calculation Used for Recommendations [facility] Additional Notes Protein: >1.2g/kg (>94g) Fluid:1000mL + output Nutrition Intervention Change Diet Order: Continue current diet Add Supplement/Snack (indicate name/kcal Nep[place] BID /protein ) Provides kCal: 850 Provides Protein (gm) 38 Goal #1 Meet at least 75% of energy and protein needs via PO and ONS Anticipated Discharge Needs: Cardiac/Renal diet Follow-Up By: 03/27/20 Additional Comments F/u for assessment, intakes and ONS tolerance
[2020-03-26] MEDS: VALSARTAN 160MG TAB PO SCH ×2 (11:30→21:09)
[2020-03-26] MEDS: METOPROLOL TARTRATE 100 MG TAB PO SCH ×2 (11:30→21:09)
[2020-03-26] MEDS: CALCITRIOL 0.25 MCG CAP PO SCH (11:31)
[2020-03-26] MEDS: guaiFENesin ER 600 MG TAB PO SCH ×2 (11:31→21:09)
[2020-03-26] MEDS: PANTOPRAZOLE 20 MG TAB PO SCH (11:31)
[2020-03-26] MEDS: amLODIPine 10 MG TAB PO SCH (11:31)
[2020-03-26] MEDS: ASPIRIN EC 81 MG TAB PO SCH (11:31)
[2020-03-26] MEDS: MINOXIDIL 2.5 MG TAB PO SCH (11:31)
[2020-03-26] MEDS: CLOPIDOGREL 75 MG TAB PO SCH (11:31)
--- NOTE | 2020-03-26 11:33 | Progress Note ---
Assessment and Plan 59 y/o female with acute respiratory failure secondary to COVID 19 with persistent hypoxemia and elevated BP's. 03/26/2020: No significant change patient remained stable mildly short of breath. Continue with supplemental oxygen. 03/25/20: Stable pulm winters, cont O2 at 4 LPM, wean as tolerated. Cont Remdesvir X 5 days and dexamethasone X 10 days 03/24/20: Continue to wean FiO2 as tolerated for sats >88%. steroids for a total of 10 days, last day is today. Will likely need ambulatory test to assess oxygen needs over the weekend. Hopeful discharge in the next 48-72 hours. 03/23/20: Will speak with RT about being more aggressive with weaning as she is able to tolerate being off HFNC at times. 03/22/20: Same recs as yesterday. Continue current management and will continue to follow along. Hopeful patient can turn the corner. Proning is a must. Not much else to offer from a pulmonary standpoint. She is getting extra dialysis sessions as well as lasix 80 BID. She needs to prone as much as possible. Despite her oxygen requirements she is not in severe distress so hopefully she just needs more time. Will continue to monitor along with you. Please encourage proning. Subjective Date of service: 03/26/20 Principal diagnosis: COVID Interval history: Pt feels better, has cough on O2 at 4 LPM NC. Objective Vital Signs - 12hr 03/26/20 03/26/20 04:51 07:19 Temperature 98.4 F Pulse Rate 69 69 Respiratory 20 Rate Blood Pressure 187/85 187/85 O2 Sat by Pulse 96 Oximetry CBC and BMP: 03/21/20 05:59 03/22/20 05:04 ABG, PT/INR, D-dimer: PT/INR, D-dimer PT 14.5 Sec. (12.2-14.9) 03/16/20 06:18 INR 1.14 (0.87-1.13) H 03/16/20 06:18 D-Dimer 1600.05 ng/mlDDU (0-234) H 03/21/20 08:58 Abnormal lab findings: Abnormal Labs 03/15/20 03/15/20 03/15/20 12:26 12:26 12:29 WBC RBC Hgb Hct RDW Lymph % (Auto) [place] % (Auto) Lymph # (Auto) Seg Neutrophils % INR APTT 37.2 H D-Dimer 718.25 H Sodium 130 L Potassium Chloride 89.8 L BUN 69 H Creatinine 6.0 H POC Glucose Ferritin 1021.0 H Lactate Dehydrogenase C-Reactive Protein NT-Pro-B Natriuret Pep Total Protein Albumin Coronavirus (PCR) 03/15/20 03/15/20 03/16/20 13:10 14:12 06:18 WBC 3.7 L RBC 2.77 L 2.94 L Hgb 8.8 L 9.3 L Hct 26.4 L 28.2 L RDW 16.4 H 16.7 H Lymph % (Auto) 1.5 L 7.0 L [place] % (Auto) 9.2 H 8.4 H Lymph # (Auto) 0.1 L 0.3 L Seg Neutrophils % 89.1 H 84.1 H INR APTT D-Dimer Sodium Potassium Chloride BUN Creatinine POC Glucose Ferritin Lactate Dehydrogenase 290 H C-Reactive Protein 7.10 H NT-Pro-B Natriuret Pep > 67717 H Total Protein Albumin Coronavirus (PCR) 03/16/20 03/16/20 03/16/20 06:18 06:18 Unknown WBC RBC Hgb Hct RDW Lymph % (Auto) [place] % (Auto) Lymph # (Auto) Seg Neutrophils % INR 1.14 H APTT D-Dimer Sodium Potassium Chloride 96.2 L BUN 55 H Creatinine 5.0 H POC Glucose Ferritin Lactate Dehydrogenase C-Reactive Protein NT-Pro-B Natriuret Pep Total Protein Albumin Coronavirus (PCR) Positive A 03/17/20 03/17/20 03/17/20 04:36 13:36 13:36 WBC RBC Hgb Hct RDW Lymph % (Auto) [place] % (Auto) Lymph # (Auto) Seg Neutrophils % INR APTT D-Dimer 1336.88 H Sodium 134 L Potassium 5.5 H Chloride 93.9 L BUN 68 H Creatinine 6.2 H POC Glucose Ferritin 1905.0 H Lactate Dehydrogenase C-Reactive Protein NT-Pro-B Natriuret Pep Total Protein 6.2 L Albumin 3.6 L Coronavirus (PCR) 03/17/20 03/18/20 03/19/20 13:36 04:46 04:45 WBC RBC Hgb Hct RDW Lymph % (Auto) [place] % (Auto) Lymph # (Auto) Seg Neutrophils % INR APTT D-Dimer Sodium 135 L Potassium 5.5 H Chloride 95.1 L 91.0 L BUN 47 H 68 H Creatinine 4.8 H 6.1 H POC Glucose Ferritin Lactate Dehydrogenase 213 H C-Reactive Protein 12.70 H NT-Pro-B Natriuret Pep Total Protein Albumin Coronavirus (PCR) 03/20/20 03/20/20 03/21/20 06:16 21:23 05:59 WBC RBC Hgb Hct RDW Lymph % (Auto) [place] % (Auto) Lymph # (Auto) Seg Neutrophils % INR APTT D-Dimer Sodium Potassium Chloride 95.0 L 94.4 L BUN 45 H 29 H Creatinine 4.7 H 3.6 H POC Glucose 124 H Ferritin Lactate Dehydrogenase C-Reactive Protein NT-Pro-B Natriuret Pep Total Protein Albumin Coronavirus (PCR) 03/21/20 03/21/20 03/21/20 05:59 08:58 08:58 WBC 4.0 L RBC 2.68 L Hgb 8.4 L Hct 25.2 L RDW 17.2 H Lymph % (Auto) [place] % (Auto) Lymph # (Auto) Seg Neutrophils % INR APTT D-Dimer 1600.05 H Sodium Potassium Chloride BUN Creatinine POC Glucose Ferritin > 2000.0 H Lactate Dehydrogenase C-Reactive Protein NT-Pro-B Natriuret Pep Total Protein Albumin Coronavirus (PCR) 03/21/20 03/22/20 08:58 05:04 WBC RBC Hgb Hct RDW Lymph % (Auto) [place] % (Auto) Lymph # (Auto) Seg Neutrophils % INR APTT D-Dimer Sodium 134 L Potassium Chloride 92.1 L BUN 47 H Creatinine 5.0 H POC Glucose Ferritin Lactate Dehydrogenase 291 H C-Reactive Protein 19.80 H NT-Pro-B Natriuret Pep Total Protein Albumin Coronavirus (PCR)
--- NOTE | 2020-03-26 12:55 | Progress Note ---
Assessment and Plan - Patient Problems (1) Pneumonia due to COVID-19 virus Current Visit: Yes Status: Chronic Plan to address problem: Management per infectious disease recommendations. (2) ESRD needing dialysis Current Visit: No Status: Chronic Plan to address problem: Maintain on inpatient Friday hemodialysis schedule. (3) Acute hypoxemic respiratory failure Current Visit: Yes Status: Acute Plan to address problem: Currently stable on 3 L O2 via nasal cannula. Further recommendations per pulmonology. (4) Anemia in chronic illness Current Visit: Yes Status: Chronic Plan to address problem: ABDOULAYE therapy with hemodialysis. (5) Hypertensive chronic kidney disease with stage 5 chronic kidney disease or end stage renal disease Current Visit: Yes Status: Chronic Plan to address problem: Monitor blood pressure on the current regimen. (6) Lupus (systemic lupus erythematosus) Current Visit: Yes Status: Acute (7) Secondary hyperparathyroidism (of renal origin) Current Visit: Yes Status: Chronic Plan to address problem: Continue on current outpatient phosphate binder regimen. Subjective Date of service: 03/26/20 Principal diagnosis: COVID Interval history: No acute changes overnight. Patient not directly examined in order to preserve PPE. Primary care team notes/physical examination reviewed. Objective - Exam Narrative Exam: Patient not directly examined in order to preserve PPE - Vital Signs Vital signs: Vital Signs - 12hr 03/26/20 03/26/20 03/26/20 04:51 07:19 11:30 Temperature 98.4 F Pulse Rate 69 69 69 Respiratory 20 Rate Blood Pressure 187/85 187/85 187/85 O2 Sat by Pulse 96 Oximetry 03/26/20 03/26/20 11:31 11:32 Temperature 98.9 F Pulse Rate 69 60 Respiratory 22 Rate Blood Pressure 187/85 145/66 O2 Sat by Pulse 97 Oximetry - Lab 03/21/20 05:59 03/22/20 05:04 Most recent lab results Calcium 10.0 mg/dL (8.4-10.2) 03/22/20 05:04 Magnesium 1.80 mg/dL (1.7-2.3) 03/20/20 01:22 Medications & Allergies - Medications Allergies/Adverse Reactions: Allergies No Known Allergies Allergy (Unverified 12/01/19 05:58) Home Medications: Home Medications Medication Instructions Recorded Confirmed Last Taken Type Aspirin [Adult Aspirin] 81 mg PO DAILY 12/02/19 03/18/20 Unknown History AtorvaSTATin 10 mg PO QHS 12/02/19 03/18/20 Unknown History Clopidogrel [Plavix] 75 mg PO QDAY 12/02/19 03/18/20 Unknown History Folic Acid 0.4 mg PO QDAY 12/02/19 03/18/20 Unknown History Omeprazole 20 mg PO DAILY 12/02/19 03/18/20 Unknown History amLODIPine 10 mg PO DAILY 12/02/19 03/18/20 Unknown History azaTHIOprine [Azathioprine] 50 mg PO DAILY 12/02/19 03/18/20 Unknown History calcitrioL [Rocaltrol] 1 mcg PO QDAY 12/02/19 03/18/20 Unknown History prednisoLONE [Millipred 5mg (12 20 mg PO QDAY 12/02/19 03/18/20 Unknown History day - 48 tab dosepak)] Furosemide [Lasix TAB] 80 mg PO QDAY #30 tablet 12/10/19 03/18/20 Unknown Rx Metoprolol [Lopressor TAB] 50 mg PO BID #60 tablet 12/10/19 03/18/20 Unknown Rx Valsartan [Diovan] 160 mg PO BID #60 tablet 12/10/19 03/18/20 Unknown Rx cloNIDine [Catapres] 0.2 mg PO Q8HR #90 tablet 12/10/19 03/18/20 Unknown Rx hydrALAZINE [Apresoline TAB] 50 mg PO Q8HR #180 tablet 12/10/19 03/18/20 Unknown Rx minoxidiL [Loniten] 5 mg PO QDAY #30 tablet 12/10/19 03/18/20 Unknown Rx Active Medications: Generic Name Dose Route Start Last Admin Trade Name Freq PRN Reason Stop Dose Admin Acetaminophen 650 mg 03/15/20 14:59 03/25/20 05:27 Acetaminophen 325 Mg Tab PO 650 mg Q4H PRN Administration Pain MILD(1-3)/Fever >100.5/KENNY Amlodipine Besylate 10 mg 03/16/20 10:00 03/26/20 11:31 Amlodipine 10 Mg Tab PO 10 mg DAILY MIK Administration Aspirin 81 mg 03/16/20 10:00 03/26/20 11:31 Aspirin Ec 81 Mg Tab PO 81 mg DAILY MIK Administration Atorvastatin Calcium 10 mg 03/15/20 22:00 03/25/20 22:25 Atorvastatin 10 Mg Tab PO 10 mg QHS MIK Administration Azathioprine 50 mg 03/16/20 10:00 03/25/20 16:07 Azathioprine 50 Mg Tab PO 50 mg DAILY MIK Administration Calcitriol 1 mcg 03/21/20 10:00 03/26/20 11:31 Calcitriol 0.25 Mcg Cap PO 1 mcg QDAY MIK Administration Clonidine HCl 0.2 mg 03/15/20 22:00 03/26/20 07:19 Clonidine 0.1 Mg Tab PO 0.2 mg Q8HR MIK Administration Clopidogrel Bisulfate 75 mg 03/16/20 10:00 03/26/20 11:31 Clopidogrel 75 Mg Tab PO 75 mg QDAY [facility] Administration E[place] 10,000 unit 03/15/20 18:00 [place] 10,000 Unit/1 Ml Inj SUB-Q SHEREE MIK Guaifenesin 600 mg 03/17/20 11:00 03/26/20 11:31 Guaifenesin Er 600 Mg Tab PO 600 mg BID MIK Administration Heparin Sodium (Porcine) 5,000 unit 03/15/20 22:00 03/26/20 07:20 Heparin 5,000 Unit/1 Ml Vial SUB-Q Not Given Q8HR [facility] Hydralazine HCl 20 mg 03/17/20 07:33 03/22/20 11:32 Hydralazine 20 Mg/1 Ml Inj IV 20 mg Q4HR PRN Administration Give if SBP>180 DBP>100 Hydralazine HCl 100 mg 03/18/20 20:00 03/26/20 08:05 Hydralazine 100 Mg Tab PO 100 mg TID [facility] Administration Hydrophilic Ointment 1 applic 03/19/20 04:30 03/19/20 05:52 Lip Therapy Vaseline TP 1 applic DIRECT PRN Administration Dry Lips Sodium Chloride 100 mls @ 999 mls/hr 03/15/20 15:08 Nacl 0.9% IV SHEREE PRN Hypotension Sodium Chloride 100 mls @ 999 mls/hr 03/19/20 17:59 Nacl 0.9% IV SHEREE PRN Hypotension Magnesium Hydroxide 30 ml 03/15/20 14:59 Magnesium Hydroxide (Mom) Oral Liqd Udc PO Q4H PRN Constipation Metoprolol Tartrate 100 mg 03/22/20 22:00 03/26/20 11:30 Metoprolol Tartrate 100 Mg Tab PO 100 mg BID MIK Administration Minoxidil 2.5 mg 03/22/20 13:00 03/26/20 11:31 Minoxidil 2.5 Mg Tab PO 2.5 mg QDAY MIK Administration Morphine Sulfate 2 mg 03/15/20 14:59 03/22/20 17:22 Morphine 2 Mg/1 Ml Inj IV 2 mg Q5MIN PRN Administration Chest Pain unrelieved by NTG Ondansetron HCl 4 mg 03/15/20 14:59 03/22/20 17:22 Ondansetron 4 Mg/2 Ml Inj IV 4 mg Q8H PRN Administration Nausea And Vomiting Pantoprazole Sodium 20 mg 03/16/20 10:00 03/26/20 11:31 Pantoprazole 20 Mg Tab PO 20 mg QDAY MIK Administration Sodium Chloride 10 ml 03/15/20 22:00 03/26/20 11:32 Sodium Chloride 0.9% 10 Ml Flush Syringe IV 10 ml BID MIK Administration Sodium Chloride 10 ml 03/15/20 14:59 Sodium Chloride 0.9% 10 Ml Flush Syringe IV PRN PRN LINE FLUSH Tramadol HCl 50 mg 03/16/20 03:23 03/24/20 06:32 Tramadol 50 Mg Tab PO 50 mg Q6H PRN Administration Pain, Moderate (4-6) Valsartan 160 mg 03/15/20 22:00 03/26/20 11:30 Valsartan 160mg Tab PO 160 mg BID MIK Administration
[2020-03-26] MEDS: azaTHIOprine 50 MG TAB PO SCH (14:29)
[2020-03-27] MEDS: cloNIDine 0.1 MG TAB PO SCH ×3 (05:24→23:03)
[2020-03-27] MEDS: HEPARIN 5,000 UNIT/1 ML VIAL SUB-Q SCH ×4 (07:40→23:05)
[2020-03-27] MEDS: hydrALAZINE 100 MG TAB PO SCH ×3 (07:41→20:27)
[2020-03-27] MEDS: CALCITRIOL 0.25 MCG CAP PO SCH (10:00)
[2020-03-27] MEDS: MINOXIDIL 2.5 MG TAB PO SCH (10:00)
[2020-03-27] MEDS: ASPIRIN EC 81 MG TAB PO SCH (10:00)
[2020-03-27] MEDS: guaiFENesin ER 600 MG TAB PO SCH ×2 (10:00→23:02)
[2020-03-27] MEDS: VALSARTAN 160MG TAB PO SCH ×2 (10:00→23:04)
[2020-03-27] MEDS: CLOPIDOGREL 75 MG TAB PO SCH (10:00)
[2020-03-27] MEDS: METOPROLOL TARTRATE 100 MG TAB PO SCH ×2 (10:01→23:03)
[2020-03-27] MEDS: PANTOPRAZOLE 20 MG TAB PO SCH (10:01)
[2020-03-27] MEDS: amLODIPine 10 MG TAB PO SCH (10:01)
--- NOTE | 2020-03-27 10:52 | Discharge Summary ---
Providers - Providers Date of Admission: 03/16/20 15:10 Attending physician: HERLINDA POLLACK MD 03/15/20 14:12 Consult to Physician [CONS] Stat Comment: Consulting Provider: LUCRECIA VÁSQUEZ Physician Instructions: Reason For Exam: esrd 03/15/20 15:04 Consult to Physician [CONS] Routine Comment: Consulting Provider: CHAZ MACDONALD Physician Instructions: Reason For Exam: Fever, Cough R/O COVID 19 03/18/20 12:24 Physical Therapy Evaluation and Treat [CONS] Routine Comment: Reason For Exam: debility 03/21/20 08:05 Consult to Physician [CONS] Routine Comment: Consulting Provider: HUY BUSCH Physician Instructions: Reason For Exam: hypoxic respiratory failure Hospitalization Reason for admission: Shortness of breath Condition: Stable Hospital course: 59-year-old female with known history of end-stage renal disease on dialysis- Mondays, Wednesdays and Fridays, lupus, CHF, presenting to the emergency room today from an assisted living facility with cough fever headache which has been ongoing for about 4 days. She did not go to dialysis today because she was not feeling quite well. She had a fever of about 103 F. She also also has some mild shortness of breath. Patient indicates that several people at the facility had tested positive for COVID-19. She tested negative for COVID-19 yesterday. Patient denies any chest pain, no nausea vomiting, no loss of taste or smell, no diarrhea and no abdominal pain. In route to the hospital patient oxygen saturation was about 88% on room air she was subsequently placed on 2 L of oxygen. Work-up in the emergency room today chest x-ray reveals pulmonary edema. Hog Ringer Dr. Vásquez has been consulted by the ER physician. Patient has been admitted with pulmonary edema. We will however rule out COVID-19. 2/2: Review of records shows patient is still on High flow, will obtain Pulmonary consultation, patient with worsening D.Dimer, will obtain V/Q scan to rule pulmonary embolism, Will likely change to Heparin drip till this iS clarified if patient is still on High flow. I unfortunately do not see clear oxygen documentation. Continues with Hypertensive urgency, SPOKE with the daughter, patient has had Elevated blood pressure for some time but not quite this high, Nephrology following and adjusting meds. 2/3: Continue supportive care, Will discontinue Heparin drip at this time, and use sliding scale considering low probability of PE on V/Q scan. Considering uncontrolled HTN, will transfer to IMCU and initiate Cardene drip, continue to wean High flow. COUNSELLING ON FLUID RESTRICTIONS 03/23: Consider repeating hypoxia and increasing high flow back to 100% we will ask respiratory therapist to aggressively wean as recommended by turbine attendant. Discussed with nursing staff remove restraints and less reevaluate the patient. If recurrent delirium or encephalopathy we will at that time reevaluate. Have discussed with the patient again about compliance with p.o. fluid intake. Blood pressure is better improved today. 03/24: Patient undergoing dialysis today. Anticipate discharge in 48 hours hopefully. We are awaiting outpatient HD set up. Patient will be discharged to rehab center. Is currently down to 4 L of oxygen will need exertional oxygen evaluation prior to discharge. Blood pressure is better. Continue dexamethasone and remdesivir for now. 03/25: Continue supportive care wean oxygen as tolerated. Awaiting dialysis placement for discharge. 03/26: Continue supportive care, blood pressure still elevated. Continue to monitor and address. Still awaiting placement 03/27: Patient continues to clinically improved oxygen is down to 3 L satting 96%. Patient is ready for discharge has an accepting facility but still pending hemodialysis chair time outpatient. Acute hypoxic respiratory failure -Oxygen supplementation -Covid is positive -Covid protocol initiated Continue high flow nasal cannula oxygen, needs close monitoring, builds fluid very quickly. Covid pneumonia -Covid positive -Infectious disease consulted -Dexamethasone Azithromycin and ceftriaxone End-stage renal disease -Friday -Nephrology consulted -Continue dialysis as scheduled patient does not make urine Nonsustained ventricular tachycardia Cardiology consulted Continue to monitor, no acute intervention required at this time -TTE noted Accelerated hypertension related to renal disease Valsartan, metoprolol, furosemide, clonidine, hydralazine, making adjustments for better control Patient's blood pressure at home is usually in the 200 systolic, completely uncontrolled Anemia and chronic disease illness -No acute bleeding Hypervolemic hyponatremia -Resolved with hemodialysis Heart failure, unspecified type Presumed history of CAD Elevated BNP Metoprolol, Plavix Hyperkalemia Kayexalate Morbid obesity Lifestyle change Acute on chronic CHF with preserved EF Disposition: TO HOME OR SELFCARE Time spent for discharge: 35 MINS Core Measure Documentation - Palliative Care Palliative Care/ Comfort Measures: Not Applicable - Core Measures Any of the following diagnoses?: none Exam - Physical Exam Narrative exam: General appearance: Present: Obese, no acute distress, well-nourished, No clear evidence of confusion at this time. - EENT Eyes: Present: PERRL, EOM intact ENT: hearing intact, clear oral mucosa - Respiratory Respiratory effort: Normal, high flow nasal cannula oxygen Respiratory: Crackles heard in both lung paz bilaterally - Cardiovascular Rhythm: regular Heart Sounds: Present: S1 & S2. Absent: rub, click HD access: Permacath in right chest - Extremities Extremities: no ischemia, + trace edema in lower extremities - Abdominal General gastrointestinal: soft, non-tender, non-distended, normal bowel sounds - Integumentary Integumentary: Present: clear, warm, dry, normal turgor - Neurologic Neurologic: CNII-XII intact, no focal deficits, moves all extremities, no confu colette , - Constitutional Vitals: Temp Pulse Resp BP Pulse Ox 97.9 F 61 18 153/56 100 03/27/20 09:50 03/27/20 10:45 03/27/20 09:50 03/27/20 10:45 03/27/20 08:52 Plan Activity: advance as tolerated, fall precautions Diet: renal Special Instructions: restrict fluid intake to (1200CC/DAY or otherwise advised by skein dyer), record daily weights, record daily BP diary, home oxygen via (nasal cannula @ 2 liters per minute) Follow up with: LOLLY GRIGSBY [Other] - 3-5 Days MARCOS REEVES DO [Staff Physician] - 7 Days JAMES WINTERS MD [Staff Physician] - 7 Days Prescriptions: hydrALAZINE [Apresoline TAB] 100 mg PO TID #90 tab Metoprolol [Lopressor TAB] 100 mg PO BID #60 tablet guaiFENesin ER [Mucinex ER] 600 mg PO BID #10 tablet
[2020-03-27] MEDS: azaTHIOprine 50 MG TAB PO SCH (11:22)
--- NOTE | 2020-03-27 12:03 | Progress Note ---
Assessment and Plan 59 y/o female with acute respiratory failure secondary to COVID 19 with persistent hypoxemia and elevated BP's. 03/27/20: Wean FiO2 for sats >88%. Patient being discharged today. Can follow up in 14 days post discharge in the office. 03/24/20: Continue to wean FiO2 as tolerated for sats >88%. steroids for a total of 10 days, last day is today. Will likely need ambulatory test to assess oxygen needs over the weekend. Hopeful discharge in the next 48-72 hours. 03/23/20: Will speak with RT about being more aggressive with weaning as she is able to tolerate being off HFNC at times. 03/22/20: Same recs as yesterday. Continue current management and will continue to follow along. Hopeful patient can turn the corner. Proning is a must. Not much else to offer from a pulmonary standpoint other than time. She is getting extra dialysis sessions as well as lasix 80 BID. She needs to prone as much as possible. Despite her oxygen requirements she is not in severe distress so hopefully she just needs more time. Will continue to monitor along with you. Please encourage proning. Subjective Date of service: 03/27/20 Principal diagnosis: COVID Interval history: No acute events. Stable on 3 liters. Good sats. Objective Vital Signs - 12hr 03/27/20 03/27/20 03/27/20 04:56 05:24 08:52 Temperature 98.4 F Pulse Rate 59 L 59 L Respiratory 20 Rate Blood Pressure 153/72 153/72 O2 Sat by Pulse 100 100 Oximetry 03/27/20 03/27/20 03/27/20 09:50 09:58 10:00 Temperature 97.9 F Pulse Rate 65 63 59 L Respiratory 18 Rate Blood Pressure 138/71 139/66 153/72 O2 Sat by Pulse Oximetry 03/27/20 03/27/20 03/27/20 10:01 10:15 10:30 Temperature Pulse Rate 59 L 63 60 Respiratory Rate Blood Pressure 153/72 149/72 138/55 O2 Sat by Pulse Oximetry 03/27/20 03/27/20 03/27/20 10:45 11:00 11:15 Temperature Pulse Rate 61 61 59 L Respiratory Rate Blood Pressure 153/56 134/50 127/53 O2 Sat by Pulse Oximetry 03/27/20 03/27/20 11:30 11:45 Temperature Pulse Rate 61 61 Respiratory Rate Blood Pressure 129/58 126/58 O2 Sat by Pulse Oximetry CBC and BMP: 03/21/20 05:59 03/22/20 05:04 ABG, PT/INR, D-dimer: PT/INR, D-dimer PT 14.5 Sec. (12.2-14.9) 03/16/20 06:18 INR 1.14 (0.87-1.13) H 03/16/20 06:18 D-Dimer 1600.05 ng/mlDDU (0-234) H 03/21/20 08:58 Abnormal lab findings: Abnormal Labs 03/15/20 03/15/20 03/15/20 12:26 12:26 12:29 WBC RBC Hgb Hct RDW Lymph % (Auto) [place] % (Auto) Lymph # (Auto) Seg Neutrophils % INR APTT 37.2 H D-Dimer 718.25 H Sodium 130 L Potassium Chloride 89.8 L BUN 69 H Creatinine 6.0 H POC Glucose Ferritin 1021.0 H Lactate Dehydrogenase C-Reactive Protein NT-Pro-B Natriuret Pep Total Protein Albumin Coronavirus (PCR) 03/15/20 03/15/20 03/16/20 13:10 14:12 06:18 WBC 3.7 L RBC 2.77 L 2.94 L Hgb 8.8 L 9.3 L Hct 26.4 L 28.2 L RDW 16.4 H 16.7 H Lymph % (Auto) 1.5 L 7.0 L [place] % (Auto) 9.2 H 8.4 H Lymph # (Auto) 0.1 L 0.3 L Seg Neutrophils % 89.1 H 84.1 H INR APTT D-Dimer Sodium Potassium Chloride BUN Creatinine POC Glucose Ferritin Lactate Dehydrogenase 290 H C-Reactive Protein 7.10 H NT-Pro-B Natriuret Pep > 24825 H Total Protein Albumin Coronavirus (PCR) 03/16/20 03/16/20 03/16/20 06:18 06:18 Unknown WBC RBC Hgb Hct RDW Lymph % (Auto) [place] % (Auto) Lymph # (Auto) Seg Neutrophils % INR 1.14 H APTT D-Dimer Sodium Potassium Chloride 96.2 L BUN 55 H Creatinine 5.0 H POC Glucose Ferritin Lactate Dehydrogenase C-Reactive Protein NT-Pro-B Natriuret Pep Total Protein Albumin Coronavirus (PCR) Positive A 03/17/20 03/17/20 03/17/20 04:36 13:36 13:36 WBC RBC Hgb Hct RDW Lymph % (Auto) [place] % (Auto) Lymph # (Auto) Seg Neutrophils % INR APTT D-Dimer 1336.88 H Sodium 134 L Potassium 5.5 H Chloride 93.9 L BUN 68 H Creatinine 6.2 H POC Glucose Ferritin 1905.0 H Lactate Dehydrogenase C-Reactive Protein NT-Pro-B Natriuret Pep Total Protein 6.2 L Albumin 3.6 L Coronavirus (PCR) 03/17/20 03/18/20 03/19/20 13:36 04:46 04:45 WBC RBC Hgb Hct RDW Lymph % (Auto) [place] % (Auto) Lymph # (Auto) Seg Neutrophils % INR APTT D-Dimer Sodium 135 L Potassium 5.5 H Chloride 95.1 L 91.0 L BUN 47 H 68 H Creatinine 4.8 H 6.1 H POC Glucose Ferritin Lactate Dehydrogenase 213 H C-Reactive Protein 12.70 H NT-Pro-B Natriuret Pep Total Protein Albumin Coronavirus (PCR) 03/20/20 03/20/20 03/21/20 06:16 21:23 05:59 WBC RBC Hgb Hct RDW Lymph % (Auto) [place] % (Auto) Lymph # (Auto) Seg Neutrophils % INR APTT D-Dimer Sodium Potassium Chloride 95.0 L 94.4 L BUN 45 H 29 H Creatinine 4.7 H 3.6 H POC Glucose 124 H Ferritin Lactate Dehydrogenase C-Reactive Protein NT-Pro-B Natriuret Pep Total Protein Albumin Coronavirus (PCR) 03/21/20 03/21/20 03/21/20 05:59 08:58 08:58 WBC 4.0 L RBC 2.68 L Hgb 8.4 L Hct 25.2 L RDW 17.2 H Lymph % (Auto) [place] % (Auto) Lymph # (Auto) Seg Neutrophils % INR APTT D-Dimer 1600.05 H Sodium Potassium Chloride BUN Creatinine POC Glucose Ferritin > 2000.0 H Lactate Dehydrogenase C-Reactive Protein NT-Pro-B Natriuret Pep Total Protein Albumin Coronavirus (PCR) 03/21/20 03/22/20 08:58 05:04 WBC RBC Hgb Hct RDW Lymph % (Auto) [place] % (Auto) Lymph # (Auto) Seg Neutrophils % INR APTT D-Dimer Sodium 134 L Potassium Chloride 92.1 L BUN 47 H Creatinine 5.0 H POC Glucose Ferritin Lactate Dehydrogenase 291 H C-Reactive Protein 19.80 H NT-Pro-B Natriuret Pep Total Protein Albumin Coronavirus (PCR)
--- NOTE | 2020-03-27 14:52 | Progress Note ---
Assessment and Plan - Patient Problems (1) Pneumonia due to COVID-19 virus Current Visit: Yes Status: Chronic Plan to address problem: Management per infectious disease recommendations. (2) ESRD needing dialysis Current Visit: No Status: Chronic Plan to address problem: Maintain on inpatient Friday hemodialysis schedule. (3) Acute hypoxemic respiratory failure Current Visit: Yes Status: Acute Plan to address problem: Currently stable on 3 L O2 via nasal cannula. Further recommendations per pulmonology. (4) Anemia in chronic illness Current Visit: Yes Status: Chronic Plan to address problem: ABDOULAYE therapy with hemodialysis. (5) Hypertensive chronic kidney disease with stage 5 chronic kidney disease or end stage renal disease Current Visit: Yes Status: Chronic Plan to address problem: Monitor blood pressure on the current regimen. (6) Lupus (systemic lupus erythematosus) Current Visit: Yes Status: Acute (7) Secondary hyperparathyroidism (of renal origin) Current Visit: Yes Status: Chronic Plan to address problem: Continue on current outpatient phosphate binder regimen. Subjective Date of service: 03/27/20 Principal diagnosis: COVID Interval history: No acute changes overnight. Patient not directly examined in order to preserve PPE. Primary care team notes/physical examination reviewed. Objective - Exam Narrative Exam: Patient not directly examined in order to preserve PPE - Vital Signs Vital signs: Vital Signs - 12hr 03/27/20 03/27/20 03/27/20 04:56 05:24 08:52 Temperature 98.4 F Pulse Rate 59 L 59 L Respiratory 20 Rate Blood Pressure 153/72 153/72 O2 Sat by Pulse 100 100 Oximetry 03/27/20 03/27/20 03/27/20 09:50 09:58 10:00 Temperature 97.9 F Pulse Rate 65 63 59 L Respiratory 18 Rate Blood Pressure 138/71 139/66 153/72 O2 Sat by Pulse Oximetry 03/27/20 03/27/20 03/27/20 10:01 10:15 10:30 Temperature Pulse Rate 59 L 63 60 Respiratory Rate Blood Pressure 153/72 149/72 138/55 O2 Sat by Pulse Oximetry 03/27/20 03/27/20 03/27/20 10:45 11:00 11:15 Temperature Pulse Rate 61 61 59 L Respiratory Rate Blood Pressure 153/56 134/50 127/53 O2 Sat by Pulse Oximetry 03/27/20 03/27/20 03/27/20 11:30 11:45 12:00 Temperature Pulse Rate 61 61 62 Respiratory Rate Blood Pressure 129/58 126/58 108/48 O2 Sat by Pulse Oximetry 03/27/20 03/27/20 03/27/20 12:15 12:46 13:00 Temperature Pulse Rate 61 58 L 58 L Respiratory Rate Blood Pressure 124/52 121/47 135/62 O2 Sat by Pulse Oximetry 03/27/20 03/27/20 03/27/20 13:15 13:20 14:25 Temperature 97.7 F Pulse Rate 60 62 60 Respiratory 18 Rate Blood Pressure 112/54 143/68 112/54 O2 Sat by Pulse Oximetry - Lab 03/21/20 05:59 03/22/20 05:04 Most recent lab results Calcium 10.0 mg/dL (8.4-10.2) 03/22/20 05:04 Magnesium 1.80 mg/dL (1.7-2.3) 03/20/20 01:22 Medications & Allergies - Medications Allergies/Adverse Reactions: Allergies No Known Allergies Allergy (Unverified 12/01/19 05:58) Home Medications: Home Medications Medication Instructions Recorded Confirmed Last Taken Type Aspirin [Adult Aspirin] 81 mg PO DAILY 12/02/19 03/18/20 Unknown History AtorvaSTATin 10 mg PO QHS 12/02/19 03/18/20 Unknown History Clopidogrel [Plavix] 75 mg PO QDAY 12/02/19 03/18/20 Unknown History Folic Acid 0.4 mg PO QDAY 12/02/19 03/18/20 Unknown History Omeprazole 20 mg PO DAILY 12/02/19 03/18/20 Unknown History amLODIPine 10 mg PO DAILY 12/02/19 03/18/20 Unknown History azaTHIOprine [Azathioprine] 50 mg PO DAILY 12/02/19 03/18/20 Unknown History calcitrioL [Rocaltrol] 1 mcg PO QDAY 12/02/19 03/18/20 Unknown History Valsartan [Diovan] 160 mg PO BID #60 tablet 12/10/19 03/18/20 Unknown Rx cloNIDine [Catapres] 0.2 mg PO Q8HR #90 tablet 12/10/19 03/18/20 Unknown Rx minoxidiL [Loniten] 5 mg PO QDAY #30 tablet 12/10/19 03/18/20 Unknown Rx Metoprolol [Lopressor TAB] 100 mg PO BID #60 tablet 03/27/20 Unknown Rx guaiFENesin ER [Mucinex ER] 600 mg PO BID #10 tablet 03/27/20 Unknown Rx hydrALAZINE [Apresoline TAB] 100 mg PO TID #90 tab 03/27/20 Unknown Rx Active Medications: Generic Name Dose Route Start Last Admin Trade Name Freq PRN Reason Stop Dose Admin Acetaminophen 650 mg 03/15/20 14:59 03/25/20 05:27 Acetaminophen 325 Mg Tab PO 650 mg Q4H PRN Administration Pain MILD(1-3)/Fever >100.5/KENNY Amlodipine Besylate 10 mg 03/16/20 10:00 03/27/20 10:01 Amlodipine 10 Mg Tab PO 10 mg DAILY MIK Administration Aspirin 81 mg 03/16/20 10:00 03/27/20 10:00 Aspirin Ec 81 Mg Tab PO 81 mg DAILY MIK Administration Atorvastatin Calcium 10 mg 03/15/20 22:00 03/26/20 21:09 Atorvastatin 10 Mg Tab PO 10 mg QHS MIK Administration Azathioprine 50 mg 03/16/20 10:00 03/27/20 11:22 Azathioprine 50 Mg Tab PO 50 mg DAILY MIK Administration Calcitriol 1 mcg 03/21/20 10:00 03/27/20 10:00 Calcitriol 0.25 Mcg Cap PO 1 mcg QDAY MIK Administration Clonidine HCl 0.2 mg 03/15/20 22:00 03/27/20 14:25 Clonidine 0.1 Mg Tab PO Not Given Q8HR [facility] Clopidogrel Bisulfate 75 mg 03/16/20 10:00 03/27/20 10:00 Clopidogrel 75 Mg Tab PO 75 mg QDAY MIK Administration Epoetin [place] 10,000 unit 03/15/20 18:00 [place] 10,000 Unit/1 Ml Inj SUB-Q SHEREE MIK Guaifenesin 600 mg 03/17/20 11:00 03/27/20 10:00 Guaifenesin Er 600 Mg Tab PO 600 mg BID MIK Administration Heparin Sodium (Porcine) 5,000 unit 03/15/20 22:00 03/27/20 14:28 Heparin 5,000 Unit/1 Ml Vial SUB-Q Not Given Q8HR [facility] Hydralazine HCl 20 mg 03/17/20 07:33 03/22/20 11:32 Hydralazine 20 Mg/1 Ml Inj IV 20 mg Q4HR PRN Administration Give if SBP>180 DBP>100 Hydralazine HCl 100 mg 03/18/20 20:00 03/27/20 14:24 Hydralazine 100 Mg Tab PO Not Given TID MIK Hydrophilic Ointment 1 applic 03/19/20 04:30 03/19/20 05:52 Lip Therapy Vaseline TP 1 applic DIRECT PRN Administration Dry Lips Sodium Chloride 100 mls @ 999 mls/hr 03/19/20 17:59 Nacl 0.9% IV SHEREE PRN Hypotension Magnesium Hydroxide 30 ml 03/15/20 14:59 Magnesium Hydroxide (Mom) Oral Liqd Udc PO Q4H PRN Constipation Metoprolol Tartrate 100 mg 03/22/20 22:00 03/27/20 10:01 Metoprolol Tartrate 100 Mg Tab PO 100 mg BID MIK Administration Minoxidil 2.5 mg 03/22/20 13:00 03/27/20 10:00 Minoxidil 2.5 Mg Tab PO 2.5 mg QDAY MIK Administration Morphine Sulfate 2 mg 03/15/20 14:59 03/22/20 17:22 Morphine 2 Mg/1 Ml Inj IV 2 mg Q5MIN PRN Administration Chest Pain unrelieved by NTG Ondansetron HCl 4 mg 03/15/20 14:59 03/22/20 17:22 Ondansetron 4 Mg/2 Ml Inj IV 4 mg Q8H PRN Administration Nausea And Vomiting Pantoprazole Sodium 20 mg 03/16/20 10:00 03/27/20 10:01 Pantoprazole 20 Mg Tab PO 20 mg QDAY MIK Administration Sodium Chloride 10 ml 03/15/20 22:00 03/27/20 10:04 Sodium Chloride 0.9% 10 Ml Flush Syringe IV 10 ml BID MIK Administration Sodium Chloride 10 ml 03/15/20 14:59 Sodium Chloride 0.9% 10 Ml Flush Syringe IV PRN PRN LINE FLUSH Tramadol HCl 50 mg 03/16/20 03:23 03/24/20 06:32 Tramadol 50 Mg Tab PO 50 mg Q6H PRN Administration Pain, Moderate (4-6) Valsartan 160 mg 03/15/20 22:00 03/27/20 10:00 Valsartan 160mg Tab PO 160 mg BID MIK Administration
[2020-03-27] MEDS: traMADol 50 MG TAB PO PRN ×2 (15:03→23:01)
[2020-03-28] MEDS: cloNIDine 0.1 MG TAB PO SCH ×3 (05:43→22:09)
[2020-03-28] MEDS: HEPARIN 5,000 UNIT/1 ML VIAL SUB-Q SCH ×3 (05:43→22:10)
[2020-03-28] MEDS: hydrALAZINE 100 MG TAB PO SCH ×3 (07:53→20:44)
--- NOTE | 2020-03-28 08:29 | Progress Note ---
Assessment and Plan 59 y/o female with acute respiratory failure secondary to COVID 19 with persistent hypoxemia and elevated BP's. 03/28/20: No objection to discharge pulmonary winters. Will see PRN. 03/27/20: Wean FiO2 for sats >88%. Patient being discharged today. Can follow up in 14 days post discharge in the office. 03/24/20: Continue to wean FiO2 as tolerated for sats >88%. steroids for a total of 10 days, last day is today. Will likely need ambulatory test to assess oxygen needs over the weekend. Hopeful discharge in the next 48-72 hours. 03/23/20: Will speak with RT about being more aggressive with weaning as she is able to tolerate being off HFNC at times. 03/22/20: Same recs as yesterday. Continue current management and will continue to follow along. Hopeful patient can turn the corner. Proning is a must. Not much else to offer from a pulmonary standpoint other than time. She is getting extra dialysis sessions as well as lasix 80 BID. She needs to prone as much as possible. Despite her oxygen requirements she is not in severe distress so hopefully she just needs more time. Will continue to monitor along with you. Please encourage proning. Subjective Date of service: 03/28/20 Principal diagnosis: COVID Interval history: Patient not discharged yesterday secondary to HD schedule at facility. NO acute events noted over night. Pulm status is stable. Objective Vital Signs - 12hr 03/27/20 03/27/20 03/27/20 20:25 21:20 22:00 Temperature Pulse Rate 60 Respiratory 17 Rate Respiratory 17 Rate [Abdomen] Respiratory 17 Rate [Back] Blood Pressure 151/71 O2 Sat by Pulse 99 98 100 Oximetry 03/27/20 03/27/20 03/27/20 23:01 23:03 23:04 Temperature Pulse Rate 62 66 Respiratory 17 Rate Respiratory Rate [Abdomen] Respiratory Rate [Back] Blood Pressure 151/71 154/63 O2 Sat by Pulse Oximetry 03/27/20 03/28/20 03/28/20 23:09 00:01 00:06 Temperature 98.3 F 97.9 F Pulse Rate 66 65 Respiratory 17 17 16 Rate Respiratory Rate [Abdomen] Respiratory Rate [Back] Blood Pressure 154/63 126/64 O2 Sat by Pulse 99 100 Oximetry 03/28/20 03/28/20 03/28/20 05:43 05:49 08:04 Temperature 98.2 F Pulse Rate 62 56 L Respiratory 17 Rate Respiratory Rate [Abdomen] Respiratory Rate [Back] Blood Pressure 154/70 154/70 O2 Sat by Pulse 99 99 Oximetry CBC and BMP: 03/21/20 05:59 03/22/20 05:04 ABG, PT/INR, D-dimer: PT/INR, D-dimer PT 14.5 Sec. (12.2-14.9) 03/16/20 06:18 INR 1.14 (0.87-1.13) H 03/16/20 06:18 D-Dimer 1600.05 ng/mlDDU (0-234) H 03/21/20 08:58 Abnormal lab findings: Abnormal Labs 03/15/20 03/15/20 03/15/20 12:26 12:26 12:29 WBC RBC Hgb Hct RDW Lymph % (Auto) Door % (Auto) Lymph # (Auto) Seg Neutrophils % INR APTT 37.2 H D-Dimer 718.25 H Sodium 130 L Potassium Chloride 89.8 L BUN 69 H Creatinine 6.0 H POC Glucose Ferritin 1021.0 H Lactate Dehydrogenase C-Reactive Protein NT-Pro-B Natriuret Pep Total Protein Albumin Coronavirus (PCR) 03/15/20 03/15/20 03/16/20 13:10 14:12 06:18 WBC 3.7 L RBC 2.77 L 2.94 L Hgb 8.8 L 9.3 L Hct 26.4 L 28.2 L RDW 16.4 H 16.7 H Lymph % (Auto) 1.5 L 7.0 L Door % (Auto) 9.2 H 8.4 H Lymph # (Auto) 0.1 L 0.3 L Seg Neutrophils % 89.1 H 84.1 H INR APTT D-Dimer Sodium Potassium Chloride BUN Creatinine POC Glucose Ferritin Lactate Dehydrogenase 290 H C-Reactive Protein 7.10 H NT-Pro-B Natriuret Pep > 92204 H Total Protein Albumin Coronavirus (PCR) 03/16/20 03/16/20 03/16/20 06:18 06:18 Unknown WBC RBC Hgb Hct RDW Lymph % (Auto) Door % (Auto) Lymph # (Auto) Seg Neutrophils % INR 1.14 H APTT D-Dimer Sodium Potassium Chloride 96.2 L BUN 55 H Creatinine 5.0 H POC Glucose Ferritin Lactate Dehydrogenase C-Reactive Protein NT-Pro-B Natriuret Pep Total Protein Albumin Coronavirus (PCR) Positive A 03/17/20 03/17/20 03/17/20 04:36 13:36 13:36 WBC RBC Hgb Hct RDW Lymph % (Auto) Door % (Auto) Lymph # (Auto) Seg Neutrophils % INR APTT D-Dimer 1336.88 H Sodium 134 L Potassium 5.5 H Chloride 93.9 L BUN 68 H Creatinine 6.2 H POC Glucose Ferritin 1905.0 H Lactate Dehydrogenase C-Reactive Protein NT-Pro-B Natriuret Pep Total Protein 6.2 L Albumin 3.6 L Coronavirus (PCR) 03/17/20 03/18/20 03/19/20 13:36 04:46 04:45 WBC RBC Hgb Hct RDW Lymph % (Auto) Door % (Auto) Lymph # (Auto) Seg Neutrophils % INR APTT D-Dimer Sodium 135 L Potassium 5.5 H Chloride 95.1 L 91.0 L BUN 47 H 68 H Creatinine 4.8 H 6.1 H POC Glucose Ferritin Lactate Dehydrogenase 213 H C-Reactive Protein 12.70 H NT-Pro-B Natriuret Pep Total Protein Albumin Coronavirus (PCR) 03/20/20 03/20/20 03/21/20 06:16 21:23 05:59 WBC RBC Hgb Hct RDW Lymph % (Auto) Door % (Auto) Lymph # (Auto) Seg Neutrophils % INR APTT D-Dimer Sodium Potassium Chloride 95.0 L 94.4 L BUN 45 H 29 H Creatinine 4.7 H 3.6 H POC Glucose 124 H Ferritin Lactate Dehydrogenase C-Reactive Protein NT-Pro-B Natriuret Pep Total Protein Albumin Coronavirus (PCR) 03/21/20 03/21/20 03/21/20 05:59 08:58 08:58 WBC 4.0 L RBC 2.68 L Hgb 8.4 L Hct 25.2 L RDW 17.2 H Lymph % (Auto) Door % (Auto) Lymph # (Auto) Seg Neutrophils % INR APTT D-Dimer 1600.05 H Sodium Potassium Chloride BUN Creatinine POC Glucose Ferritin > 2000.0 H Lactate Dehydrogenase C-Reactive Protein NT-Pro-B Natriuret Pep Total Protein Albumin Coronavirus (PCR) 03/21/20 03/22/20 08:58 05:04 WBC RBC Hgb Hct RDW Lymph % (Auto) Door % (Auto) Lymph # (Auto) Seg Neutrophils % INR APTT D-Dimer Sodium 134 L Potassium Chloride 92.1 L BUN 47 H Creatinine 5.0 H POC Glucose Ferritin Lactate Dehydrogenase 291 H C-Reactive Protein 19.80 H NT-Pro-B Natriuret Pep Total Protein Albumin Coronavirus (PCR)
[2020-03-28] MEDS: ASPIRIN EC 81 MG TAB PO SCH (09:59)
[2020-03-28] MEDS: CALCITRIOL 0.25 MCG CAP PO SCH (09:59)
[2020-03-28] MEDS: METOPROLOL TARTRATE 100 MG TAB PO SCH ×2 (09:59→22:10)
[2020-03-28] MEDS: PANTOPRAZOLE 20 MG TAB PO SCH (09:59)
[2020-03-28] MEDS: CLOPIDOGREL 75 MG TAB PO SCH (09:59)
[2020-03-28] MEDS: guaiFENesin ER 600 MG TAB PO SCH ×2 (09:59→22:09)
[2020-03-28] MEDS: amLODIPine 10 MG TAB PO SCH (09:59)
[2020-03-28] MEDS: MINOXIDIL 2.5 MG TAB PO SCH (09:59)
[2020-03-28] MEDS: VALSARTAN 160MG TAB PO SCH ×2 (09:59→22:09)
--- NOTE | 2020-03-28 10:51 | Progress Note ---
Assessment and Plan Assessment and plan: 59-year-old female with known history of end-stage renal disease on dialysis- Mondays, Wednesdays and Fridays, lupus, CHF, presenting to the emergency room today from an assisted living facility with cough fever headache which has been ongoing for about 4 days. She did not go to dialysis today because she was not feeling quite well. She had a fever of about 103 F. She also also has some mild shortness of breath. Patient indicates that several people at the facility had tested positive for COVID-19. She tested negative for COVID-19 yesterday. Patient denies any chest pain, no nausea vomiting, no loss of taste or smell, no diarrhea and no abdominal pain. In route to the hospital patient oxygen saturation was about 88% on room air she was subsequently placed on 2 L of oxygen. Work-up in the emergency room today chest x-ray reveals pulmonary edema. Reading Professor Dr. Hong has been consulted by the ER physician. Patient has been admitted with pulmonary edema. We will however rule out COVID-19. 2/2: Review of records shows patient is still on High flow, will obtain Pulmonary consultation, patient with worsening D.Dimer, will obtain V/Q scan to rule pulmonary embolism, Will likely change to Heparin drip till this iS clarified if patient is still on High flow. I unfortunately do not see clear oxygen documentation. Continues with Hypertensive urgency, SPOKE with the daughter, patient has had Elevated blood pressure for some time but not quite this high, Nephrology following and adjusting meds. 2/3: Continue supportive care, Will discontinue Heparin drip at this time, and use sliding scale considering low probability of PE on V/Q scan. Considering uncontrolled HTN, will transfer to [facility] and initiate Cardene drip, continue to wean High flow. COUNSELLING ON FLUID RESTRICTIONS 2/4: Consider repeating hypoxia and increasing high flow back to 100% we will ask respiratory therapist to aggressively wean as recommended by commercial coordinator. Discussed with nursing staff remove restraints and less reevaluate the patient. If recurrent delirium or encephalopathy we will at that time reevaluate. Have discussed with the patient again about compliance with p.o. fluid intake. Blood pressure is better improved today. 5: Patient undergoing dialysis today. Anticipate discharge in 48 hours hopefully. We are awaiting outpatient HD set up. Patient will be discharged to rehab center. Is currently down to 4 L of oxygen will need exertional oxygen evaluation prior to discharge. Blood pressure is better. Continue dexamethasone and remdesivir for now. 03/25: Continue supportive care wean oxygen as tolerated. Awaiting dialysis placement for discharge. 03/26: Continue supportive care, blood pressure still elevated. Continue to monitor and address. Still awaiting placement 03/27. Still awaiting placement. Has no complaints today Plan Acute hypoxic respiratory failure -Oxygen supplementation Covid pneumonia Dexamethasone ID on board End-stage renal disease -Friday -Continue dialysis as scheduled - Plan for hemodialysis chair Nonsustained ventricular tachycardia Cardiology recommendations appreciated Continue to monitor, no acute intervention required at this time -TTE noted Accelerated hypertension related to renal disease Valsartan, metoprolol, furosemide, clonidine, hydralazine, making adjustments for better control Patient's blood pressure at home is usually in the 200 systolic, completely uncontrolled Anemia and chronic disease illness -No acute bleeding Hypervolemic hyponatremia -Resolved with hemodialysis Heart failure, unspecified type Presumed history of CAD Elevated BNP Metoprolol, Plavix Hyperkalemia Kayexalate Morbid obesity Lifestyle change CODE STATUS: Full DVT prophylaxis: Heparin Disposition: Continue Covid treatment, continue hemodialysis, monitor for nonsustained V. tach History Interval history: No new complaints today Awaiting HD arrangement Hospitalist Physical - Physical exam Narrative exam: VITAL SIGNS: Reviewed. GENERAL: Awake HEAD: No signs of head trauma. EYES: Pupils are equal. Extraocular motions intact. MOUTH: Oropharynx is normal. NECK: No adenopathy, no JVD. CHEST: Chest with diminished breath sounds bilaterally. No wheezes, rales, or rhonchi. right permacath in place CARDIAC: normal S1 and S2, without murmurs, gallops, or rubs. ABDOMEN: Soft, non tender and non distended. No rebound or guarding, and no masses palpated. Bowel Sounds normal. MUSCULOSKELETAL: No edema NEUROLOGIC EXAM: Alert and oriented x3. No focal neurologic deficits SKIN: No obvious lesions - Constitutional Vitals: Temp Pulse Resp BP Pulse Ox 98.2 F 56 L 17 154/70 99 03/28/20 05:49 03/28/20 09:59 03/28/20 05:49 03/28/20 09:59 03/28/20 08:04 Results - Labs CBC & Chem 7: 03/21/20 05:59 03/22/20 05:04 Labs: Laboratory Last Values WBC 4.0 K/mm3 (4.5-11.0) L 03/21/20 05:59 RBC 2.68 M/mm3 (3.65-5.03) L 03/21/20 05:59 Hgb 8.4 gm/dl (10.1-14.3) L 03/21/20 05:59 Hct 25.2 % (30.3-42.9) L 03/21/20 05:59 MCV 94 fl (79-97) 03/21/20 05:59 MCH 31 pg (28-32) 03/21/20 05:59 MCHC 33 % (30-34) 03/21/20 05:59 RDW 17.2 % (13.2-15.2) H 03/21/20 05:59 Plt Count 198 K/mm3 (140-440) 03/21/20 05:59 Lymph % (Auto) 7.0 % (13.4-35.0) L 03/16/20 06:18 Carter % (Auto) 8.4 % (0.0-7.3) H 03/16/20 06:18 Eos % (Auto) 0.0 % (0.0-4.3) 03/16/20 06:18 Baso % (Auto) 0.5 % (0.0-1.8) 03/16/20 06:18 Lymph # (Auto) 0.3 K/mm3 (1.2-5.4) L 03/16/20 06:18 Carter # (Auto) 0.3 K/mm3 (0.0-0.8) 03/16/20 06:18 Eos # (Auto) 0.0 K/mm3 (0.0-0.4) 03/16/20 06:18 Baso # (Auto) 0.0 K/mm3 (0.0-0.1) 03/16/20 06:18 Seg Neutrophils % 84.1 % (40.0-70.0) H 03/16/20 06:18 Seg Neutrophils # 3.1 K/mm3 (1.8-7.7) 03/16/20 06:18 PT 14.5 Sec. (12.2-14.9) 03/16/20 06:18 INR 1.14 (0.87-1.13) H 03/16/20 06:18 APTT 37.2 Sec. (24.2-36.6) H 03/15/20 12:26 D-Dimer 1600.05 ng/mlDDU (0-234) H 03/21/20 08:58 Sodium 134 mmol/L (137-145) L 03/22/20 05:04 Potassium 3.8 mmol/L (3.6-5.0) 03/22/20 05:04 Chloride 92.1 mmol/L (98-107) L 03/22/20 05:04 Carbon Dioxide 26 mmol/L (22-30) 03/22/20 05:04 Anion Gap 20 mmol/L 03/22/20 05:04 BUN 47 mg/dL (7-17) H 03/22/20 05:04 Creatinine 5.0 mg/dL (0.6-1.2) H 03/22/20 05:04 Estimated GFR 11 ml/min 03/22/20 05:04 BUN/Creatinine Ratio 9 % 03/22/20 05:04 Glucose 92 mg/dL (65-100) 03/22/20 05:04 POC Glucose 124 mg/dL (70-105) H 03/20/20 21:23 Calcium 10.0 mg/dL (8.4-10.2) 03/22/20 05:04 Magnesium 1.80 mg/dL (1.7-2.3) 03/20/20 01:22 Ferritin > 2000.0 ng/mL (10.0-200.0) H 03/21/20 08:58 Total Bilirubin 0.30 mg/dL (0.1-1.2) 03/17/20 04:36 Direct Bilirubin < 0.2 mg/dL (0-0.2) 03/15/20 12:26 Indirect Bilirubin 0.1 mg/dL 03/15/20 12:26 AST 15 units/L (5-40) 03/17/20 04:36 ALT 7 units/L (7-56) 03/17/20 04:36 Alkaline Phosphatase 73 units/L (35-129) 03/17/20 04:36 Lactate Dehydrogenase 291 units/L (91-180) H 03/21/20 08:58 C-Reactive Protein 19.80 mg/dL (0.00-1.30) H 03/21/20 08:58 NT-Pro-B Natriuret Pep > 29599 pg/mL (0-900) H 03/15/20 13:10 Total Protein 6.2 g/dL (6.3-8.2) L 03/17/20 04:36 Albumin 3.6 g/dL (3.9-5) L 03/17/20 04:36 Albumin/Globulin Ratio 1.4 % 03/17/20 04:36 Procalcitonin 6.52 ng/mL (<0.15) 03/21/20 08:58 TSH 1.540 mlU/mL (0.270-4.200) 03/19/20 04:45 Free T4 1.32 ng/dL (0.76-1.46) 03/19/20 04:45 Nasal Screen MRSA (PCR) Negative (Negative) 03/16/20 23:49 Coronavirus (PCR) Positive (Negative) A 03/16/20 Unknown Hepatitis A IgM Ab Non-reactive (NonReactive) 03/15/20 19:18 Hep Bs Antigen Non-reactive (Negative) 03/15/20 19:18 Hep B Core IgM Ab Non-reactive (NonReactive) 03/15/20 19:18 Hepatitis C Antibody Non-reactive (NonReactive) 03/15/20 19:18 - Diagnostic Impressions Diagnostic Impressions: Echocardiogram 03/15/20 15:05 Transthoracic Echocardiogram Indication: Pulm edema; h/o CHF BP: 186/94 HR: 75 Conclusions *Global left ventricular wall motion and contractility are within normal limits. *Global left ventricular systolic function is normal. *The right ventricular global systolic function is normal. *The left atrium is severely dilated. *There is evidence of an atrial septal aneurysm. *There is trace of aortic regurgitation. *Severe mitral leaflet calcification is visualized. *There is moderate to severe mitral stenosis. *The mean gradient across the mitral valve is 20.592802872087 mmHg. *There is mild tricuspid regurgitation. *The right ventricular systolic pressure is calculated at 60 mmHg. *There is trace pulmonic regurgitation. Findings Left Ventricle: The left ventricular chamber size is normal. Severe concentric left ventricular hypertrophy is observed. Global left ventricular wall motion and contractility are within normal limits. Global left ventricular systolic function is normal. The estimated ejection fraction is 50-55%. Left Atrium: The left atrium is severely dilated. Right Ventricle: The right ventricular cavity size is normal. The right ventricular global systolic function is normal. Right Atrium: The right atrial cavity size is normal. There is evidence of an atrial septal aneurysm. Aortic Valve: Mild aortic leaflet calcification is visualized. There is trace of aortic regurgitation. Mitral Valve: Severe mitral leaflet calcification is visualized. There is mild mitral regurgitation. There is moderate to severe mitral stenosis. The mean gradient across the mitral valve is 20.491509998086 mmHg. The peak gradient across the mitral valve is 33.47446593676 mmHg. Tricuspid Valve: The tricuspid valve leaflets are normal. There is mild tricuspid regurgitation. The right ventricular systolic pressure is calculated at 60 mmHg. Pulmonic Valve: There is no evidence of pulmonic valve thickening. There is trace pulmonic regurgitation. Pericardium: There is no pericardial effusion. Aorta: The aorta appears normal. Venous: The inferior vena cava is dilated. Measurements Chambers 2D Name Value Normal Range IVSd (2D) 1.82 cm (0.6 - 1.1) LVPWd (2D) 1.64 cm (0.6 - 1.1) LVIDd (2D) 4.56 cm (3.7 - 5.6) LVIDs (2D) 3.53 cm (2 - 3.8) LV FS (2D) 22.49 % - EF Teichholz (2D) 45.39 % - Ao root diameter (2D) 2.87 cm (2 - 3.7) Volumes/Mass Name Value Normal Range LA ESV SP 4CH (A/L) 98.24 ml - LA ESV SP 2CH (A/L) 197.59 ml - LA ESV BP (A/L) 140.33 ml - LA ESV BP (A/L) index 77.53 ml/m2 - LA ESV SP 4CH (MOD) 93.73 ml - LA ESV SP 2CH (MOD) 194.1 ml - LA ESV BP (MOD) 134.76 ml - LA ESV BP (MOD) index 74.45 ml/m2 - Diastolic/Systolic Function Name Value Normal Range MV E-wave Vmax 2.09 m/sec - MV deceleration time 630.49 msec - MV A-wave Vmax 1.38 m/sec - MV E:A ratio 1.51 ratio - Aortic Valve Name Value Normal Range AV Vmax 2.22 m/sec - AV VTI 47.25 cm - AV peak gradient 19.74 mmHg - AV mean gradient 10.57 mmHg - LVOT diameter 1.91 cm - LVOT Vmax 1.58 m/sec - LVOT VTI 31.21 cm - LVOT peak gradient 10 mmHg - LVOT mean gradient 5.33 mmHg - SV LVOT 89.65 ml - CLIVE (continuity Vmax) 2.04 cm2 - CLIVE (continuity VTI) 1.9 cm2 - AR PHT 479.73 msec - AR peak gradient 17.52 mmHg - Mitral Valve Name Value Normal Range MV Vmax 2.89 m/sec - MV VTI 107.77 cm - MV peak gradient 33.41 mmHg - MV mean gradient 20.1 mmHg - MV PHT 184.74 msec - MR Vmax 6.51 m/sec - MVA (PHT) 1.19 cm2 - MVA (continuity VTI) 0.83 cm2 - Tricuspid Valve Name Value Normal Range TR Vmax 3.61 m/sec - TR peak gradient 52.14 mmHg - RAP 8 mmHg - RVSP 60 mmHg - IVC diameter 2.47 cm (1.2 - 2.3) Pulmonic Valve/Qp:Qs Name Value Normal Range PV Vmax 1.13 m/sec - PV peak gradient 5.09 mmHg - MO end-diastolic Vmax 0.73 m/sec - PV acceleration time 106.57 msec - Marx/IV: Voiding Method Incontinent IV Catheter Type [Left Hand] INT / Saline Lock Active Medications - Current Medications Current Medications: Generic Name Dose Route Start Last Admin Trade Name Freq PRN Reason Stop Dose Admin Acetaminophen 650 mg 03/15/20 14:59 03/25/20 05:27 Acetaminophen 325 Mg Tab PO 650 mg Q4H PRN Administration Pain MILD(1-3)/Fever >100.5/KENNY Amlodipine Besylate 10 mg 03/16/20 10:00 03/28/20 09:59 Amlodipine 10 Mg Tab PO 10 mg DAILY MIK Administration Aspirin 81 mg 03/16/20 10:00 03/28/20 09:59 Aspirin Ec 81 Mg Tab PO 81 mg DAILY MIK Administration Atorvastatin Calcium 10 mg 03/15/20 22:00 03/27/20 23:02 Atorvastatin 10 Mg Tab PO 10 mg QHS MIK Administration Azathioprine 50 mg 03/16/20 10:00 03/27/20 11:22 Azathioprine 50 Mg Tab PO 50 mg DAILY MIK Administration Calcitriol 1 mcg 03/21/20 10:00 03/28/20 09:59 Calcitriol 0.25 Mcg Cap PO 1 mcg QDAY MIK Administration Clonidine HCl 0.2 mg 03/15/20 22:00 03/28/20 05:43 Clonidine 0.1 Mg Tab PO 0.2 mg Q8HR MIK Administration Clopidogrel Bisulfate 75 mg 03/16/20 10:00 03/28/20 09:59 Clopidogrel 75 Mg Tab PO 75 mg QDAY [facility] Administration Epoetin [place] 10,000 unit 03/15/20 18:00 [place] 10,000 Unit/1 Ml Inj SUB-Q SHEREE MIK Guaifenesin 600 mg 03/17/20 11:00 03/28/20 09:59 Guaifenesin Er 600 Mg Tab PO 600 mg BID [facility] Administration Heparin Sodium (Porcine) 5,000 unit 03/15/20 22:00 03/28/20 05:43 Heparin 5,000 Unit/1 Ml Vial SUB-Q 5,000 unit Q8HR [facility] Administration Hydralazine HCl 20 mg 03/17/20 07:33 03/22/20 11:32 Hydralazine 20 Mg/1 Ml Inj IV 20 mg Q4HR PRN Administration Give if SBP>180 DBP>100 Hydralazine HCl 100 mg 03/18/20 20:00 03/28/20 07:53 Hydralazine 100 Mg Tab PO 100 mg TID [facility] Administration Hydrophilic Ointment 1 applic 03/19/20 04:30 03/19/20 05:52 Lip Therapy Vaseline TP 1 applic DIRECT PRN Administration Dry Lips Sodium Chloride 100 mls @ 999 mls/hr 03/19/20 17:59 Nacl 0.9% IV SHEREE PRN Hypotension Magnesium Hydroxide 30 ml 03/15/20 14:59 Magnesium Hydroxide (Mom) Oral Liqd Udc PO Q4H PRN Constipation Metoprolol Tartrate 100 mg 03/22/20 22:00 03/28/20 09:59 Metoprolol Tartrate 100 Mg Tab PO 100 mg BID [facility] Administration Minoxidil 2.5 mg 03/22/20 13:00 03/28/20 09:59 Minoxidil 2.5 Mg Tab PO 2.5 mg QDAY MIK Administration Morphine Sulfate 2 mg 03/15/20 14:59 03/22/20 17:22 Morphine 2 Mg/1 Ml Inj IV 2 mg Q5MIN PRN Administration Chest Pain unrelieved by NTG Ondansetron HCl 4 mg 03/15/20 14:59 03/22/20 17:22 Ondansetron 4 Mg/2 Ml Inj IV 4 mg Q8H PRN Administration Nausea And Vomiting Pantoprazole Sodium 20 mg 03/16/20 10:00 03/28/20 09:59 Pantoprazole 20 Mg Tab PO 20 mg QDAY MIK Administration Sodium Chloride 10 ml 03/15/20 22:00 03/28/20 10:02 Sodium Chloride 0.9% 10 Ml Flush Syringe IV 10 ml BID MIK Administration Sodium Chloride 10 ml 03/15/20 14:59 Sodium Chloride 0.9% 10 Ml Flush Syringe IV PRN PRN LINE FLUSH Tramadol HCl 50 mg 03/16/20 03:23 03/27/20 23:01 Tramadol 50 Mg Tab PO 50 mg Q6H PRN Administration Pain, Moderate (4-6) Valsartan 160 mg 03/15/20 22:00 03/28/20 09:59 Valsartan 160mg Tab PO 160 mg BID MIK Administration Nutrition/Malnutrition Assess - Dietary Evaluation Nutrition/Malnutrition Findings: Nutrition Notes Start: 03/23/20 13:01 Freq: Status: Active Protocol: Document 03/27/20 12:45 (Rec: 03/27/20 12:56 [email or web address]) Nutrition Notes Initial or Follow up Reassessment Current Diagnosis CKD (stage V CKD),Heart Failure Other Pertinent Diagnosis Covid(+), lupus, on HD, acute respiratory failure Current Diet Cardiac with renal Labs/Tests No new labs Pertinent Medications Reviewed Height 5 ft 3 in Weight 78.5 kg [place] Body Weight (kg) 52.27 BMI 30.7 Weight Status Obese Subjective/Other Information FU for intakes. Pt reports not eating much for past couple months due to decreased appetitie. Pt does not want Nepro ONS. Food prefrences noted. Pt unsure of UBW. Pt reports eating oatmeal for breakfast and unsure how much of dinner she ate last night. Pt with 50% intakes in chart for 03/28. Percent of energy/protein needs met: 65%/41% Burn Absent Trauma Absent GI Symptoms None Food Allergy No Current % PO Poor (25-49%) Minimum of two criteria No Energy Intake (non-severe) <75% Estimated Energy Requirement >7 days #1 Nutrition Diagnosis Inadequate oral intake As Evidenced by Signs and Symptoms pt consuming 50% of meals Diagnosis Progress(for reassessment Improved documentation) Is patient on ventilator? No Is Patient Ambulatory and/or Out of Bed No REE-([place]-St. Jeor-confined to bed) 1091.862 Calculation Used for Recommendations [place] Jeor Additional Notes Protein: >1.2g/kg (>94g) Fluid: 1000mL or per MD Nutrition Intervention Change Diet Order: Continue current diet Add Supplement/Snack (indicate name/kcal D/C /protein ) Goal #1 Meet at least 75% of energy and protein needs via PO Anticipated Discharge Needs: Cardiac/Renal diet Follow-Up By: 03/29/20 Additional Comments FU for intakes
[2020-03-28] MEDS: azaTHIOprine 50 MG TAB PO SCH (14:59)
--- NOTE | 2020-03-28 16:28 | Progress Note ---
Assessment and Plan - Patient Problems (1) Pneumonia due to COVID-19 virus Current Visit: Yes Status: Chronic Plan to address problem: Management per infectious disease recommendations. (2) ESRD needing dialysis Current Visit: No Status: Chronic Plan to address problem: Maintain on inpatient Friday hemodialysis schedule. pending placement at outpatient dialysis clinic for COVID-19 (+) patients. (3) Acute hypoxemic respiratory failure Current Visit: Yes Status: Acute Plan to address problem: Currently stable on 3 L O2 via nasal cannula. Further recommendations per pulmonology. (4) Anemia in chronic illness Current Visit: Yes Status: Chronic Plan to address problem: ABDOULAYE therapy with hemodialysis. (5) Hypertensive chronic kidney disease with stage 5 chronic kidney disease or end stage renal disease Current Visit: Yes Status: Chronic Plan to address problem: Monitor blood pressure on the current regimen. (6) Lupus (systemic lupus erythematosus) Current Visit: Yes Status: Acute (7) Secondary hyperparathyroidism (of renal origin) Current Visit: Yes Status: Chronic Plan to address problem: Continue on current outpatient phosphate binder regimen. Subjective Date of service: 03/28/20 Principal diagnosis: COVID Interval history: No acute changes overnight. Patient not directly examined in order to preserve PPE. Primary care team notes/physical examination reviewed. Objective - Exam Narrative Exam: Patient not directly examined in order to preserve PPE - Vital Signs Vital signs: Vital Signs - 12hr 03/28/20 03/28/20 03/28/20 05:43 05:49 08:04 Temperature 98.2 F Pulse Rate 62 56 L Respiratory 17 Rate Blood Pressure 154/70 154/70 O2 Sat by Pulse 99 99 Oximetry 03/28/20 03/28/20 03/28/20 09:59 11:43 14:50 Temperature 98.7 F Pulse Rate 56 L 59 L 59 L Respiratory 17 Rate Blood Pressure 154/70 151/65 151/65 O2 Sat by Pulse 100 Oximetry - Lab 03/21/20 05:59 03/22/20 05:04 Most recent lab results Calcium 10.0 mg/dL (8.4-10.2) 03/22/20 05:04 Magnesium 1.80 mg/dL (1.7-2.3) 03/20/20 01:22 Medications & Allergies - Medications Allergies/Adverse Reactions: Allergies No Known Allergies Allergy (Unverified 10/14/20 05:58) Home Medications: Home Medications Medication Instructions Recorded Confirmed Last Taken Type Aspirin [Adult Aspirin] 81 mg PO DAILY 12/02/19 03/18/20 Unknown History AtorvaSTATin 10 mg PO QHS 12/02/19 03/18/20 Unknown History Clopidogrel [Plavix] 75 mg PO QDAY 12/02/19 03/18/20 Unknown History Folic Acid 0.4 mg PO QDAY 12/02/19 03/18/20 Unknown History Omeprazole 20 mg PO DAILY 12/02/19 03/18/20 Unknown History amLODIPine 10 mg PO DAILY 12/02/19 03/18/20 Unknown History azaTHIOprine [Azathioprine] 50 mg PO DAILY 12/02/19 03/18/20 Unknown History calcitrioL [Rocaltrol] 1 mcg PO QDAY 12/02/19 03/18/20 Unknown History Valsartan [Diovan] 160 mg PO BID #60 tablet 12/10/19 03/18/20 Unknown Rx cloNIDine [Catapres] 0.2 mg PO Q8HR #90 tablet 12/10/19 03/18/20 Unknown Rx minoxidiL [Loniten] 5 mg PO QDAY #30 tablet 12/10/19 03/18/20 Unknown Rx Metoprolol [Lopressor TAB] 100 mg PO BID #60 tablet 03/27/20 Unknown Rx guaiFENesin ER [Mucinex ER] 600 mg PO BID #10 tablet 03/27/20 Unknown Rx hydrALAZINE [Apresoline TAB] 100 mg PO TID #90 tab 03/27/20 Unknown Rx Active Medications: Generic Name Dose Route Start Last Admin Trade Name Diego PRN Reason Stop Dose Admin Acetaminophen 650 mg 03/15/20 14:59 03/25/20 05:27 Acetaminophen 325 Mg Tab PO 650 mg Q4H PRN Administration Pain MILD(1-3)/Fever >100.5/KENNY Amlodipine Besylate 10 mg 03/16/20 10:00 03/28/20 09:59 Amlodipine 10 Mg Tab PO 10 mg DAILY MIK Administration Aspirin 81 mg 03/16/20 10:00 03/28/20 09:59 Aspirin Ec 81 Mg Tab PO 81 mg DAILY MIK Administration Atorvastatin Calcium 10 mg 03/15/20 22:00 03/27/20 23:02 Atorvastatin 10 Mg Tab PO 10 mg QHS MIK Administration Azathioprine 50 mg 03/16/20 10:00 03/28/20 14:59 Azathioprine 50 Mg Tab PO 50 mg DAILY MIK Administration Calcitriol 1 mcg 03/21/20 10:00 03/28/20 09:59 Calcitriol 0.25 Mcg Cap PO 1 mcg QDAY MIK Administration Clonidine HCl 0.2 mg 03/15/20 22:00 03/28/20 14:50 Clonidine 0.1 Mg Tab PO 0.2 mg Q8HR MIK Administration Clopidogrel Bisulfate 75 mg 03/16/20 10:00 03/28/20 09:59 Clopidogrel 75 Mg Tab PO 75 mg QDAY [facility] Administration [place] 10,000 unit 03/15/20 18:00 [place] 10,000 Unit/1 Ml Inj SUB-Q SHEREE [facility] Guaifenesin 600 mg 03/17/20 11:00 03/28/20 09:59 Guaifenesin Er 600 Mg Tab PO 600 mg BID MIK Administration Heparin Sodium (Porcine) 5,000 unit 03/15/20 22:00 03/28/20 14:51 Heparin 5,000 Unit/1 Ml Vial SUB-Q Not Given Q8HR [facility] Hydralazine HCl 20 mg 03/17/20 07:33 03/22/20 11:32 Hydralazine 20 Mg/1 Ml Inj IV 20 mg Q4HR PRN Administration Give if SBP>180 DBP>100 Hydralazine HCl 100 mg 03/18/20 20:00 03/28/20 14:51 Hydralazine 100 Mg Tab PO 100 mg TID MIK Administration Hydrophilic Ointment 1 applic 03/19/20 04:30 03/19/20 05:52 Lip Therapy Vaseline TP 1 applic DIRECT PRN Administration Dry Lips Sodium Chloride 100 mls @ 999 mls/hr 03/19/20 17:59 Nacl 0.9% IV SHEREE PRN Hypotension Magnesium Hydroxide 30 ml 03/15/20 14:59 Magnesium Hydroxide (Mom) Oral Liqd Udc PO Q4H PRN Constipation Metoprolol Tartrate 100 mg 03/22/20 22:00 03/28/20 09:59 Metoprolol Tartrate 100 Mg Tab PO 100 mg BID MIK Administration Minoxidil 2.5 mg 03/22/20 13:00 03/28/20 09:59 Minoxidil 2.5 Mg Tab PO 2.5 mg QDAY MIK Administration Morphine Sulfate 2 mg 03/15/20 14:59 03/22/20 17:22 Morphine 2 Mg/1 Ml Inj IV 2 mg Q5MIN PRN Administration Chest Pain unrelieved by NTG Ondansetron HCl 4 mg 03/15/20 14:59 03/22/20 17:22 Ondansetron 4 Mg/2 Ml Inj IV 4 mg Q8H PRN Administration Nausea And Vomiting Pantoprazole Sodium 20 mg 03/16/20 10:00 03/28/20 09:59 Pantoprazole 20 Mg Tab PO 20 mg QDAY MIK Administration Sodium Chloride 10 ml 03/15/20 22:00 03/28/20 10:02 Sodium Chloride 0.9% 10 Ml Flush Syringe IV 10 ml BID MIK Administration Sodium Chloride 10 ml 03/15/20 14:59 Sodium Chloride 0.9% 10 Ml Flush Syringe IV PRN PRN LINE FLUSH Tramadol HCl 50 mg 03/16/20 03:23 03/27/20 23:01 Tramadol 50 Mg Tab PO 50 mg Q6H PRN Administration Pain, Moderate (4-6) Valsartan 160 mg 03/15/20 22:00 03/28/20 09:59 Valsartan 160mg Tab PO 160 mg BID MIK Administration
[2020-03-29] MEDS: cloNIDine 0.1 MG TAB PO SCH ×3 (05:45→22:24)
[2020-03-29] MEDS: HEPARIN 5,000 UNIT/1 ML VIAL SUB-Q SCH ×3 (05:46→22:18)
[2020-03-29] MEDS: hydrALAZINE 100 MG TAB PO SCH ×3 (08:00→22:23)
--- NOTE | 2020-03-29 08:56 | Progress Note ---
Assessment and Plan 59 y/o female with acute respiratory failure secondary to COVID 19 with persistent hypoxemia and elevated BP's. 03/29/20: Same recs as yesterday, will likely sign off. Call if questions. RT's can continue to wean FiO2 as tolerated. 03/28/20: No objection to discharge pulmonary winters. Will see PRN. 03/27/20: Wean FiO2 for sats >88%. Patient being discharged today. Can follow up in 14 days post discharge in the office. 03/24/20: Continue to wean FiO2 as tolerated for sats >88%. steroids for a total of 10 days, last day is today. Will likely need ambulatory test to assess oxygen needs over the weekend. Hopeful discharge in the next 48-72 hours. 03/23/20: Will speak with RT about being more aggressive with weaning as she is a ble to tolerate being off HFNC at times. 03/22/20: Same recs as yesterday. Continue current management and will continue to follow along. Hopeful patient can turn the corner. Proning is a must. Not much else to offer from a pulmonary standpoint other than time. She is getting extra dialysis sessions as well as lasix 80 BID. She needs to prone as much as possible. Despite her oxygen requirements she is not in severe distress so hopefully she just needs more time. Will continue to monitor along with you. Please encourage proning. Subjective Date of service: 03/29/20 Principal diagnosis: COVID Interval history: No acute events. Stable on 2 liters NC. Objective Vital Signs - 12hr 03/28/20 03/28/20 03/28/20 21:06 21:35 22:00 Temperature 98.4 F Pulse Rate 60 Respiratory 18 17 Rate Respiratory 18 Rate [Abdomen] Respiratory 18 Rate [Back] Blood Pressure 146/64 O2 Sat by Pulse 99 98 100 Oximetry 03/28/20 03/28/20 03/29/20 22:09 22:10 04:35 Temperature 98.1 F Pulse Rate 60 60 62 Respiratory 20 Rate Respiratory Rate [Abdomen] Respiratory Rate [Back] Blood Pressure 146/64 146/64 154/71 O2 Sat by Pulse 100 Oximetry 03/29/20 03/29/20 03/29/20 05:45 08:00 08:15 Temperature 98.1 F Pulse Rate 62 62 63 Respiratory 18 Rate Respiratory Rate [Abdomen] Respiratory Rate [Back] Blood Pressure 154/71 164/71 158/74 O2 Sat by Pulse Oximetry 03/29/20 03/29/20 08:22 08:30 Temperature Pulse Rate 61 Respiratory Rate Respiratory Rate [Abdomen] Respiratory Rate [Back] Blood Pressure 146/66 O2 Sat by Pulse 100 Oximetry CBC and BMP: 03/21/20 05:59 03/22/20 05:04 ABG, PT/INR, D-dimer: PT/INR, D-dimer PT 14.5 Sec. (12.2-14.9) 03/16/20 06:18 INR 1.14 (0.87-1.13) H 03/16/20 06:18 D-Dimer 1600.05 ng/mlDDU (0-234) H 03/21/20 08:58 Abnormal lab findings: Abnormal Labs 03/15/20 03/15/20 03/15/20 12:26 12:26 12:29 WBC RBC Hgb Hct RDW Lymph % (Auto) [place] % (Auto) Lymph # (Auto) Seg Neutrophils % INR APTT 37.2 H D-Dimer 718.25 H Sodium 130 L Potassium Chloride 89.8 L BUN 69 H Creatinine 6.0 H POC Glucose Ferritin 1021.0 H Lactate Dehydrogenase C-Reactive Protein NT-Pro-B Natriuret Pep Total Protein Albumin Coronavirus (PCR) 03/15/20 03/15/20 03/16/20 13:10 14:12 06:18 WBC 3.7 L RBC 2.77 L 2.94 L Hgb 8.8 L 9.3 L Hct 26.4 L 28.2 L RDW 16.4 H 16.7 H Lymph % (Auto) 1.5 L 7.0 L [place] % (Auto) 9.2 H 8.4 H Lymph # (Auto) 0.1 L 0.3 L Seg Neutrophils % 89.1 H 84.1 H INR APTT D-Dimer Sodium Potassium Chloride BUN Creatinine POC Glucose Ferritin Lactate Dehydrogenase 290 H C-Reactive Protein 7.10 H NT-Pro-B Natriuret Pep > 81581 H Total Protein Albumin Coronavirus (PCR) 03/16/20 03/16/20 03/16/20 06:18 06:18 Unknown WBC RBC Hgb Hct RDW Lymph % (Auto) [place] % (Auto) Lymph # (Auto) Seg Neutrophils % INR 1.14 H APTT D-Dimer Sodium Potassium Chloride 96.2 L BUN 55 H Creatinine 5.0 H POC Glucose Ferritin Lactate Dehydrogenase C-Reactive Protein NT-Pro-B Natriuret Pep Total Protein Albumin Coronavirus (PCR) Positive A 03/17/20 03/17/20 03/17/20 04:36 13:36 13:36 WBC RBC Hgb Hct RDW Lymph % (Auto) [place] % (Auto) Lymph # (Auto) Seg Neutrophils % INR APTT D-Dimer 1336.88 H Sodium 134 L Potassium 5.5 H Chloride 93.9 L BUN 68 H Creatinine 6.2 H POC Glucose Ferritin 1905.0 H Lactate Dehydrogenase C-Reactive Protein NT-Pro-B Natriuret Pep Total Protein 6.2 L Albumin 3.6 L Coronavirus (PCR) 03/17/20 03/18/20 03/19/20 13:36 04:46 04:45 WBC RBC Hgb Hct RDW Lymph % (Auto) [place] % (Auto) Lymph # (Auto) Seg Neutrophils % INR APTT D-Dimer Sodium 135 L Potassium 5.5 H Chloride 95.1 L 91.0 L BUN 47 H 68 H Creatinine 4.8 H 6.1 H POC Glucose Ferritin Lactate Dehydrogenase 213 H C-Reactive Protein 12.70 H NT-Pro-B Natriuret Pep Total Protein Albumin Coronavirus (PCR) 03/20/20 03/20/20 03/21/20 06:16 21:23 05:59 WBC RBC Hgb Hct RDW Lymph % (Auto) [place] % (Auto) Lymph # (Auto) Seg Neutrophils % INR APTT D-Dimer Sodium Potassium Chloride 95.0 L 94.4 L BUN 45 H 29 H Creatinine 4.7 H 3.6 H POC Glucose 124 H Ferritin Lactate Dehydrogenase C-Reactive Protein NT-Pro-B Natriuret Pep Total Protein Albumin Coronavirus (PCR) 03/21/20 03/21/20 03/21/20 05:59 08:58 08:58 WBC 4.0 L RBC 2.68 L Hgb 8.4 L Hct 25.2 L RDW 17.2 H Lymph % (Auto) [place] % (Auto) Lymph # (Auto) Seg Neutrophils % INR APTT D-Dimer 1600.05 H Sodium Potassium Chloride BUN Creatinine POC Glucose Ferritin > 2000.0 H Lactate Dehydrogenase C-Reactive Protein NT-Pro-B Natriuret Pep Total Protein Albumin Coronavirus (PCR) 03/21/20 03/22/20 08:58 05:04 WBC RBC Hgb Hct RDW Lymph % (Auto) [place] % (Auto) Lymph # (Auto) Seg Neutrophils % INR APTT D-Dimer Sodium 134 L Potassium Chloride 92.1 L BUN 47 H Creatinine 5.0 H POC Glucose Ferritin Lactate Dehydrogenase 291 H C-Reactive Protein 19.80 H NT-Pro-B Natriuret Pep Total Protein Albumin Coronavirus (PCR)
--- NOTE | 2020-03-29 09:57 | Progress Note ---
Assessment and Plan Assessment and plan: 59-year-old female with known history of end-stage renal disease on dialysis- Mondays, Wednesdays and Fridays, lupus, CHF, presenting to the emergency room today from an assisted living facility with cough fever headache which has been ongoing for about 4 days. She did not go to dialysis today because she was not feeling quite well. She had a fever of about 103 F. She also also has some mild shortness of breath. Patient indicates that several people at the facility had tested positive for COVID-19. She tested negative for COVID-19 yesterday. Patient denies any chest pain, no nausea vomiting, no loss of taste or smell, no diarrhea and no abdominal pain. In route to the hospital patient oxygen saturation was about 88% on room air she was subsequently placed on 2 L of oxygen. Work-up in the emergency room today chest x-ray reveals pulmonary edema. Tissue Inserter Dr. Hong has been consulted by the ER physician. Patient has been admitted with pulmonary edema. We will however rule out COVID-19. 2/2: Review of records shows patient is still on High flow, will obtain Pulmonary consultation, patient with worsening D.Dimer, will obtain V/Q scan to rule pulmonary embolism, Will likely change to Heparin drip till this iS clarified if patient is still on High flow. I unfortunately do not see clear oxygen documentation. Continues with Hypertensive urgency, SPOKE with the daughter, patient has had Elevated blood pressure for some time but not quite this high, Nephrology following and adjusting meds. 2/3: Continue supportive care, Will discontinue Heparin drip at this time, and use sliding scale considering low probability of PE on V/Q scan. Considering uncontrolled HTN, will transfer to [facility] and initiate Cardene drip, continue to wean High flow. COUNSELLING ON FLUID RESTRICTIONS 2/4: Consider repeating hypoxia and increasing high flow back to 100% we will ask respiratory therapist to aggressively wean as recommended by instructor industrial design. Discussed with nursing staff remove restraints and less reevaluate the patient. If recurrent delirium or encephalopathy we will at that time reevaluate. Have discussed with the patient again about compliance with p.o. fluid intake. Blood pressure is better improved today. 5: Patient undergoing dialysis today. Anticipate discharge in 48 hours hopefully. We are awaiting outpatient HD set up. Patient will be discharged to rehab center. Is currently down to 4 L of oxygen will need exertional oxygen evaluation prior to discharge. Blood pressure is better. Continue dexamethasone and remdesivir for now. 03/25: Continue supportive care wean oxygen as tolerated. Awaiting dialysis placement for discharge. 03/26: Continue supportive care, blood pressure still elevated. Continue to monitor and address. Still awaiting placement 03/27. Still awaiting placement. Has no complaints today 03/28-03/29. Still awaiting placement and HD chair. DC when arrange has been made Plan Acute hypoxic respiratory failure -Oxygen supplementation Covid pneumonia Dexamethasone ID on board End-stage renal disease -Friday -Continue dialysis as scheduled - Plan for hemodialysis chair Nonsustained ventricular tachycardia Cardiology recommendations appreciated Continue to monitor, no acute intervention required at this time -TTE noted Accelerated hypertension related to renal disease Valsartan, metoprolol, furosemide, clonidine, hydralazine, making adjustments for better control Patient's blood pressure at home is usually in the 200 systolic, completely uncontrolled Anemia and chronic disease illness -No acute bleeding Hypervolemic hyponatremia -Resolved with hemodialysis Heart failure, unspecified type Presumed history of CAD Elevated BNP Metoprolol, Plavix Hyperkalemia Resolved Morbid obesity Lifestyle change CODE STATUS: Full DVT prophylaxis: Heparin Disposition: Continue Covid treatment, continue hemodialysis, monitor for nonsustained V. tach History Interval history: No new complaints today Getting HD at bedside Awaiting HD arrangement Hospitalist Physical - Physical exam Narrative exam: VITAL SIGNS: Reviewed. GENERAL: Awake HEAD: No signs of head trauma. EYES: Pupils are equal. Extraocular motions intact. MOUTH: Oropharynx is normal. NECK: No adenopathy, no JVD. CHEST: Chest with diminished breath sounds bilaterally. No wheezes, rales, or rhonchi. right permacath in place CARDIAC: normal S1 and S2, without murmurs, gallops, or rubs. ABDOMEN: Soft, non tender and non distended. No rebound or guarding, and no masses palpated. Bowel Sounds normal. MUSCULOSKELETAL: No edema NEUROLOGIC EXAM: Alert and oriented x3. No focal neurologic deficits SKIN: No obvious lesions - Constitutional Vitals: Temp Pulse Resp BP Pulse Ox 98.1 F 63 18 124/66 100 03/29/20 08:00 03/29/20 09:30 03/29/20 08:00 03/29/20 09:30 03/29/20 08:22 Results - Labs CBC & Chem 7: 03/21/20 05:59 03/22/20 05:04 Labs: Laboratory Last Values WBC 4.0 K/mm3 (4.5-11.0) L 03/21/20 05:59 RBC 2.68 M/mm3 (3.65-5.03) L 03/21/20 05:59 Hgb 8.4 gm/dl (10.1-14.3) L 03/21/20 05:59 Hct 25.2 % (30.3-42.9) L 03/21/20 05:59 MCV 94 fl (79-97) 03/21/20 05:59 MCH 31 pg (28-32) 03/21/20 05:59 MCHC 33 % (30-34) 03/21/20 05:59 RDW 17.2 % (13.2-15.2) H 03/21/20 05:59 Plt Count 198 K/mm3 (140-440) 03/21/20 05:59 Lymph % (Auto) 7.0 % (13.4-35.0) L 03/16/20 06:18 [place] % (Auto) 8.4 % (0.0-7.3) H 03/16/20 06:18 Eos % (Auto) 0.0 % (0.0-4.3) 03/16/20 06:18 Baso % (Auto) 0.5 % (0.0-1.8) 03/16/20 06:18 Lymph # (Auto) 0.3 K/mm3 (1.2-5.4) L 03/16/20 06:18 [place] # (Auto) 0.3 K/mm3 (0.0-0.8) 03/16/20 06:18 Eos # (Auto) 0.0 K/mm3 (0.0-0.4) 03/16/20 06:18 Baso # (Auto) 0.0 K/mm3 (0.0-0.1) 03/16/20 06:18 Seg Neutrophils % 84.1 % (40.0-70.0) H 03/16/20 06:18 Seg Neutrophils # 3.1 K/mm3 (1.8-7.7) 03/16/20 06:18 PT 14.5 Sec. (12.2-14.9) 03/16/20 06:18 INR 1.14 (0.87-1.13) H 03/16/20 06:18 APTT 37.2 Sec. (24.2-36.6) H 03/15/20 12:26 D-Dimer 1600.05 ng/mlDDU (0-234) H 03/21/20 08:58 Sodium 134 mmol/L (137-145) L 03/22/20 05:04 Potassium 3.8 mmol/L (3.6-5.0) 03/22/20 05:04 Chloride 92.1 mmol/L (98-107) L 03/22/20 05:04 Carbon Dioxide 26 mmol/L (22-30) 03/22/20 05:04 Anion Gap 20 mmol/L 03/22/20 05:04 BUN 47 mg/dL (7-17) H 03/22/20 05:04 Creatinine 5.0 mg/dL (0.6-1.2) H 03/22/20 05:04 Estimated GFR 11 ml/min 03/22/20 05:04 BUN/Creatinine Ratio 9 % 03/22/20 05:04 Glucose 92 mg/dL (65-100) 03/22/20 05:04 POC Glucose 124 mg/dL (70-105) H 03/20/20 21:23 Calcium 10.0 mg/dL (8.4-10.2) 03/22/20 05:04 Magnesium 1.80 mg/dL (1.7-2.3) 03/20/20 01:22 Ferritin > 2000.0 ng/mL (10.0-200.0) H 03/21/20 08:58 Total Bilirubin 0.30 mg/dL (0.1-1.2) 03/17/20 04:36 Direct Bilirubin < 0.2 mg/dL (0-0.2) 03/15/20 12:26 Indirect Bilirubin 0.1 mg/dL 03/15/20 12:26 AST 15 units/L (5-40) 03/17/20 04:36 ALT 7 units/L (7-56) 03/17/20 04:36 Alkaline Phosphatase 73 units/L (35-129) 03/17/20 04:36 Lactate Dehydrogenase 291 units/L (91-180) H 03/21/20 08:58 C-Reactive Protein 19.80 mg/dL (0.00-1.30) H 03/21/20 08:58 NT-Pro-B Natriuret Pep > 71731 pg/mL (0-900) H 03/15/20 13:10 Total Protein 6.2 g/dL (6.3-8.2) L 03/17/20 04:36 Albumin 3.6 g/dL (3.9-5) L 03/17/20 04:36 Albumin/Globulin Ratio 1.4 % 03/17/20 04:36 Procalcitonin 6.52 ng/mL (<0.15) 03/21/20 08:58 TSH 1.540 mlU/mL (0.270-4.200) 03/19/20 04:45 Free T4 1.32 ng/dL (0.76-1.46) 03/19/20 04:45 Nasal Screen MRSA (PCR) Negative (Negative) 03/16/20 23:49 Coronavirus (PCR) Positive (Negative) A 03/16/20 Unknown Hepatitis A IgM Ab Non-reactive (NonReactive) 03/15/20 19:18 Hep Bs Antigen Non-reactive (Negative) 03/15/20 19:18 Hep B Core IgM Ab Non-reactive (NonReactive) 03/15/20 19:18 Hepatitis C Antibody Non-reactive (NonReactive) 03/15/20 19:18 - Diagnostic Impressions Diagnostic Impressions: Echocardiogram 03/15/20 15:05 Transthoracic Echocardiogram Indication: Pulm edema; h/o CHF BP: 186/94 HR: 75 Conclusions *Global left ventricular wall motion and contractility are within normal limits. *Global left ventricular systolic function is normal. *The right ventricular global systolic function is normal. *The left atrium is severely dilated. *There is evidence of an atrial septal aneurysm. *There is trace of aortic regurgitation. *Severe mitral leaflet calcification is visualized. *There is moderate to severe mitral stenosis. *The mean gradient across the mitral valve is 20.310599897141 mmHg. *There is mild tricuspid regurgitation. *The right ventricular systolic pressure is calculated at 60 mmHg. *There is trace pulmonic regurgitation. Findings Left Ventricle: The left ventricular chamber size is normal. Severe concentric left ventricular hypertrophy is observed. Global left ventricular wall motion and contractility are within normal limits. Global left ventricular systolic function is normal. The estimated ejection fraction is 50-55%. Left Atrium: The left atrium is severely dilated. Right Ventricle: The right ventricular cavity size is normal. The right ventricular global systolic function is normal. Right Atrium: The right atrial cavity size is normal. There is evidence of an atrial septal aneurysm. Aortic Valve: Mild aortic leaflet calcification is visualized. There is trace of aortic regurgitation. Mitral Valve: Severe mitral leaflet calcification is visualized. There is mild mitral regurgitation. There is moderate to severe mitral stenosis. The mean gradient across the mitral valve is 20.104112880446 mmHg. The peak gradient across the mitral valve is 33.37118364099 mmHg. Tricuspid Valve: The tricuspid valve leaflets are normal. There is mild tricuspid regurgitation. The right ventricular systolic pressure is calculated at 60 mmHg. Pulmonic Valve: There is no evidence of pulmonic valve thickening. There is trace pulmonic regurgitation. Pericardium: There is no pericardial effusion. Aorta: The aorta appears normal. Venous: The inferior vena cava is dilated. Measurements Chambers 2D Name Value Normal Range IVSd (2D) 1.82 cm (0.6 - 1.1) LVPWd (2D) 1.64 cm (0.6 - 1.1) LVIDd (2D) 4.56 cm (3.7 - 5.6) LVIDs (2D) 3.53 cm (2 - 3.8) LV FS (2D) 22.49 % - EF Teichholz (2D) 45.39 % - Ao root diameter (2D) 2.87 cm (2 - 3.7) Volumes/Mass Name Value Normal Range LA ESV SP 4CH (A/L) 98.24 ml - LA ESV SP 2CH (A/L) 197.59 ml - LA ESV BP (A/L) 140.33 ml - LA ESV BP (A/L) index 77.53 ml/m2 - LA ESV SP 4CH (MOD) 93.73 ml - LA ESV SP 2CH (MOD) 194.1 ml - LA ESV BP (MOD) 134.76 ml - LA ESV BP (MOD) index 74.45 ml/m2 - Diastolic/Systolic Function Name Value Normal Range MV E-wave Vmax 2.09 m/sec - MV deceleration time 630.49 msec - MV A-wave Vmax 1.38 m/sec - MV E:A ratio 1.51 ratio - Aortic Valve Name Value Normal Range AV Vmax 2.22 m/sec - AV VTI 47.25 cm - AV peak gradient 19.74 mmHg - AV mean gradient 10.57 mmHg - LVOT diameter 1.91 cm - LVOT Vmax 1.58 m/sec - LVOT VTI 31.21 cm - LVOT peak gradient 10 mmHg - LVOT mean gradient 5.33 mmHg - SV LVOT 89.65 ml - CLIVE (continuity Vmax) 2.04 cm2 - CLIVE (continuity VTI) 1.9 cm2 - AR PHT 479.73 msec - AR peak gradient 17.52 mmHg - Mitral Valve Name Value Normal Range MV Vmax 2.89 m/sec - MV VTI 107.77 cm - MV peak gradient 33.41 mmHg - MV mean gradient 20.1 mmHg - MV PHT 184.74 msec - MR Vmax 6.51 m/sec - MVA (PHT) 1.19 cm2 - MVA (continuity VTI) 0.83 cm2 - Tricuspid Valve Name Value Normal Range TR Vmax 3.61 m/sec - TR peak gradient 52.14 mmHg - RAP 8 mmHg - RVSP 60 mmHg - IVC diameter 2.47 cm (1.2 - 2.3) Pulmonic Valve/Qp:Qs Name Value Normal Range PV Vmax 1.13 m/sec - PV peak gradient 5.09 mmHg - OH end-diastolic Vmax 0.73 m/sec - PV acceleration time 106.57 msec - Marx/IV: Voiding Method Incontinent IV Catheter Type [Left Hand] INT / Saline Lock Active Medications - Current Medications Current Medications: Generic Name Dose Route Start Last Admin Trade Name Freq PRN Reason Stop Dose Admin Acetaminophen 650 mg 03/15/20 14:59 03/25/20 05:27 Acetaminophen 325 Mg Tab PO 650 mg Q4H PRN Administration Pain MILD(1-3)/Fever >100.5/KENNY Amlodipine Besylate 10 mg 03/16/20 10:00 03/28/20 09:59 Amlodipine 10 Mg Tab PO 10 mg DAILY MIK Administration Aspirin 81 mg 03/16/20 10:00 03/28/20 09:59 Aspirin Ec 81 Mg Tab PO 81 mg DAILY [facility] Administration Atorvastatin Calcium 10 mg 03/15/20 22:00 03/28/20 22:09 Atorvastatin 10 Mg Tab PO 10 mg QHS [facility] Administration Azathioprine 50 mg 03/16/20 10:00 03/28/20 14:59 Azathioprine 50 Mg Tab PO 50 mg DAILY MIK Administration Calcitriol 1 mcg 03/21/20 10:00 03/28/20 09:59 Calcitriol 0.25 Mcg Cap PO 1 mcg QDAY [facility] Administration Clonidine HCl 0.2 mg 03/15/20 22:00 03/29/20 05:45 Clonidine 0.1 Mg Tab PO 0.2 mg Q8HR [facility] Administration Clopidogrel Bisulfate 75 mg 03/16/20 10:00 03/28/20 09:59 Clopidogrel 75 Mg Tab PO 75 mg QDAY [facility] Administration Epoetin [place] 10,000 unit 03/15/20 18:00 E[place]etin [place] 10,000 Unit/1 Ml Inj SUB-Q SHEREE [facility] Guaifenesin 600 mg 03/17/20 11:00 03/28/20 22:09 Guaifenesin Er 600 Mg Tab PO 600 mg BID [facility] Administration Heparin Sodium (Porcine) 5,000 unit 03/15/20 22:00 03/29/20 05:46 Heparin 5,000 Unit/1 Ml Vial SUB-Q Not Given Q8HR [facility] Hydralazine HCl 20 mg 03/17/20 07:33 03/22/20 11:32 Hydralazine 20 Mg/1 Ml Inj IV 20 mg Q4HR PRN Administration Give if SBP>180 DBP>100 Hydralazine HCl 100 mg 03/18/20 20:00 03/28/20 20:44 Hydralazine 100 Mg Tab PO 100 mg TID [facility] Administration Hydrophilic Ointment 1 applic 03/19/20 04:30 03/19/20 05:52 Lip Therapy Vaseline TP 1 applic DIRECT PRN Administration Dry Lips Sodium Chloride 100 mls @ 999 mls/hr 03/19/20 17:59 Nacl 0.9% IV SHEREE PRN Hypotension Magnesium Hydroxide 30 ml 03/15/20 14:59 Magnesium Hydroxide (Mom) Oral Liqd Udc PO Q4H PRN Constipation Metoprolol Tartrate 100 mg 03/22/20 22:00 03/28/20 22:10 Metoprolol Tartrate 100 Mg Tab PO 100 mg BID MIK Administration Minoxidil 2.5 mg 03/22/20 13:00 03/28/20 09:59 Minoxidil 2.5 Mg Tab PO 2.5 mg QDAY MIK Administration Morphine Sulfate 2 mg 03/15/20 14:59 03/22/20 17:22 Morphine 2 Mg/1 Ml Inj IV 2 mg Q5MIN PRN Administration Chest Pain unrelieved by NTG Ondansetron HCl 4 mg 03/15/20 14:59 03/22/20 17:22 Ondansetron 4 Mg/2 Ml Inj IV 4 mg Q8H PRN Administration Nausea And Vomiting Pantoprazole Sodium 20 mg 03/16/20 10:00 03/28/20 09:59 Pantoprazole 20 Mg Tab PO 20 mg QDAY MIK Administration Sodium Chloride 10 ml 03/15/20 22:00 03/28/20 22:10 Sodium Chloride 0.9% 10 Ml Flush Syringe IV 10 ml BID MIK Administration Sodium Chloride 10 ml 03/15/20 14:59 Sodium Chloride 0.9% 10 Ml Flush Syringe IV PRN PRN LINE FLUSH Tramadol HCl 50 mg 03/16/20 03:23 03/27/20 23:01 Tramadol 50 Mg Tab PO 50 mg Q6H PRN Administration Pain, Moderate (4-6) Valsartan 160 mg 03/15/20 22:00 03/28/20 22:09 Valsartan 160mg Tab PO 160 mg BID MIK Administration Nutrition/Malnutrition Assess - Dietary Evaluation Nutrition/Malnutrition Findings: Nutrition Notes Start: 03/23/20 13:01 Freq: Status: Active Protocol: Document 03/27/20 12:45 (Rec: 03/27/20 12:56 [email or web address]) Nutrition Notes Initial or Follow up Reassessment Current Diagnosis CKD (stage V CKD),Heart Failure Other Pertinent Diagnosis Covid(+), lupus, on HD, acute respiratory failure Current Diet Cardiac with renal Labs/Tests No new labs Pertinent Medications Reviewed Height 5 ft 3 in Weight 78.5 kg [place] Body Weight (kg) 52.27 BMI 30.7 Weight Status Obese Subjective/Other Information FU for intakes. Pt reports not eating much for past couple months due to decreased appetitie. Pt does not want Nepro ONS. Food prefrences noted. Pt unsure of UBW. Pt reports eating oatmeal for breakfast and unsure how much of dinner she ate last night. Pt with 50% intakes in chart for 03/28. Percent of energy/protein needs met: 65%/41% Burn Absent Trauma Absent GI Symptoms None Food Allergy No Current % PO Poor (25-49%) Minimum of two criteria No Energy Intake (non-severe) <75% Estimated Energy Requirement >7 days #1 Nutrition Diagnosis Inadequate oral intake As Evidenced by Signs and Symptoms pt consuming 50% of meals Diagnosis Progress(for reassessment Improved documentation) Is patient on ventilator? No Is Patient Ambulatory and/or Out of Bed No REE-([place]-St. Jeor-confined to bed) 5570.270 Calculation [facility] Additional Notes Protein: >1.2g/kg (>94g) Fluid: 1000mL or per MD Nutrition Intervention Change Diet Order: Continue current diet Add Supplement/Snack (indicate name/kcal D/C /protein ) Goal #1 Meet at least 75% of energy and protein needs via PO Anticipated Discharge Needs: Cardiac/Renal diet Follow-Up By: 03/29/20 Additional Comments FU for intakes
[2020-03-29] MEDS: VALSARTAN 160MG TAB PO SCH ×2 (10:00→22:26)
[2020-03-29] MEDS: METOPROLOL TARTRATE 100 MG TAB PO SCH ×2 (14:00→22:23)
[2020-03-29] MEDS ORDERED: EPOETIN ALFA-EPBX 10,000 UNIT/1 ML VIAL SUB-Q PRN (14:30)
[2020-03-29] MEDS: CALCITRIOL 0.25 MCG CAP PO SCH (14:53)
[2020-03-29] MEDS: PANTOPRAZOLE 20 MG TAB PO SCH (14:54)
[2020-03-29] MEDS: MINOXIDIL 2.5 MG TAB PO SCH (14:54)
[2020-03-29] MEDS: azaTHIOprine 50 MG TAB PO SCH (14:56)
[2020-03-29] MEDS: CLOPIDOGREL 75 MG TAB PO SCH (14:56)
[2020-03-29] MEDS: traMADol 50 MG TAB PO PRN (14:56)
[2020-03-29] MEDS: ASPIRIN EC 81 MG TAB PO SCH (15:58)
[2020-03-29] MEDS: guaiFENesin ER 600 MG TAB PO SCH ×2 (15:58→22:27)
[2020-03-29] MEDS: amLODIPine 10 MG TAB PO SCH (15:58)
--- NOTE | 2020-03-29 17:09 | Progress Note ---
Assessment and Plan - Patient Problems (1) Pneumonia due to COVID-19 virus Current Visit: Yes Status: Chronic Plan to address problem: Continue treatment per infectious disease. Continue dexamethasone Supplemental oxygen/Respiratory support as needed Proning as tolerated Remdesevir contra-indicated due to Kidney failure Prophylactic anticoagulation Trend inflammatory markers to assess disease progression and prognosis (2) Hypertensive chronic kidney disease with stage 5 chronic kidney disease or end stage renal disease Current Visit: Yes Status: Chronic Plan to address problem: Follow-up blood pressure on current medications (3) ESRD needing dialysis Current Visit: No Status: Chronic Plan to address problem: Hemodialysis per schedule. (4) Lupus (systemic lupus erythematosus) Current Visit: Yes Status: Acute Plan to address problem: Continue treatment follow-up with metal forger's assistant as an outpatient (5) Anemia in chronic kidney disease Current Visit: Yes Status: Acute Plan to address problem: Give erythropoietin on dialysis and follow-up hemoglobin Subjective Date of service: 03/29/20 Principal diagnosis: COVID Interval history: Patient was not seen today due to COVID-19 status during the COVID-19 pandemic. I have reviewed physician and nurses notes. Objective - Exam Narrative Exam: patient was not examined at the bedside today due to personal protective equipment preservation during the COVID-19 pandemic - Vital Signs Vital signs: Vital Signs - 12hr 03/29/20 03/29/20 03/29/20 05:45 08:00 08:15 Temperature 98.1 F Pulse Rate 62 62 63 Respiratory 18 Rate Blood Pressure 154/71 164/71 158/74 O2 Sat by Pulse Oximetry 03/29/20 03/29/20 03/29/20 08:22 08:30 08:45 Temperature Pulse Rate 61 61 Respiratory Rate Blood Pressure 146/66 142/68 O2 Sat by Pulse 100 Oximetry 03/29/20 03/29/20 03/29/20 09:00 09:15 09:30 Temperature Pulse Rate 60 62 63 Respiratory Rate Blood Pressure 129/68 125/61 124/66 O2 Sat by Pulse Oximetry 03/29/20 03/29/20 03/29/20 09:45 10:00 10:15 Temperature Pulse Rate 57 L 60 60 Respiratory Rate Blood Pressure 132/52 126/61 116/61 O2 Sat by Pulse Oximetry 03/29/20 03/29/20 03/29/20 10:30 10:45 11:00 Temperature Pulse Rate 66 59 L 59 L Respiratory Rate Blood Pressure 122/65 117/50 117/50 O2 Sat by Pulse Oximetry 03/29/20 03/29/20 03/29/20 11:15 11:30 11:45 Temperature 98.0 F Pulse Rate 61 64 59 L Respiratory 18 Rate Blood Pressure 121/58 116/59 122/50 O2 Sat by Pulse Oximetry 03/29/20 14:56 Temperature Pulse Rate Respiratory 20 Rate Blood Pressure O2 Sat by Pulse Oximetry - Lab 03/21/20 05:59 03/22/20 05:04 Most recent lab results Calcium 10.0 mg/dL (8.4-10.2) 03/22/20 05:04 Magnesium 1.80 mg/dL (1.7-2.3) 03/20/20 01:22 Medications & Allergies - Medications Allergies/Adverse Reactions: Allergies No Known Allergies Allergy (Unverified 12/01/19 05:58) Home Medications: Home Medications Medication Instructions Recorded Confirmed Last Taken Type Aspirin [Adult Aspirin] 81 mg PO DAILY 12/02/19 03/18/20 Unknown History AtorvaSTATin 10 mg PO QHS 12/02/19 03/18/20 Unknown History Clopidogrel [Plavix] 75 mg PO QDAY 12/02/19 03/18/20 Unknown History Folic Acid 0.4 mg PO QDAY 12/02/19 03/18/20 Unknown History Omeprazole 20 mg PO DAILY 12/02/19 03/18/20 Unknown History amLODIPine 10 mg PO DAILY 12/02/19 03/18/20 Unknown History azaTHIOprine [Azathioprine] 50 mg PO DAILY 12/02/19 03/18/20 Unknown History calcitrioL [Rocaltrol] 1 mcg PO QDAY 12/02/19 03/18/20 Unknown History Valsartan [Diovan] 160 mg PO BID #60 tablet 12/10/19 03/18/20 Unknown Rx cloNIDine [Catapres] 0.2 mg PO Q8HR #90 tablet 12/10/19 03/18/20 Unknown Rx minoxidiL [Loniten] 5 mg PO QDAY #30 tablet 12/10/19 03/18/20 Unknown Rx Metoprolol [Lopressor TAB] 100 mg PO BID #60 tablet 03/27/20 Unknown Rx guaiFENesin ER [Mucinex ER] 600 mg PO BID #10 tablet 03/27/20 Unknown Rx hydrALAZINE [Apresoline TAB] 100 mg PO TID #90 tab 03/27/20 Unknown Rx Active Medications: Generic Name Dose Route Start Last Admin Trade Name Bijanq PRN Reason Stop Dose Admin Acetaminophen 650 mg 03/15/20 14:59 03/25/20 05:27 Acetaminophen 325 Mg Tab PO 650 mg Q4H PRN Administration Pain MILD(1-3)/Fever >100.5/KENNY Amlodipine Besylate 10 mg 03/16/20 10:00 03/29/20 15:58 Amlodipine 10 Mg Tab PO 10 mg DAILY MIK Administration Aspirin 81 mg 03/16/20 10:00 03/29/20 15:58 Aspirin Ec 81 Mg Tab PO 81 mg DAILY MIK Administration Atorvastatin Calcium 10 mg 03/15/20 22:00 03/28/20 22:09 Atorvastatin 10 Mg Tab PO 10 mg QHS MIK Administration Azathioprine 50 mg 03/16/20 10:00 03/29/20 14:56 Azathioprine 50 Mg Tab PO 50 mg DAILY MIK Administration Calcitriol 1 mcg 03/21/20 10:00 03/29/20 14:53 Calcitriol 0.25 Mcg Cap PO 1 mcg QDAY MIK Administration Clonidine HCl 0.2 mg 03/15/20 22:00 03/29/20 14:55 Clonidine 0.1 Mg Tab PO 0.2 mg Q8HR MIK Administration Clopidogrel Bisulfate 75 mg 03/16/20 10:00 03/29/20 14:56 Clopidogrel 75 Mg Tab PO 75 mg QDAY MIK Administration Guaifenesin 600 mg 03/17/20 11:00 03/29/20 15:58 Guaifenesin Er 600 Mg Tab PO 600 mg BID MIK Administration Heparin Sodium (Porcine) 5,000 unit 03/15/20 22:00 03/29/20 14:00 Heparin 5,000 Unit/1 Ml Vial SUB-Q Not Given Q8HR MIK Hydralazine HCl 20 mg 03/17/20 07:33 03/22/20 11:32 Hydralazine 20 Mg/1 Ml Inj IV 20 mg Q4HR PRN Administration Give if SBP>180 DBP>100 Hydralazine HCl 100 mg 03/18/20 20:00 03/29/20 14:55 Hydralazine 100 Mg Tab PO 100 mg TID MIK Administration Hydrophilic Ointment 1 applic 03/19/20 04:30 03/19/20 05:52 Lip Therapy Vaseline TP 1 applic DIRECT PRN Administration Dry Lips Sodium Chloride 100 mls @ 999 mls/hr 03/19/20 17:59 Nacl 0.9% IV SHEREE PRN Hypotension Magnesium Hydroxide 30 ml 03/15/20 14:59 Magnesium Hydroxide (Mom) Oral Liqd Udc PO Q4H PRN Constipation Metoprolol Tartrate 100 mg 03/22/20 22:00 03/29/20 14:00 Metoprolol Tartrate 100 Mg Tab PO Not Given BID MIK Minoxidil 2.5 mg 03/22/20 13:00 03/29/20 14:54 Minoxidil 2.5 Mg Tab PO 2.5 mg QDAY MIK Administration Morphine Sulfate 2 mg 03/15/20 14:59 03/22/20 17:22 Morphine 2 Mg/1 Ml Inj IV 2 mg Q5MIN PRN Administration Chest Pain unrelieved by NTG Ondansetron HCl 4 mg 03/15/20 14:59 03/22/20 17:22 Ondansetron 4 Mg/2 Ml Inj IV 4 mg Q8H PRN Administration Nausea And Vomiting Pantoprazole Sodium 20 mg 03/16/20 10:00 03/29/20 14:54 Pantoprazole 20 Mg Tab PO 20 mg QDAY MIK Administration Sodium Chloride 10 ml 03/15/20 22:00 03/29/20 14:56 Sodium Chloride 0.9% 10 Ml Flush Syringe IV 10 ml BID MIK Administration Sodium Chloride 10 ml 03/15/20 14:59 Sodium Chloride 0.9% 10 Ml Flush Syringe IV PRN PRN LINE FLUSH Tramadol HCl 50 mg 03/16/20 03:23 03/29/20 14:56 Tramadol 50 Mg Tab PO 50 mg Q6H PRN Administration Pain, Moderate (4-6) Valsartan 160 mg 03/15/20 22:00 03/29/20 10:00 Valsartan 160mg Tab PO Not Given BID MIK
[2020-03-30] MEDS: cloNIDine 0.1 MG TAB PO SCH ×3 (06:37→22:45)
[2020-03-30] MEDS: HEPARIN 5,000 UNIT/1 ML VIAL SUB-Q SCH ×3 (06:38→22:47)
[2020-03-30] MEDS: CALCITRIOL 0.25 MCG CAP PO SCH (10:28)
[2020-03-30] MEDS: ASPIRIN EC 81 MG TAB PO SCH (10:28)
[2020-03-30] MEDS: PANTOPRAZOLE 20 MG TAB PO SCH (10:28)
[2020-03-30] MEDS: CLOPIDOGREL 75 MG TAB PO SCH (10:29)
[2020-03-30] MEDS: VALSARTAN 160MG TAB PO SCH ×2 (10:29→22:46)
[2020-03-30] MEDS: hydrALAZINE 100 MG TAB PO SCH ×3 (10:29→20:00)
[2020-03-30] MEDS: guaiFENesin ER 600 MG TAB PO SCH ×2 (10:29→22:49)
[2020-03-30] MEDS: amLODIPine 10 MG TAB PO SCH (10:30)
[2020-03-30] MEDS: MINOXIDIL 2.5 MG TAB PO SCH (10:30)
[2020-03-30] MEDS: METOPROLOL TARTRATE 100 MG TAB PO SCH ×2 (10:30→22:47)
[2020-03-30] MEDS: azaTHIOprine 50 MG TAB PO SCH (12:33)
--- NOTE | 2020-03-30 16:59 | Progress Note ---
Assessment and Plan - Patient Problems (1) Pneumonia due to COVID-19 virus Current Visit: Yes Status: Chronic Plan to address problem: Continue treatment per infectious disease. Continue dexamethasone Supplemental oxygen/Respiratory support as needed Proning as tolerated Remdesevir contra-indicated due to Kidney failure Prophylactic anticoagulation Trend inflammatory markers to assess disease progression and prognosis (2) Hypertensive chronic kidney disease with stage 5 chronic kidney disease or end stage renal disease Current Visit: Yes Status: Chronic Plan to address problem: Follow-up blood pressure on current medications (3) ESRD needing dialysis Current Visit: No Status: Chronic Plan to address problem: Hemodialysis per schedule. Discussed with the outpatient dialysis clinic and try to expedite placement at the [facility] COVID-19 clinic (4) Lupus (systemic lupus erythematosus) Current Visit: Yes Status: Acute Plan to address problem: Continue treatment follow-up with tree trimmer as an outpatient (5) Anemia in chronic kidney disease Current Visit: Yes Status: Acute Plan to address problem: Give erythropoietin on dialysis and follow-up hemoglobin Subjective Date of service: 03/30/20 Principal diagnosis: COVID Interval history: Patient was not evaluated at the bedside today due to the COVID-19 status to limit exposure of the consulting airborne and air delivery specialist and also for PPE preservation during the COVID-19 pandemic. I reviewed multidisciplinary notes and discussed with staff and physicians as needed. Objective - Exam Narrative Exam: patient was not examined at the bedside today due to personal protective equipment preservation during the COVID-19 pandemic - Vital Signs Vital signs: Vital Signs - 12hr 03/30/20 03/30/20 03/30/20 06:37 08:36 08:48 Pulse Rate 62 Pulse Rate [ 65 Right Radial] Blood Pressure 133/61 O2 Sat by Pulse 100 Oximetry 03/30/20 10:29 Pulse Rate 63 Pulse Rate [ Right Radial] Blood Pressure 151/65 O2 Sat by Pulse Oximetry - Lab 03/21/20 05:59 03/22/20 05:04 Most recent lab results Calcium 10.0 mg/dL (8.4-10.2) 03/22/20 05:04 Magnesium 1.80 mg/dL (1.7-2.3) 03/20/20 01:22 Medications & Allergies - Medications Allergies/Adverse Reactions: Allergies No Known Allergies Allergy (Unverified 12/01/19 05:58) Home Medications: Home Medications Medication Instructions Recorded Confirmed Last Taken Type Aspirin [Adult Aspirin] 81 mg PO DAILY 12/02/19 03/18/20 Unknown History AtorvaSTATin 10 mg PO QHS 12/02/19 03/18/20 Unknown History Clopidogrel [Plavix] 75 mg PO QDAY 12/02/19 03/18/20 Unknown History Folic Acid 0.4 mg PO QDAY 12/02/19 03/18/20 Unknown History Omeprazole 20 mg PO DAILY 12/02/19 03/18/20 Unknown History amLODIPine 10 mg PO DAILY 12/02/19 03/18/20 Unknown History azaTHIOprine [Azathioprine] 50 mg PO DAILY 12/02/19 03/18/20 Unknown History calcitrioL [Rocaltrol] 1 mcg PO QDAY 12/02/19 03/18/20 Unknown History Valsartan [Diovan] 160 mg PO BID #60 tablet 12/10/19 03/18/20 Unknown Rx cloNIDine [Catapres] 0.2 mg PO Q8HR #90 tablet 12/10/19 03/18/20 Unknown Rx minoxidiL [Loniten] 5 mg PO QDAY #30 tablet 12/10/19 03/18/20 Unknown Rx Metoprolol [Lopressor TAB] 100 mg PO BID #60 tablet 03/27/20 Unknown Rx guaiFENesin ER [Mucinex ER] 600 mg PO BID #10 tablet 03/27/20 Unknown Rx hydrALAZINE [Apresoline TAB] 100 mg PO TID #90 tab 03/27/20 Unknown Rx Active Medications: Generic Name Dose Route Start Last Admin Trade Name Freq PRN Reason Stop Dose Admin Acetaminophen 650 mg 03/15/20 14:59 03/25/20 05:27 Acetaminophen 325 Mg Tab PO 650 mg Q4H PRN Administration Pain MILD(1-3)/Fever >100.5/KENNY Amlodipine Besylate 10 mg 03/16/20 10:00 03/30/20 10:30 Amlodipine 10 Mg Tab PO 10 mg DAILY MIK Administration Aspirin 81 mg 03/16/20 10:00 03/30/20 10:28 Aspirin Ec 81 Mg Tab PO 81 mg DAILY MIK Administration Atorvastatin Calcium 10 mg 03/15/20 22:00 03/29/20 22:17 Atorvastatin 10 Mg Tab PO 10 mg QHS MIK Administration Azathioprine 50 mg 03/16/20 10:00 03/30/20 12:33 Azathioprine 50 Mg Tab PO 50 mg DAILY MIK Administration Calcitriol 1 mcg 03/21/20 10:00 03/30/20 10:28 Calcitriol 0.25 Mcg Cap PO 1 mcg QDAY MIK Administration Clonidine HCl 0.2 mg 03/15/20 22:00 03/30/20 13:51 Clonidine 0.1 Mg Tab PO 0.2 mg Q8HR MIK Administration Clopidogrel Bisulfate 75 mg 03/16/20 10:00 03/30/20 10:29 Clopidogrel 75 Mg Tab PO 75 mg QDAY MIK Administration Guaifenesin 600 mg 03/17/20 11:00 03/30/20 10:29 Guaifenesin Er 600 Mg Tab PO 600 mg BID MIK Administration Heparin Sodium (Porcine) 5,000 unit 03/15/20 22:00 03/30/20 13:51 Heparin 5,000 Unit/1 Ml Vial SUB-Q 5,000 unit Q8HR MIK Administration Hydralazine HCl 20 mg 03/17/20 07:33 03/22/20 11:32 Hydralazine 20 Mg/1 Ml Inj IV 20 mg Q4HR PRN Administration Give if SBP>180 DBP>100 Hydralazine HCl 100 mg 03/18/20 20:00 03/30/20 13:52 Hydralazine 100 Mg Tab PO 100 mg TID MIK Administration Hydrophilic Ointment 1 applic 03/19/20 04:30 03/19/20 05:52 Lip Therapy Vaseline TP 1 applic DIRECT PRN Administration Dry Lips Sodium Chloride 100 mls @ 999 mls/hr 03/19/20 17:59 Nacl 0.9% IV SHEREE PRN Hypotension Magnesium Hydroxide 30 ml 03/15/20 14:59 Magnesium Hydroxide (Mom) Oral Liqd Udc PO Q4H PRN Constipation Metoprolol Tartrate 100 mg 03/22/20 22:00 03/30/20 10:30 Metoprolol Tartrate 100 Mg Tab PO 100 mg BID MIK Administration Minoxidil 2.5 mg 03/22/20 13:00 03/30/20 10:30 Minoxidil 2.5 Mg Tab PO 2.5 mg QDAY MIK Administration Morphine Sulfate 2 mg 03/15/20 14:59 03/22/20 17:22 Morphine 2 Mg/1 Ml Inj IV 2 mg Q5MIN PRN Administration Chest Pain unrelieved by NTG Ondansetron HCl 4 mg 03/15/20 14:59 03/22/20 17:22 Ondansetron 4 Mg/2 Ml Inj IV 4 mg Q8H PRN Administration Nausea And Vomiting Pantoprazole Sodium 20 mg 03/16/20 10:00 03/30/20 10:28 Pantoprazole 20 Mg Tab PO 20 mg QDAY MIK Administration Sodium Chloride 10 ml 03/15/20 22:00 03/30/20 10:30 Sodium Chloride 0.9% 10 Ml Flush Syringe IV 10 ml BID MIK Administration Sodium Chloride 10 ml 03/15/20 14:59 Sodium Chloride 0.9% 10 Ml Flush Syringe IV PRN PRN LINE FLUSH Tramadol HCl 50 mg 03/16/20 03:23 03/29/20 14:56 Tramadol 50 Mg Tab PO 50 mg Q6H PRN Administration Pain, Moderate (4-6) Valsartan 160 mg 03/15/20 22:00 03/30/20 10:29 Valsartan 160mg Tab PO 160 mg BID MIK Administration
[2020-03-31] MEDS: cloNIDine 0.1 MG TAB PO SCH ×3 (06:06→20:31)
[2020-03-31] MEDS: HEPARIN 5,000 UNIT/1 ML VIAL SUB-Q SCH ×3 (06:06→21:03)
--- NOTE | 2020-03-31 07:32 | Progress Note ---
Assessment and Plan Assessment and plan: 59-year-old female with known history of end-stage renal disease on dialysis- Mondays, Wednesdays and Fridays, lupus, CHF, presenting to the emergency room today from an assisted living facility with cough fever headache which has been ongoing for about 4 days. She did not go to dialysis today because she was not feeling quite well. She had a fever of about 103 F. She also also has some mild shortness of breath. Patient indicates that several people at the facility had tested positive for COVID-19. She tested negative for COVID-19 yesterday. Patient denies any chest pain, no nausea vomiting, no loss of taste or smell, no diarrhea and no abdominal pain. In route to the hospital patient oxygen saturation was about 88% on room air she was subsequently placed on 2 L of oxygen. Work-up in the emergency room today chest x-ray reveals pulmonary edema. 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 Hong has been consulted by the ER physician. Patient has been admitted with pulmonary edema. We will however rule out COVID-19. 2/2: Review of records shows patient is still on High flow, will obtain Pulmonary consultation, patient with worsening D.Dimer, will obtain V/Q scan to rule pulmonary embolism, Will likely change to Heparin drip till this iS clarified if patient is still on High flow. I unfortunately do not see clear oxygen documentation. Continues with Hypertensive urgency, SPOKE with the daughter, patient has had Elevated blood pressure for some time but not quite this high, Nephrology following and adjusting meds. 2/3: Continue supportive care, Will discontinue Heparin drip at this time, and use sliding scale considering low probability of PE on V/Q scan. Considering uncontrolled HTN, will transfer to [facility] and initiate Cardene drip, continue to wean High flow. COUNSELLING ON FLUID RESTRICTIONS 2/4: Consider repeating hypoxia and increasing high flow back to 100% we will ask respiratory therapist to aggressively wean as recommended by surgical aides teacher. Discussed with nursing staff remove restraints and less reevaluate the patient. If recurrent delirium or encephalopathy we will at that time reevaluate. Have discussed with the patient again about compliance with p.o. fluid intake. Blood pressure is better improved today. 5: Patient undergoing dialysis today. Anticipate discharge in 48 hours hopefully. We are awaiting outpatient HD set up. Patient will be discharged to rehab center. Is currently down to 4 L of oxygen will need exertional oxygen evaluation prior to discharge. Blood pressure is better. Continue dexamethasone and remdesivir for now. 03/25: Continue supportive care wean oxygen as tolerated. Awaiting dialysis placement for discharge. 03/26: Continue supportive care, blood pressure still elevated. Continue to monitor and address. Still awaiting placement 03/27. Still awaiting placement. Has no complaints today 03/28-date. Still awaiting placement and HD chair. DC when arrange has been made Plan Acute hypoxic respiratory failure -Oxygen supplementation Covid pneumonia Dexamethasone ID on board End-stage renal disease -Friday -Continue dialysis as scheduled - Plan for hemodialysis chair Nonsustained ventricular tachycardia Cardiology recommendations appreciated Continue to monitor, no acute intervention required at this time -TTE noted Accelerated hypertension related to renal disease Valsartan, metoprolol, furosemide, clonidine, hydralazine, making adjustments for better control Patient's blood pressure at home is usually in the 200 systolic, completely uncontrolled Anemia and chronic disease illness -No acute bleeding Hypervolemic hyponatremia -Resolved with hemodialysis Heart failure, unspecified type Presumed history of CAD Elevated BNP Metoprolol, Plavix Hyperkalemia Resolved Morbid obesity Lifestyle change CODE STATUS: Full DVT prophylaxis: Heparin Disposition: Continue Covid treatment, continue hemodialysis, monitor for nonsustained V. tach History Interval history: No new complaints today Awaiting HD arrangement Hospitalist Physical - Physical exam Narrative exam: VITAL SIGNS: Reviewed. GENERAL: Awake HEAD: No signs of head trauma. EYES: Pupils are equal. Extraocular motions intact. MOUTH: Oropharynx is normal. NECK: No adenopathy, no JVD. CHEST: Chest with diminished breath sounds bilaterally. No wheezes, rales, or rhonchi. right permacath in place CARDIAC: normal S1 and S2, without murmurs, gallops, or rubs. ABDOMEN: Soft, non tender and non distended. No rebound or guarding, and no masses palpated. Bowel Sounds normal. MUSCULOSKELETAL: No edema NEUROLOGIC EXAM: Alert and oriented x3. No focal neurologic deficits SKIN: No obvious lesions - Constitutional Vitals: Temp Pulse Resp BP Pulse Ox 98.8 F 63 18 136/72 100 03/31/20 06:00 03/31/20 06:06 03/31/20 06:00 03/31/20 06:06 03/31/20 06:00 Results - Labs CBC & Chem 7: 03/21/20 05:59 03/22/20 05:04 Labs: Laboratory Last Values WBC 4.0 K/mm3 (4.5-11.0) L 03/21/20 05:59 RBC 2.68 M/mm3 (3.65-5.03) L 03/21/20 05:59 Hgb 8.4 gm/dl (10.1-14.3) L 03/21/20 05:59 Hct 25.2 % (30.3-42.9) L 03/21/20 05:59 MCV 94 fl (79-97) 03/21/20 05:59 MCH 31 pg (28-32) 03/21/20 05:59 MCHC 33 % (30-34) 03/21/20 05:59 RDW 17.2 % (13.2-15.2) H 03/21/20 05:59 Plt Count 198 K/mm3 (140-440) 03/21/20 05:59 Lymph % (Auto) 7.0 % (13.4-35.0) L 03/16/20 06:18 Vance % (Auto) 8.4 % (0.0-7.3) H 03/16/20 06:18 Eos % (Auto) 0.0 % (0.0-4.3) 03/16/20 06:18 Baso % (Auto) 0.5 % (0.0-1.8) 03/16/20 06:18 Lymph # (Auto) 0.3 K/mm3 (1.2-5.4) L 03/16/20 06:18 Vance # (Auto) 0.3 K/mm3 (0.0-0.8) 03/16/20 06:18 Eos # (Auto) 0.0 K/mm3 (0.0-0.4) 03/16/20 06:18 Baso # (Auto) 0.0 K/mm3 (0.0-0.1) 03/16/20 06:18 Seg Neutrophils % 84.1 % (40.0-70.0) H 03/16/20 06:18 Seg Neutrophils # 3.1 K/mm3 (1.8-7.7) 03/16/20 06:18 PT 14.5 Sec. (12.2-14.9) 03/16/20 06:18 INR 1.14 (0.87-1.13) H 03/16/20 06:18 APTT 37.2 Sec. (24.2-36.6) H 03/15/20 12:26 D-Dimer 1600.05 ng/mlDDU (0-234) H 03/21/20 08:58 Sodium 134 mmol/L (137-145) L 03/22/20 05:04 Potassium 3.8 mmol/L (3.6-5.0) 03/22/20 05:04 Chloride 92.1 mmol/L (98-107) L 03/22/20 05:04 Carbon Dioxide 26 mmol/L (22-30) 03/22/20 05:04 Anion Gap 20 mmol/L 03/22/20 05:04 BUN 47 mg/dL (7-17) H 03/22/20 05:04 Creatinine 5.0 mg/dL (0.6-1.2) H 03/22/20 05:04 Estimated GFR 11 ml/min 03/22/20 05:04 BUN/Creatinine Ratio 9 % 03/22/20 05:04 Glucose 92 mg/dL (65-100) 03/22/20 05:04 POC Glucose 124 mg/dL (70-105) H 03/20/20 21:23 Calcium 10.0 mg/dL (8.4-10.2) 03/22/20 05:04 Magnesium 1.80 mg/dL (1.7-2.3) 03/20/20 01:22 Ferritin > 2000.0 ng/mL (10.0-200.0) H 03/21/20 08:58 Total Bilirubin 0.30 mg/dL (0.1-1.2) 03/17/20 04:36 Direct Bilirubin < 0.2 mg/dL (0-0.2) 03/15/20 12:26 Indirect Bilirubin 0.1 mg/dL 03/15/20 12:26 AST 15 units/L (5-40) 03/17/20 04:36 ALT 7 units/L (7-56) 03/17/20 04:36 Alkaline Phosphatase 73 units/L (35-129) 03/17/20 04:36 Lactate Dehydrogenase 291 units/L (91-180) H 03/21/20 08:58 C-Reactive Protein 19.80 mg/dL (0.00-1.30) H 03/21/20 08:58 NT-Pro-B Natriuret Pep > 03816 pg/mL (0-900) H 03/15/20 13:10 Total Protein 6.2 g/dL (6.3-8.2) L 03/17/20 04:36 Albumin 3.6 g/dL (3.9-5) L 03/17/20 04:36 Albumin/Globulin Ratio 1.4 % 03/17/20 04:36 Procalcitonin 6.52 ng/mL (<0.15) 03/21/20 08:58 TSH 1.540 mlU/mL (0.270-4.200) 03/19/20 04:45 Free T4 1.32 ng/dL (0.76-1.46) 03/19/20 04:45 Nasal Screen MRSA (PCR) Negative (Negative) 03/16/20 23:49 Coronavirus (PCR) Positive (Negative) A 03/16/20 Unknown Hepatitis A IgM Ab Non-reactive (NonReactive) 03/15/20 19:18 Hep Bs Antigen Non-reactive (Negative) 03/15/20 19:18 Hep B Core IgM Ab Non-reactive (NonReactive) 03/15/20 19:18 Hepatitis C Antibody Non-reactive (NonReactive) 03/15/20 19:18 - Diagnostic Impressions Diagnostic Impressions: Echocardiogram 03/15/20 15:05 Transthoracic Echocardiogram Indication: Pulm edema; h/o CHF BP: 186/94 HR: 75 Conclusions *Global left ventricular wall motion and contractility are within normal limits. *Global left ventricular systolic function is normal. *The right ventricular global systolic function is normal. *The left atrium is severely dilated. *There is evidence of an atrial septal aneurysm. *There is trace of aortic regurgitation. *Severe mitral leaflet calcification is visualized. *There is moderate to severe mitral stenosis. *The mean gradient across the mitral valve is 20.955080878910 mmHg. *There is mild tricuspid regurgitation. *The right ventricular systolic pressure is calculated at 60 mmHg. *There is trace pulmonic regurgitation. Findings Left Ventricle: The left ventricular chamber size is normal. Severe concentric left ventricular hypertrophy is observed. Global left ventricular wall motion and contractility are within normal limits. Global left ventricular systolic function is normal. The estimated ejection fraction is 50-55%. Left Atrium: The left atrium is severely dilated. Right Ventricle: The right ventricular cavity size is normal. The right ventricular global systolic function is normal. Right Atrium: The right atrial cavity size is normal. There is evidence of an atrial septal aneurysm. Aortic Valve: Mild aortic leaflet calcification is visualized. There is trace of aortic regurgitation. Mitral Valve: Severe mitral leaflet calcification is visualized. There is mild mitral regurgitation. There is moderate to severe mitral stenosis. The mean gradient across the mitral valve is 20.428047152830 mmHg. The peak gradient across the mitral valve is 33.38763033410 mmHg. Tricuspid Valve: The tricuspid valve leaflets are normal. There is mild tricuspid regurgitation. The right ventricular systolic pressure is calculated at 60 mmHg. Pulmonic Valve: There is no evidence of pulmonic valve thickening. There is trace pulmonic regurgitation. Pericardium: There is no pericardial effusion. Aorta: The aorta appears normal. Venous: The inferior vena cava is dilated. Measurements Chambers 2D Name Value Normal Range IVSd (2D) 1.82 cm (0.6 - 1.1) LVPWd (2D) 1.64 cm (0.6 - 1.1) LVIDd (2D) 4.56 cm (3.7 - 5.6) LVIDs (2D) 3.53 cm (2 - 3.8) LV FS (2D) 22.49 % - EF Teichholz (2D) 45.39 % - Ao root diameter (2D) 2.87 cm (2 - 3.7) Volumes/Mass Name Value Normal Range LA ESV SP 4CH (A/L) 98.24 ml - LA ESV SP 2CH (A/L) 197.59 ml - LA ESV BP (A/L) 140.33 ml - LA ESV BP (A/L) index 77.53 ml/m2 - LA ESV SP 4CH (MOD) 93.73 ml - LA ESV SP 2CH (MOD) 194.1 ml - LA ESV BP (MOD) 134.76 ml - LA ESV BP (MOD) index 74.45 ml/m2 - Diastolic/Systolic Function Name Value Normal Range MV E-wave Vmax 2.09 m/sec - MV deceleration time 630.49 msec - MV A-wave Vmax 1.38 m/sec - MV E:A ratio 1.51 ratio - Aortic Valve Name Value Normal Range AV Vmax 2.22 m/sec - AV VTI 47.25 cm - AV peak gradient 19.74 mmHg - AV mean gradient 10.57 mmHg - LVOT diameter 1.91 cm - LVOT Vmax 1.58 m/sec - LVOT VTI 31.21 cm - LVOT peak gradient 10 mmHg - LVOT mean gradient 5.33 mmHg - SV LVOT 89.65 ml - CLIVE (continuity Vmax) 2.04 cm2 - CLIVE (continuity VTI) 1.9 cm2 - AR PHT 479.73 msec - AR peak gradient 17.52 mmHg - Mitral Valve Name Value Normal Range MV Vmax 2.89 m/sec - MV VTI 107.77 cm - MV peak gradient 33.41 mmHg - MV mean gradient 20.1 mmHg - MV PHT 184.74 msec - MR Vmax 6.51 m/sec - MVA (PHT) 1.19 cm2 - MVA (continuity VTI) 0.83 cm2 - Tricuspid Valve Name Value Normal Range TR Vmax 3.61 m/sec - TR peak gradient 52.14 mmHg - RAP 8 mmHg - RVSP 60 mmHg - IVC diameter 2.47 cm (1.2 - 2.3) Pulmonic Valve/Qp:Qs Name Value Normal Range PV Vmax 1.13 m/sec - PV peak gradient 5.09 mmHg - VA end-diastolic Vmax 0.73 m/sec - PV acceleration time 106.57 msec - Marx/IV: Voiding Method Bedpan IV Catheter Type [Left Hand] INT / Saline Lock Active Medications - Current Medications Current Medications: Generic Name Dose Route Start Last Admin Trade Name Freq PRN Reason Stop Dose Admin Acetaminophen 650 mg 03/15/20 14:59 03/25/20 05:27 Acetaminophen 325 Mg Tab PO 650 mg Q4H PRN Administration Pain MILD(1-3)/Fever >100.5/KENNY Amlodipine Besylate 10 mg 03/16/20 10:00 03/30/20 10:30 Amlodipine 10 Mg Tab PO 10 mg DAILY MIK Administration Aspirin 81 mg 03/16/20 10:00 03/30/20 10:28 Aspirin Ec 81 Mg Tab PO 81 mg DAILY MIK Administration Atorvastatin Calcium 10 mg 03/15/20 22:00 03/30/20 22:45 Atorvastatin 10 Mg Tab PO 10 mg QHS MIK Administration Azathioprine 50 mg 03/16/20 10:00 03/30/20 12:33 Azathioprine 50 Mg Tab PO 50 mg DAILY MIK Administration Calcitriol 1 mcg 03/21/20 10:00 03/30/20 10:28 Calcitriol 0.25 Mcg Cap PO 1 mcg QDAY MIK Administration Clonidine HCl 0.2 mg 03/15/20 22:00 03/31/20 06:06 Clonidine 0.1 Mg Tab PO 0.2 mg Q8HR MIK Administration Clopidogrel Bisulfate 75 mg 03/16/20 10:00 03/30/20 10:29 Clopidogrel 75 Mg Tab PO 75 mg QDAY MIK Administration Guaifenesin 600 mg 03/17/20 11:00 03/30/20 22:49 Guaifenesin Er 600 Mg Tab PO 600 mg BID MIK Administration Heparin Sodium (Porcine) 5,000 unit 03/15/20 22:00 03/31/20 06:06 Heparin 5,000 Unit/1 Ml Vial SUB-Q 5,000 unit Q8HR MIK Administration Hydralazine HCl 20 mg 03/17/20 07:33 03/22/20 11:32 Hydralazine 20 Mg/1 Ml Inj IV 20 mg Q4HR PRN Administration Give if SBP>180 DBP>100 Hydralazine HCl 100 mg 03/18/20 20:00 03/30/20 20:00 Hydralazine 100 Mg Tab PO 100 mg TID MIK Administration Hydrophilic Ointment 1 applic 03/19/20 04:30 03/19/20 05:52 Lip Therapy Vaseline TP 1 applic DIRECT PRN Administration Dry Lips Sodium Chloride 100 mls @ 999 mls/hr 03/19/20 17:59 Nacl 0.9% IV SHEREE PRN Hypotension Magnesium Hydroxide 30 ml 03/15/20 14:59 Magnesium Hydroxide (Mom) Oral Liqd Udc PO Q4H PRN Constipation Metoprolol Tartrate 100 mg 03/22/20 22:00 03/30/20 22:47 Metoprolol Tartrate 100 Mg Tab PO 100 mg BID MIK Administration Minoxidil 2.5 mg 03/22/20 13:00 03/30/20 10:30 Minoxidil 2.5 Mg Tab PO 2.5 mg QDAY MIK Administration Morphine Sulfate 2 mg 03/15/20 14:59 03/22/20 17:22 Morphine 2 Mg/1 Ml Inj IV 2 mg Q5MIN PRN Administration Chest Pain unrelieved by NTG Ondansetron HCl 4 mg 03/15/20 14:59 03/22/20 17:22 Ondansetron 4 Mg/2 Ml Inj IV 4 mg Q8H PRN Administration Nausea And Vomiting Pantoprazole Sodium 20 mg 03/16/20 10:00 03/30/20 10:28 Pantoprazole 20 Mg Tab PO 20 mg QDAY MIK Administration Sodium Chloride 10 ml 03/15/20 22:00 03/30/20 22:49 Sodium Chloride 0.9% 10 Ml Flush Syringe IV 10 ml BID MIK Administration Sodium Chloride 10 ml 03/15/20 14:59 Sodium Chloride 0.9% 10 Ml Flush Syringe IV PRN PRN LINE FLUSH Tramadol HCl 50 mg 03/16/20 03:23 03/29/20 14:56 Tramadol 50 Mg Tab PO 50 mg Q6H PRN Administration Pain, Moderate (4-6) Valsartan 160 mg 03/15/20 22:00 03/30/20 22:46 Valsartan 160mg Tab PO 160 mg BID MIK Administration Nutrition/Malnutrition Assess - Dietary Evaluation Nutrition/Malnutrition Findings: Nutrition Notes Start: 03/23/20 13:01 Freq: Status: Active Protocol: Document 03/29/20 11:47 [email or web address] (Rec: 03/29/20 11:54 [email or web address] [id number]) Co-Sign 03/29/20 11:47 Nutrition Notes Initial or Follow up Reassessment Current Diagnosis CKD (stage V CKD),Heart Failure Other Pertinent Diagnosis Covid(+), lupus, on HD, acute respiratory failure Current Diet Cardiac with renal Labs/Tests No new labs Pertinent Medications Reviewed Height 5 ft 3 in Weight 78.5 kg [place] Body Weight (kg) 52.27 BMI 30.7 Weight Status Obese Subjective/Other Information F/U for intakes.Unable to reach pt by phone x2. Spoke with RN, Pt is currently in HD and has not ate this morning . Per chart, Pt is consuming 75% of meals. Pt has discharge summary signed, waiting placement for assisted living facility. Percent of energy/protein needs met: 97%/61% Burn Absent Trauma Absent GI Symptoms None Food Allergy No Current % PO Good (75-100%) Minimum of two criteria No Energy Intake (non-severe) <75% Estimated Energy Requirement >7 days #1 Nutrition Diagnosis Inadequate oral intake As Evidenced by Signs and Symptoms Pt consuming 75% of meals Diagnosis Progress(for reassessment Improved documentation) Is patient on ventilator? No Is Patient Ambulatory and/or Out of Bed No REE-([facility]-confined to bed) [phone] Calculation Used for Recommendations [facility] Additional Notes Protein: >1.2g/kg (>94g) Fluid: 1000mL or per MD Nutrition Intervention Change Diet Order: Continue current diet Goal #1 Meet at least 75% of energy and protein needs via PO Anticipated Discharge Needs: Cardiac/Renal diet Follow-Up By: 03/31/20 Additional Comments FU for intakes
--- NOTE | 2020-03-31 08:44 | Progress Note ---
Assessment and Plan - Patient Problems (1) Pneumonia due to COVID-19 virus Current Visit: Yes Status: Chronic Plan to address problem: Continue treatment per infectious disease. Continue dexamethasone Supplemental oxygen/Respiratory support as needed Proning as tolerated Remdesevir contra-indicated due to Kidney failure Prophylactic anticoagulation Trend inflammatory markers to assess disease progression and prognosis (2) Hypertensive chronic kidney disease with stage 5 chronic kidney disease or end stage renal disease Current Visit: Yes Status: Chronic Plan to address problem: Follow-up blood pressure on current medications (3) ESRD needing dialysis Current Visit: No Status: Chronic Plan to address problem: Hemodialysis per schedule. I discussed with the outpatient dialysis clinic and she is set up at the [facility] COVID-19 clinic starting friday at 08.30 am. Patient can be DC after Hemodialysis today from Renal standpoint (4) Lupus (systemic lupus erythematosus) Current Visit: Yes Status: Acute Plan to address problem: Continue treatment follow-up with board handler as an outpatient (5) Anemia in chronic kidney disease Current Visit: Yes Status: Acute Plan to address problem: Give erythropoietin on dialysis and follow-up hemoglobin Subjective Date of service: 03/31/20 Principal diagnosis: COVID Interval history: Patient was not evaluated at the bedside today due to the COVID-19 status to limit exposure of the consulting plant maintenance manager and also for PPE preservation during the COVID-19 pandemic. I reviewed multidisciplinary notes and discussed with staff and physicians as needed. Objective - Exam Narrative Exam: patient was not examined at the bedside today due to personal protective equipment preservation during the COVID-19 pandemic - Vital Signs Vital signs: Vital Signs - 12hr 03/30/20 03/30/20 03/30/20 21:18 21:55 22:45 Temperature 99.0 F Pulse Rate 64 64 Respiratory 16 Rate Blood Pressure 116/51 116/51 O2 Sat by Pulse 99 100 Oximetry 03/30/20 03/30/20 03/31/20 22:46 22:47 06:00 Temperature 98.8 F Pulse Rate 64 64 63 Respiratory 18 Rate Blood Pressure 116/51 116/51 136/62 O2 Sat by Pulse 100 Oximetry 03/31/20 03/31/20 06:06 08:16 Temperature Pulse Rate 63 Respiratory Rate Blood Pressure 136/72 O2 Sat by Pulse 100 Oximetry - Lab 03/21/20 05:59 03/22/20 05:04 Most recent lab results Calcium 10.0 mg/dL (8.4-10.2) 03/22/20 05:04 Magnesium 1.80 mg/dL (1.7-2.3) 03/20/20 01:22 Medications & Allergies - Medications Allergies/Adverse Reactions: Allergies No Known Allergies Allergy (Unverified 12/01/19 05:58) Home Medications: Home Medications Medication Instructions Recorded Confirmed Last Taken Type Aspirin [Adult Aspirin] 81 mg PO DAILY 12/02/19 03/18/20 Unknown History AtorvaSTATin 10 mg PO QHS 12/02/19 03/18/20 Unknown History Clopidogrel [Plavix] 75 mg PO QDAY 12/02/19 03/18/20 Unknown History Folic Acid 0.4 mg PO QDAY 12/02/19 03/18/20 Unknown History Omeprazole 20 mg PO DAILY 12/02/19 03/18/20 Unknown History amLODIPine 10 mg PO DAILY 12/02/19 03/18/20 Unknown History azaTHIOprine [Azathioprine] 50 mg PO DAILY 12/02/19 03/18/20 Unknown History calcitrioL [Rocaltrol] 1 mcg PO QDAY 12/02/19 03/18/20 Unknown History Valsartan [Diovan] 160 mg PO BID #60 tablet 12/10/19 03/18/20 Unknown Rx cloNIDine [Catapres] 0.2 mg PO Q8HR #90 tablet 12/10/19 03/18/20 Unknown Rx minoxidiL [Loniten] 5 mg PO QDAY #30 tablet 12/10/19 03/18/20 Unknown Rx Metoprolol [Lopressor TAB] 100 mg PO BID #60 tablet 03/27/20 Unknown Rx guaiFENesin ER [Mucinex ER] 600 mg PO BID #10 tablet 03/27/20 Unknown Rx hydrALAZINE [Apresoline TAB] 100 mg PO TID #90 tab 03/27/20 Unknown Rx Active Medications: Generic Name Dose Route Start Last Admin Trade Name Freq PRN Reason Stop Dose Admin Acetaminophen 650 mg 03/15/20 14:59 03/25/20 05:27 Acetaminophen 325 Mg Tab PO 650 mg Q4H PRN Administration Pain MILD(1-3)/Fever >100.5/KENNY Amlodipine Besylate 10 mg 03/16/20 10:00 03/30/20 10:30 Amlodipine 10 Mg Tab PO 10 mg DAILY MIK Administration Aspirin 81 mg 03/16/20 10:00 03/30/20 10:28 Aspirin Ec 81 Mg Tab PO 81 mg DAILY MIK Administration Atorvastatin Calcium 10 mg 03/15/20 22:00 03/30/20 22:45 Atorvastatin 10 Mg Tab PO 10 mg QHS MIK Administration Azathioprine 50 mg 03/16/20 10:00 03/30/20 12:33 Azathioprine 50 Mg Tab PO 50 mg DAILY MIK Administration Calcitriol 1 mcg 03/21/20 10:00 03/30/20 10:28 Calcitriol 0.25 Mcg Cap PO 1 mcg QDAY MIK Administration Clonidine HCl 0.2 mg 03/15/20 22:00 03/31/20 06:06 Clonidine 0.1 Mg Tab PO 0.2 mg Q8HR MIK Administration Clopidogrel Bisulfate 75 mg 03/16/20 10:00 03/30/20 10:29 Clopidogrel 75 Mg Tab PO 75 mg QDAY MIK Administration Guaifenesin 600 mg 03/17/20 11:00 03/30/20 22:49 Guaifenesin Er 600 Mg Tab PO 600 mg BID MIK Administration Heparin Sodium (Porcine) 5,000 unit 03/15/20 22:00 03/31/20 06:06 Heparin 5,000 Unit/1 Ml Vial SUB-Q 5,000 unit Q8HR REPLACED BY [facility] Administration Hydralazine HCl 20 mg 03/17/20 07:33 03/22/20 11:32 Hydralazine 20 Mg/1 Ml Inj IV 20 mg Q4HR PRN Administration Give if SBP>180 DBP>100 Hydralazine HCl 100 mg 03/18/20 20:00 03/30/20 20:00 Hydralazine 100 Mg Tab PO 100 mg TID MIK Administration Hydrophilic Ointment 1 applic 03/19/20 04:30 03/19/20 05:52 Lip Therapy Vaseline TP 1 applic DIRECT PRN Administration Dry Lips Sodium Chloride 100 mls @ 999 mls/hr 03/19/20 17:59 Nacl 0.9% IV SHEREE PRN Hypotension Magnesium Hydroxide 30 ml 03/15/20 14:59 Magnesium Hydroxide (Mom) Oral Liqd Udc PO Q4H PRN Constipation Metoprolol Tartrate 100 mg 03/22/20 22:00 03/30/20 22:47 Metoprolol Tartrate 100 Mg Tab PO 100 mg BID MIK Administration Minoxidil 2.5 mg 03/22/20 13:00 03/30/20 10:30 Minoxidil 2.5 Mg Tab PO 2.5 mg QDAY MIK Administration Morphine Sulfate 2 mg 03/15/20 14:59 03/22/20 17:22 Morphine 2 Mg/1 Ml Inj IV 2 mg Q5MIN PRN Administration Chest Pain unrelieved by NTG Ondansetron HCl 4 mg 03/15/20 14:59 03/22/20 17:22 Ondansetron 4 Mg/2 Ml Inj IV 4 mg Q8H PRN Administration Nausea And Vomiting Pantoprazole Sodium 20 mg 03/16/20 10:00 03/30/20 10:28 Pantoprazole 20 Mg Tab PO 20 mg QDAY MIK Administration Sodium Chloride 10 ml 03/15/20 22:00 03/30/20 22:49 Sodium Chloride 0.9% 10 Ml Flush Syringe IV 10 ml BID MIK Administration Sodium Chloride 10 ml 03/15/20 14:59 Sodium Chloride 0.9% 10 Ml Flush Syringe IV PRN PRN LINE FLUSH Tramadol HCl 50 mg 03/16/20 03:23 03/29/20 14:56 Tramadol 50 Mg Tab PO 50 mg Q6H PRN Administration Pain, Moderate (4-6) Valsartan 160 mg 03/15/20 22:00 03/30/20 22:46 Valsartan 160mg Tab PO 160 mg BID MIK Administration
[2020-03-31] MEDS: hydrALAZINE 100 MG TAB PO SCH ×3 (09:23→20:12)
[2020-03-31] MEDS: VALSARTAN 160MG TAB PO SCH ×2 (10:00→20:32)
--- NOTE | 2020-03-31 10:29 | Progress Note ---
Assessment and Plan Assessment and plan: 59-year-old female with known history of end-stage renal disease on dialysis- Mondays, Wednesdays and Fridays, lupus, CHF, presenting to the emergency room today from an assisted living facility with cough fever headache which has been ongoing for about 4 days. She did not go to dialysis today because she was not feeling quite well. She had a fever of about 103 F. She also also has some mild shortness of breath. Patient indicates that several people at the facility had tested positive for COVID-19. She tested negative for COVID-19 yesterday. Patient denies any chest pain, no nausea vomiting, no loss of taste or smell, no diarrhea and no abdominal pain. In route to the hospital patient oxygen saturation was about 88% on room air she was subsequently placed on 2 L of oxygen. Work-up in the emergency room today chest x-ray reveals pulmonary edema. Ethanol Operations Manager Dr. Hong has been consulted by the ER physician. Patient has been admitted with pulmonary edema. We will however rule out COVID-19. 2/2: Review of records shows patient is still on High flow, will obtain Pulmonary consultation, patient with worsening D.Dimer, will obtain V/Q scan to rule pulmonary embolism, Will likely change to Heparin drip till this iS clarified if patient is still on High flow. I unfortunately do not see clear oxygen documentation. Continues with Hypertensive urgency, SPOKE with the daughter, patient has had Elevated blood pressure for some time but not quite this high, Nephrology following and adjusting meds. 2/3: Continue supportive care, Will discontinue Heparin drip at this time, and use sliding scale considering low probability of PE on V/Q scan. Considering uncontrolled HTN, will transfer to [facility] and initiate Cardene drip, continue to wean High flow. COUNSELLING ON FLUID RESTRICTIONS 2/4: Consider repeating hypoxia and increasing high flow back to 100% we will ask respiratory therapist to aggressively wean as recommended by bottle house pumper. Discussed with nursing staff remove restraints and less reevaluate the patient. If recurrent delirium or encephalopathy we will at that time reevaluate. Have discussed with the patient again about compliance with p.o. fluid intake. Blood pressure is better improved today. 5: Patient undergoing dialysis today. Anticipate discharge in 48 hours hopefully. We are awaiting outpatient HD set up. Patient will be discharged to rehab center. Is currently down to 4 L of oxygen will need exertional oxygen evaluation prior to discharge. Blood pressure is better. Continue dexamethasone and remdesivir for now. 03/25: Continue supportive care wean oxygen as tolerated. Awaiting dialysis placement for discharge. 03/26: Continue supportive care, blood pressure still elevated. Continue to monitor and address. Still awaiting placement 03/27. Still awaiting placement. Has no complaints today 03/28-date. Still awaiting placement. HD chair already arranged. Plan Acute hypoxic respiratory failure -Oxygen supplementation Covid pneumonia Dexamethasone ID on board End-stage renal disease -Friday -Continue dialysis as scheduled Nonsustained ventricular tachycardia Cardiology recommendations appreciated Continue to monitor, no acute intervention required at this time -TTE noted Accelerated hypertension related to renal disease Valsartan, metoprolol, furosemide, clonidine, hydralazine, making adjustments for better control Anemia and chronic disease illness -No acute bleeding Hypervolemic hyponatremia -Resolved with hemodialysis Heart failure, unspecified type Presumed history of CAD Elevated BNP Metoprolol, Plavix Hyperkalemia Resolved Morbid obesity Lifestyle change CODE STATUS: Full DVT prophylaxis: Heparin Disposition: Continue Covid treatment, continue hemodialysis, monitor for nons ustained V. tach History Interval history: Awaiting HD arrangement Hospitalist Physical - Physical exam Narrative exam: VITAL SIGNS: Reviewed. GENERAL: Awake HEAD: No signs of head trauma. EYES: Pupils are equal. Extraocular motions intact. MOUTH: Oropharynx is normal. NECK: No adenopathy, no JVD. CHEST: Chest with diminished breath sounds bilaterally. No wheezes, rales, or rhonchi. right permacath in place CARDIAC: normal S1 and S2, without murmurs, gallops, or rubs. ABDOMEN: Soft, non tender and non distended. No rebound or guarding, and no masses palpated. Bowel Sounds normal. MUSCULOSKELETAL: No edema NEUROLOGIC EXAM: Alert and oriented x3. No focal neurologic deficits SKIN: No obvious lesions - Constitutional Vitals: Temp Pulse Resp BP Pulse Ox 98.8 F 63 18 126/62 100 03/31/20 09:38 03/31/20 10:15 03/31/20 09:38 03/31/20 10:15 03/31/20 08:16 Results - Labs CBC & Chem 7: 03/21/20 05:59 03/22/20 05:04 Labs: Laboratory Last Values WBC 4.0 K/mm3 (4.5-11.0) L 03/21/20 05:59 RBC 2.68 M/mm3 (3.65-5.03) L 03/21/20 05:59 Hgb 8.4 gm/dl (10.1-14.3) L 03/21/20 05:59 Hct 25.2 % (30.3-42.9) L 03/21/20 05:59 MCV 94 fl (79-97) 03/21/20 05:59 MCH 31 pg (28-32) 03/21/20 05:59 MCHC 33 % (30-34) 03/21/20 05:59 RDW 17.2 % (13.2-15.2) H 03/21/20 05:59 Plt Count 198 K/mm3 (140-440) 03/21/20 05:59 Lymph % (Auto) 7.0 % (13.4-35.0) L 03/16/20 06:18 [facility] % (Auto) 8.4 % (0.0-7.3) H 03/16/20 06:18 Eos % (Auto) 0.0 % (0.0-4.3) 03/16/20 06:18 Baso % (Auto) 0.5 % (0.0-1.8) 03/16/20 06:18 Lymph # (Auto) 0.3 K/mm3 (1.2-5.4) L 03/16/20 06:18 [facility] # (Auto) 0.3 K/mm3 (0.0-0.8) 03/16/20 06:18 Eos # (Auto) 0.0 K/mm3 (0.0-0.4) 03/16/20 06:18 Baso # (Auto) 0.0 K/mm3 (0.0-0.1) 03/16/20 06:18 Seg Neutrophils % 84.1 % (40.0-70.0) H 03/16/20 06:18 Seg Neutrophils # 3.1 K/mm3 (1.8-7.7) 03/16/20 06:18 PT 14.5 Sec. (12.2-14.9) 03/16/20 06:18 INR 1.14 (0.87-1.13) H 03/16/20 06:18 APTT 37.2 Sec. (24.2-36.6) H 03/15/20 12:26 D-Dimer 1600.05 ng/mlDDU (0-234) H 03/21/20 08:58 Sodium 134 mmol/L (137-145) L 03/22/20 05:04 Potassium 3.8 mmol/L (3.6-5.0) 03/22/20 05:04 Chloride 92.1 mmol/L (98-107) L 03/22/20 05:04 Carbon Dioxide 26 mmol/L (22-30) 03/22/20 05:04 Anion Gap 20 mmol/L 03/22/20 05:04 BUN 47 mg/dL (7-17) H 03/22/20 05:04 Creatinine 5.0 mg/dL (0.6-1.2) H 03/22/20 05:04 Estimated GFR 11 ml/min 03/22/20 05:04 BUN/Creatinine Ratio 9 % 03/22/20 05:04 Glucose 92 mg/dL (65-100) 03/22/20 05:04 POC Glucose 124 mg/dL (70-105) H 03/20/20 21:23 Calcium 10.0 mg/dL (8.4-10.2) 03/22/20 05:04 Magnesium 1.80 mg/dL (1.7-2.3) 03/20/20 01:22 Ferritin > 2000.0 ng/mL (10.0-200.0) H 03/21/20 08:58 Total Bilirubin 0.30 mg/dL (0.1-1.2) 03/17/20 04:36 Direct Bilirubin < 0.2 mg/dL (0-0.2) 03/15/20 12:26 Indirect Bilirubin 0.1 mg/dL 03/15/20 12:26 AST 15 units/L (5-40) 03/17/20 04:36 ALT 7 units/L (7-56) 03/17/20 04:36 Alkaline Phosphatase 73 units/L (35-129) 03/17/20 04:36 Lactate Dehydrogenase 291 units/L (91-180) H 03/21/20 08:58 C-Reactive Protein 19.80 mg/dL (0.00-1.30) H 03/21/20 08:58 NT-Pro-B Natriuret Pep > 92397 pg/mL (0-900) H 03/15/20 13:10 Total Protein 6.2 g/dL (6.3-8.2) L 03/17/20 04:36 Albumin 3.6 g/dL (3.9-5) L 03/17/20 04:36 Albumin/Globulin Ratio 1.4 % 03/17/20 04:36 Procalcitonin 6.52 ng/mL (<0.15) 03/21/20 08:58 TSH 1.540 mlU/mL (0.270-4.200) 03/19/20 04:45 Free T4 1.32 ng/dL (0.76-1.46) 03/19/20 04:45 Nasal Screen MRSA (PCR) Negative (Negative) 03/16/20 23:49 Coronavirus (PCR) Positive (Negative) A 03/16/20 Unknown Hepatitis A IgM Ab Non-reactive (NonReactive) 03/15/20 19:18 Hep Bs Antigen Non-reactive (Negative) 03/15/20 19:18 Hep B Core IgM Ab Non-reactive (NonReactive) 03/15/20 19:18 Hepatitis C Antibody Non-reactive (NonReactive) 03/15/20 19:18 - Diagnostic Impressions Diagnostic Impressions: Echocardiogram 03/15/20 15:05 Transthoracic Echocardiogram Indication: Pulm edema; h/o CHF BP: 186/94 HR: 75 Conclusions *Global left ventricular wall motion and contractility are within normal limits. *Global left ventricular systolic function is normal. *The right ventricular global systolic function is normal. *The left atrium is severely dilated. *There is evidence of an atrial septal aneurysm. *There is trace of aortic regurgitation. *Severe mitral leaflet calcification is visualized. *There is moderate to severe mitral stenosis. *The mean gradient across the mitral valve is 20.190623221089 mmHg. *There is mild tricuspid regurgitation. *The right ventricular systolic pressure is calculated at 60 mmHg. *There is trace pulmonic regurgitation. Findings Left Ventricle: The left ventricular chamber size is normal. Severe concentric left ventricular hypertrophy is observed. Global left ventricular wall motion and contractility are within normal limits. Global left ventricular systolic function is normal. The estimated ejection fraction is 50-55%. Left Atrium: The left atrium is severely dilated. Right Ventricle: The right ventricular cavity size is normal. The right ventricular global systolic function is normal. Right Atrium: The right atrial cavity size is normal. There is evidence of an atrial septal aneurysm. Aortic Valve: Mild aortic leaflet calcification is visualized. There is trace of aortic regurgitation. Mitral Valve: Severe mitral leaflet calcification is visualized. There is mild mitral regurgitation. There is moderate to severe mitral stenosis. The mean gradient across the mitral valve is 20.042575349369 mmHg. The peak gradient across the mitral valve is 33.55224249034 mmHg. Tricuspid Valve: The tricuspid valve leaflets are normal. There is mild tricuspid regurgitation. The right ventricular systolic pressure is calculated at 60 mmHg. Pulmonic Valve: There is no evidence of pulmonic valve thickening. There is trace pulmonic regurgitation. Pericardium: There is no pericardial effusion. Aorta: The aorta appears normal. Venous: The inferior vena cava is dilated. Measurements Chambers 2D Name Value Normal Range IVSd (2D) 1.82 cm (0.6 - 1.1) LVPWd (2D) 1.64 cm (0.6 - 1.1) LVIDd (2D) 4.56 cm (3.7 - 5.6) LVIDs (2D) 3.53 cm (2 - 3.8) LV FS (2D) 22.49 % - EF Teichholz (2D) 45.39 % - Ao root diameter (2D) 2.87 cm (2 - 3.7) Volumes/Mass Name Value Normal Range LA ESV SP 4CH (A/L) 98.24 ml - LA ESV SP 2CH (A/L) 197.59 ml - LA ESV BP (A/L) 140.33 ml - LA ESV BP (A/L) index 77.53 ml/m2 - LA ESV SP 4CH (MOD) 93.73 ml - LA ESV SP 2CH (MOD) 194.1 ml - LA ESV BP (MOD) 134.76 ml - LA ESV BP (MOD) index 74.45 ml/m2 - Diastolic/Systolic Function Name Value Normal Range MV E-wave Vmax 2.09 m/sec - MV deceleration time 630.49 msec - MV A-wave Vmax 1.38 m/sec - MV E:A ratio 1.51 ratio - Aortic Valve Name Value Normal Range AV Vmax 2.22 m/sec - AV VTI 47.25 cm - AV peak gradient 19.74 mmHg - AV mean gradient 10.57 mmHg - LVOT diameter 1.91 cm - LVOT Vmax 1.58 m/sec - LVOT VTI 31.21 cm - LVOT peak gradient 10 mmHg - LVOT mean gradient 5.33 mmHg - SV LVOT 89.65 ml - CLIVE (continuity Vmax) 2.04 cm2 - CLIVE (continuity VTI) 1.9 cm2 - AR PHT 479.73 msec - AR peak gradient 17.52 mmHg - Mitral Valve Name Value Normal Range MV Vmax 2.89 m/sec - MV VTI 107.77 cm - MV peak gradient 33.41 mmHg - MV mean gradient 20.1 mmHg - MV PHT 184.74 msec - MR Vmax 6.51 m/sec - MVA (PHT) 1.19 cm2 - MVA (continuity VTI) 0.83 cm2 - Tricuspid Valve Name Value Normal Range TR Vmax 3.61 m/sec - TR peak gradient 52.14 mmHg - RAP 8 mmHg - RVSP 60 mmHg - IVC diameter 2.47 cm (1.2 - 2.3) Pulmonic Valve/Qp:Qs Name Value Normal Range PV Vmax 1.13 m/sec - PV peak gradient 5.09 mmHg - MA end-diastolic Vmax 0.73 m/sec - PV acceleration time 106.57 msec - Marx/IV: Voiding Method Bedpan IV Catheter Type [Left Hand] INT / Saline Lock Active Medications - Current Medications Current Medications: Generic Name Dose Route Start Last Admin Trade Name Freq PRN Reason Stop Dose Admin Acetaminophen 650 mg 03/15/20 14:59 03/25/20 05:27 Acetaminophen 325 Mg Tab PO 650 mg Q4H PRN Administration Pain MILD(1-3)/Fever >100.5/KENNY Amlodipine Besylate 10 mg 03/16/20 10:00 03/30/20 10:30 Amlodipine 10 Mg Tab PO 10 mg DAILY MIK Administration Aspirin 81 mg 03/16/20 10:00 03/30/20 10:28 Aspirin Ec 81 Mg Tab PO 81 mg DAILY MIK Administration Atorvastatin Calcium 10 mg 03/15/20 22:00 03/30/20 22:45 Atorvastatin 10 Mg Tab PO 10 mg QHS MIK Administration Azathioprine 50 mg 03/16/20 10:00 03/30/20 12:33 Azathioprine 50 Mg Tab PO 50 mg DAILY MIK Administration Calcitriol 1 mcg 03/21/20 10:00 03/30/20 10:28 Calcitriol 0.25 Mcg Cap PO 1 mcg QDAY MIK Administration Clonidine HCl 0.2 mg 03/15/20 22:00 03/31/20 06:06 Clonidine 0.1 Mg Tab PO 0.2 mg Q8HR MIK Administration Clopidogrel Bisulfate 75 mg 03/16/20 10:00 03/30/20 10:29 Clopidogrel 75 Mg Tab PO 75 mg QDAY MIK Administration Guaifenesin 600 mg 03/17/20 11:00 03/30/20 22:49 Guaifenesin Er 600 Mg Tab PO 600 mg BID MIK Administration Heparin Sodium (Porcine) 5,000 unit 03/15/20 22:00 03/31/20 06:06 Heparin 5,000 Unit/1 Ml Vial SUB-Q 5,000 unit Q8HR MIK Administration Hydralazine HCl 20 mg 03/17/20 07:33 03/22/20 11:32 Hydralazine 20 Mg/1 Ml Inj IV 20 mg Q4HR PRN Administration Give if SBP>180 DBP>100 Hydralazine HCl 100 mg 03/18/20 20:00 03/31/20 09:23 Hydralazine 100 Mg Tab PO Not Given TID [facility] Hydrophilic Ointment 1 applic 03/19/20 04:30 03/19/20 05:52 Lip Therapy Vaseline TP 1 applic DIRECT PRN Administration Dry Lips Sodium Chloride 100 mls @ 999 mls/hr 03/19/20 17:59 Nacl 0.9% IV SHEREE PRN Hypotension Magnesium Hydroxide 30 ml 03/15/20 14:59 Magnesium Hydroxide (Mom) Oral Liqd Udc PO Q4H PRN Constipation Metoprolol Tartrate 100 mg 03/22/20 22:00 03/30/20 22:47 Metoprolol Tartrate 100 Mg Tab PO 100 mg BID MIK Administration Minoxidil 2.5 mg 03/22/20 13:00 03/30/20 10:30 Minoxidil 2.5 Mg Tab PO 2.5 mg QDAY MIK Administration Morphine Sulfate 2 mg 03/15/20 14:59 03/22/20 17:22 Morphine 2 Mg/1 Ml Inj IV 2 mg Q5MIN PRN Administration Chest Pain unrelieved by NTG Ondansetron HCl 4 mg 03/15/20 14:59 03/22/20 17:22 Ondansetron 4 Mg/2 Ml Inj IV 4 mg Q8H PRN Administration Nausea And Vomiting Pantoprazole Sodium 20 mg 03/16/20 10:00 03/30/20 10:28 Pantoprazole 20 Mg Tab PO 20 mg QDAY MIK Administration Sodium Chloride 10 ml 03/15/20 22:00 03/30/20 22:49 Sodium Chloride 0.9% 10 Ml Flush Syringe IV 10 ml BID MIK Administration Sodium Chloride 10 ml 03/15/20 14:59 Sodium Chloride 0.9% 10 Ml Flush Syringe IV PRN PRN LINE FLUSH Tramadol HCl 50 mg 03/16/20 03:23 03/29/20 14:56 Tramadol 50 Mg Tab PO 50 mg Q6H PRN Administration Pain, Moderate (4-6) Valsartan 160 mg 03/15/20 22:00 03/30/20 22:46 Valsartan 160mg Tab PO 160 mg BID MIK Administration Nutrition/Malnutrition Assess - Dietary Evaluation Nutrition/Malnutrition Findings: Nutrition Notes Start: 03/23/20 13:01 Freq: Status: Active Protocol: Document 03/29/20 11:47 [email or web address] (Rec: 03/29/20 11:54 [email or web address] [id number]) Co-Sign 03/29/20 11:47 Nutrition Notes Initial or Follow up Reassessment Current Diagnosis CKD (stage V CKD),Heart Failure Other Pertinent Diagnosis Covid(+), lupus, on HD, acute respiratory failure Current Diet Cardiac with renal Labs/Tests No new labs Pertinent Medications Reviewed Height 5 ft 3 in Weight 78.5 kg [place] Body Weight (kg) 52.27 BMI 30.7 Weight Status Obese Subjective/Other Information F/U for intakes.Unable to reach pt by phone x2. Spoke with RN, Pt is currently in HD and has not ate this morning . Per chart, Pt is consuming 75% of meals. Pt has discharge summary signed, waiting placement for assisted living facility. Percent of energy/protein needs met: 97%/61% Burn Absent Trauma Absent GI Symptoms None Food Allergy No Current % PO Good (75-100%) Minimum of two criteria No Energy Intake (non-severe) <75% Estimated Energy Requirement >7 days #1 Nutrition Diagnosis Inadequate oral intake As Evidenced by Signs and Symptoms Pt consuming 75% of meals Diagnosis Progress(for reassessment Improved documentation) Is patient on ventilator? No Is Patient Ambulatory and/or Out of Bed No REE-([place] [facility]-confined to bed) [phone] Calculation Used for Recommendations [facility] Additional Notes Protein: >1.2g/kg (>94g) Fluid: 1000mL or per MD Nutrition Intervention Change Diet Order: Continue current diet Goal #1 Meet at least 75% of energy and protein needs via PO Anticipated Discharge Needs: Cardiac/Renal diet Follow-Up By: 03/31/20 Additional Comments FU for intakes
[2020-03-31] MEDS: traMADol 50 MG TAB PO PRN (12:31)
[2020-03-31] MEDS: MINOXIDIL 2.5 MG TAB PO SCH (13:54)
[2020-03-31] MEDS: amLODIPine 10 MG TAB PO SCH (14:14)
[2020-03-31] MEDS: ASPIRIN EC 81 MG TAB PO SCH (14:15)
[2020-03-31] MEDS: METOPROLOL TARTRATE 100 MG TAB PO SCH ×2 (14:16→20:32)
[2020-03-31] MEDS: PANTOPRAZOLE 20 MG TAB PO SCH (14:17)
[2020-03-31] MEDS: guaiFENesin ER 600 MG TAB PO SCH ×2 (14:17→21:02)
[2020-03-31] MEDS: CLOPIDOGREL 75 MG TAB PO SCH (14:17)
[2020-03-31] MEDS: CALCITRIOL 0.25 MCG CAP PO SCH (14:18)
[2020-03-31] MEDS: azaTHIOprine 50 MG TAB PO SCH (17:58)
[2020-04-01] MEDS: cloNIDine 0.1 MG TAB PO SCH ×3 (06:02→21:52)
[2020-04-01] MEDS: HEPARIN 5,000 UNIT/1 ML VIAL SUB-Q SCH ×3 (06:03→21:54)
[2020-04-01] MEDS: hydrALAZINE 100 MG TAB PO SCH ×3 (08:04→19:55)
[2020-04-01] MEDS: azaTHIOprine 50 MG TAB PO SCH (10:03)
[2020-04-01] MEDS: CALCITRIOL 0.25 MCG CAP PO SCH (10:04)
[2020-04-01] MEDS: guaiFENesin ER 600 MG TAB PO SCH ×2 (10:04→21:52)
[2020-04-01] MEDS: amLODIPine 10 MG TAB PO SCH (10:04)
[2020-04-01] MEDS: METOPROLOL TARTRATE 100 MG TAB PO SCH ×2 (10:04→21:53)
[2020-04-01] MEDS: VALSARTAN 160MG TAB PO SCH ×2 (10:04→21:52)
[2020-04-01] MEDS: PANTOPRAZOLE 20 MG TAB PO SCH (10:04)
[2020-04-01] MEDS: MINOXIDIL 2.5 MG TAB PO SCH (10:04)
[2020-04-01] MEDS: CLOPIDOGREL 75 MG TAB PO SCH (10:05)
[2020-04-01] MEDS: ASPIRIN EC 81 MG TAB PO SCH (10:05)
--- NOTE | 2020-04-01 10:18 | Progress Note ---
Assessment and Plan - Patient Problems (1) Pneumonia due to COVID-19 virus Current Visit: Yes Status: Chronic Plan to address problem: Continue treatment per infectious disease. Continue dexamethasone Supplemental oxygen/Respiratory support as needed Proning as tolerated Remdesevir contra-indicated due to Kidney failure Prophylactic anticoagulation Trend inflammatory markers to assess disease progression and prognosis. Awaiting discharge (2) Hypertensive chronic kidney disease with stage 5 chronic kidney disease or end stage renal disease Current Visit: Yes Status: Chronic Plan to address problem: Follow-up blood pressure on current medications (3) ESRD needing dialysis Current Visit: No Status: Chronic Plan to address problem: Hemodialysis per schedule. I discussed with the outpatient dialysis clinic and she is set up at the [facility] COVID-19 clinic starting friday at 08.30 am. Patient can be discharged today from Renal standpoint (4) Lupus (systemic lupus erythematosus) Current Visit: Yes Status: Acute Plan to address problem: Continue treatment follow-up with belt knife feeder as an outpatient (5) Anemia in chronic kidney disease Current Visit: Yes Status: Acute Plan to address problem: Give erythropoietin on dialysis and follow-up hemoglobin Subjective Date of service: 04/01/20 Principal diagnosis: COVID Interval history: Patient was not evaluated at the bedside today due to the COVID-19 status to limit exposure of the consulting refractive surgeon and also for PPE preservation during the COVID-19 pandemic. I reviewed multidisciplinary notes and discussed with staff and physicians as needed. Objective - Exam Narrative Exam: patient was not examined at the bedside today due to personal protective equipment preservation during the COVID-19 pandemic - Vital Signs Vital signs: Vital Signs - 12hr 04/01/20 04/01/20 04/01/20 04:14 06:02 07:55 Temperature 97.9 F Pulse Rate 59 L 59 L Respiratory 20 Rate Blood Pressure 154/62 154/62 152/68 O2 Sat by Pulse 94 Oximetry 04/01/20 04/01/20 08:58 10:04 Temperature Pulse Rate 74 Respiratory Rate Blood Pressure 130/58 O2 Sat by Pulse 94 Oximetry - Lab 03/21/20 05:59 03/22/20 05:04 Most recent lab results Calcium 10.0 mg/dL (8.4-10.2) 03/22/20 05:04 Magnesium 1.80 mg/dL (1.7-2.3) 03/20/20 01:22 Medications & Allergies - Medications Allergies/Adverse Reactions: Allergies No Known Allergies Allergy (Unverified 12/01/19 05:58) Home Medications: Home Medications Medication Instructions Recorded Confirmed Last Taken Type Aspirin [Adult Aspirin] 81 mg PO DAILY 12/02/19 03/18/20 Unknown History AtorvaSTATin 10 mg PO QHS 12/02/19 03/18/20 Unknown History Clopidogrel [Plavix] 75 mg PO QDAY 12/02/19 03/18/20 Unknown History Folic Acid 0.4 mg PO QDAY 12/02/19 03/18/20 Unknown History Omeprazole 20 mg PO DAILY 12/02/19 03/18/20 Unknown History amLODIPine 10 mg PO DAILY 12/02/19 03/18/20 Unknown History azaTHIOprine [Azathioprine] 50 mg PO DAILY 12/02/19 03/18/20 Unknown History calcitrioL [Rocaltrol] 1 mcg PO QDAY 12/02/19 03/18/20 Unknown History Valsartan [Diovan] 160 mg PO BID #60 tablet 12/10/19 03/18/20 Unknown Rx cloNIDine [Catapres] 0.2 mg PO Q8HR #90 tablet 12/10/19 03/18/20 Unknown Rx minoxidiL [Loniten] 5 mg PO QDAY #30 tablet 12/10/19 03/18/20 Unknown Rx Metoprolol [Lopressor TAB] 100 mg PO BID #60 tablet 03/27/20 Unknown Rx guaiFENesin ER [Mucinex ER] 600 mg PO BID #10 tablet 03/27/20 Unknown Rx hydrALAZINE [Apresoline TAB] 100 mg PO TID #90 tab 03/27/20 Unknown Rx Active Medications: Generic Name Dose Route Start Last Admin Trade Name Freq PRN Reason Stop Dose Admin Acetaminophen 650 mg 03/15/20 14:59 03/25/20 05:27 Acetaminophen 325 Mg Tab PO 650 mg Q4H PRN Administration Pain MILD(1-3)/Fever >100.5/KENNY Amlodipine Besylate 10 mg 03/16/20 10:00 04/01/20 10:04 Amlodipine 10 Mg Tab PO 10 mg DAILY MIK Administration Aspirin 81 mg 03/16/20 10:00 04/01/20 10:05 Aspirin Ec 81 Mg Tab PO 81 mg DAILY MIK Administration Atorvastatin Calcium 10 mg 03/15/20 22:00 03/31/20 21:03 Atorvastatin 10 Mg Tab PO 10 mg QHS MIK Administration Azathioprine 50 mg 03/16/20 10:00 04/01/20 10:03 Azathioprine 50 Mg Tab PO 50 mg DAILY MIK Administration Calcitriol 1 mcg 03/21/20 10:00 04/01/20 10:04 Calcitriol 0.25 Mcg Cap PO 1 mcg QDAY MIK Administration Clonidine HCl 0.2 mg 03/15/20 22:00 04/01/20 06:02 Clonidine 0.1 Mg Tab PO 0.2 mg Q8HR MIK Administration Clopidogrel Bisulfate 75 mg 03/16/20 10:00 04/01/20 10:05 Clopidogrel 75 Mg Tab PO 75 mg QDAY MIK Administration Guaifenesin 600 mg 03/17/20 11:00 04/01/20 10:04 Guaifenesin Er 600 Mg Tab PO 600 mg BID MIK Administration Heparin Sodium (Porcine) 5,000 unit 03/15/20 22:00 04/01/20 06:03 Heparin 5,000 Unit/1 Ml Vial SUB-Q Not Given Q8HR [facility] Hydralazine HCl 20 mg 03/17/20 07:33 03/22/20 11:32 Hydralazine 20 Mg/1 Ml Inj IV 20 mg Q4HR PRN Administration Give if SBP>180 DBP>100 Hydralazine HCl 100 mg 03/18/20 20:00 04/01/20 08:04 Hydralazine 100 Mg Tab PO 100 mg TID MIK Administration Hydrophilic Ointment 1 applic 03/19/20 04:30 03/19/20 05:52 Lip Therapy Vaseline TP 1 applic DIRECT PRN Administration Dry Lips Sodium Chloride 100 mls @ 999 mls/hr 03/19/20 17:59 Nacl 0.9% IV SHEREE PRN Hypotension Magnesium Hydroxide 30 ml 03/15/20 14:59 Magnesium Hydroxide (Mom) Oral Liqd Udc PO Q4H PRN Constipation Metoprolol Tartrate 100 mg 03/22/20 22:00 04/01/20 10:04 Metoprolol Tartrate 100 Mg Tab PO 100 mg BID MIK Administration Minoxidil 2.5 mg 03/22/20 13:00 04/01/20 10:04 Minoxidil 2.5 Mg Tab PO 2.5 mg QDAY MIK Administration Morphine Sulfate 2 mg 03/15/20 14:59 03/22/20 17:22 Morphine 2 Mg/1 Ml Inj IV 2 mg Q5MIN PRN Administration Chest Pain unrelieved by NTG Ondansetron HCl 4 mg 03/15/20 14:59 03/22/20 17:22 Ondansetron 4 Mg/2 Ml Inj IV 4 mg Q8H PRN Administration Nausea And Vomiting Pantoprazole Sodium 20 mg 03/16/20 10:00 04/01/20 10:04 Pantoprazole 20 Mg Tab PO 20 mg QDAY MIK Administration Sodium Chloride 10 ml 03/15/20 22:00 04/01/20 10:05 Sodium Chloride 0.9% 10 Ml Flush Syringe IV 10 ml BID MIK Administration Sodium Chloride 10 ml 03/15/20 14:59 Sodium Chloride 0.9% 10 Ml Flush Syringe IV PRN PRN LINE FLUSH Tramadol HCl 50 mg 03/16/20 03:23 03/31/20 12:31 Tramadol 50 Mg Tab PO 50 mg Q6H PRN Administration Pain, Moderate (4-6) Valsartan 160 mg 03/15/20 22:00 04/01/20 10:04 Valsartan 160mg Tab PO 160 mg BID MIK Administration
--- NOTE | 2020-04-01 10:42 | Progress Note ---
Assessment and Plan Assessment and plan: 59-year-old female with known history of end-stage renal disease on dialysis- Mondays, Wednesdays and Fridays, lupus, CHF, presenting to the emergency room today from an assisted living facility with cough fever headache which has been ongoing for about 4 days. She did not go to dialysis today because she was not feeling quite well. She had a fever of about 103 F. She also also has some mild shortness of breath. Patient indicates that several people at the facility had tested positive for COVID-19. She tested negative for COVID-19 yesterday. Patient denies any chest pain, no nausea vomiting, no loss of taste or smell, no diarrhea and no abdominal pain. In route to the hospital patient oxygen saturation was about 88% on room air she was subsequently placed on 2 L of oxygen. Work-up in the emergency room today chest x-ray reveals pulmonary edema. Cleaning Professional Dr. Hong has been consulted by the ER physician. Patient has been admitted with pulmonary edema. We will however rule out COVID-19. 2/2: Review of records shows patient is still on High flow, will obtain Pulmonary consultation, patient with worsening D.Dimer, will obtain V/Q scan to rule pulmonary embolism, Will likely change to Heparin drip till this iS clarified if patient is still on High flow. I unfortunately do not see clear oxygen documentation. Continues with Hypertensive urgency, SPOKE with the daughter, patient has had Elevated blood pressure for some time but not quite this high, Nephrology following and adjusting meds. 2/3: Continue supportive care, Will discontinue Heparin drip at this time, and use sliding scale considering low probability of PE on V/Q scan. Considering uncontrolled HTN, will transfer to [facility] and initiate Cardene drip, continue to wean High flow. COUNSELLING ON FLUID RESTRICTIONS 2/4: Consider repeating hypoxia and increasing high flow back to 100% we will ask respiratory therapist to aggressively wean as recommended by patternmaker pressure cast. Discussed with nursing staff remove restraints and less reevaluate the patient. If recurrent delirium or encephalopathy we will at that time reevaluate. Have discussed with the patient again about compliance with p.o. fluid intake. Blood pressure is better improved today. 5: Patient undergoing dialysis today. Anticipate discharge in 48 hours hopefully. We are awaiting outpatient HD set up. Patient will be discharged to rehab center. Is currently down to 4 L of oxygen will need exertional oxygen evaluation prior to discharge. Blood pressure is better. Continue dexamethasone and remdesivir for now. 03/25: Continue supportive care wean oxygen as tolerated. Awaiting dialysis placement for discharge. 03/26: Continue supportive care, blood pressure still elevated. Continue to monitor and address. Still awaiting placement 03/27. Still awaiting placement. Has no complaints today 03/28-date. Still awaiting placement. HD chair already arranged. Plan Acute hypoxic respiratory failure -Oxygen supplementation Covid pneumonia Dexamethasone ID on board End-stage renal disease -Friday -Continue dialysis as scheduled Nonsustained ventricular tachycardia Cardiology recommendations appreciated Continue to monitor, no acute intervention required at this time -TTE noted Accelerated hypertension related to renal disease Valsartan, metoprolol, furosemide, clonidine, hydralazine, making adjustments for better control Anemia and chronic disease illness -No acute bleeding Hypervolemic hyponatremia -Resolved with hemodialysis Heart failure, unspecified type Presumed history of CAD Elevated BNP Metoprolol, Plavix Hyperkalemia Resolved Morbid obesity Lifestyle change CODE STATUS: Full DVT prophylaxis: Heparin Disposition: Continue Covid treatment, continue hemodialysis, monitor for nons ustained V. tach History Interval history: HD already set up but still needs placement Hospitalist Physical - Physical exam Narrative exam: VITAL SIGNS: Reviewed. GENERAL: Awake HEAD: No signs of head trauma. EYES: Pupils are equal. Extraocular motions intact. MOUTH: Oropharynx is normal. NECK: No adenopathy, no JVD. CHEST: Chest with diminished breath sounds bilaterally. No wheezes, rales, or rhonchi. right permacath in place CARDIAC: normal S1 and S2, without murmurs, gallops, or rubs. ABDOMEN: Soft, non tender and non distended. No rebound or guarding, and no masses palpated. Bowel Sounds normal. MUSCULOSKELETAL: No edema NEUROLOGIC EXAM: Alert and oriented x3. No focal neurologic deficits SKIN: No obvious lesions - Constitutional Vitals: Temp Pulse Resp BP Pulse Ox 97.9 F 74 20 130/58 94 04/01/20 04:14 04/01/20 10:04 04/01/20 04:14 04/01/20 10:04 04/01/20 08:58 Results - Labs CBC & Chem 7: 03/21/20 05:59 03/22/20 05:04 Labs: Laboratory Last Values WBC 4.0 K/mm3 (4.5-11.0) L 03/21/20 05:59 RBC 2.68 M/mm3 (3.65-5.03) L 03/21/20 05:59 Hgb 8.4 gm/dl (10.1-14.3) L 03/21/20 05:59 Hct 25.2 % (30.3-42.9) L 03/21/20 05:59 MCV 94 fl (79-97) 03/21/20 05:59 MCH 31 pg (28-32) 03/21/20 05:59 MCHC 33 % (30-34) 03/21/20 05:59 RDW 17.2 % (13.2-15.2) H 03/21/20 05:59 Plt Count 198 K/mm3 (140-440) 03/21/20 05:59 Lymph % (Auto) 7.0 % (13.4-35.0) L 03/16/20 06:18 [place] % (Auto) 8.4 % (0.0-7.3) H 03/16/20 06:18 Eos % (Auto) 0.0 % (0.0-4.3) 03/16/20 06:18 Baso % (Auto) 0.5 % (0.0-1.8) 03/16/20 06:18 Lymph # (Auto) 0.3 K/mm3 (1.2-5.4) L 03/16/20 06:18 [place] # (Auto) 0.3 K/mm3 (0.0-0.8) 03/16/20 06:18 Eos # (Auto) 0.0 K/mm3 (0.0-0.4) 03/16/20 06:18 Baso # (Auto) 0.0 K/mm3 (0.0-0.1) 03/16/20 06:18 Seg Neutrophils % 84.1 % (40.0-70.0) H 03/16/20 06:18 Seg Neutrophils # 3.1 K/mm3 (1.8-7.7) 03/16/20 06:18 PT 14.5 Sec. (12.2-14.9) 03/16/20 06:18 INR 1.14 (0.87-1.13) H 03/16/20 06:18 APTT 37.2 Sec. (24.2-36.6) H 03/15/20 12:26 D-Dimer 1600.05 ng/mlDDU (0-234) H 03/21/20 08:58 Sodium 134 mmol/L (137-145) L 03/22/20 05:04 Potassium 3.8 mmol/L (3.6-5.0) 03/22/20 05:04 Chloride 92.1 mmol/L (98-107) L 03/22/20 05:04 Carbon Dioxide 26 mmol/L (22-30) 03/22/20 05:04 Anion Gap 20 mmol/L 03/22/20 05:04 BUN 47 mg/dL (7-17) H 03/22/20 05:04 Creatinine 5.0 mg/dL (0.6-1.2) H 03/22/20 05:04 Estimated GFR 11 ml/min 03/22/20 05:04 BUN/Creatinine Ratio 9 % 03/22/20 05:04 Glucose 92 mg/dL (65-100) 03/22/20 05:04 POC Glucose 124 mg/dL (70-105) H 03/20/20 21:23 Calcium 10.0 mg/dL (8.4-10.2) 03/22/20 05:04 Magnesium 1.80 mg/dL (1.7-2.3) 03/20/20 01:22 Ferritin > 2000.0 ng/mL (10.0-200.0) H 03/21/20 08:58 Total Bilirubin 0.30 mg/dL (0.1-1.2) 03/17/20 04:36 Direct Bilirubin < 0.2 mg/dL (0-0.2) 03/15/20 12:26 Indirect Bilirubin 0.1 mg/dL 03/15/20 12:26 AST 15 units/L (5-40) 03/17/20 04:36 ALT 7 units/L (7-56) 03/17/20 04:36 Alkaline Phosphatase 73 units/L (35-129) 03/17/20 04:36 Lactate Dehydrogenase 291 units/L (91-180) H 03/21/20 08:58 C-Reactive Protein 19.80 mg/dL (0.00-1.30) H 03/21/20 08:58 NT-Pro-B Natriuret Pep > 27406 pg/mL (0-900) H 03/15/20 13:10 Total Protein 6.2 g/dL (6.3-8.2) L 03/17/20 04:36 Albumin 3.6 g/dL (3.9-5) L 03/17/20 04:36 Albumin/Globulin Ratio 1.4 % 03/17/20 04:36 Procalcitonin 6.52 ng/mL (<0.15) 03/21/20 08:58 TSH 1.540 mlU/mL (0.270-4.200) 03/19/20 04:45 Free T4 1.32 ng/dL (0.76-1.46) 03/19/20 04:45 Nasal Screen MRSA (PCR) Negative (Negative) 03/16/20 23:49 Coronavirus (PCR) Positive (Negative) A 03/16/20 Unknown Hepatitis A IgM Ab Non-reactive (NonReactive) 03/15/20 19:18 Hep Bs Antigen Non-reactive (Negative) 03/15/20 19:18 Hep B Core IgM Ab Non-reactive (NonReactive) 03/15/20 19:18 Hepatitis C Antibody Non-reactive (NonReactive) 03/15/20 19:18 - Diagnostic Impressions Diagnostic Impressions: Echocardiogram 03/15/20 15:05 Transthoracic Echocardiogram Indication: Pulm edema; h/o CHF BP: 186/94 HR: 75 Conclusions *Global left ventricular wall motion and contractility are within normal limits. *Global left ventricular systolic function is normal. *The right ventricular global systolic function is normal. *The left atrium is severely dilated. *There is evidence of an atrial septal aneurysm. *There is trace of aortic regurgitation. *Severe mitral leaflet calcification is visualized. *There is moderate to severe mitral stenosis. *The mean gradient across the mitral valve is 20.873073704637 mmHg. *There is mild tricuspid regurgitation. *The right ventricular systolic pressure is calculated at 60 mmHg. *There is trace pulmonic regurgitation. Findings Left Ventricle: The left ventricular chamber size is normal. Severe concentric left ventricular hypertrophy is observed. Global left ventricular wall motion and contractility are within normal limits. Global left ventricular systolic function is normal. The estimated ejection fraction is 50-55%. Left Atrium: The left atrium is severely dilated. Right Ventricle: The right ventricular cavity size is normal. The right ventricular global systolic function is normal. Right Atrium: The right atrial cavity size is normal. There is evidence of an atrial septal aneurysm. Aortic Valve: Mild aortic leaflet calcification is visualized. There is trace of aortic regurgitation. Mitral Valve: Severe mitral leaflet calcification is visualized. There is mild mitral regurgitation. There is moderate to severe mitral stenosis. The mean gradient across the mitral valve is 20.693164272140 mmHg. The peak gradient across the mitral valve is 33.15224832103 mmHg. Tricuspid Valve: The tricuspid valve leaflets are normal. There is mild tricuspid regurgitation. The right ventricular systolic pressure is calculated at 60 mmHg. Pulmonic Valve: There is no evidence of pulmonic valve thickening. There is trace pulmonic regurgitation. Pericardium: There is no pericardial effusion. Aorta: The aorta appears normal. Venous: The inferior vena cava is dilated. Measurements Chambers 2D Name Value Normal Range IVSd (2D) 1.82 cm (0.6 - 1.1) LVPWd (2D) 1.64 cm (0.6 - 1.1) LVIDd (2D) 4.56 cm (3.7 - 5.6) LVIDs (2D) 3.53 cm (2 - 3.8) LV FS (2D) 22.49 % - EF Teichholz (2D) 45.39 % - Ao root diameter (2D) 2.87 cm (2 - 3.7) Volumes/Mass Name Value Normal Range LA ESV SP 4CH (A/L) 98.24 ml - LA ESV SP 2CH (A/L) 197.59 ml - LA ESV BP (A/L) 140.33 ml - LA ESV BP (A/L) index 77.53 ml/m2 - LA ESV SP 4CH (MOD) 93.73 ml - LA ESV SP 2CH (MOD) 194.1 ml - LA ESV BP (MOD) 134.76 ml - LA ESV BP (MOD) index 74.45 ml/m2 - Diastolic/Systolic Function Name Value Normal Range MV E-wave Vmax 2.09 m/sec - MV deceleration time 630.49 msec - MV A-wave Vmax 1.38 m/sec - MV E:A ratio 1.51 ratio - Aortic Valve Name Value Normal Range AV Vmax 2.22 m/sec - AV VTI 47.25 cm - AV peak gradient 19.74 mmHg - AV mean gradient 10.57 mmHg - LVOT diameter 1.91 cm - LVOT Vmax 1.58 m/sec - LVOT VTI 31.21 cm - LVOT peak gradient 10 mmHg - LVOT mean gradient 5.33 mmHg - SV LVOT 89.65 ml - CLIVE (continuity Vmax) 2.04 cm2 - CLIVE (continuity VTI) 1.9 cm2 - AR PHT 479.73 msec - AR peak gradient 17.52 mmHg - Mitral Valve Name Value Normal Range MV Vmax 2.89 m/sec - MV VTI 107.77 cm - MV peak gradient 33.41 mmHg - MV mean gradient 20.1 mmHg - MV PHT 184.74 msec - MR Vmax 6.51 m/sec - MVA (PHT) 1.19 cm2 - MVA (continuity VTI) 0.83 cm2 - Tricuspid Valve Name Value Normal Range TR Vmax 3.61 m/sec - TR peak gradient 52.14 mmHg - RAP 8 mmHg - RVSP 60 mmHg - IVC diameter 2.47 cm (1.2 - 2.3) Pulmonic Valve/Qp:Qs Name Value Normal Range PV Vmax 1.13 m/sec - PV peak gradient 5.09 mmHg - [place] end-diastolic Vmax 0.73 m/sec - PV acceleration time 106.57 msec - Marx/IV: Voiding Method Bedpan IV Catheter Type [Left Hand] INT / Saline Lock Active Medications - Current Medications Current Medications: Generic Name Dose Route Start Last Admin Trade Name Freq PRN Reason Stop Dose Admin Acetaminophen 650 mg 03/15/20 14:59 03/25/20 05:27 Acetaminophen 325 Mg Tab PO 650 mg Q4H PRN Administration Pain MILD(1-3)/Fever >100.5/KENNY Amlodipine Besylate 10 mg 03/16/20 10:00 04/01/20 10:04 Amlodipine 10 Mg Tab PO 10 mg DAILY MIK Administration Aspirin 81 mg 03/16/20 10:00 04/01/20 10:05 Aspirin Ec 81 Mg Tab PO 81 mg DAILY MIK Administration Atorvastatin Calcium 10 mg 03/15/20 22:00 03/31/20 21:03 Atorvastatin 10 Mg Tab PO 10 mg QHS MIK Administration Azathioprine 50 mg 03/16/20 10:00 04/01/20 10:03 Azathioprine 50 Mg Tab PO 50 mg DAILY MIK Administration Calcitriol 1 mcg 03/21/20 10:00 04/01/20 10:04 Calcitriol 0.25 Mcg Cap PO 1 mcg QDAY MIK Administration Clonidine HCl 0.2 mg 03/15/20 22:00 04/01/20 06:02 Clonidine 0.1 Mg Tab PO 0.2 mg Q8HR MIK Administration Clopidogrel Bisulfate 75 mg 03/16/20 10:00 04/01/20 10:05 Clopidogrel 75 Mg Tab PO 75 mg QDAY MIK Administration Guaifenesin 600 mg 03/17/20 11:00 04/01/20 10:04 Guaifenesin Er 600 Mg Tab PO 600 mg BID MIK Administration Heparin Sodium (Porcine) 5,000 unit 03/15/20 22:00 04/01/20 06:03 Heparin 5,000 Unit/1 Ml Vial SUB-Q Not Given Q8HR [facility] Hydralazine HCl 20 mg 03/17/20 07:33 03/22/20 11:32 Hydralazine 20 Mg/1 Ml Inj IV 20 mg Q4HR PRN Administration Give if SBP>180 DBP>100 Hydralazine HCl 100 mg 03/18/20 20:00 04/01/20 08:04 Hydralazine 100 Mg Tab PO 100 mg TID MIK Administration Hydrophilic Ointment 1 applic 03/19/20 04:30 03/19/20 05:52 Lip Therapy Vaseline TP 1 applic DIRECT PRN Administration Dry Lips Sodium Chloride 100 mls @ 999 mls/hr 03/19/20 17:59 Nacl 0.9% IV SHEREE PRN Hypotension Magnesium Hydroxide 30 ml 03/15/20 14:59 Magnesium Hydroxide (Mom) Oral Liqd Udc PO Q4H PRN Constipation Metoprolol Tartrate 100 mg 03/22/20 22:00 04/01/20 10:04 Metoprolol Tartrate 100 Mg Tab PO 100 mg BID MIK Administration Minoxidil 2.5 mg 03/22/20 13:00 04/01/20 10:04 Minoxidil 2.5 Mg Tab PO 2.5 mg QDAY MIK Administration Morphine Sulfate 2 mg 03/15/20 14:59 03/22/20 17:22 Morphine 2 Mg/1 Ml Inj IV 2 mg Q5MIN PRN Administration Chest Pain unrelieved by NTG Ondansetron HCl 4 mg 03/15/20 14:59 03/22/20 17:22 Ondansetron 4 Mg/2 Ml Inj IV 4 mg Q8H PRN Administration Nausea And Vomiting Pantoprazole Sodium 20 mg 03/16/20 10:00 04/01/20 10:04 Pantoprazole 20 Mg Tab PO 20 mg QDAY MIK Administration Sodium Chloride 10 ml 03/15/20 22:00 04/01/20 10:05 Sodium Chloride 0.9% 10 Ml Flush Syringe IV 10 ml BID MIK Administration Sodium Chloride 10 ml 03/15/20 14:59 Sodium Chloride 0.9% 10 Ml Flush Syringe IV PRN PRN LINE FLUSH Tramadol HCl 50 mg 03/16/20 03:23 03/31/20 12:31 Tramadol 50 Mg Tab PO 50 mg Q6H PRN Administration Pain, Moderate (4-6) Valsartan 160 mg 03/15/20 22:00 04/01/20 10:04 Valsartan 160mg Tab PO 160 mg BID MIK Administration Nutrition/Malnutrition Assess - Dietary Evaluation Nutrition/Malnutrition Findings: Nutrition Notes Start: 03/23/20 13:01 Freq: Status: Active Protocol: Document 03/31/20 10:55 [email or web address] (Rec: 03/31/20 11:00 [email or web address] [id number]) Co-Sign 03/31/20 10:55 Nutrition Notes Initial or Follow up Reassessment Current Diagnosis CKD (stage V CKD),Heart Failure Other Pertinent Diagnosis Covid(+), lupus, on HD, acute respiratory failure Current Diet Cardiac with renal Labs/Tests No New Labs Pertinent Medications Reviewed Height 5 ft 3 in Weight 78.5 kg [place] Body Weight (kg) 52.27 BMI 30.7 Weight Status Obese Subjective/Other Information F/u for intakes, Spoke to pt on the phone. Pt is consuming 50% of PO intake with okay appetite. Pt declined ONS with no food preferences. Percent of energy/protein needs met: 65%/41% Burn Absent Trauma Absent GI Symptoms None Food Allergy No Current % PO Fair (50-74%) Minimum of two criteria No Energy Intake (non-severe) <75% Estimated Energy Requirement >7 days #1 Nutrition Diagnosis Inadequate oral intake As Evidenced by Signs and Symptoms Pt consuming 50% of meals Diagnosis Progress(for reassessment Worsened documentation) Is patient on ventilator? No Is Patient Ambulatory and/or Out of Bed No REE-([facility]-confined to bed) [phone] Calculation Used for Recommendations [facility] Additional Notes Protein: >1.2g/kg (>94g) Fluid: 1000mL or per MD Nutrition Intervention Change Diet Order: Continue current diet Goal #1 Meet at least 75% of energy and protein needs via PO Anticipated Discharge Needs: Cardiac/Renal diet Follow-Up By: 04/04/20 Additional Comments F/U for intakes
[2020-04-02] MEDS: cloNIDine 0.1 MG TAB PO SCH ×3 (05:09→22:23)
[2020-04-02] MEDS: HEPARIN 5,000 UNIT/1 ML VIAL SUB-Q SCH ×3 (05:09→22:24)
[2020-04-02] MEDS: hydrALAZINE 100 MG TAB PO SCH ×3 (07:59→20:20)
--- NOTE | 2020-04-02 10:02 | Progress Note ---
Assessment and Plan Assessment and plan: 59-year-old female with known history of end-stage renal disease on dialysis- Mondays, Wednesdays and Fridays, lupus, CHF, presenting to the emergency room today from an assisted living facility with cough fever headache which has been ongoing for about 4 days. She did not go to dialysis today because she was not feeling quite well. She had a fever of about 103 F. She also also has some mild shortness of breath. Patient indicates that several people at the facility had tested positive for COVID-19. She tested negative for COVID-19 yesterday. Patient denies any chest pain, no nausea vomiting, no loss of taste or smell, no diarrhea and no abdominal pain. In route to the hospital patient oxygen saturation was about 88% on room air she was subsequently placed on 2 L of oxygen. Work-up in the emergency room today chest x-ray reveals pulmonary edema. Veneer Taper Dr. Hong has been consulted by the ER physician. Patient has been admitted with pulmonary edema. We will however rule out COVID-19. 2/2: Review of records shows patient is still on High flow, will obtain Pulmonary consultation, patient with worsening D.Dimer, will obtain V/Q scan to rule pulmonary embolism, Will likely change to Heparin drip till this iS clarified if patient is still on High flow. I unfortunately do not see clear oxygen documentation. Continues with Hypertensive urgency, SPOKE with the daughter, patient has had Elevated blood pressure for some time but not quite this high, Nephrology following and adjusting meds. 2/3: Continue supportive care, Will discontinue Heparin drip at this time, and use sliding scale considering low probability of PE on V/Q scan. Considering uncontrolled HTN, will transfer to [facility] and initiate Cardene drip, continue to wean High flow. COUNSELLING ON FLUID RESTRICTIONS 2/4: Consider repeating hypoxia and increasing high flow back to 100% we will ask respiratory therapist to aggressively wean as recommended by assisted living administrator. Discussed with nursing staff remove restraints and less reevaluate the patient. If recurrent delirium or encephalopathy we will at that time reevaluate. Have discussed with the patient again about compliance with p.o. fluid intake. Blood pressure is better improved today. 5: Patient undergoing dialysis today. Anticipate discharge in 48 hours hopefully. We are awaiting outpatient HD set up. Patient will be discharged to rehab center. Is currently down to 4 L of oxygen will need exertional oxygen evaluation prior to discharge. Blood pressure is better. Continue dexamethasone and remdesivir for now. 03/25: Continue supportive care wean oxygen as tolerated. Awaiting dialysis placement for discharge. 03/26: Continue supportive care, blood pressure still elevated. Continue to monitor and address. Still awaiting placement 03/27. Still awaiting placement. Has no complaints today 03/28-date. Still awaiting placement. HD chair already arranged. Plan Acute hypoxic respiratory failure -Oxygen supplementation Covid pneumonia Dexamethasone ID on board End-stage renal disease -Friday -Continue dialysis as scheduled Nonsustained ventricular tachycardia Cardiology recommendations appreciated Continue to monitor, no acute intervention required at this time -TTE noted Accelerated hypertension related to renal disease Valsartan, metoprolol, furosemide, clonidine, hydralazine, making adjustments for better control Anemia and chronic disease illness -No acute bleeding Hypervolemic hyponatremia -Resolved with hemodialysis Heart failure, unspecified type Presumed history of CAD Elevated BNP Metoprolol, Plavix Hyperkalemia Resolved Morbid obesity Lifestyle change CODE STATUS: Full DVT prophylaxis: Heparin Disposition: Continue Covid treatment, continue hemodialysis, monitor for nons ustained V. tach History Interval history: Still waiting for placement Hospitalist Physical - Physical exam Narrative exam: VITAL SIGNS: Reviewed. GENERAL: Awake HEAD: No signs of head trauma. EYES: Pupils are equal. Extraocular motions intact. MOUTH: Oropharynx is normal. NECK: No adenopathy, no JVD. CHEST: Chest with diminished breath sounds bilaterally. No wheezes, rales, or rhonchi. right permacath in place CARDIAC: normal S1 and S2, without murmurs, gallops, or rubs. ABDOMEN: Soft, non tender and non distended. No rebound or guarding, and no masses palpated. Bowel Sounds normal. MUSCULOSKELETAL: No edema NEUROLOGIC EXAM: Alert and oriented x3. No focal neurologic deficits SKIN: No obvious lesions - Constitutional Vitals: Temp Pulse Resp BP Pulse Ox 98.3 F 59 L 18 159/70 95 04/02/20 04:43 04/02/20 05:09 04/02/20 08:26 04/02/20 08:02 04/02/20 08:53 Results - Labs CBC & Chem 7: 03/21/20 05:59 03/22/20 05:04 Labs: Laboratory Last Values WBC 4.0 K/mm3 (4.5-11.0) L 03/21/20 05:59 RBC 2.68 M/mm3 (3.65-5.03) L 03/21/20 05:59 Hgb 8.4 gm/dl (10.1-14.3) L 03/21/20 05:59 Hct 25.2 % (30.3-42.9) L 03/21/20 05:59 MCV 94 fl (79-97) 03/21/20 05:59 MCH 31 pg (28-32) 03/21/20 05:59 MCHC 33 % (30-34) 03/21/20 05:59 RDW 17.2 % (13.2-15.2) H 03/21/20 05:59 Plt Count 198 K/mm3 (140-440) 03/21/20 05:59 Lymph % (Auto) 7.0 % (13.4-35.0) L 03/16/20 06:18 Wake % (Auto) 8.4 % (0.0-7.3) H 03/16/20 06:18 Eos % (Auto) 0.0 % (0.0-4.3) 03/16/20 06:18 Baso % (Auto) 0.5 % (0.0-1.8) 03/16/20 06:18 Lymph # (Auto) 0.3 K/mm3 (1.2-5.4) L 03/16/20 06:18 Wake # (Auto) 0.3 K/mm3 (0.0-0.8) 03/16/20 06:18 Eos # (Auto) 0.0 K/mm3 (0.0-0.4) 03/16/20 06:18 Baso # (Auto) 0.0 K/mm3 (0.0-0.1) 03/16/20 06:18 Seg Neutrophils % 84.1 % (40.0-70.0) H 03/16/20 06:18 Seg Neutrophils # 3.1 K/mm3 (1.8-7.7) 03/16/20 06:18 PT 14.5 Sec. (12.2-14.9) 03/16/20 06:18 INR 1.14 (0.87-1.13) H 03/16/20 06:18 APTT 37.2 Sec. (24.2-36.6) H 03/15/20 12:26 D-Dimer 1600.05 ng/mlDDU (0-234) H 03/21/20 08:58 Sodium 134 mmol/L (137-145) L 03/22/20 05:04 Potassium 3.8 mmol/L (3.6-5.0) 03/22/20 05:04 Chloride 92.1 mmol/L (98-107) L 03/22/20 05:04 Carbon Dioxide 26 mmol/L (22-30) 03/22/20 05:04 Anion Gap 20 mmol/L 03/22/20 05:04 BUN 47 mg/dL (7-17) H 03/22/20 05:04 Creatinine 5.0 mg/dL (0.6-1.2) H 03/22/20 05:04 Estimated GFR 11 ml/min 03/22/20 05:04 BUN/Creatinine Ratio 9 % 03/22/20 05:04 Glucose 92 mg/dL (65-100) 03/22/20 05:04 POC Glucose 124 mg/dL (70-105) H 03/20/20 21:23 Calcium 10.0 mg/dL (8.4-10.2) 03/22/20 05:04 Magnesium 1.80 mg/dL (1.7-2.3) 03/20/20 01:22 Ferritin > 2000.0 ng/mL (10.0-200.0) H 03/21/20 08:58 Total Bilirubin 0.30 mg/dL (0.1-1.2) 03/17/20 04:36 Direct Bilirubin < 0.2 mg/dL (0-0.2) 03/15/20 12:26 Indirect Bilirubin 0.1 mg/dL 03/15/20 12:26 AST 15 units/L (5-40) 03/17/20 04:36 ALT 7 units/L (7-56) 03/17/20 04:36 Alkaline Phosphatase 73 units/L (35-129) 03/17/20 04:36 Lactate Dehydrogenase 291 units/L (91-180) H 03/21/20 08:58 C-Reactive Protein 19.80 mg/dL (0.00-1.30) H 03/21/20 08:58 NT-Pro-B Natriuret Pep > 65484 pg/mL (0-900) H 03/15/20 13:10 Total Protein 6.2 g/dL (6.3-8.2) L 03/17/20 04:36 Albumin 3.6 g/dL (3.9-5) L 03/17/20 04:36 Albumin/Globulin Ratio 1.4 % 03/17/20 04:36 Procalcitonin 6.52 ng/mL (<0.15) 03/21/20 08:58 TSH 1.540 mlU/mL (0.270-4.200) 03/19/20 04:45 Free T4 1.32 ng/dL (0.76-1.46) 03/19/20 04:45 Nasal Screen MRSA (PCR) Negative (Negative) 03/16/20 23:49 Coronavirus (PCR) Positive (Negative) A 03/16/20 Unknown Hepatitis A IgM Ab Non-reactive (NonReactive) 03/15/20 19:18 Hep Bs Antigen Non-reactive (Negative) 03/15/20 19:18 Hep B Core IgM Ab Non-reactive (NonReactive) 03/15/20 19:18 Hepatitis C Antibody Non-reactive (NonReactive) 03/15/20 19:18 - Diagnostic Impressions Diagnostic Impressions: Echocardiogram 03/15/20 15:05 Transthoracic Echocardiogram Indication: Pulm edema; h/o CHF BP: 186/94 HR: 75 Conclusions *Global left ventricular wall motion and contractility are within normal limits. *Global left ventricular systolic function is normal. *The right ventricular global systolic function is normal. *The left atrium is severely dilated. *There is evidence of an atrial septal aneurysm. *There is trace of aortic regurgitation. *Severe mitral leaflet calcification is visualized. *There is moderate to severe mitral stenosis. *The mean gradient across the mitral valve is 20.917843238072 mmHg. *There is mild tricuspid regurgitation. *The right ventricular systolic pressure is calculated at 60 mmHg. *There is trace pulmonic regurgitation. Findings Left Ventricle: The left ventricular chamber size is normal. Severe concentric left ventricular hypertrophy is observed. Global left ventricular wall motion and contractility are within normal limits. Global left ventricular systolic function is normal. The estimated ejection fraction is 50-55%. Left Atrium: The left atrium is severely dilated. Right Ventricle: The right ventricular cavity size is normal. The right ventricular global systolic function is normal. Right Atrium: The right atrial cavity size is normal. There is evidence of an atrial septal aneurysm. Aortic Valve: Mild aortic leaflet calcification is visualized. There is trace of aortic regurgitation. Mitral Valve: Severe mitral leaflet calcification is visualized. There is mild mitral regurgitation. There is moderate to severe mitral stenosis. The mean gradient across the mitral valve is 20.887018267855 mmHg. The peak gradient across the mitral valve is 33.38441703138 mmHg. Tricuspid Valve: The tricuspid valve leaflets are normal. There is mild tricuspid regurgitation. The right ventricular systolic pressure is calculated at 60 mmHg. Pulmonic Valve: There is no evidence of pulmonic valve thickening. There is trace pulmonic regurgitation. Pericardium: There is no pericardial effusion. Aorta: The aorta appears normal. Venous: The inferior vena cava is dilated. Measurements Chambers 2D Name Value Normal Range IVSd (2D) 1.82 cm (0.6 - 1.1) LVPWd (2D) 1.64 cm (0.6 - 1.1) LVIDd (2D) 4.56 cm (3.7 - 5.6) LVIDs (2D) 3.53 cm (2 - 3.8) LV FS (2D) 22.49 % - EF Teichholz (2D) 45.39 % - Ao root diameter (2D) 2.87 cm (2 - 3.7) Volumes/Mass Name Value Normal Range LA ESV SP 4CH (A/L) 98.24 ml - LA ESV SP 2CH (A/L) 197.59 ml - LA ESV BP (A/L) 140.33 ml - LA ESV BP (A/L) index 77.53 ml/m2 - LA ESV SP 4CH (MOD) 93.73 ml - LA ESV SP 2CH (MOD) 194.1 ml - LA ESV BP (MOD) 134.76 ml - LA ESV BP (MOD) index 74.45 ml/m2 - Diastolic/Systolic Function Name Value Normal Range MV E-wave Vmax 2.09 m/sec - MV deceleration time 630.49 msec - MV A-wave Vmax 1.38 m/sec - MV E:A ratio 1.51 ratio - Aortic Valve Name Value Normal Range AV Vmax 2.22 m/sec - AV VTI 47.25 cm - AV peak gradient 19.74 mmHg - AV mean gradient 10.57 mmHg - LVOT diameter 1.91 cm - LVOT Vmax 1.58 m/sec - LVOT VTI 31.21 cm - LVOT peak gradient 10 mmHg - LVOT mean gradient 5.33 mmHg - SV LVOT 89.65 ml - CLVIE (continuity Vmax) 2.04 cm2 - CLIVE (continuity VTI) 1.9 cm2 - AR PHT 479.73 msec - AR peak gradient 17.52 mmHg - Mitral Valve Name Value Normal Range MV Vmax 2.89 m/sec - MV VTI 107.77 cm - MV peak gradient 33.41 mmHg - MV mean gradient 20.1 mmHg - MV PHT 184.74 msec - MR Vmax 6.51 m/sec - MVA (PHT) 1.19 cm2 - MVA (continuity VTI) 0.83 cm2 - Tricuspid Valve Name Value Normal Range TR Vmax 3.61 m/sec - TR peak gradient 52.14 mmHg - RAP 8 mmHg - RVSP 60 mmHg - IVC diameter 2.47 cm (1.2 - 2.3) Pulmonic Valve/Qp:Qs Name Value Normal Range PV Vmax 1.13 m/sec - PV peak gradient 5.09 mmHg - HI end-diastolic Vmax 0.73 m/sec - PV acceleration time 106.57 msec - Marx/IV: Voiding Method Incontinent IV Catheter Type [Left Hand] INT / Saline Lock Active Medications - Current Medications Current Medications: Generic Name Dose Route Start Last Admin Trade Name Freq PRN Reason Stop Dose Admin Acetaminophen 650 mg 03/15/20 14:59 03/25/20 05:27 Acetaminophen 325 Mg Tab PO 650 mg Q4H PRN Administration Pain MILD(1-3)/Fever >100.5/KENNY Amlodipine Besylate 10 mg 03/16/20 10:00 04/01/20 10:04 Amlodipine 10 Mg Tab PO 10 mg DAILY MKI Administration Aspirin 81 mg 03/16/20 10:00 04/01/20 10:05 Aspirin Ec 81 Mg Tab PO 81 mg DAILY MIK Administration Atorvastatin Calcium 10 mg 03/15/20 22:00 04/01/20 21:53 Atorvastatin 10 Mg Tab PO 10 mg QHS MIK Administration Azathioprine 50 mg 03/16/20 10:00 04/01/20 10:03 Azathioprine 50 Mg Tab PO 50 mg DAILY MIK Administration Calcitriol 1 mcg 03/21/20 10:00 04/01/20 10:04 Calcitriol 0.25 Mcg Cap PO 1 mcg QDAY MIK Administration Clonidine HCl 0.2 mg 03/15/20 22:00 04/02/20 05:09 Clonidine 0.1 Mg Tab PO 0.2 mg Q8HR MIK Administration Clopidogrel Bisulfate 75 mg 03/16/20 10:00 04/01/20 10:05 Clopidogrel 75 Mg Tab PO 75 mg QDAY MIK Administration Guaifenesin 600 mg 03/17/20 11:00 04/01/20 21:52 Guaifenesin Er 600 Mg Tab PO 600 mg BID MIK Administration Heparin Sodium (Porcine) 5,000 unit 03/15/20 22:00 04/02/20 05:09 Heparin 5,000 Unit/1 Ml Vial SUB-Q Not Given Q8HR [facility] Hydralazine HCl 20 mg 03/17/20 07:33 03/22/20 11:32 Hydralazine 20 Mg/1 Ml Inj IV 20 mg Q4HR PRN Administration Give if SBP>180 DBP>100 Hydralazine HCl 100 mg 03/18/20 20:00 04/02/20 07:59 Hydralazine 100 Mg Tab PO 100 mg TID MIK Administration Hydrophilic Ointment 1 applic 03/19/20 04:30 03/19/20 05:52 Lip Therapy Vaseline TP 1 applic DIRECT PRN Administration Dry Lips Sodium Chloride 100 mls @ 999 mls/hr 03/19/20 17:59 Nacl 0.9% IV SHEREE PRN Hypotension Magnesium Hydroxide 30 ml 03/15/20 14:59 Magnesium Hydroxide (Mom) Oral Liqd Udc PO Q4H PRN Constipation Metoprolol Tartrate 100 mg 03/22/20 22:00 04/01/20 21:53 Metoprolol Tartrate 100 Mg Tab PO 100 mg BID MIK Administration Minoxidil 2.5 mg 03/22/20 13:00 04/01/20 10:04 Minoxidil 2.5 Mg Tab PO 2.5 mg QDAY [facility] Administration Morphine Sulfate 2 mg 03/15/20 14:59 03/22/20 17:22 Morphine 2 Mg/1 Ml Inj IV 2 mg Q5MIN PRN Administration Chest Pain unrelieved by NTG Ondansetron HCl 4 mg 03/15/20 14:59 03/22/20 17:22 Ondansetron 4 Mg/2 Ml Inj IV 4 mg Q8H PRN Administration Nausea And Vomiting Pantoprazole Sodium 20 mg 03/16/20 10:00 04/01/20 10:04 Pantoprazole 20 Mg Tab PO 20 mg QDAY MIK Administration Sodium Chloride 10 ml 03/15/20 22:00 04/01/20 21:54 Sodium Chloride 0.9% 10 Ml Flush Syringe IV 10 ml BID MIK Administration Sodium Chloride 10 ml 03/15/20 14:59 Sodium Chloride 0.9% 10 Ml Flush Syringe IV PRN PRN LINE FLUSH Tramadol HCl 50 mg 03/16/20 03:23 03/31/20 12:31 Tramadol 50 Mg Tab PO 50 mg Q6H PRN Administration Pain, Moderate (4-6) Valsartan 160 mg 03/15/20 22:00 04/01/20 21:52 Valsartan 160mg Tab PO 160 mg BID MIK Administration Nutrition/Malnutrition Assess - Dietary Evaluation Nutrition/Malnutrition Findings: Nutrition Notes Start: 03/23/20 13:01 Freq: Status: Active Protocol: Document 03/31/20 10:55 [email or web address] (Rec: 03/31/20 11:00 [email or web address] [id number]) Co-Sign 03/31/20 10:55 Nutrition Notes Initial or Follow up Reassessment Current Diagnosis CKD (stage V CKD),Heart Failure Other Pertinent Diagnosis Covid(+), lupus, on HD, acute respiratory failure Current Diet Cardiac with renal Labs/Tests No New Labs Pertinent Medications Reviewed Height 5 ft 3 in Weight 78.5 kg [place] Body Weight (kg) 52.27 BMI 30.7 Weight Status Obese Subjective/Other Information F/u for intakes, Spoke to pt on the phone. Pt is consuming 50% of PO intake with okay appetite. Pt declined ONS with no food preferences. Percent of energy/protein needs met: 65%/41% Burn Absent Trauma Absent GI Symptoms None Food Allergy No Current % PO Fair (50-74%) Minimum of two criteria No Energy Intake (non-severe) <75% Estimated Energy Requirement >7 days #1 Nutrition Diagnosis Inadequate oral intake As Evidenced by Signs and Symptoms Pt consuming 50% of meals Diagnosis Progress(for reassessment Worsened documentation) Is patient on ventilator? No Is Patient Ambulatory and/or Out of Bed No REE-([facility]-confined to bed) 1147.868 Calculation Used for Recommendations [facility] Additional Notes Protein: >1.2g/kg (>94g) Fluid: 1000mL or per MD Nutrition Intervention Change Diet Order: Continue current diet Goal #1 Meet at least 75% of energy and protein needs via PO Anticipated Discharge Needs: Cardiac/Renal diet Follow-Up By: 04/04/20 Additional Comments F/U for intakes
[2020-04-02] MEDS: amLODIPine 10 MG TAB PO SCH (10:08)
[2020-04-02] MEDS: VALSARTAN 160MG TAB PO SCH ×2 (10:08→22:23)
[2020-04-02] MEDS: CLOPIDOGREL 75 MG TAB PO SCH (10:08)
[2020-04-02] MEDS: CALCITRIOL 0.25 MCG CAP PO SCH (10:08)
[2020-04-02] MEDS: MINOXIDIL 2.5 MG TAB PO SCH (10:08)
[2020-04-02] MEDS: ASPIRIN EC 81 MG TAB PO SCH (10:08)
[2020-04-02] MEDS: guaiFENesin ER 600 MG TAB PO SCH ×2 (10:08→21:54)
[2020-04-02] MEDS: azaTHIOprine 50 MG TAB PO SCH (10:08)
[2020-04-02] MEDS: PANTOPRAZOLE 20 MG TAB PO SCH (10:09)
[2020-04-02] MEDS: METOPROLOL TARTRATE 100 MG TAB PO SCH ×2 (10:09→22:26)
--- NOTE | 2020-04-02 15:16 | Progress Note ---
Assessment and Plan - Patient Problems (1) Pneumonia due to COVID-19 virus Current Visit: Yes Status: Chronic Plan to address problem: Continue treatment per infectious disease. Continue dexamethasone Supplemental oxygen/Respiratory support as needed Proning as tolerated Remdesevir contra-indicated due to Kidney failure Prophylactic anticoagulation Trend inflammatory markers to assess disease progression and prognosis. Awaiting discharge (2) Hypertensive chronic kidney disease with stage 5 chronic kidney disease or end stage renal disease Current Visit: Yes Status: Chronic Plan to address problem: Follow-up blood pressure on current medications (3) ESRD needing dialysis Current Visit: No Status: Chronic Plan to address problem: Hemodialysis per schedule. I discussed with the outpatient dialysis clinic and she is set up at the [facility]-19 clinic starting friday at 08.30 am. Patient can be discharged today from Renal standpoint (4) Lupus (systemic lupus erythematosus) Current Visit: Yes Status: Acute Plan to address problem: Continue treatment follow-up with [facility] as an outpatient (5) Anemia in chronic kidney disease Current Visit: Yes Status: Acute Plan to address problem: Give erythropoietin on dialysis and follow-up hemoglobin Subjective Date of service: 04/02/20 Principal diagnosis: COVID Interval history: Patient was not evaluated at the bedside today due to the COVID-19 status to limit exposure of the consulting slp and also for PPE preservation during the COVID-19 pandemic. I reviewed multidisciplinary notes and discussed with staff and physicians as needed. Objective - Exam Narrative Exam: patient was not examined at the bedside today due to personal protective equipment preservation during the COVID-19 pandemic - Vital Signs Vital signs: Vital Signs - 12hr 04/02/20 04/02/20 04/02/20 04:43 05:09 08:02 Temperature 98.3 F Pulse Rate 58 L 59 L Respiratory 16 Rate Blood Pressure 159/73 158/73 159/70 O2 Sat by Pulse 98 Oximetry 04/02/20 04/02/20 04/02/20 08:26 08:53 09:41 Temperature Pulse Rate Respiratory 18 Rate Blood Pressure 143/57 O2 Sat by Pulse 95 Oximetry 04/02/20 04/02/20 04/02/20 10:08 10:09 10:33 Temperature 97.8 F Pulse Rate 64 65 65 Respiratory 18 Rate Blood Pressure 143/57 143/57 139/59 O2 Sat by Pulse 93 Oximetry 04/02/20 13:40 Temperature Pulse Rate 66 Respiratory Rate Blood Pressure 142/63 O2 Sat by Pulse Oximetry - Lab 03/21/20 05:59 03/22/20 05:04 Most recent lab results Calcium 10.0 mg/dL (8.4-10.2) 03/22/20 05:04 Magnesium 1.80 mg/dL (1.7-2.3) 03/20/20 01:22 Medications & Allergies - Medications Allergies/Adverse Reactions: Allergies No Known Allergies Allergy (Unverified 12/01/19 05:58) Home Medications: Home Medications Medication Instructions Recorded Confirmed Last Taken Type Aspirin [Adult Aspirin] 81 mg PO DAILY 12/02/19 03/18/20 Unknown History AtorvaSTATin 10 mg PO QHS 12/02/19 03/18/20 Unknown History Clopidogrel [Plavix] 75 mg PO QDAY 12/02/19 03/18/20 Unknown History Folic Acid 0.4 mg PO QDAY 12/02/19 03/18/20 Unknown History Omeprazole 20 mg PO DAILY 12/02/19 03/18/20 Unknown History amLODIPine 10 mg PO DAILY 12/02/19 03/18/20 Unknown History azaTHIOprine [Azathioprine] 50 mg PO DAILY 12/02/19 03/18/20 Unknown History calcitrioL [Rocaltrol] 1 mcg PO QDAY 12/02/19 03/18/20 Unknown History Valsartan [Diovan] 160 mg PO BID #60 tablet 12/10/19 03/18/20 Unknown Rx cloNIDine [Catapres] 0.2 mg PO Q8HR #90 tablet 12/10/19 03/18/20 Unknown Rx minoxidiL [Loniten] 5 mg PO QDAY #30 tablet 12/10/19 03/18/20 Unknown Rx Metoprolol [Lopressor TAB] 100 mg PO BID #60 tablet 03/27/20 Unknown Rx guaiFENesin ER [Mucinex ER] 600 mg PO BID #10 tablet 03/27/20 Unknown Rx hydrALAZINE [Apresoline TAB] 100 mg PO TID #90 tab 03/27/20 Unknown Rx Active Medications: Generic Name Dose Route Start Last Admin Trade Name Freq PRN Reason Stop Dose Admin Acetaminophen 650 mg 03/15/20 14:59 03/25/20 05:27 Acetaminophen 325 Mg Tab PO 650 mg Q4H PRN Administration Pain MILD(1-3)/Fever >100.5/KENNY Amlodipine Besylate 10 mg 03/16/20 10:00 04/02/20 10:08 Amlodipine 10 Mg Tab PO 10 mg DAILY MIK Administration Aspirin 81 mg 03/16/20 10:00 04/02/20 10:08 Aspirin Ec 81 Mg Tab PO 81 mg DAILY MIK Administration Atorvastatin Calcium 10 mg 03/15/20 22:00 04/01/20 21:53 Atorvastatin 10 Mg Tab PO 10 mg QHS MIK Administration Azathioprine 50 mg 03/16/20 10:00 04/02/20 10:08 Azathioprine 50 Mg Tab PO 50 mg DAILY MIK Administration Calcitriol 1 mcg 03/21/20 10:00 04/02/20 10:08 Calcitriol 0.25 Mcg Cap PO 1 mcg QDAY MIK Administration Clonidine HCl 0.2 mg 03/15/20 22:00 04/02/20 13:40 Clonidine 0.1 Mg Tab PO 0.2 mg Q8HR MIK Administration Clopidogrel Bisulfate 75 mg 03/16/20 10:00 04/02/20 10:08 Clopidogrel 75 Mg Tab PO 75 mg QDAY [facility] Administration Guaifenesin 600 mg 03/17/20 11:00 04/02/20 10:08 Guaifenesin Er 600 Mg Tab PO 600 mg BID MIK Administration Heparin Sodium (Porcine) 5,000 unit 03/15/20 22:00 04/02/20 13:33 Heparin 5,000 Unit/1 Ml Vial SUB-Q Not Given Q8HR [facility] Hydralazine HCl 20 mg 03/17/20 07:33 03/22/20 11:32 Hydralazine 20 Mg/1 Ml Inj IV 20 mg Q4HR PRN Administration Give if SBP>180 DBP>100 Hydralazine HCl 100 mg 03/18/20 20:00 04/02/20 13:40 Hydralazine 100 Mg Tab PO 100 mg TID MIK Administration Hydrophilic Ointment 1 applic 03/19/20 04:30 03/19/20 05:52 Lip Therapy Vaseline TP 1 applic DIRECT PRN Administration Dry Lips Sodium Chloride 100 mls @ 999 mls/hr 03/19/20 17:59 Nacl 0.9% IV SHEREE PRN Hypotension Magnesium Hydroxide 30 ml 03/15/20 14:59 Magnesium Hydroxide (Mom) Oral Liqd Udc PO Q4H PRN Constipation Metoprolol Tartrate 100 mg 03/22/20 22:00 04/02/20 10:09 Metoprolol Tartrate 100 Mg Tab PO 100 mg BID MIK Administration Minoxidil 2.5 mg 03/22/20 13:00 04/02/20 10:08 Minoxidil 2.5 Mg Tab PO 2.5 mg QDAY MIK Administration Morphine Sulfate 2 mg 03/15/20 14:59 03/22/20 17:22 Morphine 2 Mg/1 Ml Inj IV 2 mg Q5MIN PRN Administration Chest Pain unrelieved by NTG Ondansetron HCl 4 mg 03/15/20 14:59 03/22/20 17:22 Ondansetron 4 Mg/2 Ml Inj IV 4 mg Q8H PRN Administration Nausea And Vomiting Pantoprazole Sodium 20 mg 03/16/20 10:00 04/02/20 10:09 Pantoprazole 20 Mg Tab PO 20 mg QDAY MIK Administration Sodium Chloride 10 ml 03/15/20 22:00 04/02/20 10:09 Sodium Chloride 0.9% 10 Ml Flush Syringe IV 10 ml BID MIK Administration Sodium Chloride 10 ml 03/15/20 14:59 Sodium Chloride 0.9% 10 Ml Flush Syringe IV PRN PRN LINE FLUSH Tramadol HCl 50 mg 03/16/20 03:23 03/31/20 12:31 Tramadol 50 Mg Tab PO 50 mg Q6H PRN Administration Pain, Moderate (4-6) Valsartan 160 mg 03/15/20 22:00 04/02/20 10:08 Valsartan 160mg Tab PO 160 mg BID MIK Administration
[2020-04-03] MEDS: HEPARIN 5,000 UNIT/1 ML VIAL SUB-Q SCH ×2 (05:43→14:35)
[2020-04-03] MEDS: cloNIDine 0.1 MG TAB PO SCH ×2 (05:44→14:35)
[2020-04-03] MEDS: hydrALAZINE 100 MG TAB PO SCH ×2 (08:17→14:35)
--- NOTE | 2020-04-03 08:50 | Progress Note ---
Assessment and Plan - Patient Problems (1) Pneumonia due to COVID-19 virus Current Visit: Yes Status: Chronic Plan to address problem: Patient immunosuppressed on Imuran for SLE. Continue treatment per infectious disease. Continue dexamethasone Supplemental oxygen/Respiratory support as needed Proning as tolerated Remdesevir contra-indicated due to Kidney failure Prophylactic anticoagulation Trend inflammatory markers to assess disease progression and prognosis. Awaiting discharge (2) Hypertensive chronic kidney disease with stage 5 chronic kidney disease or end stage renal disease Current Visit: Yes Status: Chronic Plan to address problem: Follow-up blood pressure on current medications (3) ESRD needing dialysis Current Visit: No Status: Chronic Plan to address problem: Hemodialysis this morning.. I discussed with the outpatient dialysis clinic and she is set up at the [facility] COVID-19 clinic starting friday at 08.30 am. Patient can be discharged today from Renal standpoint (4) Lupus (systemic lupus erythematosus) Current Visit: Yes Status: Acute Plan to address problem: On Imuran. Continue treatment follow-up with 911 emergency dispatcher as an outpatient (5) Anemia in chronic kidney disease Current Visit: Yes Status: Acute Plan to address problem: Give erythropoietin on dialysis and follow-up hemoglobin Subjective Date of service: 04/03/20 Principal diagnosis: COVID Interval history: Patient was not evaluated at the bedside today due to the COVID-19 status to limit exposure of the consulting structural metal fabricator apprentice and also for PPE preservation during the COVID-19 pandemic. I reviewed multidisciplinary notes and discussed with staff and physicians as needed. Objective - Exam Narrative Exam: patient was not examined at the bedside today due to personal protective equipment preservation during the COVID-19 pandemic - Vital Signs Vital signs: Vital Signs - 12hr 04/02/20 04/02/20 04/02/20 21:34 22:23 22:26 Temperature 99.3 F Pulse Rate 62 62 64 Respiratory 16 Rate Blood Pressure 128/49 128/49 128/49 O2 Sat by Pulse 97 Oximetry 04/03/20 04/03/20 04/03/20 04:39 05:44 08:31 Temperature 98.4 F Pulse Rate 64 64 Respiratory 16 Rate Blood Pressure 148/70 148/70 O2 Sat by Pulse 100 96 Oximetry - Lab 03/21/20 05:59 03/22/20 05:04 Most recent lab results Calcium 10.0 mg/dL (8.4-10.2) 03/22/20 05:04 Magnesium 1.80 mg/dL (1.7-2.3) 03/20/20 01:22 Medications & Allergies - Medications Allergies/Adverse Reactions: Allergies No Known Allergies Allergy (Unverified 12/01/19 05:58) Home Medications: Home Medications Medication Instructions Recorded Confirmed Last Taken Type Aspirin [Adult Aspirin] 81 mg PO DAILY 12/02/19 03/18/20 Unknown History AtorvaSTATin 10 mg PO QHS 12/02/19 03/18/20 Unknown History Clopidogrel [Plavix] 75 mg PO QDAY 12/02/19 03/18/20 Unknown History Folic Acid 0.4 mg PO QDAY 12/02/19 03/18/20 Unknown History Omeprazole 20 mg PO DAILY 12/02/19 03/18/20 Unknown History amLODIPine 10 mg PO DAILY 12/02/19 03/18/20 Unknown History azaTHIOprine [Azathioprine] 50 mg PO DAILY 12/02/19 03/18/20 Unknown History calcitrioL [Rocaltrol] 1 mcg PO QDAY 12/02/19 03/18/20 Unknown History Valsartan [Diovan] 160 mg PO BID #60 tablet 12/10/19 03/18/20 Unknown Rx cloNIDine [Catapres] 0.2 mg PO Q8HR #90 tablet 12/10/19 03/18/20 Unknown Rx minoxidiL [Loniten] 5 mg PO QDAY #30 tablet 12/10/19 03/18/20 Unknown Rx Metoprolol [Lopressor TAB] 100 mg PO BID #60 tablet 03/27/20 Unknown Rx guaiFENesin ER [Mucinex ER] 600 mg PO BID #10 tablet 03/27/20 Unknown Rx hydrALAZINE [Apresoline TAB] 100 mg PO TID #90 tab 03/27/20 Unknown Rx Active Medications: Generic Name Dose Route Start Last Admin Trade Name Freq PRN Reason Stop Dose Admin Acetaminophen 650 mg 03/15/20 14:59 03/25/20 05:27 Acetaminophen 325 Mg Tab PO 650 mg Q4H PRN Administration Pain MILD(1-3)/Fever >100.5/KENNY Amlodipine Besylate 10 mg 03/16/20 10:00 04/02/20 10:08 Amlodipine 10 Mg Tab PO 10 mg DAILY MIK Administration Aspirin 81 mg 03/16/20 10:00 04/02/20 10:08 Aspirin Ec 81 Mg Tab PO 81 mg DAILY MIK Administration Atorvastatin Calcium 10 mg 03/15/20 22:00 04/02/20 21:54 Atorvastatin 10 Mg Tab PO 10 mg QHS MIK Administration Azathioprine 50 mg 03/16/20 10:00 04/02/20 10:08 Azathioprine 50 Mg Tab PO 50 mg DAILY MIK Administration Calcitriol 1 mcg 03/21/20 10:00 04/02/20 10:08 Calcitriol 0.25 Mcg Cap PO 1 mcg QDAY MIK Administration Clonidine HCl 0.2 mg 03/15/20 22:00 04/03/20 05:44 Clonidine 0.1 Mg Tab PO 0.2 mg Q8HR MIK Administration Clopidogrel Bisulfate 75 mg 03/16/20 10:00 04/02/20 10:08 Clopidogrel 75 Mg Tab PO 75 mg QDAY MIK Administration Guaifenesin 600 mg 03/17/20 11:00 04/02/20 21:54 Guaifenesin Er 600 Mg Tab PO 600 mg BID MIK Administration Heparin Sodium (Porcine) 5,000 unit 03/15/20 22:00 04/03/20 05:43 Heparin 5,000 Unit/1 Ml Vial SUB-Q Not Given Q8HR [facility] Hydralazine HCl 20 mg 03/17/20 07:33 03/22/20 11:32 Hydralazine 20 Mg/1 Ml Inj IV 20 mg Q4HR PRN Administration Give if SBP>180 DBP>100 Hydralazine HCl 100 mg 03/18/20 20:00 04/03/20 08:17 Hydralazine 100 Mg Tab PO 100 mg TID [facility] Administration Hydrophilic Ointment 1 applic 03/19/20 04:30 03/19/20 05:52 Lip Therapy Vaseline TP 1 applic DIRECT PRN Administration Dry Lips Sodium Chloride 100 mls @ 999 mls/hr 03/19/20 17:59 Nacl 0.9% IV SHEREE PRN Hypotension Magnesium Hydroxide 30 ml 03/15/20 14:59 Magnesium Hydroxide (Mom) Oral Liqd Udc PO Q4H PRN Constipation Metoprolol Tartrate 100 mg 03/22/20 22:00 04/02/20 22:26 Metoprolol Tartrate 100 Mg Tab PO Not Given BID [facility] Minoxidil 2.5 mg 03/22/20 13:00 04/02/20 10:08 Minoxidil 2.5 Mg Tab PO 2.5 mg QDAY MIK Administration Morphine Sulfate 2 mg 03/15/20 14:59 03/22/20 17:22 Morphine 2 Mg/1 Ml Inj IV 2 mg Q5MIN PRN Administration Chest Pain unrelieved by NTG Ondansetron HCl 4 mg 03/15/20 14:59 03/22/20 17:22 Ondansetron 4 Mg/2 Ml Inj IV 4 mg Q8H PRN Administration Nausea And Vomiting Pantoprazole Sodium 20 mg 03/16/20 10:00 04/02/20 10:09 Pantoprazole 20 Mg Tab PO 20 mg QDAY MIK Administration Sodium Chloride 10 ml 03/15/20 22:00 04/02/20 21:54 Sodium Chloride 0.9% 10 Ml Flush Syringe IV 10 ml BID MIK Administration Sodium Chloride 10 ml 03/15/20 14:59 Sodium Chloride 0.9% 10 Ml Flush Syringe IV PRN PRN LINE FLUSH Tramadol HCl 50 mg 03/16/20 03:23 03/31/20 12:31 Tramadol 50 Mg Tab PO 50 mg Q6H PRN Administration Pain, Moderate (4-6) Valsartan 160 mg 03/15/20 22:00 04/02/20 22:23 Valsartan 160mg Tab PO Not Given BID MIK
--- NOTE | 2020-04-03 09:23 | Progress Note ---
Assessment and Plan Assessment and plan: 59-year-old female with known history of end-stage renal disease on dialysis- Mondays, Wednesdays and Fridays, lupus, CHF, presenting to the emergency room today from an assisted living facility with cough fever headache which has been ongoing for about 4 days. She did not go to dialysis today because she was not feeling quite well. She had a fever of about 103 F. She also also has some mild shortness of breath. Patient indicates that several people at the facility had tested positive for COVID-19. She tested negative for COVID-19 yesterday. Patient denies any chest pain, no nausea vomiting, no loss of taste or smell, no diarrhea and no abdominal pain. In route to the hospital patient oxygen saturation was about 88% on room air she was subsequently placed on 2 L of oxygen. Work-up in the emergency room today chest x-ray reveals pulmonary edema. Associate Professor Of Church Music Dr. Hong has been consulted by the ER physician. Patient has been admitted with pulmonary edema. We will however rule out COVID-19. 2/2: Review of records shows patient is still on High flow, will obtain Pulmonary consultation, patient with worsening D.Dimer, will obtain V/Q scan to rule pulmonary embolism, Will likely change to Heparin drip till this iS clarified if patient is still on High flow. I unfortunately do not see clear oxygen documentation. Continues with Hypertensive urgency, SPOKE with the daughter, patient has had Elevated blood pressure for some time but not quite this high, Nephrology following and adjusting meds. 2/3: Continue supportive care, Will discontinue Heparin drip at this time, and use sliding scale considering low probability of PE on V/Q scan. Considering uncontrolled HTN, will transfer to [facility] and initiate Cardene drip, continue to wean High flow. COUNSELLING ON FLUID RESTRICTIONS 2/4: Consider repeating hypoxia and increasing high flow back to 100% we will ask respiratory therapist to aggressively wean as recommended by wall attendant. Discussed with nursing staff remove restraints and less reevaluate the patient. If recurrent delirium or encephalopathy we will at that time reevaluate. Have discussed with the patient again about compliance with p.o. fluid intake. Blood pressure is better improved today. 5: Patient undergoing dialysis today. Anticipate discharge in 48 hours hopefully. We are awaiting outpatient HD set up. Patient will be discharged to rehab center. Is currently down to 4 L of oxygen will need exertional oxygen evaluation prior to discharge. Blood pressure is better. Continue dexamethasone and remdesivir for now. 03/25: Continue supportive care wean oxygen as tolerated. Awaiting dialysis placement for discharge. 03/26: Continue supportive care, blood pressure still elevated. Continue to monitor and address. Still awaiting placement 03/27. Still awaiting placement. Has no complaints today 03/28- 04/03. Still awaiting placement. HD chair already arranged. Plan Acute hypoxic respiratory failure -Oxygen supplementation Covid pneumonia Dexamethasone ID on board End-stage renal disease -Friday -Continue dialysis as scheduled Nonsustained ventricular tachycardia Cardiology recommendations appreciated Continue to monitor, no acute intervention required at this time -TTE noted Accelerated hypertension related to renal disease Valsartan, metoprolol, furosemide, clonidine, hydralazine, making adjustments for better control Anemia and chronic disease illness -No acute bleeding Hypervolemic hyponatremia -Resolved with hemodialysis Heart failure, unspecified type Presumed history of CAD Elevated BNP Metoprolol, Plavix Hyperkalemia Resolved Morbid obesity Lifestyle change CODE STATUS: Full DVT prophylaxis: Heparin Disposition: Continue Covid treatment, continue hemodialysis, monitor for non sustained V. tach History Interval history: Still waiting for placement Hospitalist Physical - Physical exam Narrative exam: VITAL SIGNS: Reviewed. GENERAL: Awake HEAD: No signs of head trauma. EYES: Pupils are equal. Extraocular motions intact. MOUTH: Oropharynx is normal. NECK: No adenopathy, no JVD. CHEST: Chest with diminished breath sounds bilaterally. No wheezes, rales, or rhonchi. right permacath in place CARDIAC: normal S1 and S2, without murmurs, gallops, or rubs. ABDOMEN: Soft, non tender and non distended. No rebound or guarding, and no masses palpated. Bowel Sounds normal. MUSCULOSKELETAL: No edema NEUROLOGIC EXAM: Alert and oriented x3. No focal neurologic deficits SKIN: No obvious lesions - Constitutional Vitals: Temp Pulse Resp BP Pulse Ox 98.4 F 64 16 148/70 96 04/03/20 04:39 04/03/20 05:44 04/03/20 04:39 04/03/20 05:44 04/03/20 08:31 Results - Labs CBC & Chem 7: 03/21/20 05:59 03/22/20 05:04 Labs: Laboratory Last Values WBC 4.0 K/mm3 (4.5-11.0) L 03/21/20 05:59 RBC 2.68 M/mm3 (3.65-5.03) L 03/21/20 05:59 Hgb 8.4 gm/dl (10.1-14.3) L 03/21/20 05:59 Hct 25.2 % (30.3-42.9) L 03/21/20 05:59 MCV 94 fl (79-97) 03/21/20 05:59 MCH 31 pg (28-32) 03/21/20 05:59 MCHC 33 % (30-34) 03/21/20 05:59 RDW 17.2 % (13.2-15.2) H 03/21/20 05:59 Plt Count 198 K/mm3 (140-440) 03/21/20 05:59 Lymph % (Auto) 7.0 % (13.4-35.0) L 03/16/20 06:18 [place] % (Auto) 8.4 % (0.0-7.3) H 03/16/20 06:18 Eos % (Auto) 0.0 % (0.0-4.3) 03/16/20 06:18 Baso % (Auto) 0.5 % (0.0-1.8) 03/16/20 06:18 Lymph # (Auto) 0.3 K/mm3 (1.2-5.4) L 03/16/20 06:18 Roosevelt # (Auto) 0.3 K/mm3 (0.0-0.8) 03/16/20 06:18 Eos # (Auto) 0.0 K/mm3 (0.0-0.4) 03/16/20 06:18 Baso # (Auto) 0.0 K/mm3 (0.0-0.1) 03/16/20 06:18 Seg Neutrophils % 84.1 % (40.0-70.0) H 03/16/20 06:18 Seg Neutrophils # 3.1 K/mm3 (1.8-7.7) 03/16/20 06:18 PT 14.5 Sec. (12.2-14.9) 03/16/20 06:18 INR 1.14 (0.87-1.13) H 03/16/20 06:18 APTT 37.2 Sec. (24.2-36.6) H 03/15/20 12:26 D-Dimer 1600.05 ng/mlDDU (0-234) H 03/21/20 08:58 Sodium 134 mmol/L (137-145) L 03/22/20 05:04 Potassium 3.8 mmol/L (3.6-5.0) 03/22/20 05:04 Chloride 92.1 mmol/L (98-107) L 03/22/20 05:04 Carbon Dioxide 26 mmol/L (22-30) 03/22/20 05:04 Anion Gap 20 mmol/L 03/22/20 05:04 BUN 47 mg/dL (7-17) H 03/22/20 05:04 Creatinine 5.0 mg/dL (0.6-1.2) H 03/22/20 05:04 Estimated GFR 11 ml/min 03/22/20 05:04 BUN/Creatinine Ratio 9 % 03/22/20 05:04 Glucose 92 mg/dL (65-100) 03/22/20 05:04 POC Glucose 124 mg/dL (70-105) H 03/20/20 21:23 Calcium 10.0 mg/dL (8.4-10.2) 03/22/20 05:04 Magnesium 1.80 mg/dL (1.7-2.3) 03/20/20 01:22 Ferritin > 2000.0 ng/mL (10.0-200.0) H 03/21/20 08:58 Total Bilirubin 0.30 mg/dL (0.1-1.2) 03/17/20 04:36 Direct Bilirubin < 0.2 mg/dL (0-0.2) 03/15/20 12:26 Indirect Bilirubin 0.1 mg/dL 03/15/20 12:26 AST 15 units/L (5-40) 03/17/20 04:36 ALT 7 units/L (7-56) 03/17/20 04:36 Alkaline Phosphatase 73 units/L (35-129) 03/17/20 04:36 Lactate Dehydrogenase 291 units/L (91-180) H 03/21/20 08:58 C-Reactive Protein 19.80 mg/dL (0.00-1.30) H 03/21/20 08:58 NT-Pro-B Natriuret Pep > 45604 pg/mL (0-900) H 03/15/20 13:10 Total Protein 6.2 g/dL (6.3-8.2) L 03/17/20 04:36 Albumin 3.6 g/dL (3.9-5) L 03/17/20 04:36 Albumin/Globulin Ratio 1.4 % 03/17/20 04:36 Procalcitonin 6.52 ng/mL (<0.15) 03/21/20 08:58 TSH 1.540 mlU/mL (0.270-4.200) 03/19/20 04:45 Free T4 1.32 ng/dL (0.76-1.46) 03/19/20 04:45 Nasal Screen MRSA (PCR) Negative (Negative) 03/16/20 23:49 Coronavirus (PCR) Positive (Negative) A 03/16/20 Unknown Hepatitis A IgM Ab Non-reactive (NonReactive) 03/15/20 19:18 Hep Bs Antigen Non-reactive (Negative) 03/15/20 19:18 Hep B Core IgM Ab Non-reactive (NonReactive) 03/15/20 19:18 Hepatitis C Antibody Non-reactive (NonReactive) 03/15/20 19:18 - Diagnostic Impressions Diagnostic Impressions: Echocardiogram 03/15/20 15:05 Transthoracic Echocardiogram Indication: Pulm edema; h/o CHF BP: 186/94 HR: 75 Conclusions *Global left ventricular wall motion and contractility are within normal limits. *Global left ventricular systolic function is normal. *The right ventricular global systolic function is normal. *The left atrium is severely dilated. *There is evidence of an atrial septal aneurysm. *There is trace of aortic regurgitation. *Severe mitral leaflet calcification is visualized. *There is moderate to severe mitral stenosis. *The mean gradient across the mitral valve is 20.985230823241 mmHg. *There is mild tricuspid regurgitation. *The right ventricular systolic pressure is calculated at 60 mmHg. *There is trace pulmonic regurgitation. Findings Left Ventricle: The left ventricular chamber size is normal. Severe concentric left ventricular hypertrophy is observed. Global left ventricular wall motion and contractility are within normal limits. Global left ventricular systolic function is normal. The estimated ejection fraction is 50-55%. Left Atrium: The left atrium is severely dilated. Right Ventricle: The right ventricular cavity size is normal. The right ventricular global systolic function is normal. Right Atrium: The right atrial cavity size is normal. There is evidence of an atrial septal aneurysm. Aortic Valve: Mild aortic leaflet calcification is visualized. There is trace of aortic regurgitation. Mitral Valve: Severe mitral leaflet calcification is visualized. There is mild mitral regurgitation. There is moderate to severe mitral stenosis. The mean gradient across the mitral valve is 20.963424445482 mmHg. The peak gradient across the mitral valve is 33.85645750115 mmHg. Tricuspid Valve: The tricuspid valve leaflets are normal. There is mild tricuspid regurgitation. The right ventricular systolic pressure is calculated at 60 mmHg. Pulmonic Valve: There is no evidence of pulmonic valve thickening. There is trace pulmonic regurgitation. Pericardium: There is no pericardial effusion. Aorta: The aorta appears normal. Venous: The inferior vena cava is dilated. Measurements Chambers 2D Name Value Normal Range IVSd (2D) 1.82 cm (0.6 - 1.1) LVPWd (2D) 1.64 cm (0.6 - 1.1) LVIDd (2D) 4.56 cm (3.7 - 5.6) LVIDs (2D) 3.53 cm (2 - 3.8) LV FS (2D) 22.49 % - EF Teichholz (2D) 45.39 % - Ao root diameter (2D) 2.87 cm (2 - 3.7) Volumes/Mass Name Value Normal Range LA ESV SP 4CH (A/L) 98.24 ml - LA ESV SP 2CH (A/L) 197.59 ml - LA ESV BP (A/L) 140.33 ml - LA ESV BP (A/L) index 77.53 ml/m2 - LA ESV SP 4CH (MOD) 93.73 ml - LA ESV SP 2CH (MOD) 194.1 ml - LA ESV BP (MOD) 134.76 ml - LA ESV BP (MOD) index 74.45 ml/m2 - Diastolic/Systolic Function Name Value Normal Range MV E-wave Vmax 2.09 m/sec - MV deceleration time 630.49 msec - MV A-wave Vmax 1.38 m/sec - MV E:A ratio 1.51 ratio - Aortic Valve Name Value Normal Range AV Vmax 2.22 m/sec - AV VTI 47.25 cm - AV peak gradient 19.74 mmHg - AV mean gradient 10.57 mmHg - LVOT diameter 1.91 cm - LVOT Vmax 1.58 m/sec - LVOT VTI 31.21 cm - LVOT peak gradient 10 mmHg - LVOT mean gradient 5.33 mmHg - SV LVOT 89.65 ml - CLIVE (continuity Vmax) 2.04 cm2 - CLIVE (continuity VTI) 1.9 cm2 - AR PHT 479.73 msec - AR peak gradient 17.52 mmHg - Mitral Valve Name Value Normal Range MV Vmax 2.89 m/sec - MV VTI 107.77 cm - MV peak gradient 33.41 mmHg - MV mean gradient 20.1 mmHg - MV PHT 184.74 msec - MR Vmax 6.51 m/sec - MVA (PHT) 1.19 cm2 - MVA (continuity VTI) 0.83 cm2 - Tricuspid Valve Name Value Normal Range TR Vmax 3.61 m/sec - TR peak gradient 52.14 mmHg - RAP 8 mmHg - RVSP 60 mmHg - IVC diameter 2.47 cm (1.2 - 2.3) Pulmonic Valve/Qp:Qs Name Value Normal Range PV Vmax 1.13 m/sec - PV peak gradient 5.09 mmHg - SD end-diastolic Vmax 0.73 m/sec - PV acceleration time 106.57 msec - Marx/IV: Voiding Method Incontinent IV Catheter Type [Left Hand] INT / Saline Lock Active Medications - Current Medications Current Medications: Generic Name Dose Route Start Last Admin Trade Name Freq PRN Reason Stop Dose Admin Acetaminophen 650 mg 03/15/20 14:59 03/25/20 05:27 Acetaminophen 325 Mg Tab PO 650 mg Q4H PRN Administration Pain MILD(1-3)/Fever >100.5/KENNY Amlodipine Besylate 10 mg 03/16/20 10:00 04/02/20 10:08 Amlodipine 10 Mg Tab PO 10 mg DAILY MIK Administration Aspirin 81 mg 03/16/20 10:00 04/02/20 10:08 Aspirin Ec 81 Mg Tab PO 81 mg DAILY MIK Administration Atorvastatin Calcium 10 mg 03/15/20 22:00 04/02/20 21:54 Atorvastatin 10 Mg Tab PO 10 mg QHS MIK Administration Azathioprine 50 mg 03/16/20 10:00 04/02/20 10:08 Azathioprine 50 Mg Tab PO 50 mg DAILY MIK Administration Calcitriol 1 mcg 03/21/20 10:00 04/02/20 10:08 Calcitriol 0.25 Mcg Cap PO 1 mcg QDAY MIK Administration Clonidine HCl 0.2 mg 03/15/20 22:00 04/03/20 05:44 Clonidine 0.1 Mg Tab PO 0.2 mg Q8HR MIK Administration Clopidogrel Bisulfate 75 mg 03/16/20 10:00 04/02/20 10:08 Clopidogrel 75 Mg Tab PO 75 mg QDAY MIK Administration Guaifenesin 600 mg 03/17/20 11:00 04/02/20 21:54 Guaifenesin Er 600 Mg Tab PO 600 mg BID MIK Administration Heparin Sodium (Porcine) 5,000 unit 03/15/20 22:00 04/03/20 05:43 Heparin 5,000 Unit/1 Ml Vial SUB-Q Not Given Q8HR [facility] Hydralazine HCl 20 mg 03/17/20 07:33 03/22/20 11:32 Hydralazine 20 Mg/1 Ml Inj IV 20 mg Q4HR PRN Administration Give if SBP>180 DBP>100 Hydralazine HCl 100 mg 03/18/20 20:00 04/03/20 08:17 Hydralazine 100 Mg Tab PO 100 mg TID MIK Administration Hydrophilic Ointment 1 applic 03/19/20 04:30 03/19/20 05:52 Lip Therapy Vaseline TP 1 applic DIRECT PRN Administration Dry Lips Sodium Chloride 100 mls @ 999 mls/hr 03/19/20 17:59 Nacl 0.9% IV SHEREE PRN Hypotension Magnesium Hydroxide 30 ml 03/15/20 14:59 Magnesium Hydroxide (Mom) Oral Liqd Udc PO Q4H PRN Constipation Metoprolol Tartrate 100 mg 03/22/20 22:00 04/02/20 22:26 Metoprolol Tartrate 100 Mg Tab PO Not Given BID MIK Minoxidil 2.5 mg 03/22/20 13:00 04/02/20 10:08 Minoxidil 2.5 Mg Tab PO 2.5 mg QDAY MIK Administration Morphine Sulfate 2 mg 03/15/20 14:59 03/22/20 17:22 Morphine 2 Mg/1 Ml Inj IV 2 mg Q5MIN PRN Administration Chest Pain unrelieved by NTG Ondansetron HCl 4 mg 03/15/20 14:59 03/22/20 17:22 Ondansetron 4 Mg/2 Ml Inj IV 4 mg Q8H PRN Administration Nausea And Vomiting Pantoprazole Sodium 20 mg 03/16/20 10:00 04/02/20 10:09 Pantoprazole 20 Mg Tab PO 20 mg QDAY MIK Administration Sodium Chloride 10 ml 03/15/20 22:00 04/02/20 21:54 Sodium Chloride 0.9% 10 Ml Flush Syringe IV 10 ml BID MIK Administration Sodium Chloride 10 ml 03/15/20 14:59 Sodium Chloride 0.9% 10 Ml Flush Syringe IV PRN PRN LINE FLUSH Tramadol HCl 50 mg 03/16/20 03:23 03/31/20 12:31 Tramadol 50 Mg Tab PO 50 mg Q6H PRN Administration Pain, Moderate (4-6) Valsartan 160 mg 03/15/20 22:00 04/02/20 22:23 Valsartan 160mg Tab PO Not Given BID MIK Nutrition/Malnutrition Assess - Dietary Evaluation Nutrition/Malnutrition Findings: Nutrition Notes Start: 03/23/20 13:01 Freq: Status: Active Protocol: Document 03/31/20 10:55 [email or web address] (Rec: 03/31/20 11:00 [email or web address] [id number]) Co-Sign 03/31/20 10:55 Nutrition Notes Initial or Follow up Reassessment Current Diagnosis CKD (stage V CKD),Heart Failure Other Pertinent Diagnosis Covid(+), lupus, on HD, acute respiratory failure Current Diet Cardiac with renal Labs/Tests No New Labs Pertinent Medications Reviewed Height 5 ft 3 in Weight 78.5 kg [place] Body Weight (kg) 52.27 BMI 30.7 Weight Status Obese Subjective/Other Information F/u for intakes, Spoke to pt on the phone. Pt is consuming 50% of PO intake with okay appetite. Pt declined ONS with no food preferences. Percent of energy/protein needs met: 65%/41% Burn Absent Trauma Absent GI Symptoms None Food Allergy No Current % PO Fair (50-74%) Minimum of two criteria No Energy Intake (non-severe) <75% Estimated Energy Requirement >7 days #1 Nutrition Diagnosis Inadequate oral intake As Evidenced by Signs and Symptoms Pt consuming 50% of meals Diagnosis Progress(for reassessment Worsened documentation) Is patient on ventilator? No Is Patient Ambulatory and/or Out of Bed No REE-([facility]-confined to bed) 3987.86 Calculation Used for Recommendations [facility] Additional Notes Protein: >1.2g/kg (>94g) Fluid: 1000mL or per MD Nutrition Intervention Change Diet Order: Continue current diet Goal #1 Meet at least 75% of energy and protein needs via PO Anticipated Discharge Needs: Cardiac/Renal diet Follow-Up By: 04/04/20 Additional Comments F/U for intakes
[2020-04-03] MEDS: VALSARTAN 160MG TAB PO SCH (11:16)
[2020-04-03] MEDS: amLODIPine 10 MG TAB PO SCH (11:16)
[2020-04-03] MEDS: ASPIRIN EC 81 MG TAB PO SCH (11:17)
[2020-04-03] MEDS: MINOXIDIL 2.5 MG TAB PO SCH (11:18)
[2020-04-03] MEDS: guaiFENesin ER 600 MG TAB PO SCH (11:18)
[2020-04-03] MEDS: METOPROLOL TARTRATE 100 MG TAB PO SCH (11:18)
[2020-04-03] MEDS: CLOPIDOGREL 75 MG TAB PO SCH (11:18)
[2020-04-03] MEDS: CALCITRIOL 0.25 MCG CAP PO SCH (11:19)
[2020-04-03] MEDS: PANTOPRAZOLE 20 MG TAB PO SCH (11:19)
--- NOTE | 2020-04-03 12:03 | Discharge Summary ---
Providers - Providers Date of Admission: 03/16/20 15:10 Date of discharge: 04/03/20 Attending physician: MADDIE VILLEDA 03/15/20 14:12 Consult to Physician [CONS] Stat Comment: Consulting Provider: LUCRECIA VÁSQUEZ Physician Instructions: Reason For Exam: esrd 03/15/20 15:04 Consult to Physician [CONS] Routine Comment: Consulting Provider: CHAZ MACDONALD Physician Instructions: Reason For Exam: Fever, Cough R/O COVID 19 03/18/20 12:24 Physical Therapy Evaluation and Treat [CONS] Routine Comment: Reason For Exam: debility Hospitalization Condition: Stable Hospital course: 59-year-old female with known history of end-stage renal disease on dialysis- Mondays, Wednesdays and Fridays, lupus, CHF, presenting to the emergency room today from an assisted living facility with cough fever headache which has been ongoing for about 4 days. She did not go to dialysis today because she was not feeling quite well. She had a fever of about 103 F. She also also has some mild shortness of breath. Patient indicates that several people at the facility had tested positive for COVID-19. She tested negative for COVID-19 yesterday. Patient denies any chest pain, no nausea vomiting, no loss of taste or smell, no diarrhea and no abdominal pain. In route to the hospital patient oxygen saturation was about 88% on room air she was subsequently placed on 2 L of oxygen. Work-up in the emergency room today chest x-ray reveals pulmonary edema. [employer] Dr. Vásquez has been consulted by the ER physician. Patient has been admitted with pulmonary edema. We will however rule out COVID-19. 2/2: Review of records shows patient is still on High flow, will obtain Pulmonary consultation, patient with worsening D.Dimer, will obtain V/Q scan to rule pulmonary embolism, Will likely change to Heparin drip till this iS clarified if patient is still on High flow. I unfortunately do not see clear oxygen documentation. Continues with Hypertensive urgency, SPOKE with the daughter, patient has had Elevated blood pressure for some time but not quite this high, Nephrology following and adjusting meds. 2/3: Continue supportive care, Will discontinue Heparin drip at this time, and use sliding scale considering low probability of PE on V/Q scan. Considering uncontrolled HTN, will transfer to [facility] and initiate Cardene drip, continue to wean High flow. COUNSELLING ON FLUID RESTRICTIONS 03/23: Consider repeating hypoxia and increasing high flow back to 100% we will ask respiratory therapist to aggressively wean as recommended by machine splitter. Discussed with nursing staff remove restraints and less reevaluate the patient. If recurrent delirium or encephalopathy we will at that time reevaluate. Have discussed with the patient again about compliance with p.o. fluid intake. Blood pressure is better improved today. 03/24: Patient undergoing dialysis today. Anticipate discharge in 48 hours hopefully. We are awaiting outpatient HD set up. Patient will be discharged to rehab center. Is currently down to 4 L of oxygen will need exertional oxygen evaluation prior to discharge. Blood pressure is better. Continue dexamethasone and remdesivir for now. 03/25: Continue supportive care wean oxygen as tolerated. Awaiting dialysis placement for discharge. 03/26: Continue supportive care, blood pressure still elevated. Continue to monitor and address. Still awaiting placement 03/27. Still awaiting placement. Has no complaints today 03/28- 04/03. Still awaiting placement. HD chair already arranged. 04/03. Patient has been accepted to [facility]. She will continue HD as scheduled Disposition: [id number]HAB [facility]AC[facility] Time spent for discharge: 40 mins Core Measure Documentation - Palliative Care Palliative Care/ Comfort Measures: Not Applicable - Core Measures Any of the following diagnoses?: none Exam - Physical Exam Narrative exam: VITAL SIGNS: Reviewed. GENERAL: Awake HEAD: No signs of head trauma. EYES: Pupils are equal. Extraocular motions intact. MOUTH: Oropharynx is normal. NECK: No adenopathy, no JVD. CHEST: Chest with diminished breath sounds bilaterally. No wheezes, rales, or rhonchi. right permacath in place CARDIAC: normal S1 and S2, without murmurs, gallops, or rubs. ABDOMEN: Soft, non tender and non distended. No rebound or guarding, and no masses palpated. Bowel Sounds normal. MUSCULOSKELETAL: No edema NEUROLOGIC EXAM: Alert and oriented x3. No focal neurologic deficits SKIN: No obvious lesions - Constitutional Vitals: Temp Pulse Resp BP Pulse Ox 98.4 F 63 16 143/63 96 04/03/20 04:39 04/03/20 11:16 04/03/20 04:39 04/03/20 11:16 04/03/20 08:31 Plan Activity: no restrictions Diet: renal Additional Instructions: Continue medications as prescribed. Continue HD as scheduled. Follow up with cardiology in the office in 2-3 weeks Follow up with: LOLLY GRIGSBY [Other] - 3-5 Days MARCOS REEVES DO [Staff Physician] - 7 Days JAMES WINTERS MD [Staff Physician] - 7 Days Prescriptions: AtorvaSTATin 10 mg PO QHS #30 Aspirin [Adult Aspirin] 81 mg PO DAILY #30 amLODIPine 10 mg PO DAILY #30 hydrALAZINE [Apresoline TAB] 100 mg PO TID #90 tab azaTHIOprine [Azathioprine] 50 mg PO DAILY #30 cloNIDine [Catapres] 0.2 mg PO Q8HR #90 tablet Valsartan [Diovan] 160 mg PO BID #60 tablet minoxidiL [Loniten] 2.5 mg PO QDAY #30 tablet Metoprolol Tartrate [Lopressor] 100 mg PO BID #60 tablet Clopidogrel [Plavix] 75 mg PO QDAY #30 Pantoprazole [Protonix TAB] 20 mg PO QDAY #30 tablet. calcitrioL [Rocaltrol] 1 mcg PO QDAY #60 capsule
[2020-04-03 18:23] VITALS: BP 88/70
== END 2020-04-03 20:20 | DRG 177 ==
LOC: ED 11:33 → 3A 14:27 → OBSVTOIN 03-16 15:10
PROVIDERS: ADMIT Internal Medicine Geriatric Medicine; ATTEND Internal Medicine
PROC: 5A1D70Z Performance of Urinary Filtration, Intermittent, Less than 6 Hours Per Day (ICD-10-PCS; principal; 2020-03-15)
PROC: 02HV33Z Insertion of Infusion Device into Superior Vena Cava, Percutaneous Approach (ICD-10-PCS; 2020-03-15)
PROC: 5A1D70Z Performance of Urinary Filtration, Intermittent, Less than 6 Hours Per Day (ICD-10-PCS; 2020-03-17)
PROC: 5A1D70Z Performance of Urinary Filtration, Intermittent, Less than 6 Hours Per Day (ICD-10-PCS; 2020-03-19)
PROC: 5A09357 Assistance with Respiratory Ventilation, Less than 24 Consecutive Hours, Continuous Positive Airway Pressure (ICD-10-PCS; 2020-03-19)
PROC: 5A1D70Z Performance of Urinary Filtration, Intermittent, Less than 6 Hours Per Day (ICD-10-PCS; 2020-03-20)
PROC: 5A1D70Z Performance of Urinary Filtration, Intermittent, Less than 6 Hours Per Day (ICD-10-PCS; 2020-03-22)
PROC: 5A1D70Z Performance of Urinary Filtration, Intermittent, Less than 6 Hours Per Day (ICD-10-PCS; 2020-03-24)
PROC: 5A1D70Z Performance of Urinary Filtration, Intermittent, Less than 6 Hours Per Day (ICD-10-PCS; 2020-03-27)
PROC: 5A1D70Z Performance of Urinary Filtration, Intermittent, Less than 6 Hours Per Day (ICD-10-PCS; 2020-03-29)
PROC: 5A1D70Z Performance of Urinary Filtration, Intermittent, Less than 6 Hours Per Day (ICD-10-PCS; 2020-03-31)
PROC: 5A1D70Z Performance of Urinary Filtration, Intermittent, Less than 6 Hours Per Day (ICD-10-PCS; 2020-04-03)
DX: U07.1 COVID-19 (principal); N18.6 End stage renal disease; J96.01 Acute respiratory failure with hypoxia; J12.82 Pneumonia due to coronavirus disease 2019; I50.33 Acute on chronic diastolic (congestive) heart failure; E87.1 Hypo-osmolality and hyponatremia; I47.2 Ventricular tachycardia; I13.2 Hypertensive heart and chronic kidney disease with heart failure and with stage 5 chronic kidney disease, or end stage renal disease; D63.8 Anemia in other chronic diseases classified elsewhere; Z99.2 Dependence on renal dialysis; E87.70 Fluid overload, unspecified; I50.9 Heart failure, unspecified; Z79.899 Other long term (current) drug therapy; Z79.82 Long term (current) use of aspirin
CPT/HCPCS: 36415; 71045; 78580; 80048; 80053; 80074; 80076; 82728; 82962; 83615; 83735; 83880; 84132; 84145; 84439; 84443; 85025; 85027; 85379; 85610; 85730; 86140; 87040; 87641; 93005; 93306; 94660; 94760; 96361; 96365; 96366; 96367; 96375; 96376; G0378; A9270-GY; A9540; J0360; J0696; J1100; J1644; J1940; J2270; J2405; J7500; J8540; U0003